=== PATIENT | male | born 1940 | race American Indian/Alaskan Native ===

== ENCOUNTER 2019-06-14 02:12 | Inpatient (IN) | payer MEDICARE ==
[2019-06-14] MEDS ORDERED: NACL 0.9% 1000 ML 1,000 ML ONE ×2 (02:42→02:44)
[2019-06-14] MEDS ORDERED: NACL 0.9% 1000 ML IV ONE (02:43)
--- NOTE | 2019-06-14 02:55 | Emergency Department Report ---
<COLEMAN PATRICK - Last Filed: 06/14/19 05:53> ED General Adult HPI - General Stated complaint: AMS/LOW BP Time Seen by Provider: 06/14/19 02:39 Source: patient, EMS, RN notes reviewed, old records reviewed Mode of arrival: Stretcher Limitations: No Limitations - History of Present Illness Initial comments: Darrion Buchanan is a 48-year-old male history of COPD anemia rheumatoid arthritis and peripheral vascular disease who presents with hypotension and confusion from [facility]. History of bilateral [id number] imitation. He currently is not confused but appears lethargic. He has generalized malaise denies any pain. Denies chest pain, abdominal pain, shortness of breath, cough. He is full code according to documentation from [facility]. Vital signs documented skilled facility prior to transportation from [facility] include temperature 100.2 Fahrenheit blood pressure 82/50 heart rate 117 bpm RR rate 20 -: Sudden, This morning Consistency: constant Improves with: none Worsens with: none Associated Symptoms: malaise - Related Data Home Medications Medication Instructions Recorded Confirmed Last Taken Amino Acids/Protein Hydrolys 30 ml PO BID 10/17/14 06/15/16 10/24/14 09:00 [Pro-Stat Max Liquid Packet] Ascorbic Acid/Ascorbate Gerardo [Fruit 500 mg PO BID 10/17/14 06/15/16 10/24/14 17:00 C-100 Tablet Chewable] Dextran 70/Hypromellose [Ra 1 drop OU PRN PRN 10/17/14 06/15/16 10/24/14 09:00 Lubricant Eye Drops] Ferrous Sulfate [Iron Supplement 325 mg PO DAILY 10/17/14 06/15/16 10/24/14 09:00 325 Mg tab] Furosemide [Lasix TAB] 40 mg PO DAILY 10/17/14 06/15/16 10/24/14 09:00 Multivitamin [Multi-Vitamin Daily] 1 tab PO DAILY 10/17/14 06/15/16 10/24/14 09:00 Ondansetron [Zofran TAB] 4 mg PO PRN PRN 10/17/14 06/15/16 Unknown Promethazine [Phenergan] 25 mg PO PRN PRN 10/17/14 06/15/16 Unknown Rivaroxaban [Xarelto] 20 mg PO QHS 10/17/14 06/15/16 10/23/14 09:00 Sennosides/Docusate Sodium [[facility] 1 tab PO BID 10/17/14 06/15/16 10/24/14 17:00 Senna Plus Tablet] Previous Rx's Medication Instructions Recorded Last Taken Type HYDROcodone/APAP 10-325 [[place] 1 tab PO QHS PRN #20 tablet 06/29/16 Unknown Rx 10-325 mg TAB] Allergies Allergy/AdvReac Type Severity Reaction Status Date / Time No Known Allergies Allergy Verified 10/17/14 10:49 ED Review of Systems Comment: All other systems reviewed and negative Constitutional: malaise Respiratory: denies: cough, shortness of breath Cardiovascular: denies: chest pain Gastrointestinal: denies: abdominal pain, nausea, vomiting, diarrhea ED Past Medical Hx - Past Medical History Previous Medical History?: Yes Hx Hypertension: Yes Hx Heart Attack/AMI: No Hx Deep Vein Thrombosis: Yes Hx GERD: Yes Hx Liver Disease: No Hx Renal Disease: No Hx Sickle Cell Disease: No Hx Arthritis: Yes Hx Seizures: No Hx Asthma: No Hx COPD: No Additional medical history: venous insufficiency, gout - Surgical History Additional Surgical History: Left above knee amputation - Social History Smoking Status: Current Every Day Smoker - Medications Home Medications: Home Medications Medication Instructions Recorded Confirmed Last Taken Type Amino Acids/Protein Hydrolys 30 ml PO BID 10/17/14 06/15/16 10/24/14 09:00 History [Pro-Stat Max Liquid Packet] Ascorbic Acid/Ascorbate Gerardo [Fruit 500 mg PO BID 10/17/14 06/15/16 10/24/14 17:00 History C-100 Tablet Chewable] Dextran 70/Hypromellose [Ra 1 drop OU PRN PRN 10/17/14 06/15/16 10/24/14 09:00 History Lubricant Eye Drops] Ferrous Sulfate [Iron Supplement 325 mg PO DAILY 10/17/14 06/15/16 10/24/14 09:00 History 325 Mg tab] Furosemide [Lasix TAB] 40 mg PO DAILY 10/17/14 06/15/16 10/24/14 09:00 History Multivitamin [Multi-Vitamin Daily] 1 tab PO DAILY 10/17/14 06/15/16 10/24/14 09:00 History Ondansetron [Zofran TAB] 4 mg PO PRN PRN 10/17/14 06/15/16 Unknown History Promethazine [Phenergan] 25 mg PO PRN PRN 10/17/14 06/15/16 Unknown History Rivaroxaban [Xarelto] 20 mg PO QHS 10/17/14 06/15/16 10/23/14 09:00 History Sennosides/Docusate Sodium [[facility] 1 tab PO BID 10/17/14 06/15/16 10/24/14 17:00 History Senna Plus Tablet] HYDROcodone/APAP 10-325 [[place] 1 tab PO QHS PRN #20 tablet 06/29/16 Unknown Rx 10-325 mg TAB] ED Physical Exam - General General appearance: lethargic, other (GCS 15 but appears drowsy) - Head Head exam: Present: atraumatic, normocephalic - Eye Eye exam: Absent: conjunctival injection - ENT ENT exam: Present: mucous membranes dry - Neck Neck exam: Present: normal inspection, full ROM. Absent: tenderness, meningismus - Respiratory Respiratory exam: Present: decreased breath sounds. Absent: respiratory distress, wheezes, rales, rhonchi, accessory muscle use - Cardiovascular Cardiovascular Exam: Present: normal rhythm, tachycardia, normal heart sounds. Absent: rubs, gallop - GI/Abdominal GI/Abdominal exam: Present: soft, normal bowel sounds. Absent: distended, tenderness, guarding, rebound - Rectal Rectal exam: Present: normal inspection, normal rectal tone, other (greenish brown stool without gross blood) - Extremities Exam Extremities exam: Present: other (bilateral [id number] amputation) - Neurological Exam Neurological exam: Present: alert, oriented X3 - Psychiatric Psychiatric exam: Present: normal mood, flat affect - Skin Skin exam: Present: warm, dry, intact, normal color. Absent: rash - Central Line Placement Right IJ Consent Obtained: emergent situation Time Out Performed: Yes Patient Placed on Monitor/Pulse Ox: Yes MD Prep: mask, gown, gloves, other (drape cap) Central Line Prep: Chlorhexidine scrub, sterile drapes applied Local Anesthesia Used: Lidocaine 1% Amount of Anesthesia Used (mls): 3 Ultrasound Used for Placement: Yes Central Line Lumen Inserted: triple Bloods Obtained for Lab: Yes Central Line Position: good blood return, all ports aspirated, flus, sutured in place with nyl Dressing Applied: Tegaderm Post Procedure X-Ray: tip of catheter in good p Patient Tolerated Procedure: well Complications: none - Intubation Time Out Performed: Yes Sedative: Etomidate Mg Given: 20 Paralytic: Rocuronium Mg Given: 70 Laryngoscope: fiberoptic video scope Size: 4 ET Tube Size: 7.5 Tube Secured Depth (cm): 22 Tube Secured Location: lips Tube Placement Confirmation: visualized tube passing t, equal breath sounds bilat, no breath sounds over epi Patient Tolerated Procedure: well Intubation Complications: none Additional Comments: anticipate difficult intubation with severe flexion of neck with hx of RA, required glidoscope, was unable to extend at neck in spite paralysis ED Medical Decision Making - Lab Data Result diagrams: 06/14/19 04:30 06/14/19 03:10 Laboratory Results - last 24 hr 06/14/19 06/14/19 06/14/19 02:49 03:10 03:10 WBC RBC Hgb Hct MCV MCH MCHC RDW Plt Count POC ABG pH POC ABG pCO2 POC ABG HCO3 POC ABG Total CO2 POC ABG O2 Sat POC ABG Base Excess FiO2 Sodium 139 Potassium 3.5 L Chloride 104.4 Carbon Dioxide 20 L Anion Gap 18 BUN 18 Creatinine 0.7 L Estimated GFR > 60 BUN/Creatinine Ratio 26 Glucose 107 H POC Glucose 117 H Lactic Acid 2.60 H* Calcium 8.4 Total Bilirubin 0.50 AST 19 ALT 11 Alkaline Phosphatase 78 Troponin T 0.979 H* Total Protein 7.2 Albumin 3.0 L Albumin/Globulin Ratio 0.7 Triglycerides 74 Cholesterol 112 LDL Cholesterol Direct 76 HDL Cholesterol 30 L Cholesterol/HDL Ratio 3.73 Urine Color Urine Turbidity Urine pH Ur Specific [place] Urine Protein Urine Glucose (UA) Urine Ketones Urine Blood Urine Nitrite Ur Reducing Substances Urine Bilirubin Urine Ictotest Urine Urobilinogen Ur Leukocyte Esterase Urine WBC (Auto) Urine RBC (Auto) U Epithel Cells (Auto) Urine Mucus 06/14/19 06/14/19 06/14/19 04:30 04:30 04:35 WBC 11.9 H RBC 3.22 L Hgb 9.5 L Hct 28.9 L MCV 90 MCH 30 MCHC 33 RDW 15.0 Plt Count 238 POC ABG pH POC ABG pCO2 POC ABG HCO3 POC ABG Total CO2 POC ABG O2 Sat POC ABG Base Excess FiO2 Sodium Potassium Chloride Carbon Dioxide Anion Gap BUN Creatinine Estimated GFR BUN/Creatinine Ratio Glucose POC Glucose Lactic Acid 1.30 Calcium Total Bilirubin AST ALT Alkaline Phosphatase Troponin T Total Protein Albumin Albumin/Globulin Ratio Triglycerides Cholesterol LDL Cholesterol Direct HDL Cholesterol Cholesterol/HDL Ratio Urine Color Gabbie Urine Turbidity Cloudy Urine pH 5.0 Ur Specific [place] 1.020 Urine Protein 100 mg/dl Urine Glucose (UA) Neg Urine Ketones Neg Urine Blood Neg Urine Nitrite Neg Ur Reducing Substances Not Reportable Urine Bilirubin Neg Urine Ictotest Not Reportable Urine Urobilinogen < 2.0 Ur Leukocyte Esterase Tr Urine WBC (Auto) 8.0 H Urine RBC (Auto) 6.0 U Epithel Cells (Auto) 1.0 Urine Mucus 2+ 06/14/19 05:02 WBC RBC Hgb Hct MCV MCH MCHC RDW Plt Count POC ABG pH 7.314 L POC ABG pCO2 37.7 POC ABG HCO3 19.2 POC ABG Total CO2 20 POC ABG O2 Sat 100 POC ABG Base Excess -7 FiO2 100 Sodium Potassium Chloride Carbon Dioxide Anion Gap BUN Creatinine Estimated GFR BUN/Creatinine Ratio Glucose POC Glucose Lactic Acid Calcium Total Bilirubin AST ALT Alkaline Phosphatase Troponin T Total Protein Albumin Albumin/Globulin Ratio Triglycerides Cholesterol LDL Cholesterol Direct HDL Cholesterol Cholesterol/HDL Ratio Urine Color Urine Turbidity Urine pH Ur Specific [place] Urine Protein Urine Glucose (UA) Urine Ketones Urine Blood Urine Nitrite Ur Reducing Substances Urine Bilirubin Urine Ictotest Urine Urobilinogen Ur Leukocyte Esterase Urine WBC (Auto) Urine RBC (Auto) U Epithel Cells (Auto) Urine Mucus - EKG Data 06/14/19 03:16 EKG obtained 0301 Sinus rhythm rate 90 bpm prolonged TX interval widened QRS right bundle-branch block repolarization abnormality ST elevation in leads V1 and V2, comparable to EKG obtained 06/15/2016 - Radiology Data Radiology results: report reviewed cxr: ETT in place no acute findings - Medical Decision Making Mr. Buchanan presents with hypotension presumed septic shock. Resuscitated with fluid and antibiotics initially. Contacted Dr. Xiong for repolarization abnormality on EKG Dr. Xiong did not see evidence of STEMI without reciprocal changes. EKG is similar in morphology to EKG obtained 06/15/2016 Mr. Buchanan continued to have severe hypotension in spite IVF 30 ml/kg NS and broad spectrum antibiotics. With worsening lethargy, RSI performed for airway protection and anticipation of progression of septic shock. CVL placement. Bran catheter inserted after intubation. Gross examination of purulent, dense urine. Levophed initiated. UA results does not correspond to gross examination of urine in bran tubing: cloudy urine with sediment obvious, strong suspect UTI Septic shock vs cardiogenic shock NSTEMI with elevated troponin, possible type II NSTEMI in setting of shock Awaiting CT angio r/o PE, ct abd/pelvis r/o source of sepsis My colleague will f/u results of imaging prior to admission to ICU in critical condition Critical Care Time: Yes Critical care time in (mins) excluding proc time.: 40 Critical care attestation.: I came to the bedside immediately upon arrival. I was concerned for septic shock with documentation of fever hypotension and tachycardia. I directed resuscitation including broad-spectrum antibiotics and IV fluid therapy. ED Disposition Clinical Impression: Septic shock, NSTEMI (non-ST elevated myocardial infarction), Acute metabolic encephalopathy, UTI (urinary tract infection) Disposition: OP ADMIT IP TO THIS HOSP Is pt being admited?: Yes Condition: Stable Referrals: JOSEPH BROWNCORPUS CHRISTI MD MIRANDA [Primary Care Provider] - 3-5 Days <REG HOWARD - Last Filed: 06/14/19 08:22> ED Review of Systems ROS: Stated complaint: AMS/LOW BP Other details as noted in HPI ED Course Vital Signs 06/14/19 06/14/19 06/14/19 02:34 02:35 02:40 Temperature Pulse Rate 111 H 106 H 105 H Respiratory 21 13 22 Rate Blood Pressure 70/48 79/25 Blood Pressure [Right] O2 Sat by Pulse 88 97 97 Oximetry 06/14/19 06/14/19 06/14/19 02:46 02:47 02:50 Temperature 98.9 F Pulse Rate 98 H 96 H Respiratory 16 12 Rate Blood Pressure 70/48 56/23 Blood Pressure [Right] O2 Sat by Pulse 95 95 Oximetry 06/14/19 06/14/19 06/14/19 02:55 03:00 03:11 Temperature 98.9 F Pulse Rate 102 H 95 H 72 Respiratory 16 14 Rate Blood Pressure 58/34 84/17 Blood Pressure 95/43 [Right] O2 Sat by Pulse 97 96 Oximetry 06/14/19 06/14/19 06/14/19 03:14 03:18 03:20 Temperature Pulse Rate 72 73 77 Respiratory Rate Blood Pressure Blood Pressure 65/38 78/11 61/37 [Right] O2 Sat by Pulse Oximetry 06/14/19 06/14/19 06/14/19 03:23 03:26 03:29 Temperature Pulse Rate 72 71 72 Respiratory Rate Blood Pressure Blood Pressure 62/39 57/42 53/35 [Right] O2 Sat by Pulse Oximetry 06/14/19 06/14/19 06/14/19 05:10 05:15 05:20 Temperature Pulse Rate 116 H 101 H 102 H Respiratory 20 22 22 Rate Blood Pressure 75/48 128/72 128/72 Blood Pressure [Right] O2 Sat by Pulse 100 Oximetry 06/14/19 06/14/19 06/14/19 05:26 05:30 05:36 Temperature Pulse Rate 103 H 104 H 102 H Respiratory 19 16 19 Rate Blood Pressure 128/72 113/79 113/79 Blood Pressure [Right] O2 Sat by Pulse Oximetry 06/14/19 06/14/19 06/14/19 05:40 05:46 05:50 Temperature Pulse Rate 102 H 98 H 102 H Respiratory 14 16 20 Rate Blood Pressure 113/79 119/68 119/68 Blood Pressure [Right] O2 Sat by Pulse Oximetry 06/14/19 06/14/19 06/14/19 06:00 06:30 07:19 Temperature Pulse Rate 100 H 102 H 75 Respiratory 16 23 Rate Blood Pressure 119/68 107/53 100/61 Blood Pressure [Right] O2 Sat by Pulse 100 Oximetry 06/14/19 07:34 Temperature Pulse Rate 82 Respiratory 20 Rate Blood Pressure Blood Pressure 116/60 [Right] O2 Sat by Pulse 100 Oximetry - Consultations Consultation #1: 06/14/19 08:05 surgery paged ED Medical Decision Making - Lab Data Result diagrams: 06/14/19 04:30 06/14/19 03:10 Critical care attestation.: If time is entered above; I have spent that time in minutes in the direct care of this critically ill patient, excluding procedure time. ED Disposition Time of Disposition: 08:21 (Hospitalist notified (Dr Santos))
[2019-06-14] MEDS ORDERED: VANCOMYCIN PHARMACY TO DOSE IV SCH (03:00)
[2019-06-14] MEDS ORDERED: VANCOMYCIN/NS 1 GM/250 ML 1 GM/250 ML BAG IV ONE (03:00)
[2019-06-14] MEDS ORDERED: NACL 0.9% 500 ML 500 ML IV ONE (03:17)
--- NOTE | 2019-06-14 03:24 | XRay Report ---
CHEST 1 VIEW 06/14/2019 2:57 AM INDICATION / CLINICAL INFORMATION: fever hypotension. COMPARISON: 06/15/16 FINDINGS: SUPPORT DEVICES: None. HEART / MEDIASTINUM: No significant abnormality. LUNGS / PLEURA: Right hemidiaphragm is slightly elevated. No acute air space disease. No pneumothorax . ADDITIONAL FINDINGS: Metallic pellet projects over the lower right hemithorax, unchanged. IMPRESSION: 1. No acute findings. No significant change. Signer Name: Ajith Pappas MD Signed: 06/14/2019 3:20 AM Workstation Name: [id number]
[2019-06-14] MEDS ORDERED: MAXIPIME/NS 2 GM/100 ML 2 GM/100 ML BAG IV ONE (03:27)
[2019-06-14] MEDS ORDERED: ZEMURON IV ONE (03:36)
[2019-06-14] MEDS ORDERED: VASELINE LIP THERAPY TP PRN (03:45)
[2019-06-14] MEDS ORDERED: ARTIFICIAL TEARS OPHTH OINT OU PRN (03:45)
[2019-06-14] MEDS ORDERED: VERSED IV PRN (03:45)
[2019-06-14] MEDS ORDERED: MIDAZOLAM 100 MG in NACL 0.9% 80 ML IV SCH (04:00)
[2019-06-14 04:01] LABS: Alanine Aminotransferase 11 units/L (7-56); BUN/Creatinine Ratio 26; Blood Urea Nitrogen 18 mg/dL (9-20); Calcium 8.4 mg/dL (8.4-10.2); Hemolysis Index 15
--- NOTE | 2019-06-14 04:22 | XRay Report ---
CHEST 1 VIEW 06/14/2019 4:03 AM INDICATION / CLINICAL INFORMATION: intubation. COMPARISON: 2:57 AM FINDINGS: SUPPORT DEVICES: Endotracheal tube has been placed with the tip 4.7 cm above the jun in expected p osition. Esophagogastric tube has been placed below the diaphragm into the stomach. HEART / MEDIASTINUM: Stable. LUNGS / PLEURA: No significant pulmonary or pleural abnormality. No pneumothorax. ADDITIONAL FINDINGS: No significant additional findings. IMPRESSION: 1. ET tube in expected position. Signer Name: Ajith Pappas MD Signed: 06/14/2019 4:18 AM Workstation Name: [id number]
[2019-06-14] MEDS: LEVOPHED DRIP 4 MG/NS 250 ML 4 MG/250 ML BAG IV SCH ×3 (04:40→23:08)
[2019-06-14] MEDS ORDERED: LEVOPHED DRIP 4 MG/NS 250 ML 4 MG/250 ML BAG IV ONE (04:43)
[2019-06-14 04:44] LABS: Chol/HDL Ratio 3.73 %; HDL Cholesterol 30 mg/dL (40-59); LDL Cholesterol,Direct 76 mg/dL (50-130)
[2019-06-14 04:47] LABS: Hematocrit 28.9 % (35.5-45.6); Hemoglobin 9.5 gm/dl (11.8-15.2); Mean Corpuscular HGB Conc 33 % (32-34); Mean Corpuscular Volume 90 fl (84-94); Platelet Count 238 K/mm3 (140-440); Red Blood Count 3.22 M/mm3 (3.65-5.03)
[2019-06-14] MEDS ORDERED: ASPIRIN PR ONE (04:49)
[2019-06-14 05:04] LABS: Mucus,Urine 2+ /HPF
[2019-06-14 05:17] LABS: Bilirubin,Urine NEG (Negative); Blood,Urine NEG (Negative); Color,Urine Amber (Yellow); Urobilinogen,Urine < 2.0 mg/dL (<2.0)
[2019-06-14 05:54] LABS: INR 1.35 (0.87-1.13)
[2019-06-14 05:55] LABS: Partial Thromboplastin Time 34.7 Sec. (24.2-36.6)
[2019-06-14] MEDS ORDERED: MAXIPIME/NS 2 GM/100 ML 2 GM/100 ML BAG IV SCH ×2 (06:00)
--- NOTE | 2019-06-14 07:30 | Cat Scan Report ---
CTA CHEST WITH CONTRAST INDICATION / CLINICAL INFORMATION: hypotension severe shock. TECHNIQUE: Axial CT images were obtained through the chest after injection of 100 MLO Omnipaque 350 IV contrast. 3 plane MIP and/or 3D reconstructions were produced. All CT scans at this location are performed usi ng CT dose reduction for ALARA by means of automated exposure control. COMPARISON: None available. FINDINGS: PULMONARY ARTERIES: No pulmonary emboli. THORACIC AORTA: No significant abnormality. HEART: Heart is of normal size and stable. No pericardial effusion. CORONARY ARTERIES: Mild coronary artery calcification. MEDIASTINUM / GITA: No significant abnormality. PLEURA: No pleural effusion. No pneumothorax. LUNGS: Mild bibasilar atelectasis. No acute airspace disease. ADDITIONAL FINDINGS: Endotracheal and esophagogastric tubes are in expected position. Small sliding-t ype hiatal hernia containing small amount of fluid. UPPER ABDOMEN: No acute findings. SKELETAL STRUCTURES: No significant osseous abnormality. IMPRESSION: 1. No CT evidence for pulmonary embolism. 2. Mild bibasilar atelectasis but no acute pulmonary or pleural abnormality. 3. Hiatal hernia containing fluid. Esophagogastric tube in place. Signer Name: Ajith Pappas MD Signed: 06/14/2019 7:26 AM Workstation Name: [id number]
--- NOTE | 2019-06-14 07:49 | Cat Scan Report ---
CT HEAD WITHOUT CONTRAST HISTORY: lethargy. Altered mental status. Intubated patient TECHNIQUE: Axial imaging performed from the skull apex through the skull base without the use of con trast. All CT scans at this location are performed using CT dose reduction for ALARA by means of aut omated exposure control. COMPARISON: None FINDINGS: Parenchyma: No acute intracranial hemorrhage or parenchymal abnormality.. Mild hypoattenuation thro ughout the white matter is noted and consistent with chronic microvascular ischemic disease. No chron ic infarct, mass or mass effect. No extra-axial fluid collection. Ventricles: There is mild diffuse brain atrophy with commensurate ventricular enlargement which is l ikely age appropriate. Soft tissues: Soft tissues including the orbits appear normal. Bones: No acute osseous abnormality. Sinuses: There is moderate mucosal thickening or fluid throughout the ethmoid and frontal sinuses. M inimal mucosal thickening in the sphenoid and maxillary sinuses. The mastoid air cells are clear. IMPRESSION: Essentially normal CT brain for age. Mild diffuse cortical volume loss and mild nonspecif ic chronic white matter changes. Sinus disease, likely chronic. Signer Name: Jay Max Jr, MD Signed: 06/14/2019 7:45 AM Workstation Name: [id number]
--- NOTE | 2019-06-14 08:18 | Cat Scan Report ---
CT ABDOMEN AND PELVIS WITH CONTRAST HISTORY: severe shock hypotension. Patient intubated. COMPARISON: 06/15/2016 TECHNIQUE: Axial CT images were obtained through the abdomen and pelvis after 100 cc of Omnipaque 300 intravenously. Sagittal and coronal reformatted images. All CT scans at this location are performed using CT dose reduction for ALARA by means of automated exposure control. FINDINGS: CT ABDOMEN: Lung Bases: Mild chronic interstitial changes at the lung bases. No infiltrate or effusion. Moderate hiatal hernia is again noted. Liver: No significant abnormality. Biliary: There is moderate diffuse gallbladder wall thickening and edema. No evidence for calcified g allstones or abnormal distention. The common bile duct and intrahepatic ducts are within normal limit s. Spleen: No significant abnormality. Unenlarged. Pancreas: No significant abnormality. Adrenals: No significant abnormality. Kidneys: There is a suspicious 1.8 cm heterogeneous masslike lesion at the inferior pole of the left kidney. In retrospect this was suggested on the previous exam and measured 1.3 cm. The etiology of th is is unclear but it does not appear to represent a simple cyst. Consider ultrasound correlation. The right kidney is unremarkable. The ureters are normal course and caliber. Lymphatics: No lymphadenopathy. Vasculature: Moderate diffuse arterial calcifications. No aneurysm. Bowel/Peritoneum: Partial small bowel obstruction pattern and left inguinal hernia have resolved sinc e the previous exam. There is no evidence for bowel obstruction on today's exam. The appendix is prom inent measuring 1.5 cm in diameter. There appears to be a 2.4 cm fluid collection associated with the distal tip of the appendix. A small periappendiceal abscess is difficult to exclude. There is no lakhwinder dence for free air. Please correlate with the patient's clinical presentation. CT PELVIS: : The bladder is partially decompressed with a Flores catheter. Mild diffuse bladder wall thickening is identified which could represent cystitis or trabeculation of the bladder wall. The prostate glan d is mildly enlarged measuring 5.5 cm in diameter. Osseous Structures: Severe osteopenia is evident. No acute fracture or suspicious bony lesion is iden tified. Additional Findings: There is small perihepatic, perisplenic and pelvic ascites. IMPRESSION: Abnormal appearance of the gallbladder and appendix as outlined above. Correlate for gallbladder symp toms and appendicitis. Cystitis could be considered. Suspicious 1.8 cm left renal lesion as described above. Further imaging is recommended. Severe osteopenia. Signer Name: Jay Max Jr, MD Signed: 06/14/2019 8:13 AM Workstation Name: [id number]
[2019-06-14 08:23] LABS: Band Neutrophils # (Manual) 2.1 K/mm3; Basophils % (Manual) 0 % (0.0-1.8); Eosinophils % (Manual) 0 % (0.0-4.3); Total Cells Counted 100
[2019-06-14 08:25] LABS: Burr Cells Rare; Ovalocytes Rare
[2019-06-14 08:26] LABS: Anisocytosis RARE; Large Platelets Rare; Platelet Estimate Consistent w Auto
--- NOTE | 2019-06-14 08:32 | History and Physical Report ---
History of Present Illness Chief complaint: Confusion and hypotension History of present illness: 78-year-old man who presents from detention. He was brought from [facility] for confusion and lethargy, he was also found to have temperature of 100.2 and blood pressure of 82/50 heart rate of 117 at the detention. There is no other history as the patient is confused and history is limited from detention reports charts and ER. Patient became progressively lethargic and could not protect airway therefore was intubated for airway protection in the ER Past History Past Medical History: severe peripheral vascular disease s/p left AKA and right BKA, hypertension, DVT on anticoagulation,hypertension, GERD, arthritis, venous insufficiency, gout Past Surgical History: Other (R bka and L aka) Social history: full code. previous smoker, no reported hx of smoking, alcohol abuse, prescription drug abuse, IV drug use Family history: hypertension Medications and Allergies Allergies Allergy/AdvReac Type Severity Reaction Status Date / Time No Known Allergies Allergy Verified 10/17/14 10:49 Home Medications Medication Instructions Recorded Confirmed Last Taken Type Amino Acids/Protein Hydrolys 30 ml PO BID 10/17/14 06/15/16 10/24/14 09:00 History [Pro-Stat Max Liquid Packet] Ascorbic Acid/Ascorbate Gerardo [Fruit 500 mg PO BID 10/17/14 06/15/16 10/24/14 17:00 History C-100 Tablet Chewable] Dextran 70/Hypromellose [Ra 1 drop OU PRN PRN 10/17/14 06/15/16 10/24/14 09:00 History Lubricant Eye Drops] Ferrous Sulfate [Iron Supplement 325 mg PO DAILY 10/17/14 06/15/16 10/24/14 09:00 History 325 Mg tab] Furosemide [Lasix TAB] 40 mg PO DAILY 10/17/14 06/15/16 10/24/14 09:00 History Multivitamin [Multi-Vitamin Daily] 1 tab PO DAILY 10/17/14 06/15/16 10/24/14 09:00 History Ondansetron [Zofran TAB] 4 mg PO PRN PRN 10/17/14 06/15/16 Unknown History Promethazine [Phenergan] 25 mg PO PRN PRN 10/17/14 06/15/16 Unknown History Rivaroxaban [Xarelto] 20 mg PO QHS 10/17/14 06/15/16 10/23/14 09:00 History Sennosides/Docusate Sodium [Cvs 1 tab PO BID 10/17/14 06/15/16 10/24/14 17:00 History Senna Plus Tablet] HYDROcodone/APAP 10-325 [[place] 1 tab PO QHS PRN #20 tablet 06/29/16 Unknown Rx 10-325 mg TAB] Active Meds: Active Medications Acetaminophen (Tylenol) 650 mg PO Q4H PRN PRN Reason: Pain MILD(1-3)/Fever >100.5/[place] Enoxaparin Sodium (Lovenox) 40 mg SUB-Q QDAY@2200 HAL Hydrophilic Ointment (Vaseline Lip Therapy) 1 applic TP Q2HR PRN PRN Reason: Dry Lips Midazolam HCl 100 mg/ Sodium (Chloride) 100 mls @ 2 mls/hr IV TITR HAL; Protocol Last Titration: 06/14/19 08:16 Dose: 3 mg/hr, 3 mls/hr Documented by: Norepinephrine (Levophed Drip 4 Mg/Ns 250 Ml) 4 mg in 250 mls @ 7.5 mls/hr IV TITR HAL; Protocol Last Titration: 06/14/19 05:54 Dose: 6 mcg/min, 22.5 mls/hr Documented by: Vancomycin HCl (Vancomycin/Ns 1 Gm/250 Ml) 1 gm in 250 mls @ 166.667 mls/hr IV Q24H HAL Cefepime HCl (Maxipime/Ns 2 Gm/100 Ml) 2 gm in 100 mls @ 200 mls/hr IV Q12HR HAL; Protocol Sodium Chloride (Nacl 0.9% 1000 Ml) 1,000 mls @ 125 mls/hr IV DIRECT HAL Potassium Chloride 40 meq/ (Sodium Chloride) 520 mls @ 125 mls/hr IV DIRECT HAL Stop: 06/14/19 12:40 Midazolam HCl (Versed) 2 mg IV Q10MIN PRN PRN Reason: Sedation Last Admin: 06/14/19 05:06 Dose: 2 mg Documented by: Multi-Ingred Cream/Lotion/Oil/Oint (Artificial Tears Ophth Oint) 1 applic OU Q4HR PRN PRN Reason: Dry Eye(s) Ondansetron HCl (Zofran) 4 mg IV Q8H PRN PRN Reason: Nausea And Vomiting Sodium Chloride (Sodium Chloride Flush Syringe 10 Ml) 10 ml IV BID HAL Sodium Chloride (Sodium Chloride Flush Syringe 10 Ml) 10 ml IV PRN PRN PRN Reason: LINE FLUSH Review of Systems ROS unobtainable: due to mental status Exam - Physical Exam Narrative exam: General.: Appears ill, obtunded, intubated HEENT: Moist mucous membranes, extraocular muscles intact, no lymphadenopathy Neck: supple Cardiac: S1-S2 heard Lungs: Ventilated breath sounds, no crackles Abdomen: soft , not distended Extremities: no edema clubbing or cyanosis Skin: no rash or lesions Neurologic: Intubated, obtunded, not on sedation Psych: Obtunded - Constitutional Vitals: Temp Pulse Resp BP Pulse Ox 98.9 F 78 18 119/76 100 06/14/19 03:11 06/14/19 08:22 06/14/19 08:22 06/14/19 08:22 06/14/19 08:22 Results - Labs CBC & Chem 7: 06/14/19 04:30 06/14/19 03:10 Labs: Laboratory Last Values WBC 11.9 K/mm3 (4.5-11.0) H 06/14/19 04:30 RBC 3.22 M/mm3 (3.65-5.03) L 06/14/19 04:30 Hgb 9.5 gm/dl (11.8-15.2) L 06/14/19 04:30 Hct 28.9 % (35.5-45.6) L 06/14/19 04:30 MCV 90 fl (84-94) 06/14/19 04:30 MCH 30 pg (28-32) 06/14/19 04:30 MCHC 33 % (32-34) 06/14/19 04:30 RDW 15.0 % (13.2-15.2) 06/14/19 04:30 Plt Count 238 K/mm3 (140-440) 06/14/19 04:30 Add Manual Diff Complete 06/14/19 04:30 Total Counted 100 06/14/19 04:30 Seg Neuts % (Manual) 70.0 % (40.0-70.0) 06/14/19 04:30 Band Neutrophils % 18.0 % 06/14/19 04:30 Lymphocytes % (Manual) 8.0 % (13.4-35.0) L 06/14/19 04:30 Reactive Lymphs % (Man) 0 % 06/14/19 04:30 Monocytes % (Manual) 4.0 % (0.0-7.3) 06/14/19 04:30 Eosinophils % (Manual) 0 % (0.0-4.3) 06/14/19 04:30 Basophils % (Manual) 0 % (0.0-1.8) 06/14/19 04:30 Metamyelocytes % 0 % 06/14/19 04:30 Myelocytes % 0 % 06/14/19 04:30 Promyelocytes % 0 % 06/14/19 04:30 Blast Cells % 0 % 06/14/19 04:30 Nucleated RBC % Not Reportable 06/14/19 04:30 Seg Neutrophils # Man 8.3 K/mm3 (1.8-7.7) H 06/14/19 04:30 Band Neutrophils # 2.1 K/mm3 06/14/19 04:30 Lymphocytes # (Manual) 1.0 K/mm3 (1.2-5.4) L 06/14/19 04:30 Abs React Lymphs (Man) 0.0 K/mm3 06/14/19 04:30 Monocytes # (Manual) 0.5 K/mm3 (0.0-0.8) 06/14/19 04:30 Eosinophils # (Manual) 0.0 K/mm3 (0.0-0.4) 06/14/19 04:30 Basophils # (Manual) 0.0 K/mm3 (0.0-0.1) 06/14/19 04:30 Metamyelocytes # 0.0 K/mm3 06/14/19 04:30 Myelocytes # 0.0 K/mm3 06/14/19 04:30 Promyelocytes # 0.0 K/mm3 06/14/19 04:30 Blast Cells # 0.0 K/mm3 06/14/19 04:30 WBC Morphology Not Reportable 06/14/19 04:30 Hypersegmented Neuts Not Reportable 06/14/19 04:30 Hyposegmented Neuts Not Reportable 06/14/19 04:30 Hypogranular Neuts Not Reportable 06/14/19 04:30 Smudge Cells Not Reportable 06/14/19 04:30 Toxic Granulation Not Reportable 06/14/19 04:30 Toxic Vacuolation Not Reportable 06/14/19 04:30 Dohle Bodies Not Reportable 06/14/19 04:30 Pelger-Huet Anomaly Not Reportable 06/14/19 04:30 Raymundo Rods Not Reportable 06/14/19 04:30 Platelet Estimate Consistent w auto 06/14/19 04:30 Clumped Platelets Not Reportable 06/14/19 04:30 Plt Clumps, EDTA Not Reportable 06/14/19 04:30 Large Platelets Rare 06/14/19 04:30 Giant Platelets Not Reportable 06/14/19 04:30 Platelet Satelliting Not Reportable 06/14/19 04:30 Plt Morphology Comment Not Reportable 06/14/19 04:30 RBC Morphology Not Reportable 06/14/19 04:30 Dimorphic RBCs Not Reportable 06/14/19 04:30 Polychromasia Not Reportable 06/14/19 04:30 Hypochromasia Not Reportable 06/14/19 04:30 Poikilocytosis Not Reportable 06/14/19 04:30 Anisocytosis Rare 06/14/19 04:30 Microcytosis Not Reportable 06/14/19 04:30 Macrocytosis Not Reportable 06/14/19 04:30 Spherocytes Not Reportable 06/14/19 04:30 Pappenheimer Bodies Not Reportable 06/14/19 04:30 Sickle Cells Not Reportable 06/14/19 04:30 Target Cells Not Reportable 06/14/19 04:30 Tear Drop Cells Not Reportable 06/14/19 04:30 Ovalocytes Rare 06/14/19 04:30 Helmet Cells Not Reportable 06/14/19 04:30 Hardy-Nocona Bodies Not Reportable 06/14/19 04:30 [place] Rings Not Reportable 06/14/19 04:30 Davina Cells Rare 06/14/19 04:30 Bite Cells Not Reportable 06/14/19 04:30 Crenated Cell Not Reportable 06/14/19 04:30 Elliptocytes Not Reportable 06/14/19 04:30 Acanthocytes (Spur) Not Reportable 06/14/19 04:30 Rouleaux Not Reportable 06/14/19 04:30 Hemoglobin C Crystals Not Reportable 06/14/19 04:30 Schistocytes Not Reportable 06/14/19 04:30 Malaria parasites Not Reportable 06/14/19 04:30 Paulie Bodies Not Reportable 06/14/19 04:30 Hem Pathologist Commnt No 06/14/19 04:30 PT 16.3 Sec. (12.2-14.9) H 06/14/19 05:28 INR 1.35 (0.87-1.13) H 06/14/19 05:28 APTT 34.7 Sec. (24.2-36.6) 06/14/19 05:28 POC ABG pH 7.314 (7.35-7.45) L 06/14/19 05:02 POC ABG pCO2 37.7 (35-45) 06/14/19 05:02 POC ABG HCO3 19.2 (22-26 mml/L) 06/14/19 05:02 POC ABG Total CO2 20 (23-27mmol/L) 06/14/19 05:02 POC ABG O2 Sat 100 06/14/19 05:02 POC ABG Base Excess -7 ((-2) - (+3)mmol/L) 06/14/19 05:02 FiO2 100 % 06/14/19 05:02 Sodium 139 mmol/L (137-145) 06/14/19 03:10 Potassium 3.5 mmol/L (3.6-5.0) L 06/14/19 03:10 Chloride 104.4 mmol/L (98-107) 06/14/19 03:10 Carbon Dioxide 20 mmol/L (22-30) L 06/14/19 03:10 Anion Gap 18 mmol/L 06/14/19 03:10 BUN 18 mg/dL (9-20) 06/14/19 03:10 Creatinine 0.7 mg/dL (0.8-1.5) L 06/14/19 03:10 Estimated GFR > 60 ml/min 06/14/19 03:10 BUN/Creatinine Ratio 26 % 06/14/19 03:10 Glucose 107 mg/dL (75-100) H 06/14/19 03:10 POC Glucose 117 (70-105) H 06/14/19 02:49 Lactic Acid 1.20 mmol/L (0.7-2.0) 06/14/19 05:28 Calcium 8.4 mg/dL (8.4-10.2) 06/14/19 03:10 Total Bilirubin 0.50 mg/dL (0.1-1.2) 06/14/19 03:10 AST 19 units/L (5-40) 06/14/19 03:10 ALT 11 units/L (7-56) 06/14/19 03:10 Alkaline Phosphatase 78 units/L (35-129) 06/14/19 03:10 Troponin T 0.979 ng/mL (0.00-0.029) H* 06/14/19 03:10 Total Protein 7.2 g/dL (6.3-8.2) 06/14/19 03:10 Albumin 3.0 g/dL (3.9-5) L 06/14/19 03:10 Albumin/Globulin Ratio 0.7 % 06/14/19 03:10 Triglycerides 74 mg/dL (2-149) 06/14/19 03:10 Cholesterol 112 mg/dL (50-199) 06/14/19 03:10 LDL Cholesterol Direct 76 mg/dL (50-130) 06/14/19 03:10 HDL Cholesterol 30 mg/dL (40-59) L 06/14/19 03:10 Cholesterol/HDL Ratio 3.73 % 06/14/19 03:10 Urine Color Gabbie (Yellow) 06/14/19 04:35 Urine Turbidity Cloudy (Clear) 06/14/19 04:35 Urine pH 5.0 (5.0-7.0) 06/14/19 04:35 Ur Specific [place] 1.020 (1.003-1.030) 06/14/19 04:35 Urine Protein 100 mg/dl mg/dL (Negative) 06/14/19 04:35 Urine Glucose (UA) Neg mg/dL (Negative) 06/14/19 04:35 Urine Ketones Neg mg/dL (Negative) 06/14/19 04:35 Urine Blood Neg (Negative) 06/14/19 04:35 Urine Nitrite Neg (Negative) 06/14/19 04:35 Ur Reducing Substances Not Reportable 06/14/19 04:35 Urine Bilirubin Neg (Negative) 06/14/19 04:35 Urine Ictotest Not Reportable 06/14/19 04:35 Urine Urobilinogen < 2.0 mg/dL (<2.0) 06/14/19 04:35 Ur Leukocyte Esterase Tr (Negative) 06/14/19 04:35 Urine WBC (Auto) 8.0 /HPF (0.0-6.0) H 06/14/19 04:35 Urine RBC (Auto) 6.0 /HPF (0.0-6.0) 06/14/19 04:35 U Epithel Cells (Auto) 1.0 /HPF (0-13.0) 06/14/19 04:35 Urine Mucus 2+ /HPF 06/14/19 04:35 Assessment and Plan Assessment and plan: 78-year-old man brought from detention for confusion, lethargy and hypotension. Who was intubated in the ER for airway protection Vitals showed hypotension and tachycardia, which improved with pressors Labs show a white count of 11.9 anemia with hemoglobin of 9.5, potassium 3.5, troponin 0 0.979, UA shows 8 leukocytes Chest x-ray; no acute findings CT abdomen and pelvis abnormal appearance of gallbladder and appendix -Moderate diffuse gallbladder wall thickening and edema Appendix is prominent measuring 1.5 cm, there is a 2.4 cm fluid collection in the distal tip of the appendix There is a suspicious 1.8 cm heterogeneous masslike lesion at the inferior pole of the left kidney, it was 1.3 cm on previous exam CT angiogram chest, no PE, bibasilar atelectasis CT head, essentially normal for age Septic shock IV antibiotics, IV pressors, IV fluids, ID consult, follow-up blood cultures Appendicitis, questionable cholecystitis Surgery consulted keep n.p.o. Acute respiratory failure on mechanical ventilator less than 96 hours, continue ventilator, pulmonary to manage Left renal mass Renal ultrasound Hypokalemia Replete IV DVT prophylaxis with Lovenox The high probability of a clinically significant, sudden or life threatening deterioration of the [pulmonary, CVS, GI, renal] system(s) required my full and direct attention, intervention and personal management. The aggregate critical care time was [55] minutes. This time is in addition to time spent performing reported procedures but includes the following: [] Data Review and interpretation [] Patient assessment and monitoring of vital signs [] Documentation [] Medication orders and management
[2019-06-14] MEDS ORDERED: KCL 40 MEQ in NACL 0.45% 500 ML IV SCH (09:30)
--- NOTE | 2019-06-14 11:22 | Consultation ---
History of Present Illness Consult date: 06/14/19 Requesting physician: HELENA TAYLOR Reason for consult: other (Septic Shock) History of present illness: PULMONARY/CCM CONSULT NOTE (full dictation # [id number]) Please see dictated notes for full details Medications and Allergies Allergies Allergy/AdvReac Type Severity Reaction Status Date / Time No Known Allergies Allergy Verified 10/17/14 10:49 Home Medications Medication Instructions Recorded Confirmed Last Taken Type Amino Acids/Protein Hydrolys 30 ml PO BID 10/17/14 06/15/16 10/24/14 09:00 Histo ry [Pro-Stat Max Liquid Packet] Ascorbic Acid/Ascorbate Gerardo [Fruit 500 mg PO BID 10/17/14 06/15/16 10/24/14 17:00 History C-100 Tablet Chewable] Dextran 70/Hypromellose [Ra 1 drop OU PRN PRN 10/17/14 06/15/16 10/24/14 09:00 History Lubricant Eye Drops] Ferrous Sulfate [Iron Supplement 325 mg PO DAILY 10/17/14 06/15/16 10/24/14 09:00 History 325 Mg tab] Furosemide [Lasix TAB] 40 mg PO DAILY 10/17/14 06/15/16 10/24/14 09:00 History Multivitamin [Multi-Vitamin Daily] 1 tab PO DAILY 10/17/14 06/15/16 10/24/14 09:00 History Ondansetron [Zofran TAB] 4 mg PO PRN PRN 10/17/14 06/15/16 Unknown History Promethazine [Phenergan] 25 mg PO PRN PRN 10/17/14 06/15/16 Unknown History Rivaroxaban [Xarelto] 20 mg PO QHS 10/17/14 06/15/16 10/23/14 09:00 History Sennosides/Docusate Sodium [[facility]vs 1 tab PO BID 10/17/14 06/15/16 10/24/14 17:00 History Senna Plus Tablet] HYDROcodone/APAP 10-325 [[place] 1 tab PO QHS PRN #20 tablet 06/29/16 Unknown Rx 10-325 mg TAB] Active Meds: Active Medications Acetaminophen (Tylenol) 650 mg PO Q4H PRN PRN Reason: Pain MILD(1-3)/Fever >100.5/[place] Enoxaparin Sodium (Lovenox) 40 mg SUB-Q QDAY@2200 HAL Hydrophilic Ointment (Vaseline Lip Therapy) 1 applic TP Q2HR PRN PRN Reason: Dry Lips Midazolam HCl 100 mg/ Sodium (Chloride) 100 mls @ 2 mls/hr IV TITR HAL; Protocol Last Titration: 06/14/19 08:16 Dose: 3 mg/hr, 3 mls/hr Documented by: Norepinephrine (Levophed Drip 4 Mg/Ns 250 Ml) 4 mg in 250 mls @ 7.5 mls/hr IV TITR HAL; Protocol Last Titration: 06/14/19 05:54 Dose: 6 mcg/min, 22.5 mls/hr Documented by: Vancomycin HCl (Vancomycin/Ns 1 Gm/250 Ml) 1 gm in 250 mls @ 166.667 mls/hr IV Q24H HAL Cefepime HCl (Maxipime/Ns 2 Gm/100 Ml) 2 gm in 100 mls @ 200 mls/hr IV Q12HR HAL; Protocol Sodium Chloride (Nacl 0.9% 1000 Ml) 1,000 mls @ 125 mls/hr IV DIRECT HAL Potassium Chloride 40 meq/ (Sodium Chloride) 520 mls @ 125 mls/hr IV DIRECT HAL Stop: 06/14/19 13:40 Midazolam HCl (Versed) 2 mg IV Q10MIN PRN PRN Reason: Sedation Last Admin: 06/14/19 05:06 Dose: 2 mg Documented by: Multi-Ingred Cream/Lotion/Oil/Oint (Artificial Tears Ophth Oint) 1 applic OU Q4HR PRN PRN Reason: Dry Eye(s) Ondansetron HCl (Zofran) 4 mg IV Q8H PRN PRN Reason: Nausea And Vomiting Sodium Chloride (Sodium Chloride Flush Syringe 10 Ml) 10 ml IV BID HAL Sodium Chloride (Sodium Chloride Flush Syringe 10 Ml) 10 ml IV PRN PRN PRN Reason: LINE FLUSH Physical Examination Vital signs: Vital Signs Pulse Resp Pulse Ox 111 H 21 88 06/14/19 02:34 06/14/19 02:34 06/14/19 02:34 Results - Laboratory Findings CBC and BMP: 06/14/19 04:30 06/14/19 03:10 ABG POC ABG pH 7.314 (7.35-7.45) L 06/14/19 05:02 POC ABG pCO2 37.7 (35-45) 06/14/19 05:02 POC ABG HCO3 19.2 (22-26 mml/L) 06/14/19 05:02 POC ABG Total CO2 20 (23-27mmol/L) 06/14/19 05:02 POC ABG O2 Sat 100 06/14/19 05:02 PT/INR, D-dimer PT 16.3 Sec. (12.2-14.9) H 06/14/19 05:28 INR 1.35 (0.87-1.13) H 06/14/19 05:28 Abnormal lab findings: Abnormal Labs 06/14/19 06/14/19 06/14/19 02:49 03:10 03:10 WBC RBC Hgb Hct Lymphocytes % (Manual) Seg Neutrophils # Man Lymphocytes # (Manual) PT INR POC ABG pH Potassium 3.5 L Carbon Dioxide 20 L Creatinine 0.7 L Glucose 107 H POC Glucose 117 H Lactic Acid 2.60 H* Troponin T 0.979 H* Albumin 3.0 L HDL Cholesterol 30 L Urine WBC (Auto) 06/14/19 06/14/19 06/14/19 04:30 04:35 05:02 WBC 11.9 H RBC 3.22 L Hgb 9.5 L Hct 28.9 L Lymphocytes % (Manual) 8.0 L Seg Neutrophils # Man 8.3 H Lymphocytes # (Manual) 1.0 L PT INR POC ABG pH 7.314 L Potassium Carbon Dioxide Creatinine Glucose POC Glucose Lactic Acid Troponin T Albumin HDL Cholesterol Urine WBC (Auto) 8.0 H 06/14/19 05:28 WBC RBC Hgb Hct Lymphocytes % (Manual) Seg Neutrophils # Man Lymphocytes # (Manual) PT 16.3 H INR 1.35 H POC ABG pH Potassium Carbon Dioxide Creatinine Glucose POC Glucose Lactic Acid Troponin T Albumin HDL Cholesterol Urine WBC (Auto)
[2019-06-14] MEDS: NACL 0.9% 1000 ML 1,000 ML IV SCH ×2 (11:59→21:46)
[2019-06-14] MEDS: SODIUM CHLORIDE FLUSH SYRINGE 10 ML IV SCH ×2 (11:59→23:42)
--- NOTE | 2019-06-14 12:08 | Consultation ---
History of Present Illness Consult date: 06/14/19 Consult reason: elevated troponin, other (Abnormal ECG) History of present illness: This is a 78-year old with multiple comorbidities including bilateral above-knee amputation who resides in a halfway. He was brought in with altered mental status, hypotension, fever, admitted with sepsis. Currently intubated on the vent and on pressors for support. Chest x-ray shows no acute findings and a chest CTA was negative for pulmonary embolus. 12 lead EKG is sinus rhythm with a right bundle branch block. Medications and Allergies Allergies Allergy/AdvReac Type Severity Reaction Status Date / Time No Known Allergies Allergy Verified 10/17/14 10:49 Home Medications Medication Instructions Recorded Confirmed Last Taken Type Amino Acids/Protein Hydrolys 30 ml PO BID 10/17/14 06/15/16 10/24/14 09:00 History [Pro-Stat Max Liquid Packet] Ascorbic Acid/Ascorbate Gerardo [Fruit 500 mg PO BID 10/17/14 06/15/16 10/24/14 17:00 History C-100 Tablet Chewable] Dextran 70/Hypromellose [Ra 1 drop OU PRN PRN 10/17/14 06/15/16 10/24/14 09:00 History Lubricant Eye Drops] Ferrous Sulfate [Iron Supplement 325 mg PO DAILY 10/17/14 06/15/16 10/24/14 09:00 History 325 Mg tab] Furosemide [Lasix TAB] 40 mg PO DAILY 10/17/14 06/15/16 10/24/14 09:00 History Multivitamin [Multi-Vitamin Daily] 1 tab PO DAILY 10/17/14 06/15/16 10/24/14 09:00 History Ondansetron [Zofran TAB] 4 mg PO PRN PRN 10/17/14 06/15/16 Unknown History Promethazine [Phenergan] 25 mg PO PRN PRN 10/17/14 06/15/16 Unknown History Rivaroxaban [Xarelto] 20 mg PO QHS 10/17/14 06/15/16 10/23/14 09:00 History Sennosides/Docusate Sodium [[facility] 1 tab PO BID 10/17/14 06/15/16 10/24/14 17:00 History Senna Plus Tablet] HYDROcodone/APAP 10-325 [[place] 1 tab PO QHS PRN #20 tablet 06/29/16 Unknown Rx 10-325 mg TAB] Active Meds: Active Medications Acetaminophen (Tylenol) 650 mg PO Q4H PRN PRN Reason: Pain MILD(1-3)/Fever >100.5/[place] Enoxaparin Sodium (Lovenox) 40 mg SUB-Q QDAY@2200 HAL Hydrophilic Ointment (Vaseline Lip Therapy) 1 applic TP Q2HR PRN PRN Reason: Dry Lips Midazolam HCl 100 mg/ Sodium (Chloride) 100 mls @ 2 mls/hr IV TITR HAL; Protocol Last Titration: 06/14/19 08:16 Dose: 3 mg/hr, 3 mls/hr Documented by: Norepinephrine (Levophed Drip 4 Mg/Ns 250 Ml) 4 mg in 250 mls @ 7.5 mls/hr IV TITR HAL; Protocol Last Titration: 06/14/19 05:54 Dose: 6 mcg/min, 22.5 mls/hr Documented by: Vancomycin HCl (Vancomycin/Ns 1 Gm/250 Ml) 1 gm in 250 mls @ 166.667 mls/hr IV Q24H HAL Cefepime HCl (Maxipime/Ns 2 Gm/100 Ml) 2 gm in 100 mls @ 200 mls/hr IV Q12HR HAL; Protocol Sodium Chloride (Nacl 0.9% 1000 Ml) 1,000 mls @ 125 mls/hr IV DIRECT HAL Last Admin: 06/14/19 11:59 Dose: 125 mls/hr Documented by: Potassium Chloride 40 meq/ (Sodium Chloride) 520 mls @ 125 mls/hr IV DIRECT HAL Stop: 06/14/19 13:40 Last Admin: 06/14/19 11:59 Dose: 125 mls/hr Documented by: Midazolam HCl (Versed) 2 mg IV Q10MIN PRN PRN Reason: Sedation Last Admin: 06/14/19 05:06 Dose: 2 mg Documented by: Multi-Ingred Cream/Lotion/Oil/Oint (Artificial Tears Ophth Oint) 1 applic OU Q4HR PRN PRN Reason: Dry Eye(s) Ondansetron HCl (Zofran) 4 mg IV Q8H PRN PRN Reason: Nausea And Vomiting Sodium Chloride (Sodium Chloride Flush Syringe 10 Ml) 10 ml IV BID HAL Last Admin: 06/14/19 11:59 Dose: 10 ml Documented by: Sodium Chloride (Sodium Chloride Flush Syringe 10 Ml) 10 ml IV PRN PRN PRN Reason: LINE FLUSH Physical Examination Vital Signs Pulse Resp Pulse Ox 111 H 21 88 06/14/19 02:34 06/14/19 02:34 06/14/19 02:34 General appearance: other (intubated on the vent) Cardiac: Positive: Reg Rate and Rhythm Results 06/14/19 04:30 06/14/19 03:10 Cardiac Enzymes 06/14/19 Range/Units 03:10 AST 19 (5-40) units/L Coagulation 06/14/19 Range/Units 05:28 PT 16.3 H (12.2-14.9) Sec. INR 1.35 H (0.87-1.13) APTT 34.7 (24.2-36.6) Sec. Lipids 06/14/19 Range/Units 03:10 Triglycerides 74 (2-149) mg/dL Cholesterol 112 (50-199) mg/dL HDL Cholesterol 30 L (40-59) mg/dL Cholesterol/HDL Ratio 3.73 % CBC 06/14/19 Range/Units 04:30 WBC 11.9 H (4.5-11.0) K/mm3 RBC 3.22 L (3.65-5.03) M/mm3 Hgb 9.5 L (11.8-15.2) gm/dl Hct 28.9 L (35.5-45.6) % Plt Count 238 (140-440) K/mm3 Comprehensive Metabolic Panel 06/14/19 Range/Units 03:10 Sodium 139 (137-145) mmol/L Potassium 3.5 L (3.6-5.0) mmol/L Chloride 104.4 (98-107) mmol/L Carbon Dioxide 20 L (22-30) mmol/L BUN 18 (9-20) mg/dL Creatinine 0.7 L (0.8-1.5) mg/dL Glucose 107 H (75-100) mg/dL Calcium 8.4 (8.4-10.2) mg/dL AST 19 (5-40) units/L ALT 11 (7-56) units/L Alkaline Phosphatase 78 (35-129) units/L Total Protein 7.2 (6.3-8.2) g/dL Albumin 3.0 L (3.9-5) g/dL
[2019-06-14] MEDS ORDERED: PROVENTIL IH PRN (12:31)
--- NOTE | 2019-06-14 13:15 | XRay Report ---
CHEST 1 VIEW INDICATION: central line placement. COMPARISON: Same day at 04:03 FINDINGS: Support devices: Endotracheal tube is in satisfactory position. A nasogastric tube tip is below the d iaphragm and not imaged. A right IJ catheter has been inserted and the tip is in the distal SVC. Heart: Within normal limits. Pulmonary vasculature: Normal. Lungs/Pleura: The lungs are normally expanded and clear except for mild right basal subsegmental atel ectasis. No pneumothorax. Additional findings: None. IMPRESSION: Satisfactory placement of the right central line. No pneumothorax. Signer Name: Gary Hancock MD Signed: 06/14/2019 1:10 PM Workstation Name: [id number]
[2019-06-14] MEDS ORDERED: SIMPLE SYRUP FEEDTUBE PRN ×2 (13:28)
[2019-06-14] MEDS ORDERED: PANCREAZE DR 10,500 UNIT FEEDTUBE PRN (13:28)
[2019-06-14] MEDS ORDERED: SODIUM BICARBONATE FEEDTUBE PRN (13:28)
--- NOTE | 2019-06-14 15:02 | Consultation ---
History of Present Illness Consult date: 06/14/19 Reason for consult: other (abnormal CT) Requesting physician: REG HOWARD Chief complaint: altered mental status - History of present illness History of present illness: Pt intubated and unable to participate in history. History obtained from chart -- 78-year-old man who presents from prison. He was brought from [facility] for confusion and lethargy, he was also found to have temperature of 100.2 and blood pressure of 82/50 heart rate of 117 at the [facility]. There is no other history as the patient is confused and history is limited from prison reports charts and ER. Patient became progressively lethargic and could not protect airway therefore was intubated for airway protection in the ER. Pt did report to ED that he does not have any pain. Denied chest pain, abdominal pain, shortness of breath, cough. Gen surg was asked to the patient for possible appendicitis and gallbladder abnormality. Past History Past Medical History: anemia, arthritis (rheumatoid), COPD, DVT, hypertension, PVD, other (venous insufficiency, gout, ) Past Surgical History: Other (left AKA) Social history: smoking Family history: no significant family history Medications and Allergies Allergies Allergy/AdvReac Type Severity Reaction Status Date / Time No Known Allergies Allergy Verified 10/17/14 10:49 Home Medications Medication Instructions Recorded Confirmed Last Taken Type Amino Acids/Protein Hydrolys 30 ml PO BID 10/17/14 06/15/16 10/24/14 09:00 History [Pro-Stat Max Liquid Packet] Ascorbic Acid/Ascorbate Gerardo [Fruit 500 mg PO BID 10/17/14 06/15/16 10/24/14 17:00 History C-100 Tablet Chewable] Dextran 70/Hypromellose [Ra 1 drop OU PRN PRN 10/17/14 06/15/16 10/24/14 09:00 History Lubricant Eye Drops] Ferrous Sulfate [Iron Supplement 325 mg PO DAILY 10/17/14 06/15/16 10/24/14 09:00 History 325 Mg tab] Furosemide [Lasix TAB] 40 mg PO DAILY 10/17/14 06/15/16 10/24/14 09:00 History Multivitamin [Multi-Vitamin Daily] 1 tab PO DAILY 10/17/14 06/15/16 10/24/14 09:00 History Ondansetron [Zofran TAB] 4 mg PO PRN PRN 10/17/14 06/15/16 Unknown History Promethazine [Phenergan] 25 mg PO PRN PRN 10/17/14 06/15/16 Unknown History Rivaroxaban [Xarelto] 20 mg PO QHS 10/17/14 06/15/16 10/23/14 09:00 History Sennosides/Docusate Sodium [Cvs 1 tab PO BID 10/17/14 06/15/16 10/24/14 17:00 History Senna Plus Tablet] HYDROcodone/APAP 10-325 [[place] 1 tab PO QHS PRN #20 tablet 06/29/16 Unknown Rx 10-325 mg TAB] Active Meds: Active Medications Acetaminophen (Tylenol) 650 mg PO Q4H PRN PRN Reason: Pain MILD(1-3)/Fever >100.5/[place] Albuterol (Proventil) 2.5 mg IH Q4HRT PRN PRN Reason: Shortness Of Breath Lipase/Protease/Amylase (Pancreaze Dr 10,500 Unit) 1 each FEEDTUBE PRN PRN PRN Reason: For Clogged Feeding Tube Hydrophilic Ointment (Vaseline Lip Therapy) 1 applic TP Q2HR PRN PRN Reason: Dry Lips Midazolam HCl 100 mg/ Sodium (Chloride) 100 mls @ 2 mls/hr IV TITR HAL; Protocol Last Titration: 06/14/19 08:16 Dose: 3 mg/hr, 3 mls/hr Documented by: Norepinephrine (Levophed Drip 4 Mg/Ns 250 Ml) 4 mg in 250 mls @ 7.5 mls/hr IV TITR HAL; Protocol Last Titration: 06/14/19 05:54 Dose: 6 mcg/min, 22.5 mls/hr Documented by: Vancomycin HCl (Vancomycin/Ns 1 Gm/250 Ml) 1 gm in 250 mls @ 166.667 mls/hr IV Q24H HAL Cefepime HCl (Maxipime/Ns 2 Gm/100 Ml) 2 gm in 100 mls @ 200 mls/hr IV Q12HR HAL; Protocol Sodium Chloride (Nacl 0.9% 1000 Ml) 1,000 mls @ 125 mls/hr IV DIRECT HAL Last Admin: 06/14/19 11:59 Dose: 125 mls/hr Documented by: Midazolam HCl (Versed) 2 mg IV Q10MIN PRN PRN Reason: Sedation Last Admin: 06/14/19 05:06 Dose: 2 mg Documented by: Multi-Ingred Cream/Lotion/Oil/Oint (Artificial Tears Ophth Oint) 1 applic OU Q4HR PRN PRN Reason: Dry Eye(s) Ondansetron HCl (Zofran) 4 mg IV Q8H PRN PRN Reason: Nausea And Vomiting Simple Syrup (Simple Syrup) 15 ml FEEDTUBE PRN PRN PRN Reason: Hypoglycemia Simple Syrup (Simple Syrup) 30 ml FEEDTUBE PRN PRN PRN Reason: Hypoglycemia Sodium Bicarbonate (Sodium Bicarbonate) 325 mg FEEDTUBE PRN PRN PRN Reason: For Clogged Feeding Tube Sodium Chloride (Sodium Chloride Flush Syringe 10 Ml) 10 ml IV BID HAL Last Admin: 06/14/19 11:59 Dose: 10 ml Documented by: Sodium Chloride (Sodium Chloride Flush Syringe 10 Ml) 10 ml IV PRN PRN PRN Reason: LINE FLUSH Review of Systems ROS unobtainable: due to endotracheal tube, due to mental status Exam Vital Signs Pulse Resp Pulse Ox 111 H 21 88 06/14/19 02:34 06/14/19 02:34 06/14/19 02:34 - General physical appearance Positive: well developed, well nourished, no distress - ENT Positive: other (ETT in place) - Neck Positive: trachea midline - Respiratory Positive: normal expansion, normal respiratory effort, clear to auscultation (bilaterally, but distant BS) - Cardiovascular Rhythm: regular - Abdomen Abdomen: Present: soft, bowel sounds hypoactive, surgical scars (possibly below the umbo). Absent: tender, distended, masses, guarding, rigid, wound Hernia: none - Integumentary no rash, no growths, no abnormal pigmentation Results - Labs 06/14/19 04:30 06/14/19 03:10 Abnormal lab results 06/14/19 06/14/19 06/14/19 Range/Units 02:49 03:10 03:10 WBC (4.5-11.0) K/mm3 RBC (3.65-5.03) M/mm3 Hgb (11.8-15.2) gm/dl Hct (35.5-45.6) % Lymphocytes % (Manual) (13.4-35.0) % Seg Neutrophils # Man (1.8-7.7) K/mm3 Lymphocytes # (Manual) (1.2-5.4) K/mm3 PT (12.2-14.9) Sec. INR (0.87-1.13) POC ABG pH (7.35-7.45) Potassium 3.5 L (3.6-5.0) mmol/L Carbon Dioxide 20 L (22-30) mmol/L Creatinine 0.7 L (0.8-1.5) mg/dL Glucose 107 H (75-100) mg/dL POC Glucose 117 H (70-105) Lactic Acid 2.60 H* (0.7-2.0) mmol/L Troponin T 0.979 H* (0.00-0.029) ng/mL Albumin 3.0 L (3.9-5) g/dL HDL Cholesterol 30 L (40-59) mg/dL Urine WBC (Auto) (0.0-6.0) /HPF 06/14/19 06/14/19 06/14/19 Range/Units 04:30 04:35 05:02 WBC 11.9 H (4.5-11.0) K/mm3 RBC 3.22 L (3.65-5.03) M/mm3 Hgb 9.5 L (11.8-15.2) gm/dl Hct 28.9 L (35.5-45.6) % Lymphocytes % (Manual) 8.0 L (13.4-35.0) % Seg Neutrophils # Man 8.3 H (1.8-7.7) K/mm3 Lymphocytes # (Manual) 1.0 L (1.2-5.4) K/mm3 PT (12.2-14.9) Sec. INR (0.87-1.13) POC ABG pH 7.314 L (7.35-7.45) Potassium (3.6-5.0) mmol/L Carbon Dioxide (22-30) mmol/L Creatinine (0.8-1.5) mg/dL Glucose (75-100) mg/dL POC Glucose (70-105) Lactic Acid (0.7-2.0) mmol/L Troponin T (0.00-0.029) ng/mL Albumin (3.9-5) g/dL HDL Cholesterol (40-59) mg/dL Urine WBC (Auto) 8.0 H (0.0-6.0) /HPF 06/14/19 Range/Units 05:28 WBC (4.5-11.0) K/mm3 RBC (3.65-5.03) M/mm3 Hgb (11.8-15.2) gm/dl Hct (35.5-45.6) % Lymphocytes % (Manual) (13.4-35.0) % Seg Neutrophils # Man (1.8-7.7) K/mm3 Lymphocytes # (Manual) (1.2-5.4) K/mm3 PT 16.3 H (12.2-14.9) Sec. INR 1.35 H (0.87-1.13) POC ABG pH (7.35-7.45) Potassium (3.6-5.0) mmol/L Carbon Dioxide (22-30) mmol/L Creatinine (0.8-1.5) mg/dL Glucose (75-100) mg/dL POC Glucose (70-105) Lactic Acid (0.7-2.0) mmol/L Troponin T (0.00-0.029) ng/mL Albumin (3.9-5) g/dL HDL Cholesterol (40-59) mg/dL Urine WBC (Auto) (0.0-6.0) /HPF Diabetes panel 06/14/19 Range/Units 03:10 Sodium 139 (137-145) mmol/L Potassium 3.5 L (3.6-5.0) mmol/L Chloride 104.4 (98-107) mmol/L Carbon Dioxide 20 L (22-30) mmol/L BUN 18 (9-20) mg/dL Creatinine 0.7 L (0.8-1.5) mg/dL Glucose 107 H (75-100) mg/dL Calcium 8.4 (8.4-10.2) mg/dL AST 19 (5-40) units/L ALT 11 (7-56) units/L Alkaline Phosphatase 78 (35-129) units/L Total Protein 7.2 (6.3-8.2) g/dL Albumin 3.0 L (3.9-5) g/dL Triglycerides 74 (2-149) mg/dL HDL Cholesterol 30 L (40-59) mg/dL Calcium panel 06/14/19 Range/Units 03:10 Calcium 8.4 (8.4-10.2) mg/dL Albumin 3.0 L (3.9-5) g/dL Pituitary panel 06/14/19 Range/Units 03:10 Sodium 139 (137-145) mmol/L Potassium 3.5 L (3.6-5.0) mmol/L Chloride 104.4 (98-107) mmol/L Carbon Dioxide 20 L (22-30) mmol/L BUN 18 (9-20) mg/dL Creatinine 0.7 L (0.8-1.5) mg/dL Glucose 107 H (75-100) mg/dL Calcium 8.4 (8.4-10.2) mg/dL Adrenal panel 06/14/19 Range/Units 03:10 Sodium 139 (137-145) mmol/L Potassium 3.5 L (3.6-5.0) mmol/L Chloride 104.4 (98-107) mmol/L Carbon Dioxide 20 L (22-30) mmol/L BUN 18 (9-20) mg/dL Creatinine 0.7 L (0.8-1.5) mg/dL Glucose 107 H (75-100) mg/dL Calcium 8.4 (8.4-10.2) mg/dL Total Bilirubin 0.50 (0.1-1.2) mg/dL AST 19 (5-40) units/L ALT 11 (7-56) units/L Alkaline Phosphatase 78 (35-129) units/L Total Protein 7.2 (6.3-8.2) g/dL Albumin 3.0 L (3.9-5) g/dL - Imaging CT scan - abdomen: report reviewed, image reviewed CT scan - pelvis: report reviewed, image reviewed Assessment and Plan - Patient Problems (1) Abnormal CT of the abdomen Current Visit: Yes Status: Acute Plan to address problem: Pt in guarded condition. Based on the limited history that is available, there was no obvious information to suggest an abdominal abnormality. I reviewed the CT scan from today and [address] Max. My impression was that there was minimal if any inflammatory change around the appendix. He confirmed my impression. The appendix and adjacent fluid collection do not appear to be impressive enough to account for his current state of illness. We also discussed that the patient had an enlarged appendix and possible fluid collection in 2016. He may have suffered a ruptured appendix at that time and we are now seeing the residual appearance. He also agreed that there appeared to be fluid near the liver and spleen. There may be ascites in the abdomen. The gallbladder, although thickened, does not have any stones or appeared distended. LFTs were completely normal. I am concerned with the significant elevation in troponin. I discussed my impressions with Dr. Bess. I recommended that we resuscitate him and treat him with IV antibiotics for now. Perhaps we could trend the troponins and see what comes of that. If there is still concern that his clinical picture is secondary to appendicitis, then I will take him for a diagnostic laparoscopy. I am not very confident that removing the appendix will help. Will follow along. Please call with questions. time=60min
--- NOTE | 2019-06-14 15:28 | Consultation ---
History of Present Illness - Reason for Consult Consult date: 06/14/19 septic shock Requesting physician: HELENA TAYLOR - History of Present Illness 78 y/o male with a history of severe peripheral artery disease status post bilateral above the knee amputations, previous MRSA in wounds, COPD, rheumatoid arthritis, admitted on 06/14/2019 due to fever at 100.2, AMS and hypotension at 82/50 noted at his [facility] home the morning of admission. He is currently intubated, sedated, on prossors. Unable to obtain details. In the ED, temp 98.9, HR 111, R 21, BP 70/48. WBC 11.9 with 18% bands. Hg 9.5. Plat 238. Creat 0.7. UA with 8 wbc trace LE. Blood culture 06/14/2019 pending. Tracheal asp cutlure 06/14/2019 pending. CXR no abnormalities. CTA chest shows No CT evidence for pulmonary embolism, no acute pulmonary or pleural abnormality. CT abd shows abnormal appearance of the gallbladder and appendix, ?cystitis. In the ED undewent intubation and started on pressors. Review of Systems: unable to obtain - sedated intubated Past History Past Medical History: anemia, arthritis (rheumatoid), COPD, DVT, hypertension, PVD, other (venous insufficiency, gout, ) Past Surgical History: Other (left AKA) Social history: smoking Family history: no significant family history Medications and Allergies Allergies Allergy/AdvReac Type Severity Reaction Status Date / Time No Known Allergies Allergy Verified 10/17/14 10:49 Home Medications Medication Instructions Recorded Confirmed Last Taken Type Amino Acids/Protein Hydrolys 30 ml PO BID 10/17/14 06/15/16 10/24/14 09:00 History [Pro-Stat Max Liquid Packet] Ascorbic Acid/Ascorbate Gerardo [Fruit 500 mg PO BID 10/17/14 06/15/16 10/24/14 17:00 History C-100 Tablet Chewable] Dextran 70/Hypromellose [Ra 1 drop OU PRN PRN 10/17/14 06/15/16 10/24/14 09:00 History Lubricant Eye Drops] Ferrous Sulfate [Iron Supplement 325 mg PO DAILY 10/17/14 06/15/16 10/24/14 09:00 History 325 Mg tab] Furosemide [Lasix TAB] 40 mg PO DAILY 10/17/14 06/15/16 10/24/14 09:00 History Multivitamin [Multi-Vitamin Daily] 1 tab PO DAILY 10/17/14 06/15/16 10/24/14 09:00 History Ondansetron [Zofran TAB] 4 mg PO PRN PRN 10/17/14 06/15/16 Unknown History Promethazine [Phenergan] 25 mg PO PRN PRN 10/17/14 06/15/16 Unknown History Rivaroxaban [Xarelto] 20 mg PO QHS 10/17/14 06/15/16 10/23/14 09:00 History Sennosides/Docusate Sodium [Cvs 1 tab PO BID 10/17/14 06/15/16 10/24/14 17:00 History Senna Plus Tablet] HYDROcodone/APAP 10-325 [[place] 1 tab PO QHS PRN #20 tablet 06/29/16 Unknown Rx 10-325 mg TAB] Active Meds: Active Medications Acetaminophen (Tylenol) 650 mg PO Q4H PRN PRN Reason: Pain MILD(1-3)/Fever >100.5/[place] Albuterol (Proventil) 2.5 mg IH Q4HRT PRN PRN Reason: Shortness Of Breath Lipase/Protease/Amylase (Pancreaze Dr 10,500 Unit) 1 each FEEDTUBE PRN PRN PRN Reason: For Clogged Feeding Tube Hydrophilic Ointment (Vaseline Lip Therapy) 1 applic TP Q2HR PRN PRN Reason: Dry Lips Midazolam HCl 100 mg/ Sodium (Chloride) 100 mls @ 2 mls/hr IV TITR HAL; Protocol Last Titration: 06/14/19 08:16 Dose: 3 mg/hr, 3 mls/hr Documented by: Norepinephrine (Levophed Drip 4 Mg/Ns 250 Ml) 4 mg in 250 mls @ 7.5 mls/hr IV TITR HAL; Protocol Last Titration: 06/14/19 05:54 Dose: 6 mcg/min, 22.5 mls/hr Documented by: Vancomycin HCl (Vancomycin/Ns 1 Gm/250 Ml) 1 gm in 250 mls @ 166.667 mls/hr IV Q24H HAL Cefepime HCl (Maxipime/Ns 2 Gm/100 Ml) 2 gm in 100 mls @ 200 mls/hr IV Q12HR HAL; Protocol Sodium Chloride (Nacl 0.9% 1000 Ml) 1,000 mls @ 125 mls/hr IV DIRECT HAL Last Admin: 06/14/19 11:59 Dose: 125 mls/hr Documented by: Midazolam HCl (Versed) 2 mg IV Q10MIN PRN PRN Reason: Sedation Last Admin: 06/14/19 05:06 Dose: 2 mg Documented by: Multi-Ingred Cream/Lotion/Oil/Oint (Artificial Tears Ophth Oint) 1 applic OU Q4HR PRN PRN Reason: Dry Eye(s) Ondansetron HCl (Zofran) 4 mg IV Q8H PRN PRN Reason: Nausea And Vomiting Simple Syrup (Simple Syrup) 15 ml FEEDTUBE PRN PRN PRN Reason: Hypoglycemia Simple Syrup (Simple Syrup) 30 ml FEEDTUBE PRN PRN PRN Reason: Hypoglycemia Sodium Bicarbonate (Sodium Bicarbonate) 325 mg FEEDTUBE PRN PRN PRN Reason: For Clogged Feeding Tube Sodium Chloride (Sodium Chloride Flush Syringe 10 Ml) 10 ml IV BID HAL Last Admin: 06/14/19 11:59 Dose: 10 ml Documented by: Sodium Chloride (Sodium Chloride Flush Syringe 10 Ml) 10 ml IV PRN PRN PRN Reason: LINE FLUSH Physical Examination - Physical Exam Narrative exam: General appearance: sedated intubated FIO2 40%, p6 Eyes: anicteric sclerae, moist conjunctivae; no lid-lag; PERRLA HENT: Atraumatic; oropharynx clear +ETT and NGT Lungs: CTA CV: RRR no murmur Abdomen: Soft, non-tender; no masses or hepatosplenomegaly Extremities: no edema, no cyanosis Skin: No rash. Psych:sedated. Neuro: sedated Right IJ TLC - Constitutional Vitals: Vital Signs Temp Pulse Resp BP Pulse Ox 98.9 F 61 18 122/68 100 06/14/19 03:11 06/14/19 12:22 06/14/19 09:10 06/14/19 12:22 06/14/19 12:22 Temperature -Last 24 Hours Temperature 98.9 F Temperature 98.9 F Results - Labs CBC & Chem 7: 06/14/19 04:30 06/14/19 03:10 Labs: Abnormal lab results 06/14/19 06/14/19 06/14/19 Range/Units 02:49 03:10 03:10 WBC (4.5-11.0) K/mm3 RBC (3.65-5.03) M/mm3 Hgb (11.8-15.2) gm/dl Hct (35.5-45.6) % Lymphocytes % (Manual) (13.4-35.0) % Seg Neutrophils # Man (1.8-7.7) K/mm3 Lymphocytes # (Manual) (1.2-5.4) K/mm3 PT (12.2-14.9) Sec. INR (0.87-1.13) POC ABG pH (7.35-7.45) Potassium 3.5 L (3.6-5.0) mmol/L Carbon Dioxide 20 L (22-30) mmol/L Creatinine 0.7 L (0.8-1.5) mg/dL Glucose 107 H (75-100) mg/dL POC Glucose 117 H (70-105) Lactic Acid 2.60 H* (0.7-2.0) mmol/L Troponin T 0.979 H* (0.00-0.029) ng/mL Albumin 3.0 L (3.9-5) g/dL HDL Cholesterol 30 L (40-59) mg/dL Urine WBC (Auto) (0.0-6.0) /HPF 06/14/19 06/14/19 06/14/19 Range/Units 04:30 04:35 05:02 WBC 11.9 H (4.5-11.0) K/mm3 RBC 3.22 L (3.65-5.03) M/mm3 Hgb 9.5 L (11.8-15.2) gm/dl Hct 28.9 L (35.5-45.6) % Lymphocytes % (Manual) 8.0 L (13.4-35.0) % Seg Neutrophils # Man 8.3 H (1.8-7.7) K/mm3 Lymphocytes # (Manual) 1.0 L (1.2-5.4) K/mm3 PT (12.2-14.9) Sec. INR (0.87-1.13) POC ABG pH 7.314 L (7.35-7.45) Potassium (3.6-5.0) mmol/L Carbon Dioxide (22-30) mmol/L Creatinine (0.8-1.5) mg/dL Glucose (75-100) mg/dL POC Glucose (70-105) Lactic Acid (0.7-2.0) mmol/L Troponin T (0.00-0.029) ng/mL Albumin (3.9-5) g/dL HDL Cholesterol (40-59) mg/dL Urine WBC (Auto) 8.0 H (0.0-6.0) /HPF 06/14/19 Range/Units 05:28 WBC (4.5-11.0) K/mm3 RBC (3.65-5.03) M/mm3 Hgb (11.8-15.2) gm/dl Hct (35.5-45.6) % Lymphocytes % (Manual) (13.4-35.0) % Seg Neutrophils # Man (1.8-7.7) K/mm3 Lymphocytes # (Manual) (1.2-5.4) K/mm3 PT 16.3 H (12.2-14.9) Sec. INR 1.35 H (0.87-1.13) POC ABG pH (7.35-7.45) Potassium (3.6-5.0) mmol/L Carbon Dioxide (22-30) mmol/L Creatinine (0.8-1.5) mg/dL Glucose (75-100) mg/dL POC Glucose (70-105) Lactic Acid (0.7-2.0) mmol/L Troponin T (0.00-0.029) ng/mL Albumin (3.9-5) g/dL HDL Cholesterol (40-59) mg/dL Urine WBC (Auto) (0.0-6.0) /HPF Assessment and Plan Cultures: Blood culture 06/14/2019 pending. Tracheal asp culture 06/14/2019 pending. Assessment: 78 y/o male with a history of severe peripheral artery disease status post bilateral above the knee amputations, previous MRSA in wounds, COPD, rheumatoid arthritis, admitted on 06/14/2019 due to fever at 100.2, AMS and hypotension at 82/50 noted at his [facility] the morning of admission: 1) Severe sepsis with septic shock: present on admission with fever at NH, tachycardia, hypotension, elevated lactate, bandemia on pressors; source unclear. Patient with acute symptoms, no clear history of events. UA no significant pyuria. CXR and CTA chest no obvious pneumonia or PE. Blood culture pending. CT abd ? GB or appendix abnormalities. Elevated troponins. Significantly elevated procalcitonin c/w bacterial sepsis. DDx. acute abdomen from appendicitis or cholecystitis v/s ACS v/s aspiration pneumonitis. 2) Acute respiratory failure: intubated 3) Acute encephalopathy: due to #1 Recommendations: follow up blood culture and respiratory cultures serial procalcitonin agree with cefepime 2 gm IV q 12 hour for now and IV vancomcyin add metronidazole and fluconazole until intra-abdominal etiology is ruled out Surgery and Cards on board check RUQ US Will follow. Carol Reynoso MD Infectious Diseases [facility], [place], [facility] ([facility]) M [phone] O [phone]
[2019-06-14] MEDS: FLAGYL 500 MG/100 ML 500 MG/100 ML BAG IV SCH ×2 (17:23→21:44)
[2019-06-14] MEDS: DIFLUCAN 200 MG/100 ML BAG IV SCH (17:23)
[2019-06-14] MEDS: PEPCID PO SCH (17:23)
[2019-06-14] MEDS: MAXIPIME/NS 2 GM/100 ML 2 GM/100 ML BAG IV SCH (21:43)
[2019-06-14] MEDS: HEPARIN SUB-Q SCH (21:55)
[2019-06-14] MEDS ORDERED: LOVENOX SUB-Q SCH (22:00)
[2019-06-14] MEDS: VANCOMYCIN/NS 1 GM/250 ML 1 GM/250 ML BAG IV SCH (22:05)
--- NOTE | 2019-06-15 03:20 | XRay Report ---
CHEST 1 VIEW 06/15/2019 2:02 AM INDICATION / CLINICAL INFORMATION: follow up respiratory failure. COMPARISON: 06/14/19 FINDINGS: SUPPORT DEVICES: Stable, satisfactory device positioning. HEART / MEDIASTINUM: Stable. LUNGS / PLEURA: Minimal right lung base atelectasis is unchanged. No pneumothorax. ADDITIONAL FINDINGS: No significant additional findings. IMPRESSION: 1. No significant change. Signer Name: Ajith Pappas MD Signed: 06/15/2019 3:16 AM Workstation Name: [id number]
--- NOTE | 2019-06-15 04:10 | Consultation ---
PULMONARY CRITICAL CARE CONSULT NOTE CONSULTING PHYSICIAN: Dr. Santos. REASON FOR CONSULTATION: Severe sepsis with septic shock as well as acute respiratory failure, on mechanical ventilatory support. CHIEF COMPLAINT AND HISTORY OF PRESENT ILLNESS: The patient is a 78-year-old -[place] male with past medical history significant amongst other things for a diagnosis of COPD as well as peripheral vascular disease. He is a long-term patient. He was brought in from [facility], lethargic with generalized malaise. Reportedly, he denied any pain and was conversive with the Emergency Room physician. He was brought in due to hypotension and confusion. They denied any generalized malaise. He denied any pain. He denied chest pain, abdominal pain, shortness of breath or cough. He was febrile at 100.2 degrees Fahrenheit in the long-term. Blood pressure was 82/50 with a pulse of 117. Reportedly, this all started suddenly. Evaluation in the Emergency Room by the emergency physician diagnosed him with a septic shock and non-ST elevation VA and acute metabolic encephalopathy and urinary tract infection. He required intubation due to continued worsening of his mental status and mostly for airway protection. Post-intubation, he was transferred to the Intensive Care Unit where I stopped by to see him. When I stopped by to see him, he was resting in bed. He was arousable, but not responsive appropriately. The patient is not a current tobacco smoker. There was no obvious evidence of ST-elevation VA at presentation. The above is as much of the history of presentation as I have. PAST MEDICAL HISTORY: As far as I can tell from the medication administration records, include the followin. History of hypertension. 2. History of DVT. 3. History of gastroesophageal reflux disease. 4. History of arthritis. 5. History of peripheral vascular disease as well as a history of COPD. PAST SURGICAL HISTORY: He has bilateral [id number] amputations. MEDICATIONS: He was on at the time I stopped by to see him, according to the medication administration record, included the following: Tylenol 650 mg p.o. q.4 hours p.r.n. mild pain or fevers. All p.o. meds via the feeding tube. Cefepime 2 g IV q.12 hours. Diflucan 200 mg IV daily, Flagyl 500 mg IV q.8 hours, Versed drip was going at 3 mg per hour, Levophed drip was going at 8 mcg per minute, Zofran 4 mg IV q.8 hours p.r.n. nausea and vomiting, vancomycin 1 g IV daily. ALLERGIES: No known drug allergies. DIET: Obese gentleman despite the amputation, acute weight loss or gain history is unknown. FAMILY AND SOCIAL HISTORY: alf resident. No current alcohol, tobacco, or illicit drug use or abuse. He is apparently described as a current every day smoker by the records. FAMILY HISTORY: Otherwise, unobtainable. REVIEW OF SYSTEMS: Unobtainable secondary to the patient's medical and mental condition. Since he has been here, no gross hematochezia or melena, no gross hematuria, no hematemesis, no bloody tracheal secretions, no witnessed seizures. Review of systems otherwise unobtainable or as in body of history above. PHYSICAL EXAMINATION: VITAL SIGNS: At presentation in the Emergency Room, he was afebrile, temperature 98.9 degrees Fahrenheit, pulse of 111, respiratory rate was 21, blood pressure was 70/48, O2 sats were 88%, inspired oxygen concentration at that time was not recorded. When I stopped by to see him, O2 sats were 99% that was on the assist control, PRVC mode of ventilation with a rate of 20, tidal volumes of 500, PEEP of 6, and I believe 40% FiO2. GENERAL: Elderly looking -[place] male. Normocephalic, atraumatic, resting in bed with mildly increased respiratory effort on the mechanical ventilator at rest. HEAD, EYES, EARS, NOSE AND THROAT: He is anicteric. No conjunctival erythema. Oropharynx is moist. ET tube is taped about 23 cm at the lips. No gross jugular venous distention, no thyromegaly. He has a right IJ central line in place. LUNGS: Auscultation of both lung leung, scant basilar inspiratory rhonchi, no wheezing. HEART: Heart sounds 1 and 2 are heard. They were regular in rate and rhythm at the time of my evaluation without overt rubs or murmurs. ABDOMEN: Soft, full, protuberant, but not distended. Bowel sounds are positive, nontender, no palpable hepatosplenomegaly. EXTREMITIES: Without overt digital clubbing or cyanosis. He has bilateral [id number] amputations. NEUROLOGIC: Pupils equal, round, about 4 mm, reactive to light. Extraocular muscle movements appeared intact. No nystagmus. He had spontaneous movement to all his extremities. SKIN: Skin was of normal turgor without overt cellulitis or rash. His affect was anxious. LABORATORY DATA: From my review are as follows: Admission white cell count 11,900, hemoglobin 9.5, hematocrit 28.9, platelet count was 238. They do have 18%banded neutrophils, but I believe 20 is the cutoff here. INR was 1.35. Arterial blood gas showed a pH of 7.31, pCO2 of 38, pO2 I believe was 140 that was on 100% FiO2 at presentation. Serum sodium 139, potassium 3.5, chloride 104, bicarbonate 20, BUN 18, creatinine 0.7, glucose was 107. Lactic acid level was 2.60, now 1.3. Troponin 0.98. Liver function tests are essentially within normal limits. Albumin was low at 3.0. LDL cholesterol 76. Urinalysis, trace leukocyte esterase, 8 white cells per high power field. Two sets of blood cultures, tracheal aspirate, no growth to date. Chest x-ray was done and shows endotracheal tube with the tip below the level of the clavicular heads. Right IJ central line with the tip in the distal SVC. The same is rotated, thereby suggesting hilar fullness, no gross cardiomegaly, no pneumothorax, faint right lower lobe platelike atelectasis. A CT scan of the abdomen and pelvis was done. It was reported as abnormal appearance of the gallbladder and appendix, correlate for symptoms, consider cystitis, suspicious 1.8 cm left renal lesion. CT angio was done of the chest. I have reviewed the film as well as the radiologist's interpretation. No gross filling defects consistent with pulmonary emboli, some paraseptal emphysema, right lower lobe areas of atelectasis. No significant consolidation and a mild hiatal hernia. No pneumothorax. ASSESSMENT: 1. Acute respiratory failure, hypoxemic, on mechanical ventilatory support. 2. Severe sepsis with shock, possibly due to urinary source. 3. Acute encephalopathy, possibly on chronic. 4. History of chronic obstructive pulmonary disease. 5. History of peripheral vascular disease. 6. History of hypertension. 7. History of deep venous thrombosis. 8. History of gastroesophageal reflux disease. 9. History of arthritis. 10. History of gout. 11. Leukocytosis. 12. Mild hypokalemia. 13. Mild metabolic acidosis. 14. Lactic acidosis. 15. Non-ST elevation myocardial infarction. PLAN: We will continue current broad-spectrum anti-infective therapy. Infectious Disease consultation will be requested. The Flores catheter will be discontinued. I will get a procalcitonin level, but also get Infectious Disease to assist with anti-infective de-escalation and adjustment. Central venous pressures will be monitored in light of the hypotension and volume resuscitation to help target volume resuscitation. Vasopressors will be weaned to keep mean arterial pressures greater than or equal to over 65 mmHg. P.r.n. albuterol treatments will be started. Tracheal aspirate will be sent. GI and DVT prophylaxis will be included. Ventilator-associated pneumonia bundle will be instituted. Bronchodilators will be p.r.n. Pulmonary hygiene will be provided by the respiratory therapies. I have discussed with the surgeon and this does not look to be an acute abdomen. We will follow him clinically, treat him with antibiotics empirically at this point. Again, as mentioned, GI and DVT prophylaxis will be instituted. Flu and pneumonia vaccination will be addressed per protocol. Thank you very much for the consult, Dr. Santos. We will follow along and make further recommendations as picture progresses/becomes clearer. He is critically ill, on life-sustaining interventions including mechanical ventilatory support at risk of decompensation including the risk of . At this time, I have spent about 40-45 minutes of critical care time without overlap and excluding any procedural time that may be necessary. JOB# [id number] [place]/MARY ADORNO
[2019-06-15] MEDS: NACL 0.9% 1000 ML 1,000 ML IV SCH (05:43)
[2019-06-15] MEDS: FLAGYL 500 MG/100 ML 500 MG/100 ML BAG IV SCH ×3 (05:44→21:57)
[2019-06-15 06:09] LABS: Basophils % (Auto) 0.2 % (0.0-1.8); Eosinophils % (Auto) 0.3 % (0.0-4.3); Hematocrit 27.1 % (35.5-45.6); Hemoglobin 8.9 gm/dl (11.8-15.2); Lymphocytes # (Auto) 0.7 K/mm3 (1.2-5.4); Lymphocytes % (Auto) 6.5 % (13.4-35.0); Mean Corpuscular HGB Conc 33 % (32-34); Mean Corpuscular Volume 90 fl (84-94); Monocytes # (Auto) 0.7 K/mm3 (0.0-0.8); Monocytes % (Auto) 6.4 % (0.0-7.3); Platelet Count 228 K/mm3 (140-440); Red Blood Count 3.02 M/mm3 (3.65-5.03); Red Cell Distribution Width 15.3 % (13.2-15.2)
[2019-06-15 06:34] LABS: Alanine Aminotransferase 14 units/L (7-56); Albumin 2.8 g/dL (3.9-5); BUN/Creatinine Ratio 28; Blood Urea Nitrogen 11 mg/dL (9-20); Calcium 7.8 mg/dL (8.4-10.2); Hemolysis Index 1
--- NOTE | 2019-06-15 08:06 | Progress Note ---
Assessment and Plan Assessment and plan: 78-year-old man brought from senior living for confusion, lethargy and hypotension. Who was intubated in the ER for airway protection Vitals showed hypotension and tachycardia, which improved with pressors Labs show a white count of 11.9 anemia with hemoglobin of 9.5, potassium 3.5, troponin 0 0.979, UA shows 8 leukocytes Chest x-ray; no acute findings CT abdomen and pelvis abnormal appearance of gallbladder and appendix -Moderate diffuse gallbladder wall thickening and edema Appendix is prominent measuring 1.5 cm, there is a 2.4 cm fluid collection in the distal tip of the appendix There is a suspicious 1.8 cm heterogeneous masslike lesion at the inferior pole of the left kidney, it was 1.3 cm on previous exam CT angiogram chest, no PE, bibasilar atelectasis CT head, essentially normal for age Septic shock IV antibiotics, IV pressors, IV fluids, ID consult, follow-up blood cultures , for repeat renal ultrasound on Tuesday, ID following patient cont pressors Appendicitis, and cholecystitis ruled out Surgery input appreciated Acute respiratory failure on mechanical ventilator less than 96 hours, continue ventilator, management per pulmonology Left renal mass? Renal ultrasound was negative, technical mgr recommends repeat ultrasound under supervision of the radiologist type 2 NE cardiology input appreciated Hypokalemia/Hypophosphatemia Repleted IV acute metabolic encephalopathy improving hx of RA DVT prophylaxis with Lovenox The high probability of a clinically significant, sudden or life threatening deterioration of the [pulmonary, CVS, GI, renal] system(s) required my full and direct attention, intervention and personal management. The aggregate critical care time was [55] minutes. This time is in addition to time spent performing reported procedures but includes the following: [] Data Review and interpretation [] Patient assessment and monitoring of vital signs [] Documentation [] Medication orders and management History Interval history: Patient remains intubated, not responsive Remains vent dependent had fever no diarrhea or vomiting Hospitalist Physical - Physical exam Narrative exam: General.: Appears ill, obtunded, intubated HEENT: Moist mucous membranes, extraocular muscles intact, no lymphadenopathy Neck: supple Cardiac: S1-S2 heard Lungs: Ventilated breath sounds, no crackles Abdomen: soft , not distended Extremities: no edema clubbing or cyanosis Skin: no rash or lesions Neurologic: Intubated, obtunded, not on sedation Psych: Obtunded - Constitutional Vitals: Temp Pulse Resp BP Pulse Ox 100.5 F H 76 21 122/63 100 06/15/19 03:00 06/15/19 07:59 06/15/19 07:59 06/15/19 07:59 06/15/19 07:59 General appearance: Present: other (intubated on the vent) Results - Labs CBC & Chem 7: 06/15/19 04:35 06/15/19 04:35 Labs: Laboratory Last Values WBC 11.2 K/mm3 (4.5-11.0) H 06/15/19 04:35 RBC 3.02 M/mm3 (3.65-5.03) L 06/15/19 04:35 Hgb 8.9 gm/dl (11.8-15.2) L 06/15/19 04:35 Hct 27.1 % (35.5-45.6) L 06/15/19 04:35 MCV 90 fl (84-94) 06/15/19 04:35 MCH 29 pg (28-32) 06/15/19 04:35 MCHC 33 % (32-34) 06/15/19 04:35 RDW 15.3 % (13.2-15.2) H 06/15/19 04:35 Plt Count 228 K/mm3 (140-440) 06/15/19 04:35 Lymph % (Auto) 6.5 % (13.4-35.0) L 06/15/19 04:35 [place] % (Auto) 6.4 % (0.0-7.3) 06/15/19 04:35 Eos % (Auto) 0.3 % (0.0-4.3) 06/15/19 04:35 Baso % (Auto) 0.2 % (0.0-1.8) 06/15/19 04:35 Lymph # 0.7 K/mm3 (1.2-5.4) L 06/15/19 04:35 [place] # 0.7 K/mm3 (0.0-0.8) 06/15/19 04:35 Eos # 0.0 K/mm3 (0.0-0.4) 06/15/19 04:35 Baso # 0.0 K/mm3 (0.0-0.1) 06/15/19 04:35 Add Manual Diff Complete 06/14/19 04:30 Total Counted 100 06/14/19 04:30 Seg Neutrophils % 86.6 % (40.0-70.0) H 06/15/19 04:35 Seg Neuts % (Manual) 70.0 % (40.0-70.0) 06/14/19 04:30 Band Neutrophils % 18.0 % 06/14/19 04:30 Lymphocytes % (Manual) 8.0 % (13.4-35.0) L 06/14/19 04:30 Reactive Lymphs % (Man) 0 % 06/14/19 04:30 Monocytes % (Manual) 4.0 % (0.0-7.3) 06/14/19 04:30 Eosinophils % (Manual) 0 % (0.0-4.3) 06/14/19 04:30 Basophils % (Manual) 0 % (0.0-1.8) 06/14/19 04:30 Metamyelocytes % 0 % 06/14/19 04:30 Myelocytes % 0 % 06/14/19 04:30 Promyelocytes % 0 % 06/14/19 04:30 Blast Cells % 0 % 06/14/19 04:30 Nucleated RBC % Not Reportable 06/14/19 04:30 Seg Neutrophils # 9.7 K/mm3 (1.8-7.7) H 06/15/19 04:35 Seg Neutrophils # Man 8.3 K/mm3 (1.8-7.7) H 06/14/19 04:30 Band Neutrophils # 2.1 K/mm3 06/14/19 04:30 Lymphocytes # (Manual) 1.0 K/mm3 (1.2-5.4) L 06/14/19 04:30 Abs React Lymphs (Man) 0.0 K/mm3 06/14/19 04:30 Monocytes # (Manual) 0.5 K/mm3 (0.0-0.8) 06/14/19 04:30 Eosinophils # (Manual) 0.0 K/mm3 (0.0-0.4) 06/14/19 04:30 Basophils # (Manual) 0.0 K/mm3 (0.0-0.1) 06/14/19 04:30 Metamyelocytes # 0.0 K/mm3 06/14/19 04:30 Myelocytes # 0.0 K/mm3 06/14/19 04:30 Promyelocytes # 0.0 K/mm3 06/14/19 04:30 Blast Cells # 0.0 K/mm3 06/14/19 04:30 WBC Morphology Not Reportable 06/14/19 04:30 Hypersegmented Neuts Not Reportable 06/14/19 04:30 Hyposegmented Neuts Not Reportable 06/14/19 04:30 Hypogranular Neuts Not Reportable 06/14/19 04:30 Smudge Cells Not Reportable 06/14/19 04:30 Toxic Granulation Not Reportable 06/14/19 04:30 Toxic Vacuolation Not Reportable 06/14/19 04:30 Dohle Bodies Not Reportable 06/14/19 04:30 Pelger-Huet Anomaly Not Reportable 06/14/19 04:30 Raymundo Rods Not Reportable 06/14/19 04:30 Platelet Estimate Consistent w auto 06/14/19 04:30 Clumped Platelets Not Reportable 06/14/19 04:30 Plt Clumps, EDTA Not Reportable 06/14/19 04:30 Large Platelets Rare 06/14/19 04:30 Giant Platelets Not Reportable 06/14/19 04:30 Platelet Satelliting Not Reportable 06/14/19 04:30 Plt Morphology Comment Not Reportable 06/14/19 04:30 RBC Morphology Not Reportable 06/14/19 04:30 Dimorphic RBCs Not Reportable 06/14/19 04:30 Polychromasia Not Reportable 06/14/19 04:30 Hypochromasia Not Reportable 06/14/19 04:30 Poikilocytosis Not Reportable 06/14/19 04:30 Anisocytosis Rare 06/14/19 04:30 Microcytosis Not Reportable 06/14/19 04:30 Macrocytosis Not Reportable 06/14/19 04:30 Spherocytes Not Reportable 06/14/19 04:30 Pappenheimer Bodies Not Reportable 06/14/19 04:30 Sickle Cells Not Reportable 06/14/19 04:30 Target Cells Not Reportable 06/14/19 04:30 Tear Drop Cells Not Reportable 06/14/19 04:30 Ovalocytes Rare 06/14/19 04:30 Helmet Cells Not Reportable 06/14/19 04:30 [place] Bodies Not Reportable 06/14/19 04:30 [place] Rings Not Reportable 06/14/19 04:30 [place] Cells Rare 06/14/19 04:30 Bite Cells Not Reportable 06/14/19 04:30 Crenated Cell Not Reportable 06/14/19 04:30 Elliptocytes Not Reportable 06/14/19 04:30 Acanthocytes (Spur) Not Reportable 06/14/19 04:30 Rouleaux Not Reportable 06/14/19 04:30 Hemoglobin C Crystals Not Reportable 06/14/19 04:30 Schistocytes Not Reportable 06/14/19 04:30 Malaria parasites Not Reportable 06/14/19 04:30 Paulie Bodies Not Reportable 06/14/19 04:30 Hem Pathologist Commnt No 06/14/19 04:30 PT 16.3 Sec. (12.2-14.9) H 06/14/19 05:28 INR 1.35 (0.87-1.13) H 06/14/19 05:28 APTT 34.7 Sec. (24.2-36.6) 06/14/19 05:28 POC ABG pH 7.336 (7.35-7.45) L 06/15/19 03:30 POC ABG pCO2 37.7 (35-45) 06/14/19 05:02 POC ABG pO2 133 (80-105) H 06/15/19 03:30 POC ABG HCO3 13.7 (22-26 mml/L) 06/15/19 03:30 POC ABG Total CO2 14 (23-27mmol/L) 06/15/19 03:30 POC ABG O2 Sat 99 06/15/19 03:30 POC ABG Base Excess -12 ((-2) - (+3)mmol/L) 06/15/19 03:30 FiO2 30 % 06/15/19 03:30 Sodium 143 mmol/L (137-145) 06/15/19 04:35 Potassium 3.3 mmol/L (3.6-5.0) L 06/15/19 04:35 Chloride 110.7 mmol/L (98-107) H 06/15/19 04:35 Carbon Dioxide 15 mmol/L (22-30) L 06/15/19 04:35 Anion Gap 21 mmol/L 06/15/19 04:35 BUN 11 mg/dL (9-20) 06/15/19 04:35 Creatinine 0.4 mg/dL (0.8-1.5) L 06/15/19 04:35 Estimated GFR > 60 ml/min 06/15/19 04:35 BUN/Creatinine Ratio 28 % 06/15/19 04:35 Glucose 104 mg/dL (75-100) H 06/15/19 04:35 POC Glucose 117 (70-105) H 06/14/19 02:49 Lactic Acid 1.20 mmol/L (0.7-2.0) 06/14/19 05:28 Calcium 7.8 mg/dL (8.4-10.2) L 06/15/19 04:35 Phosphorus 1.80 mg/dL (2.5-4.5) L 06/15/19 04:35 Magnesium 1.80 mg/dL (1.7-2.3) 06/15/19 04:35 Total Bilirubin 0.30 mg/dL (0.1-1.2) 06/15/19 04:35 AST 21 units/L (5-40) 06/15/19 04:35 ALT 14 units/L (7-56) 06/15/19 04:35 Alkaline Phosphatase 80 units/L (35-129) 06/15/19 04:35 Troponin T 0.979 ng/mL (0.00-0.029) H* 06/14/19 03:10 Total Protein 7.1 g/dL (6.3-8.2) 06/15/19 04:35 Albumin 2.8 g/dL (3.9-5) L 06/15/19 04:35 Albumin/Globulin Ratio 0.7 % 06/15/19 04:35 Triglycerides 74 mg/dL (2-149) 06/14/19 03:10 Cholesterol 112 mg/dL (50-199) 06/14/19 03:10 LDL Cholesterol Direct 76 mg/dL (50-130) 06/14/19 03:10 HDL Cholesterol 30 mg/dL (40-59) L 06/14/19 03:10 Cholesterol/HDL Ratio 3.73 % 06/14/19 03:10 Procalcitonin 45.71 ng/mL (<0.15) 06/14/19 13:26 Urine Color Gabbie (Yellow) 06/14/19 04:35 Urine Turbidity Cloudy (Clear) 06/14/19 04:35 Urine pH 5.0 (5.0-7.0) 06/14/19 04:35 Ur Specific [place] 1.020 (1.003-1.030) 06/14/19 04:35 Urine Protein 100 mg/dl mg/dL (Negative) 06/14/19 04:35 Urine Glucose (UA) Neg mg/dL (Negative) 06/14/19 04:35 Urine Ketones Neg mg/dL (Negative) 06/14/19 04:35 Urine Blood Neg (Negative) 06/14/19 04:35 Urine Nitrite Neg (Negative) 06/14/19 04:35 Ur Reducing Substances Not Reportable 06/14/19 04:35 Urine Bilirubin Neg (Negative) 06/14/19 04:35 Urine Ictotest Not Reportable 06/14/19 04:35 Urine Urobilinogen < 2.0 mg/dL (<2.0) 06/14/19 04:35 Ur Leukocyte Esterase Tr (Negative) 06/14/19 04:35 Urine WBC (Auto) 8.0 /HPF (0.0-6.0) H 06/14/19 04:35 Urine RBC (Auto) 6.0 /HPF (0.0-6.0) 06/14/19 04:35 U Epithel Cells (Auto) 1.0 /HPF (0-13.0) 06/14/19 04:35 Urine Mucus 2+ /HPF 06/14/19 04:35 Active Medications - Current Medications Current Medications: Generic Name Dose Route Start Last Admin Trade Name Freq PRN Reason Stop Dose Admin Acetaminophen 650 mg 06/14/19 09:00 Tylenol PO Q4H PRN Pain MILD(1-3)/Fever >100.5/[place] Albuterol 2.5 mg 06/14/19 12:31 Proventil IH Q4HRT PRN Shortness Of Breath Lipase/Protease/Amylase 1 each 06/14/19 13:[address] 10,500 Unit FEEDTUBE PRN PRN For Clogged Feeding Tube Famotidine 20 mg 06/14/19 18:00 06/14/19 17:23 Pepcid PO 20 mg QDAY HAL Administration Heparin Sodium (Porcine) 5,000 unit 06/14/19 22:00 06/14/19 21:55 Heparin SUB-Q 5,000 unit Q12HR HAL Administration Hydrophilic Ointment 1 applic 06/14/19 03:45 Vaseline Lip Therapy TP Q2HR PRN Dry Lips Midazolam HCl 100 mg/ Sodium 100 mls @ 2 mls/hr 06/14/19 04:00 06/15/19 06:43 Chloride IV Infused TITR HAL Titration Protocol 2 MG/HR Norepinephrine 4 mg in 250 mls @ 7.5 mls/hr 06/14/19 05:00 06/14/19 23:43 Levophed Drip 4 Mg/Ns 250 Ml IV 6 mcg/min TITR HAL 22.5 mls/hr Titration Protocol 2 MCG/MIN Vancomycin HCl 1 gm in 250 mls @ 166.667 mls/hr 06/14/19 22:00 06/14/19 22:05 Vancomycin/Ns 1 Gm/250 Ml IV 166.667 mls/hr Q24H HAL Administration Cefepime HCl 2 gm in 100 mls @ 200 mls/hr 06/14/19 22:00 06/14/19 21:43 Maxipime/Ns 2 Gm/100 Ml IV 200 mls/hr Q12HR HAL Administration Protocol Sodium Chloride 1,000 mls @ 125 mls/hr 06/14/19 09:00 06/15/19 05:43 Nacl 0.9% 1000 Ml IV 125 mls/hr DIRECT HAL Administration Fluconazole 200 mg in 100 mls @ 100 mls/hr 06/14/19 16:00 06/14/19 17:23 Diflucan IV 100 mls/hr Q24HR HAL Administration Protocol Metronidazole 500 mg in 100 mls @ 100 mls/hr 06/14/19 16:00 06/15/19 05:44 Flagyl 500 Mg/100 Ml IV 100 mls/hr Q8HR HAL Administration Protocol Midazolam HCl 2 mg 06/14/19 03:45 06/14/19 05:06 Versed IV 2 mg Q10MIN PRN Administration Sedation Multi-Ingred Cream/Lotion/Oil/Oint 1 applic 06/14/19 03:45 Artificial Tears Ophth Oint OU Q4HR PRN Dry Eye(s) Ondansetron HCl 4 mg 06/14/19 09:00 Zofran IV Q8H PRN Nausea And Vomiting Simple Syrup 15 ml 06/14/19 13:28 Simple Syrup FEEDTUBE PRN PRN Hypoglycemia Simple Syrup 30 ml 06/14/19 13:28 Simple Syrup FEEDTUBE PRN PRN Hypoglycemia Sodium Bicarbonate 325 mg 06/14/19 13:28 Sodium Bicarbonate FEEDTUBE PRN PRN For Clogged Feeding Tube Sodium Chloride 10 ml 06/14/19 10:00 06/14/19 23:42 Sodium Chloride Flush Syringe 10 Ml IV 10 ml BID HAL Administration Sodium Chloride 10 ml 06/14/19 09:00 Sodium Chloride Flush Syringe 10 Ml IV PRN PRN LINE FLUSH Nutrition/Malnutrition Assess - Dietary Evaluation Nutrition/Malnutrition Findings: Nutrition Notes Start: 06/14/19 12:44 Freq: Status: Active Protocol: Document 06/14/19 12:44 ADELINE (Rec: 06/14/19 13:27 ADELINE [email or web address]) Co-Sign 06/14/19 12:44 KH Nutrition Notes Need for Assessment generated from: MD Order Initial or Follow up Assessment Current Diagnosis Hypertension Other Pertinent Diagnosis DVT, GERD, left AKA, right BKA , sepsis Current Diet NPO Labs/Tests K 3.5 CO2 20 Cr 0.7 Pertinent Medications K Cl 125m/hr Height 4 ft 3 in Weight 70 kg [place] Body Weight (kg) 23.63 BMI 41.7 Weight Status Morbidly Obese Subjective/Other Information RD consult for TF per MD. Burn Absent Trauma Absent Minimum of two criteria No #1 Nutrition Diagnosis Inadequate oral intake Etiology On vent As Evidenced by Signs and Symptoms NPO status Is patient on ventilator? Yes Is Patient Ambulatory and/or Out of Bed No REE-([facility]-confined to bed) 1368.012 Calculation Used for Recommendations [facility] Additional Notes Protein needs: 60g/kg (2.5g/kg IBW 24kg) Fluid needs: 1ml/kcal Nutrition Intervention Nutrition Support: Osmolite 1.5 at 40ml/hr Water flush 150ml q4hr Kcal 1,440 Protein (gm) 60 Fluid (mL) 732 Fiber (gm) 0 Goal #1 TF tolerance Goal #2 Meet at least 85% of energy and protein needs Anticipated Discharge Needs: Unable to determine at this time Follow-Up By: 06/18/19 Additional Comments F/U for TF tolerance and goal rate
[2019-06-15] MEDS ORDERED: KPHOS 45 MMOL in NACL 0.9% 500 ML 500 ML IV ONE (09:00)
[2019-06-15] MEDS: DIFLUCAN 200 MG/100 ML BAG IV SCH (09:12)
[2019-06-15] MEDS: HEPARIN SUB-Q SCH ×2 (09:12→21:56)
[2019-06-15] MEDS: MAXIPIME/NS 2 GM/100 ML 2 GM/100 ML BAG IV SCH ×2 (09:12→21:58)
[2019-06-15] MEDS: PEPCID PO SCH (09:12)
[2019-06-15] MEDS: SODIUM CHLORIDE FLUSH SYRINGE 10 ML IV SCH (09:13)
--- NOTE | 2019-06-15 10:51 | Progress Note ---
Assessment and Plan Severe sepsis with septic shock; source unclear. Acute respiratory failure; intubated on CPAP this morning Acute encephalopathy Peripheral arterial disease s/p bilateral knee amputation History of MRSA wounds COPD Rheumatoid arthritis Echo showing LVEF 50-55% with RVSP 41 mm Hg Recommendations: Supportive care per ID and ICU team Subjective Date of service: 06/15/19 Principal diagnosis: Septic Shock Interval history: Patient continues to be intubated this morning Patient is also sedated with IV Versed Patient on low dose levophed Objective Vital Signs Temp Pulse Resp BP Pulse Ox 06/15/19 10:00 79 24 125/70 100 06/15/19 09:46 76 21 112/63 100 06/15/19 09:30 77 20 112/63 100 06/15/19 09:16 79 27 H 112/63 100 06/15/19 09:00 80 21 112/63 100 06/15/19 08:46 87 26 H 122/63 100 06/15/19 08:30 80 25 H 122/63 100 06/15/19 08:16 85 21 122/63 100 06/15/19 08:00 98.1 F 78 22 122/63 100 06/15/19 07:59 76 21 122/63 100 06/15/19 07:46 74 25 H 117/63 100 06/15/19 07:30 73 16 117/63 100 06/15/19 07:16 71 17 117/63 100 06/15/19 07:00 80 21 117/63 100 06/15/19 06:46 82 24 120/56 100 06/15/19 06:30 79 20 120/56 100 06/15/19 06:20 79 19 120/56 100 06/15/19 06:10 83 20 120/56 100 06/15/19 06:00 75 16 120/56 100 06/15/19 05:50 80 21 132/60 100 06/15/19 05:40 80 20 132/60 100 06/15/19 05:30 81 19 132/60 100 06/15/19 05:20 81 24 132/60 100 06/15/19 05:10 76 18 132/60 100 06/15/19 05:00 76 19 131/53 100 06/15/19 04:50 76 16 132/60 100 06/15/19 04:40 76 17 132/60 100 06/15/19 04:30 79 21 132/60 100 06/15/19 04:20 80 15 132/60 100 06/15/19 04:10 73 16 132/60 100 06/15/19 04:00 75 16 132/60 100 06/15/19 03:50 76 19 114/61 100 06/15/19 03:40 76 16 114/61 100 06/15/19 03:30 82 18 120/56 100 06/15/19 03:20 73 22 120/56 100 06/15/19 03:10 66 20 114/61 100 06/15/19 03:00 100.5 F H 73 20 114/61 100 06/15/19 02:50 78 21 110/55 100 06/15/19 02:40 77 20 110/55 100 06/15/19 02:30 67 21 110/55 100 06/15/19 02:20 72 20 110/55 100 06/15/19 02:10 73 19 110/55 100 06/15/19 02:00 78 19 120/56 100 06/15/19 01:50 75 13 110/55 100 06/15/19 01:40 69 20 110/55 100 06/15/19 01:30 70 20 110/55 100 06/15/19 01:20 75 14 110/55 100 06/15/19 01:15 80 22 100 06/14/19 23:29 81 123/56 100 06/14/19 23:17 99.9 F H 06/14/19 22:00 68 06/14/19 19:50 68 121/51 100 06/14/19 19:48 100.1 F H 06/14/19 18:08 70 135/60 100 06/14/19 16:00 99 F 06/14/19 12:22 61 122/68 100 - Physical Examination General: No Apparent Distress Neck: Positive: neck supple Cardiac: Positive: Reg Rate and Rhythm Lungs: Positive: Ventilated Respirations - Labs and Meds Cardiac Enzymes 06/15/19 Range/Units 04:35 AST 21 (5-40) units/L CBC 06/15/19 Range/Units 04:35 WBC 11.2 H (4.5-11.0) K/mm3 RBC 3.02 L (3.65-5.03) M/mm3 Hgb 8.9 L (11.8-15.2) gm/dl Hct 27.1 L (35.5-45.6) % Plt Count 228 (140-440) K/mm3 Lymph # 0.7 L (1.2-5.4) K/mm3 Adams # 0.7 (0.0-0.8) K/mm3 Eos # 0.0 (0.0-0.4) K/mm3 Baso # 0.0 (0.0-0.1) K/mm3 Comprehensive Metabolic Panel 06/15/19 Range/Units 04:35 Sodium 143 (137-145) mmol/L Potassium 3.3 L (3.6-5.0) mmol/L Chloride 110.7 H (98-107) mmol/L Carbon Dioxide 15 L (22-30) mmol/L BUN 11 (9-20) mg/dL Creatinine 0.4 L (0.8-1.5) mg/dL Glucose 104 H (75-100) mg/dL Calcium 7.8 L (8.4-10.2) mg/dL AST 21 (5-40) units/L ALT 14 (7-56) units/L Alkaline Phosphatase 80 (35-129) units/L Total Protein 7.1 (6.3-8.2) g/dL Albumin 2.8 L (3.9-5) g/dL
--- NOTE | 2019-06-15 11:19 | Progress Note ---
Assessment and Plan Cultures: Blood culture 06/14/2019 pending. Tracheal asp culture 06/14/2019 pending. Assessment: 78 y/o male with a history of severe peripheral artery disease status post bilateral above the knee amputations, previous MRSA in wounds, COPD, rheumatoid arthritis, admitted on 06/14/2019 due to fever at 100.2, AMS and hypotension at 82/[address] [facility] the morning of admission: 1) Severe sepsis with septic shock: still on levophed and low grade fever; source unclear. Patient with acute symptoms, no clear history of events. UA no significant pyuria. CXR and CTA chest no obvious pneumonia or PE. Blood culture pending. CT abd ? GB or appendix abnormalities. Elevated troponins. Significantly elevated procalcitonin c/w bacterial sepsis. DDx. acute abdomen from appendicitis or cholecystitis v/s ACS v/s aspiration pneumonitis. 2) Acute respiratory failure: intubated on CPAP today 3) Acute encephalopathy: due to #1 Recommendations: follow up blood culture and respiratory cultures serial procalcitonin continue with cefepime 2 gm IV q 12 hour for continue IV vancomcyin continue metronidazole and fluconazole until intra-abdominal etiology is ruled out Surgery and Cards on board check RUQ US - pending Will follow. Carol Reynoso MD Infectious Diseases Liaison Officer [facility] ([facility]) M [phone] O [phone] Subjective Date of service: 06/15/19 Principal diagnosis: Septic Shock Interval history: Still low grade fever, still on levophed, intubated, sedated. Objective - Exam Narrative Exam: General appearance: sedated intubated on CPAP Eyes: anicteric sclerae, moist conjunctivae; no lid-lag; PERRLA HENT: Atraumatic; oropharynx clear +ETT and NGT Lungs: CTA CV: RRR no murmur Abdomen: Soft, non-tender; no masses or hepatosplenomegaly Extremities: no edema, no cyanosis Skin: No rash. Psych:sedated. Neuro: sedated Right IJ TLC - Constitutional Vitals: Vital Signs Temp Pulse Resp BP Pulse Ox 98.1 F 79 24 125/70 100 06/15/19 08:00 06/15/19 10:00 06/15/19 10:00 06/15/19 10:00 06/15/19 10:00 Temperature -Last 24 Hours Temperature 98.1 F Temperature 100.5 F Temperature 99.9 F Temperature 100.1 F Temperature 99 F - Labs CBC & Chem 7: 06/15/19 04:35 06/15/19 04:35 Labs: Abnormal lab results 06/15/19 06/15/19 06/15/19 Range/Units 03:30 04:35 04:35 WBC 11.2 H (4.5-11.0) K/mm3 RBC 3.02 L (3.65-5.03) M/mm3 Hgb 8.9 L (11.8-15.2) gm/dl Hct 27.1 L (35.5-45.6) % RDW 15.3 H (13.2-15.2) % Lymph % (Auto) 6.5 L (13.4-35.0) % Lymph # 0.7 L (1.2-5.4) K/mm3 Seg Neutrophils % 86.6 H (40.0-70.0) % Seg Neutrophils # 9.7 H (1.8-7.7) K/mm3 POC ABG pH 7.336 L (7.35-7.45) POC ABG pO2 133 H (80-105) Potassium 3.3 L (3.6-5.0) mmol/L Chloride 110.7 H (98-107) mmol/L Carbon Dioxide 15 L (22-30) mmol/L Creatinine 0.4 L (0.8-1.5) mg/dL Glucose 104 H (75-100) mg/dL Calcium 7.8 L (8.4-10.2) mg/dL Phosphorus 1.80 L (2.5-4.5) mg/dL Albumin 2.8 L (3.9-5) g/dL
--- NOTE | 2019-06-15 11:20 | Progress Note ---
Assessment and Plan Acute respiratory failure, hypoxemic, on mechanical ventilatory support. Severe sepsis with shock, possibly due to urinary source. Acute encephalopathy, possibly on chronic. History of chronic obstructive pulmonary disease. History of peripheral vascular disease. History of hypertension. History of deep venous thrombosis. History of gastroesophageal reflux disease. History of arthritis. History of gout. Leukocytosis. Mild hypokalemia. Mild metabolic acidosis. Lactic acidosis. Non-ST elevation myocardial infarction - replacing Potassium and Phosphorus to optimize respiratory muscle function - wean supplemental oxygena for target O2 sat's > 90% acutely - Daily SAT and SBT assessment as tolerated - VAP bundle addressed - Lung protective strategies - continue bronchodilators with pulmonary hygiene per RT - continue empiric anti-infective's; de-escalate per ID recommendations and based on microbiologic and clinical data - Avoid benzodiazepine's, reduce the possibility of delirium - Continue with fentanyl, titrate for RASS of 0 to -1 - Maintenance of sleep-wake cycle, avoid delirium - begin enteral nutritional support at goal rate as tolerated - Accuchecks with glycemic control elier SSI (While critically ill target blood glucose of 140-180 mg/dL; avoid hypoglycemic) - G.I. & VTE prophylaxis - PT/OT/ROM exercises - mobility protocols for pressure ulcer prophylaxis - Monitor hemodynamics closely - continue other care per attending / other travel consultant's - discharge planning ongoing concurrently .... re-evaluate in am & prn CONDITION: CRITICAL PROGNOSIS: GUARDED CODE STATUS: FULL CODE The high probability of a clinically significant, sudden or life-threatening deterioration of the [respiratory, cardiovascular] system(s) required my full and direct attention, intervention and personal management. The aggregate critical care time was [32] minutes without overlap. Time includes spent on; [x] Data Review and interpretation [x] Patient assessment and monitoring of vital signs [x] Documentation [x] Medication orders and management Subjective Date of service: 06/15/19 Principal diagnosis: Septic Shock Interval history: Patient is seen today for: Acute hypoxemic respiratory failure; Severe sepsis with shock; UTI; Acute encephalopathy; COPD; PVD; HTN; NSTEMI; H/O DVT Seen and examined at bedside; 24hour events reviewed; nursing and respiratory care staff consulted; no adverse overnight events reported to me; resting peacef ully in bed; remains on MVS; now on SBT with P-supp of 12 cm H2O and tolerating well; no emesis or overt aspiration and afebrile Objective Vital Signs - 12hr 06/14/19 06/15/19 06/15/19 23:29 01:15 01:20 Temperature Pulse Rate 81 80 75 Respiratory 22 14 Rate Blood Pressure 123/56 110/55 O2 Sat by Pulse 100 100 100 Oximetry 06/15/19 06/15/19 06/15/19 01:30 01:40 01:50 Temperature Pulse Rate 70 69 75 Respiratory 20 20 13 Rate Blood Pressure 110/55 110/55 110/55 O2 Sat by Pulse 100 100 100 Oximetry 06/15/19 06/15/19 06/15/19 02:00 02:10 02:20 Temperature Pulse Rate 78 73 72 Respiratory 19 19 20 Rate Blood Pressure 120/56 110/55 110/55 O2 Sat by Pulse 100 100 100 Oximetry 06/15/19 06/15/19 06/15/19 02:30 02:40 02:50 Temperature Pulse Rate 67 77 78 Respiratory 21 20 21 Rate Blood Pressure 110/55 110/55 110/55 O2 Sat by Pulse 100 100 100 Oximetry 06/15/19 06/15/19 06/15/19 03:00 03:10 03:20 Temperature 100.5 F H Pulse Rate 73 66 73 Respiratory 20 20 22 Rate Blood Pressure 114/61 114/61 120/56 O2 Sat by Pulse 100 100 100 Oximetry 06/15/19 06/15/19 06/15/19 03:30 03:40 03:50 Temperature Pulse Rate 82 76 76 Respiratory 18 16 19 Rate Blood Pressure 120/56 114/61 114/61 O2 Sat by Pulse 100 100 100 Oximetry 06/15/19 06/15/19 06/15/19 04:00 04:10 04:20 Temperature Pulse Rate 75 73 80 Respiratory 16 16 15 Rate Blood Pressure 132/60 132/60 132/60 O2 Sat by Pulse 100 100 100 Oximetry 06/15/19 06/15/19 06/15/19 04:30 04:40 04:50 Temperature Pulse Rate 79 76 76 Respiratory 21 17 16 Rate Blood Pressure 132/60 132/60 132/60 O2 Sat by Pulse 100 100 100 Oximetry 06/15/19 06/15/19 06/15/19 05:00 05:10 05:20 Temperature Pulse Rate 76 76 81 Respiratory 19 18 24 Rate Blood Pressure 131/53 132/60 132/60 O2 Sat by Pulse 100 100 100 Oximetry 06/15/19 06/15/19 06/15/19 05:30 05:40 05:50 Temperature Pulse Rate 81 80 80 Respiratory 19 20 21 Rate Blood Pressure 132/60 132/60 132/60 O2 Sat by Pulse 100 100 100 Oximetry 06/15/19 06/15/19 06/15/19 06:00 06:10 06:20 Temperature Pulse Rate 75 83 79 Respiratory 16 20 19 Rate Blood Pressure 120/56 120/56 120/56 O2 Sat by Pulse 100 100 100 Oximetry 06/15/19 06/15/19 06/15/19 06:30 06:46 07:00 Temperature Pulse Rate 79 82 80 Respiratory 20 24 21 Rate Blood Pressure 120/56 120/56 117/63 O2 Sat by Pulse 100 100 100 Oximetry 06/15/19 06/15/19 06/15/19 07:16 07:30 07:46 Temperature Pulse Rate 71 73 74 Respiratory 17 16 25 H Rate Blood Pressure 117/63 117/63 117/63 O2 Sat by Pulse 100 100 100 Oximetry 06/15/19 06/15/19 06/15/19 07:59 08:00 08:16 Temperature 98.1 F Pulse Rate 76 78 85 Respiratory 21 22 21 Rate Blood Pressure 122/63 122/63 122/63 O2 Sat by Pulse 100 100 100 Oximetry 06/15/19 06/15/19 06/15/19 08:30 08:46 09:00 Temperature Pulse Rate 80 87 80 Respiratory 25 H 26 H 21 Rate Blood Pressure 122/63 122/63 112/63 O2 Sat by Pulse 100 100 100 Oximetry 06/15/19 06/15/19 06/15/19 09:16 09:30 09:46 Temperature Pulse Rate 79 77 76 Respiratory 27 H 20 21 Rate Blood Pressure 112/63 112/63 112/63 O2 Sat by Pulse 100 100 100 Oximetry 06/15/19 10:00 Temperature Pulse Rate 79 Respiratory 24 Rate Blood Pressure 125/70 O2 Sat by Pulse 100 Oximetry Constitutional: no acute distress, other (elderly looking male, normocephalic with mildly increased resp effort at rest) Eyes: non-icteric ENT: oropharynx moist, other (ETT 23 cm TANA) Neck: supple, no lymphadenopathy, no JVD Effort: mildly labored Ascultation: Bilateral: diminished breath sounds, rhonchi Percussion: Bilateral: not dull Cardiovascular: regular rate and rhythm Gastrointestinal: normoactive bowel sounds, soft, non-tender, non-distended Integumentary: normal Extremities: no cyanosis, no edema, pulses normal, no ischemia or petechiae Neurologic: pupils equal and round, CN II-XII normal, unable to assess Psychiatric: other (unable to assess re: AMS) CBC and BMP: 06/15/19 04:35 06/15/19 04:35 ABG, PT/INR, D-dimer: ABG POC ABG pH 7.336 (7.35-7.45) L 06/15/19 03:30 POC ABG pO2 133 (80-105) H 06/15/19 03:30 POC ABG HCO3 13.7 (22-26 mml/L) 06/15/19 03:30 POC ABG Total CO2 14 (23-27mmol/L) 06/15/19 03:30 POC ABG O2 Sat 99 06/15/19 03:30 PT/INR, D-dimer PT 16.3 Sec. (12.2-14.9) H 06/14/19 05:28 INR 1.35 (0.87-1.13) H 06/14/19 05:28 Abnormal lab findings: Abnormal Labs 06/14/19 06/14/19 06/14/19 02:49 03:10 03:10 WBC RBC Hgb Hct RDW Lymph % (Auto) Lymph # Seg Neutrophils % Lymphocytes % (Manual) Seg Neutrophils # Seg Neutrophils # Man Lymphocytes # (Manual) PT INR POC ABG pH POC ABG pO2 Potassium 3.5 L Chloride Carbon Dioxide 20 L Creatinine 0.7 L Glucose 107 H POC Glucose 117 H Lactic Acid 2.60 H* Calcium Phosphorus Troponin T 0.979 H* Albumin 3.0 L HDL Cholesterol 30 L Urine WBC (Auto) 06/14/19 06/14/19 06/14/19 04:30 04:35 05:02 WBC 11.9 H RBC 3.22 L Hgb 9.5 L Hct 28.9 L RDW Lymph % (Auto) Lymph # Seg Neutrophils % Lymphocytes % (Manual) 8.0 L Seg Neutrophils # Seg Neutrophils # Man 8.3 H Lymphocytes # (Manual) 1.0 L PT INR POC ABG pH 7.314 L POC ABG pO2 Potassium Chloride Carbon Dioxide Creatinine Glucose POC Glucose Lactic Acid Calcium Phosphorus Troponin T Albumin HDL Cholesterol Urine WBC (Auto) 8.0 H 06/14/19 06/15/19 06/15/19 05:28 03:30 04:35 WBC 11.2 H RBC 3.02 L Hgb 8.9 L Hct 27.1 L RDW 15.3 H Lymph % (Auto) 6.5 L Lymph # 0.7 L Seg Neutrophils % 86.6 H Lymphocytes % (Manual) Seg Neutrophils # 9.7 H Seg Neutrophils # Man Lymphocytes # (Manual) PT 16.3 H INR 1.35 H POC ABG pH 7.336 L POC ABG pO2 133 H Potassium Chloride Carbon Dioxide Creatinine Glucose POC Glucose Lactic Acid Calcium Phosphorus Troponin T Albumin HDL Cholesterol Urine WBC (Auto) 06/15/19 04:35 WBC RBC Hgb Hct RDW Lymph % (Auto) Lymph # Seg Neutrophils % Lymphocytes % (Manual) Seg Neutrophils # Seg Neutrophils # Man Lymphocytes # (Manual) PT INR POC ABG pH POC ABG pO2 Potassium 3.3 L Chloride 110.7 H Carbon Dioxide 15 L Creatinine 0.4 L Glucose 104 H POC Glucose Lactic Acid Calcium 7.8 L Phosphorus 1.80 L Troponin T Albumin 2.8 L HDL Cholesterol Urine WBC (Auto) Chest x-ray: image reviewed (no focal infiltrate; ETT in good position) Allied health notes reviewed: nursing
[2019-06-15] MEDS ORDERED: SUBLIMAZE IV PRN (14:47)
[2019-06-15] MEDS: SUBLIMAZE IV PRN ×2 (15:07→21:57)
[2019-06-15] MEDS: TYLENOL PO PRN (16:32)
--- NOTE | 2019-06-15 18:10 | Progress Note ---
Assessment and Plan - Patient Problems (1) Abnormal CT of the abdomen Current Visit: Yes Status: Acute Plan to address problem: Pt in better condition today. Pressor currently on hold and VS are normal. Reviewed the other reports. Will see what the US shows. Based on the two CTs, I imagine it will show a thickened, nondistended GB. If this is still a concern, then we should proceed to a HIDA scan. Seems unlikely to be the source as the LFTs have been completely normal on two separate occasions. As for the appendix, the appearance is unchanged from 2016 and there is currently no inflammatory changes around it. If there is still concern that his clinical picture is secondary to appendicitis, then I will take him for a diagnostic laparoscopy. I am not very confident that removing the appendix will help. Will follow along. Please call with questions. time=10min Subjective Date of service: 06/15/19 Patient Reports: Positive: other (pressors currently on hold) Objective Vital Signs - 12hr 06/15/19 06/15/19 06/15/19 06:10 06:20 06:30 Temperature Pulse Rate 83 79 79 Respiratory 20 19 20 Rate Blood Pressure 120/56 120/56 120/56 O2 Sat by Pulse 100 100 100 Oximetry 06/15/19 06/15/19 06/15/19 06:46 07:00 07:16 Temperature Pulse Rate 82 80 71 Respiratory 24 21 17 Rate Blood Pressure 120/56 117/63 117/63 O2 Sat by Pulse 100 100 100 Oximetry 06/15/19 06/15/19 06/15/19 07:30 07:46 07:59 Temperature Pulse Rate 73 74 76 Respiratory 16 25 H 21 Rate Blood Pressure 117/63 117/63 122/63 O2 Sat by Pulse 100 100 100 Oximetry 06/15/19 06/15/19 06/15/19 08:00 08:16 08:30 Temperature 98.1 F Pulse Rate 78 85 80 Respiratory 22 21 25 H Rate Blood Pressure 122/63 122/63 122/63 O2 Sat by Pulse 100 100 100 Oximetry 06/15/19 06/15/19 06/15/19 08:46 09:00 09:16 Temperature Pulse Rate 87 80 79 Respiratory 26 H 21 27 H Rate Blood Pressure 122/63 112/63 112/63 O2 Sat by Pulse 100 100 100 Oximetry 06/15/19 06/15/19 06/15/19 09:30 09:46 10:00 Temperature Pulse Rate 77 76 79 Respiratory 20 21 24 Rate Blood Pressure 112/63 112/63 125/70 O2 Sat by Pulse 100 100 100 Oximetry 06/15/19 06/15/19 06/15/19 10:16 10:30 10:46 Temperature Pulse Rate 77 86 86 Respiratory 26 H 28 H 26 H Rate Blood Pressure 125/70 125/70 125/70 O2 Sat by Pulse 100 100 100 Oximetry 06/15/19 06/15/19 06/15/19 11:00 11:16 11:30 Temperature Pulse Rate 85 92 H 93 H Respiratory 27 H 23 24 Rate Blood Pressure 123/67 123/67 123/67 O2 Sat by Pulse 100 100 99 Oximetry 06/15/19 06/15/19 06/15/19 11:46 12:00 12:04 Temperature 99.1 F Pulse Rate 89 85 79 Respiratory 27 H 25 H 25 H Rate Blood Pressure 123/67 107/61 107/61 O2 Sat by Pulse 100 100 100 Oximetry 06/15/19 06/15/19 06/15/19 12:16 12:30 12:46 Temperature Pulse Rate 86 89 89 Respiratory 28 H 29 H 30 H Rate Blood Pressure 107/61 107/61 107/61 O2 Sat by Pulse 100 100 100 Oximetry 06/15/19 06/15/19 06/15/19 13:00 13:16 13:30 Temperature Pulse Rate 85 Respiratory 32 H Rate Blood Pressure 122/65 122/65 122/65 O2 Sat by Pulse 100 100 100 Oximetry 06/15/19 06/15/19 06/15/19 13:46 14:00 14:16 Temperature Pulse Rate 94 H 96 H 100 H Respiratory 34 H 36 H 39 H Rate Blood Pressure 122/65 122/65 141/82 O2 Sat by Pulse 100 99 100 Oximetry 06/15/19 06/15/19 06/15/19 14:30 14:46 15:00 Temperature Pulse Rate 98 H 96 H 96 H Respiratory 28 H 20 31 H Rate Blood Pressure 141/82 141/82 144/82 O2 Sat by Pulse 99 100 100 Oximetry 06/15/19 06/15/19 06/15/19 15:16 15:30 15:46 Temperature Pulse Rate 97 H 96 H 97 H Respiratory 26 H 29 H 24 Rate Blood Pressure 144/82 144/82 144/82 O2 Sat by Pulse 99 100 100 Oximetry 06/15/19 06/15/19 06/15/19 16:00 16:16 16:30 Temperature 101.2 F H Pulse Rate 95 H 97 H 96 H Respiratory 26 H 30 H 27 H Rate Blood Pressure 143/71 143/71 143/71 O2 Sat by Pulse 100 100 100 Oximetry 06/15/19 06/15/19 06/15/19 16:37 16:46 17:00 Temperature Pulse Rate 95 H 95 H 95 H Respiratory 30 H 27 H 30 H Rate Blood Pressure 143/71 143/71 127/74 O2 Sat by Pulse 100 100 100 Oximetry 06/15/19 17:16 Temperature Pulse Rate 92 H Respiratory 26 H Rate Blood Pressure 127/74 O2 Sat by Pulse 100 Oximetry - General physical appearance no distress, no pain - Respiratory normal expansion, normal respiratory effort - Abdomen soft, not tender, bowel sounds hypoactive, not rebound, not guarding, not rigid - Integumentary no rash, no growths, no abnormal pigmentation - Labs 06/15/19 04:35 06/15/19 04:35 Diabetes panel 06/15/19 Range/Units 04:35 Sodium 143 (137-145) mmol/L Potassium 3.3 L (3.6-5.0) mmol/L Chloride 110.7 H (98-107) mmol/L Carbon Dioxide 15 L (22-30) mmol/L BUN 11 (9-20) mg/dL Creatinine 0.4 L (0.8-1.5) mg/dL Glucose 104 H (75-100) mg/dL Calcium 7.8 L (8.4-10.2) mg/dL AST 21 (5-40) units/L ALT 14 (7-56) units/L Alkaline Phosphatase 80 (35-129) units/L Total Protein 7.1 (6.3-8.2) g/dL Albumin 2.8 L (3.9-5) g/dL Calcium panel 06/15/19 Range/Units 04:35 Calcium 7.8 L (8.4-10.2) mg/dL Phosphorus 1.80 L (2.5-4.5) mg/dL Albumin 2.8 L (3.9-5) g/dL Pituitary panel 06/15/19 Range/Units 04:35 Sodium 143 (137-145) mmol/L Potassium 3.3 L (3.6-5.0) mmol/L Chloride 110.7 H (98-107) mmol/L Carbon Dioxide 15 L (22-30) mmol/L BUN 11 (9-20) mg/dL Creatinine 0.4 L (0.8-1.5) mg/dL Glucose 104 H (75-100) mg/dL Calcium 7.8 L (8.4-10.2) mg/dL Adrenal panel 06/15/19 Range/Units 04:35 Sodium 143 (137-145) mmol/L Potassium 3.3 L (3.6-5.0) mmol/L Chloride 110.7 H (98-107) mmol/L Carbon Dioxide 15 L (22-30) mmol/L BUN 11 (9-20) mg/dL Creatinine 0.4 L (0.8-1.5) mg/dL Glucose 104 H (75-100) mg/dL Calcium 7.8 L (8.4-10.2) mg/dL Total Bilirubin 0.30 (0.1-1.2) mg/dL AST 21 (5-40) units/L ALT 14 (7-56) units/L Alkaline Phosphatase 80 (35-129) units/L Total Protein 7.1 (6.3-8.2) g/dL Albumin 2.8 L (3.9-5) g/dL
--- NOTE | 2019-06-15 20:05 | Progress Note ---
Assessment and Plan Assessment and plan: 78-year-old man brought from long term for confusion, lethargy and hypotension. Who was intubated in the ER for airway protection Vitals showed hypotension and tachycardia, which improved with pressors Labs show a white count of 11.9 anemia with hemoglobin of 9.5, potassium 3.5, troponin 0 0.979, UA shows 8 leukocytes Chest x-ray; no acute findings CT abdomen and pelvis abnormal appearance of gallbladder and appendix -Moderate diffuse gallbladder wall thickening and edema Appendix is prominent measuring 1.5 cm, there is a 2.4 cm fluid collection in the distal tip of the appendix There is a suspicious 1.8 cm heterogeneous masslike lesion at the inferior pole of the left kidney, it was 1.3 cm on previous exam CT angiogram chest, no PE, bibasilar atelectasis CT head, essentially normal for age Septic shock IV antibiotics, IV pressors, IV fluids, ID consult, follow-up blood cultures type 2 [facility] cardiology input apprecited Appendicitis, cholecystitis ruled out Surgery consult appreciated Acute respiratory failure on mechanical ventilator less than 96 hours, continue ventilator, pulmonary to manage Left renal mass Renal ultrasound Hypokalemia Replete IV DVT prophylaxis with Lovenox The high probability of a clinically significant, sudden or life threatening deterioration of the [pulmonary, CVS, GI, renal] system(s) required my full and direct attention, intervention and personal management. The aggregate critical care time was [55] minutes. This time is in addition to time spent performing reported procedures but includes the following: [] Data Review and interpretation [] Patient assessment and monitoring of vital signs [] Documentation [] Medication orders and management History Interval history: Patient remains intubated, not responsive Remains vent dependent had fever no diarrhea or vomiting Hospitalist Physical - Physical exam Narrative exam: General.: Appears ill, obtunded, intubated HEENT: Moist mucous membranes, extraocular muscles intact, no lymphadenopathy Neck: supple Cardiac: S1-S2 heard Lungs: Ventilated breath sounds, no crackles Abdomen: soft , not distended Extremities: no edema clubbing or cyanosis Skin: no rash or lesions Neurologic: Intubated, obtunded, not on sedation Psych: Obtunded - Constitutional Vitals: Temp Pulse Resp BP Pulse Ox 99.2 F 82 22 117/68 100 06/15/19 19:44 06/15/19 18:00 06/15/19 18:00 06/15/19 18:00 06/15/19 18:00 General appearance: Present: other (intubated on the vent) Results - Labs CBC & Chem 7: 06/15/19 04:35 06/15/19 04:35 Labs: Laboratory Last Values WBC 11.2 K/mm3 (4.5-11.0) H 06/15/19 04:35 RBC 3.02 M/mm3 (3.65-5.03) L 06/15/19 04:35 Hgb 8.9 gm/dl (11.8-15.2) L 06/15/19 04:35 Hct 27.1 % (35.5-45.6) L 06/15/19 04:35 MCV 90 fl (84-94) 06/15/19 04:35 MCH 29 pg (28-32) 06/15/19 04:35 MCHC 33 % (32-34) 06/15/19 04:35 RDW 15.3 % (13.2-15.2) H 06/15/19 04:35 Plt Count 228 K/mm3 (140-440) 06/15/19 04:35 Lymph % (Auto) 6.5 % (13.4-35.0) L 06/15/19 04:35 [place] % (Auto) 6.4 % (0.0-7.3) 06/15/19 04:35 Eos % (Auto) 0.3 % (0.0-4.3) 06/15/19 04:35 Baso % (Auto) 0.2 % (0.0-1.8) 06/15/19 04:35 Lymph # 0.7 K/mm3 (1.2-5.4) L 06/15/19 04:35 Archer # 0.7 K/mm3 (0.0-0.8) 06/15/19 04:35 Eos # 0.0 K/mm3 (0.0-0.4) 06/15/19 04:35 Baso # 0.0 K/mm3 (0.0-0.1) 06/15/19 04:35 Add Manual Diff Complete 06/14/19 04:30 Total Counted 100 06/14/19 04:30 Seg Neutrophils % 86.6 % (40.0-70.0) H 06/15/19 04:35 Seg Neuts % (Manual) 70.0 % (40.0-70.0) 06/14/19 04:30 Band Neutrophils % 18.0 % 06/14/19 04:30 Lymphocytes % (Manual) 8.0 % (13.4-35.0) L 06/14/19 04:30 Reactive Lymphs % (Man) 0 % 06/14/19 04:30 Monocytes % (Manual) 4.0 % (0.0-7.3) 06/14/19 04:30 Eosinophils % (Manual) 0 % (0.0-4.3) 06/14/19 04:30 Basophils % (Manual) 0 % (0.0-1.8) 06/14/19 04:30 Metamyelocytes % 0 % 06/14/19 04:30 Myelocytes % 0 % 06/14/19 04:30 Promyelocytes % 0 % 06/14/19 04:30 Blast Cells % 0 % 06/14/19 04:30 Nucleated RBC % Not Reportable 06/14/19 04:30 Seg Neutrophils # 9.7 K/mm3 (1.8-7.7) H 06/15/19 04:35 Seg Neutrophils # Man 8.3 K/mm3 (1.8-7.7) H 06/14/19 04:30 Band Neutrophils # 2.1 K/mm3 06/14/19 04:30 Lymphocytes # (Manual) 1.0 K/mm3 (1.2-5.4) L 06/14/19 04:30 Abs React Lymphs (Man) 0.0 K/mm3 06/14/19 04:30 Monocytes # (Manual) 0.5 K/mm3 (0.0-0.8) 06/14/19 04:30 Eosinophils # (Manual) 0.0 K/mm3 (0.0-0.4) 06/14/19 04:30 Basophils # (Manual) 0.0 K/mm3 (0.0-0.1) 06/14/19 04:30 Metamyelocytes # 0.0 K/mm3 06/14/19 04:30 Myelocytes # 0.0 K/mm3 06/14/19 04:30 Promyelocytes # 0.0 K/mm3 06/14/19 04:30 Blast Cells # 0.0 K/mm3 06/14/19 04:30 WBC Morphology Not Reportable 06/14/19 04:30 Hypersegmented Neuts Not Reportable 06/14/19 04:30 Hyposegmented Neuts Not Reportable 06/14/19 04:30 Hypogranular Neuts Not Reportable 06/14/19 04:30 Smudge Cells Not Reportable 06/14/19 04:30 Toxic Granulation Not Reportable 06/14/19 04:30 Toxic Vacuolation Not Reportable 06/14/19 04:30 Dohle Bodies Not Reportable 06/14/19 04:30 Pelger-Huet Anomaly Not Reportable 06/14/19 04:30 Raymundo Rods Not Reportable 06/14/19 04:30 Platelet Estimate Consistent w auto 06/14/19 04:30 Clumped Platelets Not Reportable 06/14/19 04:30 Plt Clumps, EDTA Not Reportable 06/14/19 04:30 Large Platelets Rare 06/14/19 04:30 Giant Platelets Not Reportable 06/14/19 04:30 Platelet Satelliting Not Reportable 06/14/19 04:30 Plt Morphology Comment Not Reportable 06/14/19 04:30 RBC Morphology Not Reportable 06/14/19 04:30 Dimorphic RBCs Not Reportable 06/14/19 04:30 Polychromasia Not Reportable 06/14/19 04:30 Hypochromasia Not Reportable 06/14/19 04:30 Poikilocytosis Not Reportable 06/14/19 04:30 Anisocytosis Rare 06/14/19 04:30 Microcytosis Not Reportable 06/14/19 04:30 Macrocytosis Not Reportable 06/14/19 04:30 Spherocytes Not Reportable 06/14/19 04:30 Pappenheimer Bodies Not Reportable 06/14/19 04:30 Sickle Cells Not Reportable 06/14/19 04:30 Target Cells Not Reportable 06/14/19 04:30 Tear Drop Cells Not Reportable 06/14/19 04:30 Ovalocytes Rare 06/14/19 04:30 Helmet Cells Not Reportable 06/14/19 04:30 [place] Bodies Not Reportable 06/14/19 04:30 [place] Rings Not Reportable 06/14/19 04:30 [place] Cells Rare 06/14/19 04:30 Bite Cells Not Reportable 06/14/19 04:30 Crenated Cell Not Reportable 06/14/19 04:30 Elliptocytes Not Reportable 06/14/19 04:30 Acanthocytes (Spur) Not Reportable 06/14/19 04:30 Rouleaux Not Reportable 06/14/19 04:30 Hemoglobin C Crystals Not Reportable 06/14/19 04:30 Schistocytes Not Reportable 06/14/19 04:30 Malaria parasites Not Reportable 06/14/19 04:30 Paulie Bodies Not Reportable 06/14/19 04:30 Hem Pathologist Commnt No 06/14/19 04:30 PT 16.3 Sec. (12.2-14.9) H 06/14/19 05:28 INR 1.35 (0.87-1.13) H 06/14/19 05:28 APTT 34.7 Sec. (24.2-36.6) 06/14/19 05:28 POC ABG pH 7.391 (7.35-7.45) 06/15/19 12:25 POC ABG pCO2 < 30 (35-45) L 06/15/19 03:30 POC ABG pO2 63 (80-105) L 06/15/19 12:25 POC ABG HCO3 15.6 (22-26 mml/L) 06/15/19 12:25 POC ABG Total CO2 16 (23-27mmol/L) 06/15/19 12:25 POC ABG O2 Sat 92 06/15/19 12:25 POC ABG Base Excess -9 ((-2) - (+3)mmol/L) 06/15/19 12:25 FiO2 30 % 06/15/19 12:25 Sodium 143 mmol/L (137-145) 06/15/19 04:35 Potassium 3.3 mmol/L (3.6-5.0) L 06/15/19 04:35 Chloride 110.7 mmol/L (98-107) H 06/15/19 04:35 Carbon Dioxide 15 mmol/L (22-30) L 06/15/19 04:35 Anion Gap 21 mmol/L 06/15/19 04:35 BUN 11 mg/dL (9-20) 06/15/19 04:35 Creatinine 0.4 mg/dL (0.8-1.5) L 06/15/19 04:35 Estimated GFR > 60 ml/min 06/15/19 04:35 BUN/Creatinine Ratio 28 % 06/15/19 04:35 Glucose 104 mg/dL (75-100) H 06/15/19 04:35 POC Glucose 117 (70-105) H 06/14/19 02:49 Lactic Acid 1.20 mmol/L (0.7-2.0) 06/14/19 05:28 Calcium 7.8 mg/dL (8.4-10.2) L 06/15/19 04:35 Phosphorus 1.80 mg/dL (2.5-4.5) L 06/15/19 04:35 Magnesium 1.80 mg/dL (1.7-2.3) 06/15/19 04:35 Total Bilirubin 0.30 mg/dL (0.1-1.2) 06/15/19 04:35 AST 21 units/L (5-40) 06/15/19 04:35 ALT 14 units/L (7-56) 06/15/19 04:35 Alkaline Phosphatase 80 units/L (35-129) 06/15/19 04:35 Troponin T 0.979 ng/mL (0.00-0.029) H* 06/14/19 03:10 Total Protein 7.1 g/dL (6.3-8.2) 06/15/19 04:35 Albumin 2.8 g/dL (3.9-5) L 06/15/19 04:35 Albumin/Globulin Ratio 0.7 % 06/15/19 04:35 Triglycerides 74 mg/dL (2-149) 06/14/19 03:10 Cholesterol 112 mg/dL (50-199) 06/14/19 03:10 LDL Cholesterol Direct 76 mg/dL (50-130) 06/14/19 03:10 HDL Cholesterol 30 mg/dL (40-59) L 06/14/19 03:10 Cholesterol/HDL Ratio 3.73 % 06/14/19 03:10 Procalcitonin 45.71 ng/mL (<0.15) 06/14/19 13:26 Urine Color Gabbie (Yellow) 06/14/19 04:35 Urine Turbidity Cloudy (Clear) 06/14/19 04:35 Urine pH 5.0 (5.0-7.0) 06/14/19 04:35 Ur Specific [place] 1.020 (1.003-1.030) 06/14/19 04:35 Urine Protein 100 mg/dl mg/dL (Negative) 06/14/19 04:35 Urine Glucose (UA) Neg mg/dL (Negative) 06/14/19 04:35 Urine Ketones Neg mg/dL (Negative) 06/14/19 04:35 Urine Blood Neg (Negative) 06/14/19 04:35 Urine Nitrite Neg (Negative) 06/14/19 04:35 Ur Reducing Substances Not Reportable 06/14/19 04:35 Urine Bilirubin Neg (Negative) 06/14/19 04:35 Urine Ictotest Not Reportable 06/14/19 04:35 Urine Urobilinogen < 2.0 mg/dL (<2.0) 06/14/19 04:35 Ur Leukocyte Esterase Tr (Negative) 06/14/19 04:35 Urine WBC (Auto) 8.0 /HPF (0.0-6.0) H 06/14/19 04:35 Urine RBC (Auto) 6.0 /HPF (0.0-6.0) 06/14/19 04:35 U Epithel Cells (Auto) 1.0 /HPF (0-13.0) 06/14/19 04:35 Urine Mucus 2+ /HPF 06/14/19 04:35 Active Medications - Current Medications Current Medications: Generic Name Dose Route Start Last Admin Trade Name Freq PRN Reason Stop Dose Admin Acetaminophen 650 mg 06/14/19 09:00 06/15/19 16:32 Tylenol PO 650 mg Q4H PRN Administration Pain MILD(1-3)/Fever >100.5/[place] Albuterol 2.5 mg 06/14/19 12:31 Proventil IH Q4HRT PRN Shortness Of Breath Lipase/Protease/Amylase 1 each 06/14/19 13:[address] 10,500 Unit FEEDTUBE PRN PRN For Clogged Feeding Tube Famotidine 20 mg 06/14/19 18:00 06/15/19 09:12 Pepcid PO 20 mg QDAY HAL Administration Fentanyl 25 mcg 06/15/19 15:02 06/15/19 15:07 Sublimaze IV 25 mcg Q2H PRN Administration Pain , Severe (7-10) Heparin Sodium (Porcine) 5,000 unit 06/14/19 22:00 06/15/19 09:12 Heparin SUB-Q 5,000 unit Q12HR HAL Administration Hydrophilic Ointment 1 applic 06/14/19 03:45 Vaseline Lip Therapy TP Q2HR PRN Dry Lips Midazolam HCl 100 mg/ Sodium 100 mls @ 2 mls/hr 06/14/19 04:00 06/15/19 06:43 Chloride IV Infused TITR HAL Titration Protocol 2 MG/HR Norepinephrine 4 mg in 250 mls @ 7.5 mls/hr 06/14/19 05:00 06/15/19 11:15 Levophed Drip 4 Mg/Ns 250 Ml IV Infused TITR HAL Titration Protocol 2 MCG/MIN Vancomycin HCl 1 gm in 250 mls @ 166.667 mls/hr 06/14/19 22:00 06/14/19 22:05 Vancomycin/Ns 1 Gm/250 Ml IV 166.667 mls/hr Q24H HAL Administration Cefepime HCl 2 gm in 100 mls @ 200 mls/hr 06/14/19 22:00 06/15/19 09:12 Maxipime/Ns 2 Gm/100 Ml IV 200 mls/hr Q12HR HAL Administration Protocol Sodium Chloride 1,000 mls @ 125 mls/hr 06/14/19 09:00 06/15/19 05:43 Nacl 0.9% 1000 Ml IV 125 mls/hr DIRECT HAL Administration Fluconazole 200 mg in 100 mls @ 100 mls/hr 06/14/19 16:00 06/15/19 09:12 Diflucan IV 100 mls/hr Q24HR HAL Administration Protocol Metronidazole 500 mg in 100 mls @ 100 mls/hr 06/14/19 16:00 06/15/19 14:58 Flagyl 500 Mg/100 Ml IV 100 mls/hr Q8HR HAL Administration Protocol Midazolam HCl 2 mg 06/14/19 03:45 06/14/19 05:06 Versed IV 2 mg Q10MIN PRN Administration Sedation Multi-Ingred Cream/Lotion/Oil/Oint 1 applic 06/14/19 03:45 Artificial Tears Ophth Oint OU Q4HR PRN Dry Eye(s) Ondansetron HCl 4 mg 10/03/19 09:00 Zofran IV Q8H PRN Nausea And Vomiting Simple Syrup 15 ml 06/14/19 13:28 Simple Syrup FEEDTUBE PRN PRN Hypoglycemia Simple Syrup 30 ml 06/14/19 13:28 Simple Syrup FEEDTUBE PRN PRN Hypoglycemia Sodium Bicarbonate 325 mg 06/14/19 13:28 Sodium Bicarbonate FEEDTUBE PRN PRN For Clogged Feeding Tube Sodium Chloride 10 ml 06/14/19 10:00 06/15/19 09:13 Sodium Chloride Flush Syringe 10 Ml IV 10 ml BID HAL Administration Sodium Chloride 10 ml 06/14/19 09:00 Sodium Chloride Flush Syringe 10 Ml IV PRN PRN LINE FLUSH Nutrition/Malnutrition Assess - Dietary Evaluation Nutrition/Malnutrition Findings: Nutrition Notes Start: 06/14/19 12 :44 Freq: Status: Active Protocol: Document 06/15/19 13:01 ADELINE (Rec: 06/15/19 13:43 ADELINE [email or web address]) Co-Sign 06/15/19 13:01 LP Nutrition Notes Initial or Follow up Reassessment Current Diagnosis Hypertension Other Pertinent Diagnosis DVT, GERD, left AKA, right BKA , sepsis Current Diet NPO Labs/Tests K 3.3 Cl 110.7 CO2 15 Cr 0.4 Ca 7.8 Phos 1.8 Pertinent Medications K phos 85ml/hr Height 4 ft 3 in Weight 70 kg [place] Body Weight (kg) 23.63 BMI 41.7 Weight Status Morbidly Obese Subjective/Other Information RD consult for nutritional intake. Pt TF turned off due to abdominal ultrasound Burn Absent Trauma Absent Minimum of two criteria No #1 Nutrition Diagnosis Inadequate oral intake Diagnosis Progress(for reassessment Continues documentation) Is patient on ventilator? Yes Is Patient Ambulatory and/or Out of Bed No [facility] 1368.012 Calculation Used for Recommendations [facility] Additional Notes Protein needs: 60g/kg (2.5g/kg IBW 24kg) Fluid needs: 1ml/kcal Nutrition Intervention Change Diet Order: Advance diet when medically feasible Nutrition Support: Osmolite 1.5 at 40ml/hr Water flush 150ml q4hr Kcal 1,440 Protein (gm) 60 Fluid (mL) 732 Fiber (gm) 0 Goal #1 Meet at least 85% of energy and protein needs Anticipated Discharge Needs: Unable to determine at this time Follow-Up By: 06/18/19 Additional Comments F/U for diet advancement
[2019-06-15] MEDS: VANCOMYCIN/NS 1 GM/250 ML 1 GM/250 ML BAG IV SCH (21:58)
--- NOTE | 2019-06-15 22:52 | Ultrasound Report ---
Retroperitoneal Ultrasound History: left renal mass , . Comparison: CT abdomen/pelvis, 06/14/2019 Procedure: Real time ultrasound was utilized to evaluate. Findings: The right kidney measures 10.7 cm and the left kidney measures 10.6cm. No hydronephrosis o r nephrolithiasis is seen. No renal masses are seen. No perinephric fluid collections are identified . No ureteral calculi are noted. The urinary bladder is unremarkable. Review of CT scan shows a 1.8 cm mass arising from the lower pole of the left kidney. This was not ap preciated on this ultrasound but may be better evaluated under the direct supervision of radiologists . If possible, please repeat renal ultrasound on the next available weekday. Impression: Normal ultrasound of both kidneys. Small mass seen on recent CT scan of the abdomen coul d not be identified radiographically. It may be beneficial to have the patient return on Tuesday, with repeat ultrasound performed under the direct supervision of the radiologist. Signer Name: Amisha Lane MD Signed: 06/15/2019 10:48 PM Workstation Name: [id number]
--- NOTE | 2019-06-15 22:55 | Ultrasound Report ---
LIMITED RUQ ABDOMINAL ULTRASOUND INDICATION / CLINICAL INFORMATION: eval for cholecystitis. COMPARISON: CT abdomen pelvis 06/14/2019 FINDINGS: PANCREAS: The majority is obscured by bowel gas. ABDOMINAL AORTA: No significant abnormality. The proximal portion measures up to 1.7 cm, the midporti on up to 1.7 cm, and the distal up to 1.4 cm. IVC: No significant abnormality.. LIVER: The liver measures 13.5 cm in length. No significant abnormality. Normal hepatopedal blood fl ow in the main portal vein. GALLBLADDER: Cholelithiasis. No significant gallbladder wall thickening is noted on this examination. BILE DUCTS: No significant abnormality. Common bile duct measures 3 mm. RIGHT KIDNEY: No significant abnormality visualized. Normal in size, measuring up to 10.4 cm in lengt h. FREE FLUID: None. ADDITIONAL FINDINGS: None. IMPRESSION: 1. Cholelithiasis without sonographic evidence of acute cholecystitis. Signer Name: Lissa Azevedo MD Signed: 06/15/2019 10:51 PM Workstation Name: [id number]
[2019-06-16] MEDS: SODIUM CHLORIDE FLUSH SYRINGE 10 ML IV SCH ×3 (01:38→22:38)
--- NOTE | 2019-06-16 06:56 | XRay Report ---
CHEST 1 VIEW INDICATION / CLINICAL INFORMATION: follow up respiratory failure. COMPARISON: 06/15/2019 FINDINGS: SUPPORT DEVICES: The chin obscures the endotracheal tube. NG tube and central venous line appear to b e in stable position. . HEART / MEDIASTINUM: No significant abnormality. LUNGS / PLEURA: Mild bibasilar atelectasis persists. The lungs appear slightly better aerated. No oth er significant interval change. No pneumothorax. ADDITIONAL FINDINGS: No significant additional findings. IMPRESSION: 1. Slightly improved aeration. Persistent mild bibasilar atelectasis. Signer Name: Amisha Lane MD Signed: 06/16/2019 6:52 AM Workstation Name: [id number]
[2019-06-16] MEDS: NACL 0.9% 1000 ML 1,000 ML IV SCH (07:45)
[2019-06-16] MEDS: DIFLUCAN 200 MG/100 ML BAG IV SCH (09:32)
[2019-06-16] MEDS: MAXIPIME/NS 2 GM/100 ML 2 GM/100 ML BAG IV SCH ×2 (09:32→22:35)
[2019-06-16] MEDS: PEPCID PO SCH (09:33)
[2019-06-16] MEDS: HEPARIN SUB-Q SCH ×2 (09:33→22:33)
--- NOTE | 2019-06-16 11:00 | Progress Note ---
Assessment and Plan Assessment and plan: 78-year-old man brought from detention for confusion, lethargy and hypotension. Who was intubated in the ER for airway protection Vitals showed hypotension and tachycardia, which improved with pressors Labs show a white count of 11.9 anemia with hemoglobin of 9.5, potassium 3.5, troponin 0 0.979, UA shows 8 leukocytes Chest x-ray; no acute findings CT abdomen and pelvis abnormal appearance of gallbladder and appendix -Moderate diffuse gallbladder wall thickening and edema Appendix is prominent measuring 1.5 cm, there is a 2.4 cm fluid collection in the distal tip of the appendix There is a suspicious 1.8 cm heterogeneous masslike lesion at the inferior pole of the left kidney, it was 1.3 cm on previous exam CT angiogram chest, no PE, bibasilar atelectasis CT head, essentially normal for age Septic shock/gram-negative bacteremia IV antibiotics, IV pressors, IV fluids, ID consult, follow-up blood cultures -Source of bacteremia still unclear, for repeat renal ultrasound on Tuesday, ID following patient Appendicitis, and cholecystitis ruled out Surgery input appreciated Acute respiratory failure on mechanical ventilator less than 96 hours, continue ventilator, management per pulmonology Left renal mass? Renal ultrasound was negative, brewery technician recommends repeat ultrasound under supervision of the radiologist Hypokalemia/hypophosphatemia Repleted IV TYpe 2MI, PAF mgt per cardiology, improving acute metabolic encephalopathy improving DVT prophylaxis with Lovenox The high probability of a clinically significant, sudden or life threatening deterioration of the [pulmonary, CVS, GI, renal] system(s) required my full and direct attention, intervention and personal management. The aggregate critical care time was [55] minutes. This time is in addition to time spent performing reported procedures but includes the following: [] Data Review and interpretation [] Patient assessment and monitoring of vital signs [] Documentation [] Medication orders and management History Interval history: Patient remains intubated, opens eyes, turns to voice Remains vent dependent had fever no diarrhea or vomiting Hospitalist Physical - Physical exam Narrative exam: General.: Appears ill, intubated HEENT: Moist mucous membranes, extraocular muscles intact, no lymphadenopathy Neck: supple Cardiac: S1-S2 heard Lungs: Ventilated breath sounds, no crackles Abdomen: soft , not distended Extremities: no edema clubbing or cyanosis Skin: no rash or lesions Neurologic: Intubated, responsive to voice Psych: Obtunded - Constitutional Vitals: Temp Pulse Resp BP Pulse Ox 100 F H 109 H 20 167/98 100 06/16/19 07:49 06/16/19 10:01 06/16/19 10:01 06/16/19 10:01 06/16/19 10:01 General appearance: Present: other (intubated on the vent) Results - Labs CBC & Chem 7: 06/15/19 04:35 06/15/19 04:35 Labs: Laboratory Last Values WBC 11.2 K/mm3 (4.5-11.0) H 06/15/19 04:35 RBC 3.02 M/mm3 (3.65-5.03) L 06/15/19 04:35 Hgb 8.9 gm/dl (11.8-15.2) L 06/15/19 04:35 Hct 27.1 % (35.5-45.6) L 06/15/19 04:35 MCV 90 fl (84-94) 06/15/19 04:35 MCH 29 pg (28-32) 06/15/19 04:35 MCHC 33 % (32-34) 06/15/19 04:35 RDW 15.3 % (13.2-15.2) H 06/15/19 04:35 Plt Count 228 K/mm3 (140-440) 06/15/19 04:35 Lymph % (Auto) 6.5 % (13.4-35.0) L 06/15/19 04:35 [place] % (Auto) 6.4 % (0.0-7.3) 06/15/19 04:35 Eos % (Auto) 0.3 % (0.0-4.3) 06/15/19 04:35 Baso % (Auto) 0.2 % (0.0-1.8) 06/15/19 04:35 Lymph # 0.7 K/mm3 (1.2-5.4) L 06/15/19 04:35 [place] # 0.7 K/mm3 (0.0-0.8) 06/15/19 04:35 Eos # 0.0 K/mm3 (0.0-0.4) 06/15/19 04:35 Baso # 0.0 K/mm3 (0.0-0.1) 06/15/19 04:35 Add Manual Diff Complete 06/14/19 04:30 Total Counted 100 06/14/19 04:30 Seg Neutrophils % 86.6 % (40.0-70.0) H 06/15/19 04:35 Seg Neuts % (Manual) 70.0 % (40.0-70.0) 06/14/19 04:30 Band Neutrophils % 18.0 % 06/14/19 04:30 Lymphocytes % (Manual) 8.0 % (13.4-35.0) L 06/14/19 04:30 Reactive Lymphs % (Man) 0 % 06/14/19 04:30 Monocytes % (Manual) 4.0 % (0.0-7.3) 06/14/19 04:30 Eosinophils % (Manual) 0 % (0.0-4.3) 06/14/19 04:30 Basophils % (Manual) 0 % (0.0-1.8) 06/14/19 04:30 Metamyelocytes % 0 % 06/14/19 04:30 Myelocytes % 0 % 06/14/19 04:30 Promyelocytes % 0 % 06/14/19 04:30 Blast Cells % 0 % 06/14/19 04:30 Nucleated RBC % Not Reportable 06/14/19 04:30 Seg Neutrophils # 9.7 K/mm3 (1.8-7.7) H 06/15/19 04:35 Seg Neutrophils # Man 8.3 K/mm3 (1.8-7.7) H 06/14/19 04:30 Band Neutrophils # 2.1 K/mm3 06/14/19 04:30 Lymphocytes # (Manual) 1.0 K/mm3 (1.2-5.4) L 06/14/19 04:30 Abs React Lymphs (Man) 0.0 K/mm3 06/14/19 04:30 Monocytes # (Manual) 0.5 K/mm3 (0.0-0.8) 06/14/19 04:30 Eosinophils # (Manual) 0.0 K/mm3 (0.0-0.4) 06/14/19 04:30 Basophils # (Manual) 0.0 K/mm3 (0.0-0.1) 06/14/19 04:30 Metamyelocytes # 0.0 K/mm3 06/14/19 04:30 Myelocytes # 0.0 K/mm3 06/14/19 04:30 Promyelocytes # 0.0 K/mm3 06/14/19 04:30 Blast Cells # 0.0 K/mm3 06/14/19 04:30 WBC Morphology Not Reportable 06/14/19 04:30 Hypersegmented Neuts Not Reportable 06/14/19 04:30 Hyposegmented Neuts Not Reportable 06/14/19 04:30 Hypogranular Neuts Not Reportable 06/14/19 04:30 Smudge Cells Not Reportable 06/14/19 04:30 Toxic Granulation Not Reportable 06/14/19 04:30 Toxic Vacuolation Not Reportable 06/14/19 04:30 Dohle Bodies Not Reportable 06/14/19 04:30 Pelger-Huet Anomaly Not Reportable 06/14/19 04:30 Raymundo Rods Not Reportable 06/14/19 04:30 Platelet Estimate Consistent w auto 06/14/19 04:30 Clumped Platelets Not Reportable 06/14/19 04:30 Plt Clumps, EDTA Not Reportable 06/14/19 04:30 Large Platelets Rare 06/14/19 04:30 Giant Platelets Not Reportable 06/14/19 04:30 Platelet Satelliting Not Reportable 06/14/19 04:30 Plt Morphology Comment Not Reportable 06/14/19 04:30 RBC Morphology Not Reportable 06/14/19 04:30 Dimorphic RBCs Not Reportable 06/14/19 04:30 Polychromasia Not Reportable 06/14/19 04:30 Hypochromasia Not Reportable 06/14/19 04:30 Poikilocytosis Not Reportable 06/14/19 04:30 Anisocytosis Rare 06/14/19 04:30 Microcytosis Not Reportable 06/14/19 04:30 Macrocytosis Not Reportable 06/14/19 04:30 Spherocytes Not Reportable 06/14/19 04:30 Pappenheimer Bodies Not Reportable 06/14/19 04:30 Sickle Cells Not Reportable 06/14/19 04:30 Target Cells Not Reportable 06/14/19 04:30 Tear Drop Cells Not Reportable 06/14/19 04:30 Ovalocytes Rare 06/14/19 04:30 Helmet Cells Not Reportable 06/14/19 04:30 [place] Bodies Not Reportable 06/14/19 04:30 [place] Rings Not Reportable 06/14/19 04:30 [place] Cells Rare 06/14/19 04:30 Bite Cells Not Reportable 06/14/19 04:30 Crenated Cell Not Reportable 06/14/19 04:30 Elliptocytes Not Reportable 06/14/19 04:30 Acanthocytes (Spur) Not Reportable 06/14/19 04:30 Rouleaux Not Reportable 06/14/19 04:30 Hemoglobin C Crystals Not Reportable 06/14/19 04:30 Schistocytes Not Reportable 06/14/19 04:30 Malaria parasites Not Reportable 06/14/19 04:30 Paulie Bodies Not Reportable 06/14/19 04:30 Hem Pathologist Commnt No 06/14/19 04:30 PT 16.3 Sec. (12.2-14.9) H 06/14/19 05:28 INR 1.35 (0.87-1.13) H 06/14/19 05:28 APTT 34.7 Sec. (24.2-36.6) 06/14/19 05:28 POC ABG pH 7.315 (7.35-7.45) L 06/16/19 04:29 POC ABG pCO2 < 30 (35-45) L 06/15/19 03:30 POC ABG pO2 135 (80-105) H 06/16/19 04:29 POC ABG HCO3 13.3 (22-26 mml/L) 06/16/19 04:29 POC ABG Total CO2 14 (23-27mmol/L) 06/16/19 04:29 POC ABG O2 Sat 99 06/16/19 04:29 POC ABG Base Excess -13 ((-2) - (+3)mmol/L) 06/16/19 04:29 FiO2 30 % 06/16/19 04:29 Sodium 143 mmol/L (137-145) 06/15/19 04:35 Potassium 3.3 mmol/L (3.6-5.0) L 06/15/19 04:35 Chloride 110.7 mmol/L (98-107) H 06/15/19 04:35 Carbon Dioxide 15 mmol/L (22-30) L 06/15/19 04:35 Anion Gap 21 mmol/L 06/15/19 04:35 BUN 11 mg/dL (9-20) 06/15/19 04:35 Creatinine 0.4 mg/dL (0.8-1.5) L 06/15/19 04:35 Estimated GFR > 60 ml/min 06/15/19 04:35 BUN/Creatinine Ratio 28 % 06/15/19 04:35 Glucose 104 mg/dL (75-100) H 06/15/19 04:35 POC Glucose 117 (70-105) H 06/14/19 02:49 Lactic Acid 1.20 mmol/L (0.7-2.0) 06/14/19 05:28 Calcium 7.8 mg/dL (8.4-10.2) L 06/15/19 04:35 Phosphorus 1.80 mg/dL (2.5-4.5) L 06/15/19 04:35 Magnesium 1.80 mg/dL (1.7-2.3) 06/15/19 04:35 Total Bilirubin 0.30 mg/dL (0.1-1.2) 06/15/19 04:35 AST 21 units/L (5-40) 06/15/19 04:35 ALT 14 units/L (7-56) 06/15/19 04:35 Alkaline Phosphatase 80 units/L (35-129) 06/15/19 04:35 Troponin T 0.979 ng/mL (0.00-0.029) H* 06/14/19 03:10 Total Protein 7.1 g/dL (6.3-8.2) 06/15/19 04:35 Albumin 2.8 g/dL (3.9-5) L 06/15/19 04:35 Albumin/Globulin Ratio 0.7 % 06/15/19 04:35 Triglycerides 74 mg/dL (2-149) 06/14/19 03:10 Cholesterol 112 mg/dL (50-199) 06/14/19 03:10 LDL Cholesterol Direct 76 mg/dL (50-130) 06/14/19 03:10 HDL Cholesterol 30 mg/dL (40-59) L 06/14/19 03:10 Cholesterol/HDL Ratio 3.73 % 06/14/19 03:10 Procalcitonin 45.71 ng/mL (<0.15) 06/14/19 13:26 Urine Color Gabbie (Yellow) 06/14/19 04:35 Urine Turbidity Cloudy (Clear) 06/14/19 04:35 Urine pH 5.0 (5.0-7.0) 06/14/19 04:35 Ur Specific [place] 1.020 (1.003-1.030) 06/14/19 04:35 Urine Protein 100 mg/dl mg/dL (Negative) 06/14/19 04:35 Urine Glucose (UA) Neg mg/dL (Negative) 06/14/19 04:35 Urine Ketones Neg mg/dL (Negative) 06/14/19 04:35 Urine Blood Neg (Negative) 06/14/19 04:35 Urine Nitrite Neg (Negative) 06/14/19 04:35 Ur Reducing Substances Not Reportable 06/14/19 04:35 Urine Bilirubin Neg (Negative) 06/14/19 04:35 Urine Ictotest Not Reportable 06/14/19 04:35 Urine Urobilinogen < 2.0 mg/dL (<2.0) 06/14/19 04:35 Ur Leukocyte Esterase Tr (Negative) 06/14/19 04:35 Urine WBC (Auto) 8.0 /HPF (0.0-6.0) H 06/14/19 04:35 Urine RBC (Auto) 6.0 /HPF (0.0-6.0) 06/14/19 04:35 U Epithel Cells (Auto) 1.0 /HPF (0-13.0) 06/14/19 04:35 Urine Mucus 2+ /HPF 06/14/19 04:35 Active Medications - Current Medications Current Medications: Generic Name Dose Route Start Last Admin Trade Name Freq PRN Reason Stop Dose Admin Acetaminophen 650 mg 06/14/19 09:00 06/15/19 16:32 Tylenol PO 650 mg Q4H PRN Administration Pain MILD(1-3)/Fever >100.5/[place] Albuterol 2.5 mg 06/14/19 12:31 Proventil IH Q4HRT PRN Shortness Of Breath Lipase/Protease/Amylase 1 each 06/14/19 13:[address] 10,500 Unit FEEDTUBE PRN PRN For Clogged Feeding Tube Famotidine 20 mg 06/14/19 18:00 06/16/19 09:33 Pepcid PO 20 mg QDAY HAL Administration Fentanyl 25 mcg 06/15/19 15:02 06/15/19 21:57 Sublimaze IV 25 mcg Q2H PRN Administration Pain , Severe (7-10) Heparin Sodium (Porcine) 5,000 unit 06/14/19 22:00 06/16/19 09:33 Heparin SUB-Q 5,000 unit Q12HR HAL Administration Hydrophilic Ointment 1 applic 06/14/19 03:45 Vaseline Lip Therapy TP Q2HR PRN Dry Lips Midazolam HCl 100 mg/ Sodium 100 mls @ 2 mls/hr 06/14/19 04:00 06/15/19 06:43 Chloride IV Infused TITR HAL Titration Protocol 2 MG/HR Norepinephrine 4 mg in 250 mls @ 7.5 mls/hr 06/14/19 05:00 06/15/19 11:15 Levophed Drip 4 Mg/Ns 250 Ml IV Infused TITR HAL Titration Protocol 2 MCG/MIN Vancomycin HCl 1 gm in 250 mls @ 166.667 mls/hr 06/14/19 22:00 06/15/19 21:58 Vancomycin/Ns 1 Gm/250 Ml IV 166.667 mls/hr Q24H HAL Administration Cefepime HCl 2 gm in 100 mls @ 200 mls/hr 06/14/19 22:00 06/16/19 09:32 Maxipime/Ns 2 Gm/100 Ml IV 200 mls/hr Q12HR HAL Administration Protocol Sodium Chloride 1,000 mls @ 125 mls/hr 06/14/19 09:00 06/16/19 07:45 Nacl 0.9% 1000 Ml IV 125 mls/hr DIRECT HAL Administration Fluconazole 200 mg in 100 mls @ 100 mls/hr 06/14/19 16:00 06/16/19 09:32 Diflucan IV 100 mls/hr Q24HR HAL Administration Protocol Metronidazole 500 mg in 100 mls @ 100 mls/hr 06/14/19 16:00 06/15/19 21:57 Flagyl 500 Mg/100 Ml IV 100 mls/hr Q8HR HAL Administration Protocol Midazolam HCl 2 mg 06/14/19 03:45 06/14/19 05:06 Versed IV 2 mg Q10MIN PRN Administration Sedation Multi-Ingred Cream/Lotion/Oil/Oint 1 applic 06/14/19 03:45 Artificial Tears Ophth Oint OU Q4HR PRN Dry Eye(s) Ondansetron HCl 4 mg 06/14/19 09:00 Zofran IV Q8H PRN Nausea And Vomiting Simple Syrup 15 ml 06/14/19 13:28 Simple Syrup FEEDTUBE PRN PRN Hypoglycemia Simple Syrup 30 ml 06/14/19 13:28 Simple Syrup FEEDTUBE PRN PRN Hypoglycemia Sodium Bicarbonate 325 mg 06/14/19 13:28 Sodium Bicarbonate FEEDTUBE PRN PRN For Clogged Feeding Tube Sodium Chloride 10 ml 06/14/19 10:00 06/16/19 09:34 Sodium Chloride Flush Syringe 10 Ml IV 10 ml BID HAL Administration Sodium Chloride 10 ml 06/14/19 09:00 Sodium Chloride Flush Syringe 10 Ml IV PRN PRN LINE FLUSH Nutrition/Malnutrition Assess - Dietary Evaluation Nutrition/Malnutrition Findings: Nutrition Notes Start: 06/14/19 12:44 Freq: Status: Active Protocol: Document 06/15/19 13:01 ADELINE (Rec: 06/15/19 13:43 ADELINE [email or web address]) Co-Sign 06/15/19 13:01 LP Nutrition Notes Initial or Follow up Reassessment Current Diagnosis Hypertension Other Pertinent Diagnosis DVT, GERD, left AKA, right BKA , sepsis Current Diet NPO Labs/Tests K 3.3 Cl 110.7 CO2 15 Cr 0.4 Ca 7.8 Phos 1.8 Pertinent Medications K phos 85ml/hr Height 4 ft 3 in Weight 70 kg [place] Body Weight (kg) 23.63 BMI 41.7 Weight Status Morbidly Obese Subjective/Other Information RD consult for nutritional intake. Pt TF turned off due to abdominal ultrasound Burn Absent Trauma Absent Minimum of two criteria No #1 Nutrition Diagnosis Inadequate oral intake Diagnosis Progress(for reassessment Continues documentation) Is patient on ventilator? Yes Is Patient Ambulatory and/or Out of Bed No REE-([facility]-confined to bed) [phone] Calculation Used for Recommendations [facility] Additional Notes Protein needs: 60g/kg (2.5g/kg IBW 24kg) Fluid needs: 1ml/kcal Nutrition Intervention Change Diet Order: Advance diet when medically feasible Nutrition Support: Osmolite 1.5 at 40ml/hr Water flush 150ml q4hr Kcal 1,440 Protein (gm) 60 Fluid (mL) 732 Fiber (gm) 0 Goal #1 Meet at least 85% of energy and protein needs Anticipated Discharge Needs: Unable to determine at this time Follow-Up By: 06/18/19 Additional Comments F/U for diet advancement
--- NOTE | 2019-06-16 11:48 | Progress Note ---
Subjective Date of service: 06/16/19 Principal diagnosis: Septic Shock Interval history: Severe sepsis with septic shock, on pressor Acute respiratory failure; intubated on CPAP this morning Acute encephalopathy Peripheral arterial disease s/p bilateral knee amputation History of MRSA wounds COPD Rheumatoid arthritis Paroxysmal Afib Echo showing LVEF 50-55% with RVSP 41 mm Hg Recommendations: Not candidate for anticoagulation at this time, HR controlled. Supportive care per ID and ICU team Objective Vital Signs Temp Pulse Pulse Pulse Resp BP Pulse Ox 06/16/19 10:01 109 H 20 167/98 100 06/16/19 09:45 106 H 25 H 131/62 100 06/16/19 09:31 113 H 23 131/62 100 06/16/19 09:15 93 H 22 131/62 100 06/16/19 09:00 84 26 H 131/62 100 06/16/19 08:45 79 23 117/54 100 06/16/19 08:31 107 H 20 117/54 100 06/16/19 08:15 91 H 26 H 117/54 100 06/16/19 08:04 85 25 H 117/54 100 06/16/19 08:00 102 H 24 117/54 100 06/16/19 07:49 100 F H 93 H 93 H 25 H 100 06/16/19 07:45 102 H 27 H 149/78 100 06/16/19 07:31 95 H 26 H 149/78 100 06/16/19 07:15 113 H 29 H 149/78 100 06/16/19 07:01 118 H 30 H 149/78 100 06/16/19 06:45 103 H 25 H 113/71 100 06/16/19 06:31 99 H 22 113/71 100 06/16/19 06:15 105 H 26 H 113/71 100 06/16/19 06:00 79 22 113/71 100 06/16/19 05:45 94 H 26 H 158/80 100 06/16/19 05:31 114 H 21 158/80 99 06/16/19 05:15 73 21 158/80 100 06/16/19 05:00 86 24 158/80 100 06/16/19 04:45 78 20 158/88 100 06/16/19 04:32 86 158/88 100 06/16/19 04:31 109 H 21 158/88 100 06/16/19 04:15 84 26 H 158/88 100 06/16/19 04:01 86 25 H 158/88 100 06/16/19 04:00 92 H 06/16/19 03:45 106 H 21 122/73 100 06/16/19 03:34 98.2 F 06/16/19 03:31 97 H 20 122/73 100 06/16/19 03:15 106 H 25 H 122/73 100 06/16/19 03:00 71 24 122/73 100 06/16/19 02:45 81 22 118/68 100 06/16/19 02:31 94 H 21 118/68 100 06/16/19 02:15 95 H 24 118/68 100 06/16/19 02:00 75 21 118/68 100 06/16/19 01:45 83 23 123/76 100 06/16/19 01:31 89 27 H 123/76 100 06/16/19 01:15 70 22 123/76 100 06/16/19 01:00 95 H 25 H 123/76 100 06/16/19 00:45 101 H 23 128/83 100 06/16/19 00:31 103 H 28 H 128/83 100 06/16/19 00:15 103 H 17 128/83 100 06/16/19 00:00 92 H 94 H 20 128/83 100 06/15/19 23:45 87 21 137/80 100 06/15/19 23:42 87 137/80 100 06/15/19 23:31 92 H 21 137/80 100 06/15/19 23:15 86 21 100 06/15/19 23:12 98.7 F 06/15/19 23:00 83 20 118/84 100 06/15/19 22:46 98 H 23 118/84 100 06/15/19 22:30 90 22 118/84 100 06/15/19 22:16 101 H 23 118/84 100 06/15/19 22:00 107 H 22 104/67 100 06/15/19 21:46 73 20 104/67 100 06/15/19 21:30 93 H 26 H 104/67 100 06/15/19 21:16 89 24 104/67 100 06/15/19 21:00 80 20 104/67 100 06/15/19 20:46 86 20 141/71 99 06/15/19 20:30 85 24 141/71 100 06/15/19 20:23 87 28 H 141/71 100 06/15/19 20:16 86 28 H 141/71 100 06/15/19 20:00 89 26 H 141/71 100 06/15/19 19:46 84 21 136/76 100 06/15/19 19:44 99.2 F 06/15/19 19:30 22 136/76 100 06/15/19 19:16 94 H 29 H 136/76 100 06/15/19 19:00 88 28 H 136/76 100 06/15/19 18:46 94 H 27 H 117/68 100 06/15/19 18:30 95 H 19 117/68 100 06/15/19 18:16 93 H 27 H 117/68 100 06/15/19 18:10 94 H 20 117/68 100 06/15/19 18:00 82 22 117/68 100 06/15/19 17:46 94 H 25 H 127/74 100 06/15/19 17:30 92 H 25 H 127/74 100 06/15/19 17:16 92 H 26 H 127/74 100 06/15/19 17:00 95 H 30 H 127/74 100 06/15/19 16:46 95 H 27 H 143/71 100 06/15/19 16:37 95 H 30 H 143/71 100 06/15/19 16:30 96 H 27 H 143/71 100 06/15/19 16:16 97 H 30 H 143/71 100 06/15/19 16:00 101.2 F H 95 H 26 H 143/71 100 06/15/19 15:46 97 H 24 144/82 100 06/15/19 15:30 96 H 29 H 144/82 100 06/15/19 15:16 97 H 26 H 144/82 99 06/15/19 15:00 96 H 31 H 144/82 100 06/15/19 14:46 96 H 20 141/82 100 06/15/19 14:30 98 H 28 H 141/82 99 06/15/19 14:16 100 H 39 H 141/82 100 06/15/19 14:00 96 H 36 H 122/65 99 06/15/19 13:46 94 H 34 H 122/65 100 06/15/19 13:30 122/65 100 10/04/19 13:16 122/65 100 06/15/19 13:00 85 32 H 122/65 100 06/15/19 12:46 89 30 H 107/61 100 06/15/19 12:30 89 29 H 107/61 100 06/15/19 12:16 86 28 H 107/61 100 06/15/19 12:04 79 25 H 107/61 100 06/15/19 12:00 99.1 F 85 25 H 107/61 100 - Physical Examination General: Other (intubated, open eyes to verbal commands) Neck: Positive: neck supple Cardiac: Positive: irregularly irregular, S1/S2 Lungs: Positive: clear to auscultation - Allied health notes Allied health notes reviewed: nursing
--- NOTE | 2019-06-16 13:06 | Progress Note ---
Assessment and Plan - Patient Problems (1) Abnormal CT of the abdomen Current Visit: Yes Status: Acute Plan to address problem: Pt in better condition today. Pressor still on hold and VS are normal. Possible extubation today Abd ultrasound was significant only for gallstones. There is no evidence of obstruction or cholecystitis. Along with the normal LFTs, would not recommend any further workup or intervention for the gallbladder. As for the appendix, it was difficult to tell, but he may have had more discomfort in the right lower quadrant. If he is to be extubated today, it would be best to reexamine him when hopefully he can more appropriately respond to questions and help us determine if he is having discomfort in the area of the appendix. As he is clinically getting better, there does not appear to be an urgency for surgical intervention. If the team feels differently, I asked that they please call and we can discuss this. Will follow along. Please call with questions. time=10min Subjective Date of service: 06/16/19 Patient Reports: Positive: other (Pt on CPAP trial. Hoping to extubate today) Objective Vital Signs - 12hr 06/16/19 06/16/19 06/16/19 01:15 01:31 01:45 Temperature Pulse Rate 70 89 83 Pulse Rate [ From Monitor] Pulse Rate [ Right Apical] Respiratory 22 27 H 23 Rate Blood Pressure 123/76 123/76 123/76 O2 Sat by Pulse 100 100 100 Oximetry 06/16/19 06/16/19 06/16/19 02:00 02:15 02:31 Temperature Pulse Rate 75 95 H 94 H Pulse Rate [ From Monitor] Pulse Rate [ Right Apical] Respiratory 21 24 21 Rate Blood Pressure 118/68 118/68 118/68 O2 Sat by Pulse 100 100 100 Oximetry 06/16/19 06/16/19 06/16/19 02:45 03:00 03:15 Temperature Pulse Rate 81 71 106 H Pulse Rate [ From Monitor] Pulse Rate [ Right Apical] Respiratory 22 24 25 H Rate Blood Pressure 118/68 122/73 122/73 O2 Sat by Pulse 100 100 100 Oximetry 06/16/19 06/16/19 06/16/19 03:31 03:34 03:45 Temperature 98.2 F Pulse Rate 97 H 106 H Pulse Rate [ From Monitor] Pulse Rate [ Right Apical] Respiratory 20 21 Rate Blood Pressure 122/73 122/73 O2 Sat by Pulse 100 100 Oximetry 06/16/19 06/16/19 06/16/19 04:00 04:01 04:15 Temperature Pulse Rate 86 84 Pulse Rate [ 92 H From Monitor] Pulse Rate [ Right Apical] Respiratory 25 H 26 H Rate Blood Pressure 158/88 158/88 O2 Sat by Pulse 100 100 Oximetry 06/16/19 06/16/19 06/16/19 04:31 04:32 04:45 Temperature Pulse Rate 109 H 86 78 Pulse Rate [ From Monitor] Pulse Rate [ Right Apical] Respiratory 21 20 Rate Blood Pressure 158/88 158/88 158/88 O2 Sat by Pulse 100 100 100 Oximetry 06/16/19 06/16/19 06/16/19 05:00 05:15 05:31 Temperature Pulse Rate 86 73 114 H Pulse Rate [ From Monitor] Pulse Rate [ Right Apical] Respiratory 24 21 21 Rate Blood Pressure 158/80 158/80 158/80 O2 Sat by Pulse 100 100 99 Oximetry 06/16/19 06/16/19 06/16/19 05:45 06:00 06:15 Temperature Pulse Rate 94 H 79 105 H Pulse Rate [ From Monitor] Pulse Rate [ Right Apical] Respiratory 26 H 22 26 H Rate Blood Pressure 158/80 113/71 113/71 O2 Sat by Pulse 100 100 100 Oximetry 06/16/19 06/16/19 06/16/19 06:31 06:45 07:01 Temperature Pulse Rate 99 H 103 H 118 H Pulse Rate [ From Monitor] Pulse Rate [ Right Apical] Respiratory 22 25 H 30 H Rate Blood Pressure 113/71 113/71 149/78 O2 Sat by Pulse 100 100 100 Oximetry 06/16/19 06/16/19 06/16/19 07:15 07:31 07:45 Temperature Pulse Rate 113 H 95 H 102 H Pulse Rate [ From Monitor] Pulse Rate [ Right Apical] Respiratory 29 H 26 H 27 H Rate Blood Pressure 149/78 149/78 149/78 O2 Sat by Pulse 100 100 100 Oximetry 06/16/19 06/16/19 06/16/19 07:49 08:00 08:04 Temperature 100 F H Pulse Rate 102 H 85 Pulse Rate [ 93 H From Monitor] Pulse Rate [ 93 H Right Apical] Respiratory 25 H 24 Rate Blood Pressure 117/54 117/54 O2 Sat by Pulse 100 100 100 Oximetry 10/01/2806/16/19 06/16/19 08:15 08:31 08:45 Temperature Pulse Rate 91 H 107 H 79 Pulse Rate [ From Monitor] Pulse Rate [ Right Apical] Respiratory 26 H 20 23 Rate Blood Pressure 117/54 117/54 117/54 O2 Sat by Pulse 100 100 100 Oximetry 06/16/19 06/16/19 06/16/19 09:00 09:15 09:31 Temperature Pulse Rate 84 93 H 113 H Pulse Rate [ From Monitor] Pulse Rate [ Right Apical] Respiratory 26 H 22 23 Rate Blood Pressure 131/62 131/62 131/62 O2 Sat by Pulse 100 100 100 Oximetry 06/16/19 06/16/19 06/16/19 09:45 10:01 11:58 Temperature Pulse Rate 106 H 109 H 80 Pulse Rate [ From Monitor] Pulse Rate [ Right Apical] Respiratory 25 H 20 26 H Rate Blood Pressure 131/62 167/98 113/63 O2 Sat by Pulse 100 100 100 Oximetry 06/16/19 12:00 Temperature 100.1 F H Pulse Rate Pulse Rate [ From Monitor] Pulse Rate [ Right Apical] Respiratory Rate Blood Pressure O2 Sat by Pulse Oximetry - General physical appearance no distress, no pain, other (no clear interactions or responses to questions. ) - ENT other (ETT and DHT in place) - Respiratory normal expansion, normal respiratory effort - Abdomen soft, bowel sounds hypoactive, not masses, not guarding, not rigid, other (difficult to know for sure if he is having abdominal pain. He does not clearly not or shake his head to indicate yes or no for pain. It did appear he had a stronger response when pressure was applied to the right lower quadrant.) Hernia: none - Integumentary no rash, no growths, no abnormal pigmentation - Labs 06/15/19 04:35 06/15/19 04:35
--- NOTE | 2019-06-16 14:07 | Progress Note ---
Assessment and Plan Acute respiratory failure, hypoxemic, on mechanical ventilatory support. Severe sepsis with shock, possibly due to urinary source. Acute encephalopathy, possibly on chronic. History of chronic obstructive pulmonary disease. History of peripheral vascular disease. History of hypertension. History of deep venous thrombosis. History of gastroesophageal reflux disease. History of arthritis. History of gout. Leukocytosis. Mild hypokalemia. Mild metabolic acidosis. Lactic acidosis. Non-ST elevation myocardial infarction - place scopolamine patch for secretion control - begin bicarbonate drip (D5W with 3 amps NaHCO3/liter @ 75 cc/hr X 2 liters) - replaced Potassium and Phosphorus yesterday to optimize respiratory muscle function - continue to wean supplemental oxygen for target O2 sat's > 90% acutely - Daily SAT and SBT assessment as tolerated - VAP bundle addressed - Lung protective strategies - continue bronchodilators with pulmonary hygiene per RT - continue empiric anti-infective's; de-escalate per ID recommendations and based on microbiologic and clinical data - Avoid benzodiazepine's, reduce the possibility of delirium - Continue with fentanyl, titrate for RASS of 0 to -1 - Maintenance of sleep-wake cycle, avoid delirium - begin enteral nutritional support at goal rate as tolerated - Accuchecks with glycemic control elier SSI (While critically ill target blood glucose of 140-180 mg/dL; avoid hypoglycemic) - G.I. & VTE prophylaxis - PT/OT/ROM exercises - mobility protocols for pressure ulcer prophylaxis - Monitor hemodynamics closely - continue other care per attending / other insurance consultant's - discharge planning ongoing concurrently .... re-evaluate in am & prn CONDITION: CRITICAL PROGNOSIS: GUARDED CODE STATUS: FULL CODE The high probability of a clinically significant, sudden or life-threatening deterioration of the [respiratory, cardiovascular] system(s) required my full and direct attention, intervention and personal management. The aggregate critical care time was [35] minutes without overlap. Time includes spent on; [x] Data Review and interpretation [x] Patient assessment and monitoring of vital signs [x] Documentation [x] Medication orders and management Subjective Date of service: 06/16/19 Principal diagnosis: Ac. hypoxemic resp failure; Severe Shock; UTI; COPD; PVD; HTN; NSTEMI; DVT Interval history: Patient is seen today for: Acute hypoxemic respiratory failure; Severe sepsis with shock; UTI; Acute encephalopathy; COPD; PVD; HTN; NSTEMI; H/O DVT Seen and examined at bedside; 24hour events reviewed; nursing and respiratory care staff consulted; no adverse overnight events reported to me; resting peacefully in bed; denies acute chest pain; oropharyngeal secretions copious; No N/V/F/C; metabolic acidosis worsening Objective Vital Signs - 12hr 06/16/19 06/16/19 06/16/19 02:15 02:31 02:45 Temperature Pulse Rate 95 H 94 H 81 Pulse Rate [ From Monitor] Pulse Rate [ Right Apical] Respiratory 24 21 22 Rate Blood Pressure 118/68 118/68 118/68 O2 Sat by Pulse 100 100 100 Oximetry 06/16/19 06/16/19 06/16/19 03:00 03:15 03:31 Temperature Pulse Rate 71 106 H 97 H Pulse Rate [ From Monitor] Pulse Rate [ Right Apical] Respiratory 24 25 H 20 Rate Blood Pressure 122/73 122/73 122/73 O2 Sat by Pulse 100 100 100 Oximetry 06/16/19 06/16/19 06/16/19 03:34 03:45 04:00 Temperature 98.2 F Pulse Rate 106 H Pulse Rate [ 92 H From Monitor] Pulse Rate [ Right Apical] Respiratory 21 Rate Blood Pressure 122/73 O2 Sat by Pulse 100 Oximetry 06/16/19 06/16/19 06/16/19 04:01 04:15 04:31 Temperature Pulse Rate 86 84 109 H Pulse Rate [ From Monitor] Pulse Rate [ Right Apical] Respiratory 25 H 26 H 21 Rate Blood Pressure 158/88 158/88 158/88 O2 Sat by Pulse 100 100 100 Oximetry 06/16/19 06/16/19 06/16/19 04:32 04:45 05:00 Temperature Pulse Rate 86 78 86 Pulse Rate [ From Monitor] Pulse Rate [ Right Apical] Respiratory 20 24 Rate Blood Pressure 158/88 158/88 158/80 O2 Sat by Pulse 100 100 100 Oximetry 06/16/19 06/16/19 06/16/19 05:15 05:31 05:45 Temperature Pulse Rate 73 114 H 94 H Pulse Rate [ From Monitor] Pulse Rate [ Right Apical] Respiratory 21 21 26 H Rate Blood Pressure 158/80 158/80 158/80 O2 Sat by Pulse 100 99 100 Oximetry 06/16/19 06/16/19 06/16/19 06:00 06:15 06:31 Temperature Pulse Rate 79 105 H 99 H Pulse Rate [ From Monitor] Pulse Rate [ Right Apical] Respiratory 22 26 H 22 Rate Blood Pressure 113/71 113/71 113/71 O2 Sat by Pulse 100 100 100 Oximetry 06/16/19 06/16/19 06/16/19 06:45 07:01 07:15 Temperature Pulse Rate 103 H 118 H 113 H Pulse Rate [ From Monitor] Pulse Rate [ Right Apical] Respiratory 25 H 30 H 29 H Rate Blood Pressure 113/71 149/78 149/78 O2 Sat by Pulse 100 100 100 Oximetry 06/16/19 06/16/19 06/16/19 07:31 07:45 07:49 Temperature 100 F H Pulse Rate 95 H 102 H Pulse Rate [ 93 H From Monitor] Pulse Rate [ 93 H Right Apical] Respiratory 26 H 27 H 25 H Rate Blood Pressure 149/78 149/78 O2 Sat by Pulse 100 100 100 Oximetry 06/16/19 06/16/19 06/16/19 08:00 08:04 08:15 Temperature Pulse Rate 102 H 85 91 H Pulse Rate [ From Monitor] Pulse Rate [ Right Apical] Respiratory 24 26 H Rate Blood Pressure 117/54 117/54 117/54 O2 Sat by Pulse 100 100 100 Oximetry 06/16/19 06/16/19 06/16/19 08:31 08:45 09:00 Temperature Pulse Rate 107 H 79 84 Pulse Rate [ From Monitor] Pulse Rate [ Right Apical] Respiratory 20 23 26 H Rate Blood Pressure 117/54 117/54 131/62 O2 Sat by Pulse 100 100 100 Oximetry 06/16/19 06/16/19 06/16/19 09:15 09:31 09:45 Temperature Pulse Rate 93 H 113 H 106 H Pulse Rate [ From Monitor] Pulse Rate [ Right Apical] Respiratory 22 23 25 H Rate Blood Pressure 131/62 131/62 131/62 O2 Sat by Pulse 100 100 100 Oximetry 06/16/19 06/16/19 06/16/19 10:00 10:01 10:15 Temperature Pulse Rate 91 H 109 H 93 H Pulse Rate [ From Monitor] Pulse Rate [ Right Apical] Respiratory 20 27 H Rate Blood Pressure 167/98 140/75 O2 Sat by Pulse 100 100 Oximetry 06/16/19 06/16/19 06/16/19 10:31 10:45 11:00 Temperature Pulse Rate 93 H 85 72 Pulse Rate [ From Monitor] Pulse Rate [ Right Apical] Respiratory 24 19 28 H Rate Blood Pressure 140/75 140/75 117/62 O2 Sat by Pulse 100 100 100 Oximetry 06/16/19 06/16/19 06/16/19 11:15 11:31 11:45 Temperature Pulse Rate 86 82 90 Pulse Rate [ From Monitor] Pulse Rate [ Right Apical] Respiratory 22 23 18 Rate Blood Pressure 117/62 117/62 117/62 O2 Sat by Pulse 100 100 100 Oximetry 06/16/19 06/16/19 06/16/19 11:58 12:00 12:15 Temperature 100.1 F H Pulse Rate 80 88 88 Pulse Rate [ From Monitor] Pulse Rate [ 88 Right Apical] Respiratory 26 H 28 H 28 H Rate Blood Pressure 113/63 113/63 113/63 O2 Sat by Pulse 100 100 100 Oximetry 06/16/19 06/16/19 06/16/19 12:31 12:45 13:00 Temperature Pulse Rate 86 94 H 80 Pulse Rate [ From Monitor] Pulse Rate [ Right Apical] Respiratory 27 H 29 H 26 H Rate Blood Pressure 113/63 113/63 134/71 O2 Sat by Pulse 100 100 100 Oximetry Constitutional: no acute distress, other (elderly looking male, normocephalic with mildly increased resp effort at rest) Eyes: non-icteric ENT: oropharynx moist, other (ETT 23 cm TANA) Neck: supple, no lymphadenopathy, no JVD Effort: mildly labored Ascultation: Bilateral: diminished breath sounds, rhonchi Percussion: Bilateral: not dull Cardiovascular: regular rate and rhythm Gastrointestinal: normoactive bowel sounds, soft, non-tender, non-distended Integumentary: normal Extremities: no cyanosis, no edema, pulses normal, no ischemia or petechiae Neurologic: pupils equal and round, CN II-XII normal, unable to assess Psychiatric: other (unable to assess re: AMS) CBC and BMP: 06/17/19 Unknown 06/17/19 Unknown ABG, PT/INR, D-dimer: ABG POC ABG pH 7.315 (7.35-7.45) L 06/16/19 04:29 POC ABG pO2 135 (80-105) H 06/16/19 04:29 POC ABG HCO3 13.3 (22-26 mml/L) 06/16/19 04:29 POC ABG Total CO2 14 (23-27mmol/L) 06/16/19 04:29 POC ABG O2 Sat 99 06/16/19 04:29 PT/INR, D-dimer PT 16.3 Sec. (12.2-14.9) H 06/14/19 05:28 INR 1.35 (0.87-1.13) H 06/14/19 05:28 Abnormal lab findings: Abnormal Labs 06/14/19 06/14/19 06/14/19 02:49 03:10 03:10 WBC RBC Hgb Hct RDW Lymph % (Auto) Lymph # Seg Neutrophils % Lymphocytes % (Manual) Seg Neutrophils # Seg Neutrophils # Man Lymphocytes # (Manual) PT INR POC ABG pH POC ABG pCO2 POC ABG pO2 Potassium 3.5 L Chloride Carbon Dioxide 20 L Creatinine 0.7 L Glucose 107 H POC Glucose 117 H Lactic Acid 2.60 H* Calcium Phosphorus Troponin T 0.979 H* Albumin 3.0 L HDL Cholesterol 30 L Urine WBC (Auto) 06/14/19 06/14/19 06/14/19 04:30 04:35 05:02 WBC 11.9 H RBC 3.22 L Hgb 9.5 L Hct 28.9 L RDW Lymph % (Auto) Lymph # Seg Neutrophils % Lymphocytes % (Manual) 8.0 L Seg Neutrophils # Seg Neutrophils # Man 8.3 H Lymphocytes # (Manual) 1.0 L PT INR POC ABG pH 7.314 L POC ABG pCO2 POC ABG pO2 > 400 H Potassium Chloride Carbon Dioxide Creatinine Glucose POC Glucose Lactic Acid Calcium Phosphorus Troponin T Albumin HDL Cholesterol Urine WBC (Auto) 8.0 H 06/14/19 06/15/19 06/15/19 05:28 03:30 04:35 WBC 11.2 H RBC 3.02 L Hgb 8.9 L Hct 27.1 L RDW 15.3 H Lymph % (Auto) 6.5 L Lymph # 0.7 L Seg Neutrophils % 86.6 H Lymphocytes % (Manual) Seg Neutrophils # 9.7 H Seg Neutrophils # Man Lymphocytes # (Manual) PT 16.3 H INR 1.35 H POC ABG pH 7.336 L POC ABG pCO2 < 30 L POC ABG pO2 133 H Potassium Chloride Carbon Dioxide Creatinine Glucose POC Glucose Lactic Acid Calcium Phosphorus Troponin T Albumin HDL Cholesterol Urine WBC (Auto) 06/15/19 06/15/19 06/16/19 04:35 12:25 04:29 WBC RBC Hgb Hct RDW Lymph % (Auto) Lymph # Seg Neutrophils % Lymphocytes % (Manual) Seg Neutrophils # Seg Neutrophils # Man Lymphocytes # (Manual) PT INR POC ABG pH 7.315 L POC ABG pCO2 POC ABG pO2 63 L 135 H Potassium 3.3 L Chloride 110.7 H Carbon Dioxide 15 L Creatinine 0.4 L Glucose 104 H POC Glucose Lactic Acid Calcium 7.8 L Phosphorus 1.80 L Troponin T Albumin 2.8 L HDL Cholesterol Urine WBC (Auto) Chest x-ray: image reviewed Allied health notes reviewed: nursing
[2019-06-16] MEDS: FLAGYL 500 MG/100 ML 500 MG/100 ML BAG IV SCH ×2 (14:20→22:35)
[2019-06-16] MEDS ORDERED: TRANSDERM-SCOP TD SCH (16:00)
[2019-06-16] MEDS ORDERED: KPHOS 40 MMOL in NACL 0.9% 500 ML 500 ML IV ONE (17:40)
[2019-06-16] MEDS: SODIUM BICARBONATE 150 MEQ in D5W 1,000 ML IV SCH (18:34)
--- NOTE | 2019-06-17 04:57 | XRay Report ---
CHEST 1 VIEW INDICATION / CLINICAL INFORMATION: follow up respiratory failure. COMPARISON: Chest radiograph one day prior FINDINGS: SUPPORT DEVICES: Stable position of endotracheal tube, enteric tube, and right IJ central venous cath eter. HEART / MEDIASTINUM: Stable. LUNGS / PLEURA: Minimal bibasilar subsegmental atelectasis. No focal pulmonary consolidation. No pleu ral effusion. No pneumothorax. ADDITIONAL FINDINGS: No significant additional findings. IMPRESSION: 1. No significant change from the prior examination. Signer Name: Lissa Azevedo MD Signed: 06/17/2019 4:53 AM Workstation Name: [id number]
[2019-06-17] MEDS: VANCOMYCIN/NS 1 GM/250 ML 1 GM/250 ML BAG IV SCH (07:47)
[2019-06-17] MEDS: FLAGYL 500 MG/100 ML 500 MG/100 ML BAG IV SCH ×2 (07:48→14:59)
[2019-06-17] MEDS: PEPCID PO SCH (09:56)
[2019-06-17] MEDS: MAXIPIME/NS 2 GM/100 ML 2 GM/100 ML BAG IV SCH (09:56)
[2019-06-17] MEDS: HEPARIN SUB-Q SCH ×2 (09:58→21:45)
[2019-06-17] MEDS: DIFLUCAN 200 MG/100 ML BAG IV SCH (09:58)
[2019-06-17] MEDS: SODIUM BICARBONATE 150 MEQ in D5W 1,000 ML IV SCH (10:36)
--- NOTE | 2019-06-17 11:35 | Progress Note ---
Assessment and Plan - Patient Problems (1) Abnormal CT of the abdomen Current Visit: Yes Status: Acute Plan to address problem: Pt stable. Pressor still on hold and VS are normal. Continuing to work on extubation. Appendix - Today, even with deep palpation, he showed no signs of irritation. Of note, he was less interactive than what he was yesterday. I was only able to get him to follow very basic commands but required multiple requests. When he is extubated, it would be best to reexamine him. Hopefully he can more appropriately respond to questions and help us determine if he is having discomfort in the area of the appendix. As he is clinically getting better, there does not appear to be an urgency for surgical intervention. If the team feels differently, I asked that they please call and we can discuss this. Will follow along. Please call with questions. time=10min Subjective Date of service: 06/17/19 Patient Reports: Positive: bowel movement, other (no other events) Objective Vital Signs - 12hr 06/16/19 06/17/19 06/17/19 23:45 00:00 00:15 Temperature 100.3 F H Pulse Rate 86 82 83 Pulse Rate [ 99 H Right Apical] Respiratory 24 27 H 22 Rate Blood Pressure 136/77 123/67 O2 Sat by Pulse 100 100 100 Oximetry 06/17/19 06/17/19 06/17/19 00:31 00:45 00:49 Temperature Pulse Rate 86 79 Pulse Rate [ Right Apical] Respiratory 16 Rate Blood Pressure 123/67 123/67 138/72 O2 Sat by Pulse 100 100 100 Oximetry 06/17/19 06/17/19 06/17/19 01:01 01:15 01:31 Temperature Pulse Rate 84 77 53 L Pulse Rate [ Right Apical] Respiratory 17 18 8 L Rate Blood Pressure 102/48 102/48 102/48 O2 Sat by Pulse 100 100 100 Oximetry 06/17/19 06/17/19 06/17/19 01:45 02:00 02:15 Temperature Pulse Rate 85 84 71 Pulse Rate [ Right Apical] Respiratory 19 21 16 Rate Blood Pressure 102/48 92/56 92/56 O2 Sat by Pulse 100 100 100 Oximetry 06/17/19 06/17/19 06/17/19 02:31 02:45 03:00 Temperature Pulse Rate 73 74 67 Pulse Rate [ Right Apical] Respiratory 17 22 24 Rate Blood Pressure 102/48 102/48 109/58 O2 Sat by Pulse 100 100 100 Oximetry 06/17/19 06/17/19 06/17/19 03:15 03:31 03:45 Temperature Pulse Rate 83 63 78 Pulse Rate [ Right Apical] Respiratory 22 14 19 Rate Blood Pressure 109/58 109/58 109/58 O2 Sat by Pulse 100 100 100 Oximetry 06/17/19 06/17/19 06/17/19 04:00 04:15 04:29 Temperature 99.7 F H Pulse Rate 76 83 72 Pulse Rate [ 99 H Right Apical] Respiratory 19 24 Rate Blood Pressure 86/57 86/57 86/57 O2 Sat by Pulse 100 100 100 Oximetry 06/17/19 06/17/19 06/17/19 04:31 04:45 05:00 Temperature Pulse Rate 76 79 68 Pulse Rate [ Right Apical] Respiratory 17 20 21 Rate Blood Pressure 86/57 86/57 92/59 O2 Sat by Pulse 100 100 100 Oximetry 06/17/19 06/17/19 06/17/19 05:15 05:31 05:45 Temperature Pulse Rate 82 73 81 Pulse Rate [ Right Apical] Respiratory 21 23 17 Rate Blood Pressure 92/59 92/59 92/59 O2 Sat by Pulse 100 100 100 Oximetry 06/17/19 06/17/19 06/17/19 06:00 06:15 06:31 Temperature Pulse Rate 69 67 64 Pulse Rate [ Right Apical] Respiratory 21 15 12 Rate Blood Pressure 97/53 97/53 97/53 O2 Sat by Pulse 100 100 100 Oximetry 06/17/19 06/17/19 06/17/19 06:45 07:00 07:15 Temperature Pulse Rate 70 65 78 Pulse Rate [ Right Apical] Respiratory 17 20 19 Rate Blood Pressure 97/53 81/51 88/46 O2 Sat by Pulse 100 100 100 Oximetry 06/17/19 06/17/19 06/17/19 07:31 07:39 07:45 Temperature Pulse Rate 65 73 Pulse Rate [ 78 Right Apical] Respiratory 17 17 16 Rate Blood Pressure 88/46 88/46 O2 Sat by Pulse 100 100 100 Oximetry 06/17/19 06/17/19 06/17/19 08:00 08:15 08:31 Temperature 99.3 F Pulse Rate 63 69 75 Pulse Rate [ Right Apical] Respiratory 18 16 12 Rate Blood Pressure 81/49 81/49 100/56 O2 Sat by Pulse 100 100 100 Oximetry 06/17/19 06/17/19 06/17/19 08:35 08:45 09:00 Temperature Pulse Rate 72 76 78 Pulse Rate [ Right Apical] Respiratory 20 15 Rate Blood Pressure 100/56 100/56 98/49 O2 Sat by Pulse 100 100 100 Oximetry 06/17/19 06/17/19 06/17/19 09:15 09:31 09:45 Temperature Pulse Rate 79 71 80 Pulse Rate [ Right Apical] Respiratory 23 12 19 Rate Blood Pressure 98/49 98/49 98/49 O2 Sat by Pulse 100 99 100 Oximetry 06/17/19 06/17/19 06/17/19 10:00 10:15 10:31 Temperature Pulse Rate 89 76 72 Pulse Rate [ Right Apical] Respiratory 16 26 H 24 Rate Blood Pressure 100/56 100/56 100/56 O2 Sat by Pulse 100 100 100 Oximetry 06/17/19 06/17/19 06/17/19 10:45 11:00 11:15 Temperature Pulse Rate 79 68 78 Pulse Rate [ Right Apical] Respiratory 27 H 24 15 Rate Blood Pressure 100/56 89/53 89/53 O2 Sat by Pulse 100 100 99 Oximetry - General physical appearance no distress, no pain, other (less interactive today) - Respiratory normal expansion, normal respiratory effort - Abdomen soft, not tender (even with deep palpation), not distended, not rebound, not guarding, not rigid - Integumentary no rash, no growths, no abnormal pigmentation - Labs 06/15/19 04:35 06/15/19 04:35 Calcium panel 06/16/19 Range/Units 16:31 Phosphorus 1.30 L D (2.5-4.5) mg/dL
[2019-06-17 13:24] LABS: BUN/Creatinine Ratio 27; Blood Urea Nitrogen 8 mg/dL (9-20); Calcium 7.3 mg/dL (8.4-10.2); Hemolysis Index 0
[2019-06-17 14:09] LABS: Basophils % (Auto) 0.4 % (0.0-1.8); Eosinophils # (Auto) 0.1 K/mm3 (0.0-0.4); Eosinophils % (Auto) 2.1 % (0.0-4.3); Hematocrit 25.4 % (35.5-45.6); Hemoglobin 8.4 gm/dl (11.8-15.2); Lymphocytes # (Auto) 0.9 K/mm3 (1.2-5.4); Lymphocytes % (Auto) 13.7 % (13.4-35.0); Mean Corpuscular HGB Conc 33 % (32-34); Mean Corpuscular Volume 88 fl (84-94); Monocytes # (Auto) 0.6 K/mm3 (0.0-0.8); Monocytes % (Auto) 8.9 % (0.0-7.3); Platelet Count 211 K/mm3 (140-440); Red Blood Count 2.89 M/mm3 (3.65-5.03); Red Cell Distribution Width 14.9 % (13.2-15.2)
[2019-06-17] MEDS ORDERED: MAGNESIUM SULFATE 1 GM in WATER FOR INJ (PF) 23 ML IV ONE (14:14)
[2019-06-17] MEDS ORDERED: KPHOS 45 MMOL in NACL 0.9% 500 ML 500 ML IV ONE (14:14)
--- NOTE | 2019-06-17 14:31 | Progress Note ---
Assessment and Plan Assessment and plan: 78-year-old man brought from residential for confusion, lethargy and hypotension. Who was intubated in the ER for airway protection Vitals showed hypotension and tachycardia, which improved with pressors Labs show a white count of 11.9 anemia with hemoglobin of 9.5, potassium 3.5, troponin 0 0.979, UA shows 8 leukocytes Chest x-ray; no acute findings CT abdomen and pelvis abnormal appearance of gallbladder and appendix -Moderate diffuse gallbladder wall thickening and edema Appendix is prominent measuring 1.5 cm, there is a 2.4 cm fluid collection in the distal tip of the appendix There is a suspicious 1.8 cm heterogeneous masslike lesion at the inferior pole of the left kidney, it was 1.3 cm on previous exam CT angiogram chest, no PE, bibasilar atelectasis CT head, essentially normal for age Septic shock/gram-negative bacteremia IV antibiotics, IV pressors, IV fluids, ID consult, follow-up blood cultures -Source of bacteremia still unclear, for repeat renal ultrasound on Tuesday, ID following patient Appendicitis, and cholecystitis ruled out Surgery input appreciated Acute respiratory failure on mechanical ventilator less than 96 hours, continue ventilator, management per pulmonology Left renal mass? Renal ultrasound was negative, medication reconciliation technician recommends repeat ultrasound on Tuesday under supervision of the radiologist Hypokalemia/hypophosphatemia Repleted IV TYpe 2MI, PAF mgt per cardiology, improving acute metabolic encephalopathy improving DVT prophylaxis with Lovenox The high probability of a clinically significant, sudden or life threatening deterioration of the [pulmonary, CVS, GI, renal] system(s) required my full and direct attention, intervention and personal management. The aggregate critical care time was [55] minutes. This time is in addition to time spent performing reported procedures but includes the following: [] Data Review and interpretation [] Patient assessment and monitoring of vital signs [] Documentation [] Medication orders and management History Interval history: Patient remains intubated, opens eyes, turns to voice, obeys commands, closes eyes on command Remains vent dependent had fever no diarrhea or vomiting Hospitalist Physical - Physical exam Narrative exam: General.: Appears ill, intubated HEENT: Moist mucous membranes, extraocular muscles intact, no lymphadenopathy Neck: supple Cardiac: S1-S2 heard Lungs: Ventilated breath sounds, no crackles Abdomen: soft , not distended Extremities: no edema clubbing or cyanosis Skin: no rash or lesions Neurologic: Intubated, responsive to voice opens eyes, turns to voice, obeys commands, closes eyes on command Psych: Obtunded - Constitutional Vitals: Temp Pulse Resp BP Pulse Ox 99.3 F 78 27 H 118/60 100 06/17/19 08:00 06/17/19 12:01 06/17/19 12:01 06/17/19 12:01 06/17/19 12:01 General appearance: Present: other (intubated on the vent) Results - Labs CBC & Chem 7: 06/18/19 04:30 06/18/19 04:30 Labs: Laboratory Last Values WBC 6.4 K/mm3 (4.5-11.0) 06/17/19 Unknown RBC 2.89 M/mm3 (3.65-5.03) L 06/17/19 Unknown Hgb 8.4 gm/dl (11.8-15.2) L 06/17/19 Unknown Hct 25.4 % (35.5-45.6) L 06/17/19 Unknown MCV 88 fl (84-94) 06/17/19 Unknown MCH 29 pg (28-32) 06/17/19 Unknown MCHC 33 % (32-34) 06/17/19 Unknown RDW 14.9 % (13.2-15.2) 06/17/19 Unknown Plt Count 211 K/mm3 (140-440) 06/17/19 Unknown Lymph % (Auto) 13.7 % (13.4-35.0) 06/17/19 Unknown [place] % (Auto) 8.9 % (0.0-7.3) H 06/17/19 Unknown Eos % (Auto) 2.1 % (0.0-4.3) 06/17/19 Unknown Baso % (Auto) 0.4 % (0.0-1.8) 06/17/19 Unknown Lymph # 0.9 K/mm3 (1.2-5.4) L 06/17/19 Unknown [place] # 0.6 K/mm3 (0.0-0.8) 06/17/19 Unknown Eos # 0.1 K/mm3 (0.0-0.4) 06/17/19 Unknown Baso # 0.0 K/mm3 (0.0-0.1) 06/17/19 Unknown Add Manual Diff Complete 06/14/19 04:30 Total Counted 100 06/14/19 04:30 Seg Neutrophils % 74.9 % (40.0-70.0) H 06/17/19 Unknown Seg Neuts % (Manual) 70.0 % (40.0-70.0) 06/14/19 04:30 Band Neutrophils % 18.0 % 06/14/19 04:30 Lymphocytes % (Manual) 8.0 % (13.4-35.0) L 06/14/19 04:30 Reactive Lymphs % (Man) 0 % 06/14/19 04:30 Monocytes % (Manual) 4.0 % (0.0-7.3) 06/14/19 04:30 Eosinophils % (Manual) 0 % (0.0-4.3) 06/14/19 04:30 Basophils % (Manual) 0 % (0.0-1.8) 06/14/19 04:30 Metamyelocytes % 0 % 06/14/19 04:30 Myelocytes % 0 % 06/14/19 04:30 Promyelocytes % 0 % 06/14/19 04:30 Blast Cells % 0 % 06/14/19 04:30 Nucleated RBC % Not Reportable 06/14/19 04:30 Seg Neutrophils # 4.8 K/mm3 (1.8-7.7) 06/17/19 Unknown Seg Neutrophils # Man 8.3 K/mm3 (1.8-7.7) H 06/14/19 04:30 Band Neutrophils # 2.1 K/mm3 06/14/19 04:30 Lymphocytes # (Manual) 1.0 K/mm3 (1.2-5.4) L 06/14/19 04:30 Abs React Lymphs (Man) 0.0 K/mm3 06/14/19 04:30 Monocytes # (Manual) 0.5 K/mm3 (0.0-0.8) 06/14/19 04:30 Eosinophils # (Manual) 0.0 K/mm3 (0.0-0.4) 06/14/19 04:30 Basophils # (Manual) 0.0 K/mm3 (0.0-0.1) 06/14/19 04:30 Metamyelocytes # 0.0 K/mm3 06/14/19 04:30 Myelocytes # 0.0 K/mm3 06/14/19 04:30 Promyelocytes # 0.0 K/mm3 06/14/19 04:30 Blast Cells # 0.0 K/mm3 06/14/19 04:30 WBC Morphology Not Reportable 06/14/19 04:30 Hypersegmented Neuts Not Reportable 06/14/19 04:30 Hyposegmented Neuts Not Reportable 06/14/19 04:30 Hypogranular Neuts Not Reportable 06/14/19 04:30 Smudge Cells Not Reportable 06/14/19 04:30 Toxic Granulation Not Reportable 06/14/19 04:30 Toxic Vacuolation Not Reportable 06/14/19 04:30 Dohle Bodies Not Reportable 06/14/19 04:30 Pelger-Huet Anomaly Not Reportable 06/14/19 04:30 Raymundo Rods Not Reportable 06/14/19 04:30 Platelet Estimate Consistent w auto 06/14/19 04:30 Clumped Platelets Not Reportable 06/14/19 04:30 Plt Clumps, EDTA Not Reportable 06/14/19 04:30 Large Platelets Rare 06/14/19 04:30 Giant Platelets Not Reportable 06/14/19 04:30 Platelet Satelliting Not Reportable 06/14/19 04:30 Plt Morphology Comment Not Reportable 06/14/19 04:30 RBC Morphology Not Reportable 06/14/19 04:30 Dimorphic RBCs Not Reportable 06/14/19 04:30 Polychromasia Not Reportable 06/14/19 04:30 Hypochromasia Not Reportable 06/14/19 04:30 Poikilocytosis Not Reportable 06/14/19 04:30 Anisocytosis Rare 06/14/19 04:30 Microcytosis Not Reportable 06/14/19 04:30 Macrocytosis Not Reportable 06/14/19 04:30 Spherocytes Not Reportable 06/14/19 04:30 Pappenheimer Bodies Not Reportable 06/14/19 04:30 Sickle Cells Not Reportable 06/14/19 04:30 Target Cells Not Reportable 06/14/19 04:30 Tear Drop Cells Not Reportable 06/14/19 04:30 Ovalocytes Rare 06/14/19 04:30 Helmet Cells Not Reportable 06/14/19 04:30 [place] Bodies Not Reportable 06/14/19 04:30 [place] Rings Not Reportable 06/14/19 04:30 Irons Cells Rare 06/14/19 04:30 Bite Cells Not Reportable 06/14/19 04:30 Crenated Cell Not Reportable 06/14/19 04:30 Elliptocytes Not Reportable 06/14/19 04:30 Acanthocytes (Spur) Not Reportable 06/14/19 04:30 Rouleaux Not Reportable 06/14/19 04:30 Hemoglobin C Crystals Not Reportable 06/14/19 04:30 Schistocytes Not Reportable 06/14/19 04:30 Malaria parasites Not Reportable 06/14/19 04:30 [place] Bodies Not Reportable 06/14/19 04:30 Hem Pathologist Commnt No 06/14/19 04:30 PT 16.3 Sec. (12.2-14.9) H 06/14/19 05:28 INR 1.35 (0.87-1.13) H 06/14/19 05:28 APTT 34.7 Sec. (24.2-36.6) 06/14/19 05:28 POC ABG pH 7.432 (7.35-7.45) 06/17/19 04:50 POC ABG pCO2 31.5 (35-45) L 06/17/19 04:50 POC ABG pO2 135 (80-105) H 06/17/19 04:50 POC ABG HCO3 21.0 (22-26 mml/L) 06/17/19 04:50 POC ABG Total CO2 22 (23-27mmol/L) 06/17/19 04:50 POC ABG O2 Sat 99 06/17/19 04:50 POC ABG Base Excess -3 ((-2) - (+3)mmol/L) 06/17/19 04:50 FiO2 30 % 06/17/19 04:50 Sodium 142 mmol/L (137-145) 06/17/19 Unknown Potassium 3.0 mmol/L (3.6-5.0) L 06/17/19 Unknown Chloride 107.3 mmol/L (98-107) H 06/17/19 Unknown Carbon Dioxide 23 mmol/L (22-30) D 06/17/19 Unknown Anion Gap 15 mmol/L 06/17/19 Unknown BUN 8 mg/dL (9-20) L 06/17/19 Unknown Creatinine 0.3 mg/dL (0.8-1.5) L 06/17/19 Unknown Estimated GFR > 60 ml/min 06/17/19 Unknown BUN/Creatinine Ratio 27 % 06/17/19 Unknown Glucose 171 mg/dL (75-100) H 06/17/19 Unknown POC Glucose 117 (70-105) H 06/14/19 02:49 Lactic Acid 1.20 mmol/L (0.7-2.0) 06/14/19 05:28 Calcium 7.3 mg/dL (8.4-10.2) L 06/17/19 Unknown Phosphorus 1.30 mg/dL (2.5-4.5) L 06/17/19 Unknown Magnesium 1.70 mg/dL (1.7-2.3) 06/17/19 Unknown Total Bilirubin 0.30 mg/dL (0.1-1.2) 06/15/19 04:35 AST 21 units/L (5-40) 06/15/19 04:35 ALT 14 units/L (7-56) 06/15/19 04:35 Alkaline Phosphatase 80 units/L (35-129) 06/15/19 04:35 Troponin T 0.979 ng/mL (0.00-0.029) H* 06/14/19 03:10 Total Protein 7.1 g/dL (6.3-8.2) 06/15/19 04:35 Albumin 2.8 g/dL (3.9-5) L 06/15/19 04:35 Albumin/Globulin Ratio 0.7 % 06/15/19 04:35 Triglycerides 74 mg/dL (2-149) 06/14/19 03:10 Cholesterol 112 mg/dL (50-199) 06/14/19 03:10 LDL Cholesterol Direct 76 mg/dL (50-130) 06/14/19 03:10 HDL Cholesterol 30 mg/dL (40-59) L 06/14/19 03:10 Cholesterol/HDL Ratio 3.73 % 06/14/19 03:10 Procalcitonin 45.71 ng/mL (<0.15) 06/14/19 13:26 Urine Color [place]abb[place] (Yellow) 06/14/19 04:35 Urine Turbidity Cloudy (Clear) 06/14/19 04:35 Urine pH 5.0 (5.0-7.0) 06/14/19 04:35 Ur Specific [place] 1.020 (1.003-1.030) 06/14/19 04:35 Urine Protein 100 mg/dl mg/dL (Negative) 06/14/19 04:35 Urine Glucose (UA) Neg mg/dL (Negative) 06/14/19 04:35 Urine Ketones Neg mg/dL (Negative) 06/14/19 04:35 Urine Blood Neg (Negative) 06/14/19 04:35 Urine Nitrite Neg (Negative) 06/14/19 04:35 Ur Reducing Substances Not Reportable 06/14/19 04:35 Urine Bilirubin Neg (Negative) 06/14/19 04:35 Urine Ictotest Not Reportable 06/14/19 04:35 Urine Urobilinogen < 2.0 mg/dL (<2.0) 06/14/19 04:35 Ur Leukocyte Esterase Tr (Negative) 06/14/19 04:35 Urine WBC (Auto) 8.0 /HPF (0.0-6.0) H 06/14/19 04:35 Urine RBC (Auto) 6.0 /HPF (0.0-6.0) 06/14/19 04:35 U Epithel Cells (Auto) 1.0 /HPF (0-13.0) 06/14/19 04:35 Urine Mucus 2+ /HPF 06/14/19 04:35 Active Medications - Current Medications Current Medications: Generic Name Dose Route Start Last Admin Trade Name Freq PRN Reason Stop Dose Admin Acetaminophen 650 mg 06/14/19 09:00 06/15/19 16:32 Tylenol PO 650 mg Q4H PRN Administration Pain MILD(1-3)/Fever >100.5/[place] Albuterol 2.5 mg 06/14/19 12:31 Proventil IH Q4HRT PRN Shortness Of Breath Lipase/Protease/Amylase 1 each 06/14/19 13:[address] 10,500 Unit FEEDTUBE PRN PRN For Clogged Feeding Tube Famotidine 20 mg 06/14/19 18:00 06/17/19 09:56 Pepcid PO 20 mg QDAY HAL Administration Fentanyl 25 mcg 06/15/19 15:02 06/15/19 21:57 Sublimaze IV 25 mcg Q2H PRN Administration Pain , Severe (7-10) Heparin Sodium (Porcine) 5,000 unit 06/14/19 22:00 06/17/19 09:58 Heparin SUB-Q 5,000 unit Q12HR HAL Administration Hydrophilic Ointment 1 applic 06/14/19 03:45 Vaseline Lip Therapy TP Q2HR PRN Dry Lips Midazolam HCl 100 mg/ Sodium 100 mls @ 2 mls/hr 06/14/19 04:00 06/15/19 06:43 Chloride IV Infused TITR HAL Titration Protocol 2 MG/HR Norepinephrine 4 mg in 250 mls @ 7.5 mls/hr 06/14/19 05:00 06/15/19 11:15 Levophed Drip 4 Mg/Ns 250 Ml IV Infused TITR HAL Titration Protocol 2 MCG/MIN Cefepime HCl 2 gm in 100 mls @ 200 mls/hr 06/14/19 22:00 06/17/19 09:56 Maxipime/Ns 2 Gm/100 Ml IV 200 mls/hr Q12HR HAL Administration Protocol Fluconazole 200 mg in 100 mls @ 100 mls/hr 06/14/19 16:00 06/17/19 09:58 Diflucan IV 100 mls/hr Q24HR [facility] Administration Protocol Metronidazole 500 mg in 100 mls @ 100 mls/hr 06/14/19 16:00 06/17/19 07:48 Flagyl 500 Mg/100 Ml IV 100 mls/hr Q8HR [facility] Administration Protocol Vancomycin HCl 1 gm in 250 mls @ 166.667 mls/hr 06/18/19 08:00 Vancomycin/Ns 1 Gm/250 Ml IV Q24H [facility] Potassium Phosphate 45 mmol/ 515 mls @ 85 mls/hr 06/17/19 14:14 Sodium Chloride IV 06/17/19 20:17 ONCE ONE Magnesium Sulfate 2 gm in 50 mls @ 25 mls/hr 06/17/19 15:00 Magnesium Sulfate 2gm/50ml IV 06/17/19 16:59 ONCE ONE Midazolam HCl 2 mg 06/14/19 03:45 06/14/19 05:06 Versed IV 2 mg Q10MIN PRN Administration Sedation Multi-Ingred Cream/Lotion/Oil/Oint 1 applic 06/14/19 03:45 Artificial Tears Ophth Oint OU Q4HR PRN Dry Eye(s) Ondansetron HCl 4 mg 06/14/19 09:00 Zofran IV Q8H PRN Nausea And Vomiting Scopolamine 1 each 06/16/19 16:00 06/16/19 17:51 Transderm-Scop TD 1 each Q3D HAL Administration Simple Syrup 15 ml 06/14/19 13:28 Simple Syrup FEEDTUBE PRN PRN Hypoglycemia Simple Syrup 30 ml 06/14/19 13:28 Simple Syrup FEEDTUBE PRN PRN Hypoglycemia Sodium Bicarbonate 325 mg 06/14/19 13:28 Sodium Bicarbonate FEEDTUBE PRN PRN For Clogged Feeding Tube Sodium Chloride 10 ml 06/14/19 10:00 06/16/19 22:38 Sodium Chloride Flush Syringe 10 Ml IV 10 ml BID HAL Administration Sodium Chloride 10 ml 06/14/19 09:00 Sodium Chloride Flush Syringe 10 Ml IV PRN PRN LINE FLUSH Nutrition/Malnutrition Assess - Dietary Evaluation Nutrition/Malnutrition Findings: Nutrition Notes Start: 06/14/19 12:44 Freq: Status: Active Protocol: Document 06/15/19 13:01 ADELINE (Rec: 06/15/19 13:43 ADELINE [email or web address]) Co-Sign 06/15/19 13:01 LP Nutrition Notes Initial or Follow up Reassessment Current Diagnosis Hypertension Other Pertinent Diagnosis DVT, GERD, left AKA, right BKA , sepsis Current Diet NPO Labs/Tests K 3.3 Cl 110.7 CO2 15 Cr 0.4 Ca 7.8 Phos 1.8 Pertinent Medications K phos 85ml/hr Height 4 ft 3 in Weight 70 kg [place] Body Weight (kg) 23.63 BMI 41.7 Weight Status Morbidly Obese Subjective/Other Information RD consult for nutritional intake. Pt TF turned off due to abdominal ultrasound Burn Absent Trauma Absent Minimum of two criteria No #1 Nutrition Diagnosis Inadequate oral intake Diagnosis Progress(for reassessment Continues documentation) Is patient on ventilator? Yes Is Patient Ambulatory and/or Out of Bed No REE-([facility]-confined to bed) 1368.012 Calculation Used for Recommendations [facility] Additional Notes Protein needs: 60g/kg (2.5g/kg IBW 24kg) Fluid needs: 1ml/kcal Nutrition Intervention Change Diet Order: Advance diet when medically feasible Nutrition Support: Osmolite 1.5 at 40ml/hr Water flush 150ml q4hr Kcal 1,440 Protein (gm) 60 Fluid (mL) 732 Fiber (gm) 0 Goal #1 Meet at least 85% of energy and protein needs Anticipated Discharge Needs: Unable to determine at this time Follow-Up By: 06/18/19 Additional Comments F/U for diet advancement
[2019-06-17] MEDS ORDERED: MAGNESIUM SULFATE 2GM/50ML 2 GM/50 ML BAG IV ONE (15:00)
[2019-06-17] MEDS: SODIUM CHLORIDE FLUSH SYRINGE 10 ML IV SCH ×2 (15:01→21:45)
--- NOTE | 2019-06-17 15:41 | Progress Note ---
Subjective Date of service: 06/17/19 Principal diagnosis: Ac. hypoxemic resp failure; Severe Shock; UTI; COPD; PVD; HTN; NSTEMI; DVT Interval history: Severe sepsis with septic shock Acute respiratory failure; intubated on CPAP this morning Acute encephalopathy Peripheral arterial disease s/p bilateral knee amputation History of MRSA wounds COPD Rheumatoid arthritis Paroxysmal Afib Echo showing LVEF 50-55% with RVSP 41 mm Hg Recommendations: Not candidate for anticoagulation at this time, HR controlled. Supportive care per ID and ICU team Objective Vital Signs Temp Pulse Pulse Resp BP Pulse Ox 06/17/19 14:31 69 27 H 127/66 100 06/17/19 14:15 71 25 H 127/66 100 06/17/19 14:00 72 21 127/66 100 06/17/19 13:45 59 L 20 115/68 100 06/17/19 13:31 73 20 115/68 100 06/17/19 13:15 72 24 115/68 100 06/17/19 13:00 88 20 115/68 100 06/17/19 12:45 59 L 25 H 118/60 99 06/17/19 12:31 84 25 H 118/60 100 06/17/19 12:15 73 26 H 118/60 100 06/17/19 12:01 78 27 H 118/60 100 06/17/19 12:00 68 68 27 H 118/60 100 06/17/19 11:45 75 24 89/53 100 06/17/19 11:31 60 22 89/53 100 06/17/19 11:15 78 15 89/53 99 06/17/19 11:00 68 24 89/53 100 06/17/19 10:45 79 27 H 100/56 100 06/17/19 10:31 72 24 100/56 100 06/17/19 10:15 76 26 H 100/56 100 06/17/19 10:00 89 16 100/56 100 06/17/19 09:45 80 19 98/49 100 06/17/19 09:31 71 12 98/49 99 06/17/19 09:15 79 23 98/49 100 06/17/19 09:00 78 15 98/49 100 06/17/19 08:45 76 20 100/56 100 06/17/19 08:35 72 100/56 100 06/17/19 08:31 75 12 100/56 100 06/17/19 08:15 69 16 81/49 100 06/17/19 08:00 99.3 F 63 18 81/49 100 06/17/19 07:45 73 16 88/46 100 06/17/19 07:39 78 17 100 06/17/19 07:31 65 17 88/46 100 06/17/19 07:15 78 19 88/46 100 06/17/19 07:00 65 20 81/51 100 06/17/19 06:45 70 17 97/53 100 06/17/19 06:31 64 12 97/53 100 06/17/19 06:15 67 15 97/53 100 06/17/19 06:00 69 21 97/53 100 06/17/19 05:45 81 17 92/59 100 06/17/19 05:31 73 23 92/59 100 06/17/19 05:15 82 21 92/59 100 06/17/19 05:00 68 21 92/59 100 06/17/19 04:45 79 20 86/57 100 06/17/19 04:31 76 17 86/57 100 06/17/19 04:29 72 86/57 100 06/17/19 04:15 83 24 86/57 100 06/17/19 04:00 99.7 F H 76 99 H 19 86/57 100 06/17/19 03:45 78 19 109/58 100 06/17/19 03:31 63 14 109/58 100 06/17/19 03:15 83 22 109/58 100 06/17/19 03:00 67 24 109/58 100 06/17/19 02:45 74 22 102/48 100 06/17/19 02:31 73 17 102/48 100 06/17/19 02:15 71 16 92/56 100 06/17/19 02:00 84 21 92/56 100 06/17/19 01:45 85 19 102/48 100 06/17/19 01:31 53 L 8 L 102/48 100 06/17/19 01:15 77 18 102/48 100 06/17/19 01:01 84 17 102/48 100 06/17/19 00:49 79 138/72 100 06/17/19 00:45 123/67 100 06/17/19 00:31 86 16 123/67 100 06/17/19 00:15 83 22 123/67 100 06/17/19 00:00 100.3 F H 82 99 H 27 H 100 06/16/19 23:45 86 24 136/77 100 06/16/19 23:31 82 22 136/77 100 06/16/19 23:23 86 20 136/77 100 06/16/19 23:15 85 15 136/77 100 06/16/19 23:00 84 20 123/67 100 06/16/19 22:45 89 15 136/77 100 06/16/19 22:31 83 21 136/77 100 06/16/19 22:15 83 21 136/77 100 06/16/19 22:00 89 21 136/77 100 06/16/19 21:45 84 21 130/70 100 06/16/19 21:31 85 16 130/70 100 06/16/19 21:15 81 15 130/70 100 06/16/19 21:01 89 21 130/70 100 06/16/19 20:45 88 18 149/71 100 06/16/19 20:31 91 H 15 149/71 100 06/16/19 20:15 91 H 18 149/71 100 06/16/19 20:00 99.8 F H 89 101 H 18 149/71 100 06/16/19 19:53 83 160/87 100 06/16/19 19:45 86 22 160/87 100 06/16/19 19:31 84 16 160/87 100 06/16/19 19:15 80 23 160/87 100 06/16/19 19:00 119 H 28 H 160/87 100 06/16/19 18:45 115 H 17 151/88 100 06/16/19 18:31 113 H 21 151/88 100 06/16/19 18:15 91 H 18 151/88 100 06/16/19 18:01 108 H 33 H 151/88 100 06/16/19 17:45 116 H 19 141/68 100 06/16/19 17:31 123 H 23 141/68 100 06/16/19 17:15 79 28 H 141/68 100 06/16/19 17:00 78 27 H 141/68 100 06/16/19 16:45 79 20 140/70 100 06/16/19 16:31 91 H 25 H 140/70 100 06/16/19 16:15 88 27 H 140/70 100 06/16/19 16:10 89 28 H 140/70 100 06/16/19 16:00 85 15 140/70 100 06/16/19 15:57 99.2 F 06/16/19 15:45 82 22 131/73 100 - Physical Examination General: Other (intubated, open eyes to verbal commands) Neck: Positive: neck supple Cardiac: Positive: Reg Rate and Rhythm, S1/S2 (intubated) Lungs: Positive: clear to auscultation - Labs and Meds CBC 06/17/19 Range/Units Unknown WBC 6.4 (4.5-11.0) K/mm3 RBC 2.89 L (3.65-5.03) M/mm3 Hgb 8.4 L (11.8-15.2) gm/dl Hct 25.4 L (35.5-45.6) % Plt Count 211 (140-440) K/mm3 Lymph # 0.9 L (1.2-5.4) K/mm3 [place] # 0.6 (0.0-0.8) K/mm3 Eos # 0.1 (0.0-0.4) K/mm3 Baso # 0.0 (0.0-0.1) K/mm3 Comprehensive Metabolic Panel 06/17/19 Range/Units Unknown Sodium 142 (137-145) mmol/L Potassium 3.0 L (3.6-5.0) mmol/L Chloride 107.3 H (98-107) mmol/L Carbon Dioxide 23 D (22-30) mmol/L BUN 8 L (9-20) mg/dL Creatinine 0.3 L (0.8-1.5) mg/dL Glucose 171 H (75-100) mg/dL Calcium 7.3 L (8.4-10.2) mg/dL - Allied health notes Allied health notes reviewed: nursing
--- NOTE | 2019-06-17 15:50 | Progress Note ---
Assessment and Plan Cultures: Blood culture 06/14/2019 ESBL E coli 1 of 4 bottles Tracheal asp culture 06/14/2019 no growth today Assessment: 78 y/o male with a history of severe peripheral artery disease status post bilateral above the knee amputations, previous MRSA in wounds, COPD, rheumatoid arthritis, admitted on 06/14/2019 due to fever at 100.2, AMS and hypotension at 82/50 noted at his [facility] the morning of admission: 1) Severe sepsis with septic shock: off levophed, still low grade fever; due to ESBL E coli septicemia of unclear source ?GI. Patient with acute symptoms of fever, hypotension, no clear history of events. UA no significant pyuria. CXR and CTA chest no obvious pneumonia or PE. Blood culture pending. CT abd ? GB or appendix abnormalities. Elevated troponins. Significantly elevated procalcitonin c/w bacterial sepsis. DDx. acute abdomen from appendicitis or cholecystitis v/s ACS v/s aspiration pneumonitis. 2) Acute respiratory failure: intubated on CPAP today 3) Acute encephalopathy: due to #1 Recommendations: stop cefepime, vancomycin and flagyl start meropenem IV continue fluconazole - will stop soon contact isolation due to ESBL serial procalcitonin Surgery and Cards on board Consider repeat abd CT Will follow. Carol Reynoso MD Infectious Diseases Criminal Attorney [facility] ([facility]) M [phone] O [phone] Subjective Date of service: 06/17/19 Principal diagnosis: Ac. hypoxemic resp failure; Severe Shock; UTI; COPD; PVD; HTN; NSTEMI; DVT Interval history: Still low grade fever, off levophed, intubated, sedated. Objective - Exam Narrative Exam: General appearance: sedated but opening eyes intubated on CPAP Eyes: anicteric sclerae, moist conjunctivae; no lid-lag; PERRLA HENT: Atraumatic; oropharynx clear +ETT and NGT Lungs: CTA CV: RRR no murmur Abdomen: Soft, non-tender; no masses or hepatosplenomegaly Extremities: no edema, no cyanosis Skin: No rash. Psych:sedated. Neuro: sedated Right IJ TLC - Constitutional Vitals: Vital Signs Temp Pulse Resp BP Pulse Ox 99.3 F 69 27 H 127/66 100 06/17/19 08:00 10/06/19 14:31 06/17/19 14:31 06/17/19 14:31 06/17/19 14:31 Temperature -Last 24 Hours Temperature 99.3 F Temperature 99.7 F Temperature 100.3 F Temperature 100.3 F Temperature 99.8 F Temperature 99.2 F - Labs CBC & Chem 7: 06/17/19 Unknown 06/17/19 Unknown Labs: Abnormal lab results 06/16/19 06/17/19 06/17/19 Range/Units 16:31 04:50 Unknown RBC 2.89 L (3.65-5.03) M/mm3 Hgb 8.4 L (11.8-15.2) gm/dl Hct 25.4 L (35.5-45.6) % [place] % (Auto) 8.9 H (0.0-7.3) % Lymph # 0.9 L (1.2-5.4) K/mm3 Seg Neutrophils % 74.9 H (40.0-70.0) % POC ABG pCO2 31.5 L (35-45) POC ABG pO2 135 H (80-105) Potassium (3.6-5.0) mmol/L Chloride (98-107) mmol/L BUN (9-20) mg/dL Creatinine (0.8-1.5) mg/dL Glucose (75-100) mg/dL Calcium (8.4-10.2) mg/dL Phosphorus 1.30 L D (2.5-4.5) mg/dL 06/17/19 Range/Units Unknown RBC (3.65-5.03) M/mm3 Hgb (11.8-15.2) gm/dl Hct (35.5-45.6) % [place] % (Auto) (0.0-7.3) % Lymph # (1.2-5.4) K/mm3 Seg Neutrophils % (40.0-70.0) % POC ABG pCO2 (35-45) POC ABG pO2 (80-105) Potassium 3.0 L (3.6-5.0) mmol/L Chloride 107.3 H (98-107) mmol/L BUN 8 L (9-20) mg/dL Creatinine 0.3 L (0.8-1.5) mg/dL Glucose 171 H (75-100) mg/dL Calcium 7.3 L (8.4-10.2) mg/dL Phosphorus 1.30 L (2.5-4.5) mg/dL
--- NOTE | 2019-06-17 15:56 | Progress Note ---
Assessment and Plan Acute respiratory failure, hypoxemic, on mechanical ventilatory support. Severe sepsis with shock, possibly due to urinary source. Acute encephalopathy, possibly on chronic. History of chronic obstructive pulmonary disease. History of peripheral vascular disease. History of hypertension. History of deep venous thrombosis. History of gastroesophageal reflux disease. History of arthritis. History of gout. Leukocytosis. Mild hypokalemia. Mild metabolic acidosis. Lactic acidosis. Non-ST elevation myocardial infarction - 2 gms Mag sulfate IV X 1 - KPhos 45 mmols IV X 1 given - continue scopolamine patch for secretion control - complete bicarbonate drip (D5W with 3 amps NaHCO3/liter @ 75 cc/hr X 2 liters) - continue to wean supplemental oxygen for target O2 sat's > 90% acutely - continue Daily SAT and SBT assessment as tolerated - VAP bundle addressed - Lung protective strategies - continue bronchodilators with pulmonary hygiene per RT - continue empiric anti-infective's; de-escalate per ID recommendations and based on microbiologic and clinical data - Avoid benzodiazepine's, reduce the possibility of delirium - Continue with fentanyl, titrate for RASS of 0 to -1 - Maintenance of sleep-wake cycle, avoid delirium - begin enteral nutritional support at goal rate as tolerated - Accuchecks with glycemic control elier SSI (While critically ill target blood glucose of 140-180 mg/dL; avoid hypoglycemic) - G.I. & VTE prophylaxis - PT/OT/ROM exercises - mobility protocols for pressure ulcer prophylaxis - Monitor hemodynamics closely - continue other care per attending / other advertising sales consultant's - discharge planning ongoing concurrently ... tentative extubation in am .... re-evaluate in am & prn CONDITION: CRITICAL PROGNOSIS: GUARDED CODE STATUS: FULL CODE The high probability of a clinically significant, sudden or life-threatening deterioration of the [respiratory, cardiovascular] system(s) required my full and direct attention, intervention and personal management. The aggregate critical care time was [32] minutes without overlap. Time includes spent on; [x] Data Review and interpretation [x] Patient assessment and monitoring of vital signs [x] Documentation [x] Medication orders and management Subjective Date of service: 06/17/19 Principal diagnosis: Ac. hypoxemic resp failure; Severe Shock; UTI; COPD; PVD; HTN; NSTEMI; DVT Interval history: Patient is seen today for: Acute hypoxemic respiratory failure; Severe sepsis with shock; UTI; Acute encephalopathy; COPD; PVD; HTN; NSTEMI; H/O DVT Seen and examined at bedside; 24hour events reviewed; nursing and respiratory care staff consulted; no adverse overnight events reported to me; resting peacefully in bed; tolerating PSV trials well today but AMS is worse; no emesis or overt aspiration; repeat phosphorus level remains sub-optimally low Objective Vital Signs - 12hr 06/17/19 06/17/19 06/17/19 04:00 04:15 04:29 Temperature 99.7 F H Pulse Rate 76 83 72 Pulse Rate [ 99 H Right Apical] Respiratory 19 24 Rate Blood Pressure 86/57 86/57 86/57 O2 Sat by Pulse 100 100 100 Oximetry 06/17/19 06/17/19 06/17/19 04:31 04:45 05:00 Temperature Pulse Rate 76 79 68 Pulse Rate [ Right Apical] Respiratory 17 20 21 Rate Blood Pressure 86/57 86/57 92/59 O2 Sat by Pulse 100 100 100 Oximetry 06/17/19 06/17/19 06/17/19 05:15 05:31 05:45 Temperature Pulse Rate 82 73 81 Pulse Rate [ Right Apical] Respiratory 21 23 17 Rate Blood Pressure 92/59 92/59 92/59 O2 Sat by Pulse 100 100 100 Oximetry 06/17/19 06/17/19 06/17/19 06:00 06:15 06:31 Temperature Pulse Rate 69 67 64 Pulse Rate [ Right Apical] Respiratory 21 15 12 Rate Blood Pressure 97/53 97/53 97/53 O2 Sat by Pulse 100 100 100 Oximetry 06/17/19 06/17/19 06/17/19 06:45 07:00 07:15 Temperature Pulse Rate 70 65 78 Pulse Rate [ Right Apical] Respiratory 17 20 19 Rate Blood Pressure 97/53 81/51 88/46 O2 Sat by Pulse 100 100 100 Oximetry 06/17/19 06/17/19 06/17/19 07:31 07:39 07:45 Temperature Pulse Rate 65 73 Pulse Rate [ 78 Right Apical] Respiratory 17 17 16 Rate Blood Pressure 88/46 88/46 O2 Sat by Pulse 100 100 100 Oximetry 06/17/19 06/17/19 06/17/19 08:00 08:15 08:31 Temperature 99.3 F Pulse Rate 63 69 75 Pulse Rate [ Right Apical] Respiratory 18 16 12 Rate Blood Pressure 81/49 81/49 100/56 O2 Sat by Pulse 100 100 100 Oximetry 06/17/19 06/17/19 06/17/19 08:35 08:45 09:00 Temperature Pulse Rate 72 76 78 Pulse Rate [ Right Apical] Respiratory 20 15 Rate Blood Pressure 100/56 100/56 98/49 O2 Sat by Pulse 100 100 100 Oximetry 06/17/19 06/17/19 06/17/19 09:15 09:31 09:45 Temperature Pulse Rate 79 71 80 Pulse Rate [ Right Apical] Respiratory 23 12 19 Rate Blood Pressure 98/49 98/49 98/49 O2 Sat by Pulse 100 99 100 Oximetry 06/17/19 06/17/19 06/17/19 10:00 10:15 10:31 Temperature Pulse Rate 89 76 72 Pulse Rate [ Right Apical] Respiratory 16 26 H 24 Rate Blood Pressure 100/56 100/56 100/56 O2 Sat by Pulse 100 100 100 Oximetry 06/17/19 06/17/19 06/17/19 10:45 11:00 11:15 Temperature Pulse Rate 79 68 78 Pulse Rate [ Right Apical] Respiratory 27 H 24 15 Rate Blood Pressure 100/56 89/53 89/53 O2 Sat by Pulse 100 100 99 Oximetry 06/17/19 06/17/19 06/17/19 11:31 11:45 12:00 Temperature Pulse Rate 60 75 68 Pulse Rate [ 68 Right Apical] Respiratory 22 24 27 H Rate Blood Pressure 89/53 89/53 118/60 O2 Sat by Pulse 100 100 100 Oximetry 06/17/19 06/17/19 06/17/19 12:01 12:15 12:31 Temperature Pulse Rate 78 73 84 Pulse Rate [ Right Apical] Respiratory 27 H 26 H 25 H Rate Blood Pressure 118/60 118/60 118/60 O2 Sat by Pulse 100 100 100 Oximetry 06/17/19 06/17/19 06/17/19 12:45 13:00 13:15 Temperature Pulse Rate 59 L 88 72 Pulse Rate [ Right Apical] Respiratory 25 H 20 24 Rate Blood Pressure 118/60 115/68 115/68 O2 Sat by Pulse 99 100 100 Oximetry 06/17/19 06/17/19 06/17/19 13:31 13:45 14:00 Temperature Pulse Rate 73 59 L 72 Pulse Rate [ Right Apical] Respiratory 20 20 21 Rate Blood Pressure 115/68 115/68 127/66 O2 Sat by Pulse 100 100 100 Oximetry 06/17/19 06/17/19 14:15 14:31 Temperature Pulse Rate 71 69 Pulse Rate [ Right Apical] Respiratory 25 H 27 H Rate Blood Pressure 127/66 127/66 O2 Sat by Pulse 100 100 Oximetry Constitutional: no acute distress, other (elderly looking male, normocephalic with mildly increased resp effort at rest) Eyes: non-icteric ENT: oropharynx moist, other (ETT 23 cm TANA) Neck: supple, no lymphadenopathy, no JVD Effort: mildly labored Ascultation: Bilateral: diminished breath sounds, rhonchi Percussion: Bilateral: not dull Cardiovascular: regular rate and rhythm Gastrointestinal: normoactive bowel sounds, soft, non-tender, non-distended Integumentary: normal Extremities: no cyanosis, no edema, pulses normal, no ischemia or petechiae Neurologic: pupils equal and round, CN II-XII normal, unable to assess Psychiatric: other (unable to assess re: AMS) CBC and BMP: 06/17/19 Unknown 06/17/19 Unknown ABG, PT/INR, D-dimer: ABG POC ABG pH 7.432 (7.35-7.45) 06/17/19 04:50 POC ABG pCO2 31.5 (35-45) L 06/17/19 04:50 POC ABG pO2 135 (80-105) H 06/17/19 04:50 POC ABG HCO3 21.0 (22-26 mml/L) 06/17/19 04:50 POC ABG Total CO2 22 (23-27mmol/L) 06/17/19 04:50 POC ABG O2 Sat 99 06/17/19 04:50 PT/INR, D-dimer PT 16.3 Sec. (12.2-14.9) H 06/14/19 05:28 INR 1.35 (0.87-1.13) H 06/14/19 05:28 Abnormal lab findings: Abnormal Labs 06/14/19 06/14/19 06/14/19 02:49 03:10 03:10 WBC RBC Hgb Hct RDW Lymph % (Auto) [place] % (Auto) Lymph # Seg Neutrophils % Lymphocytes % (Manual) Seg Neutrophils # Seg Neutrophils # Man Lymphocytes # (Manual) PT INR POC ABG pH POC ABG pCO2 POC ABG pO2 Potassium 3.5 L Chloride Carbon Dioxide 20 L BUN Creatinine 0.7 L Glucose 107 H POC Glucose 117 H Lactic Acid 2.60 H* Calcium Phosphorus Troponin T 0.979 H* Albumin 3.0 L HDL Cholesterol 30 L Urine WBC (Auto) 06/14/19 06/14/19 06/14/19 04:30 04:35 05:02 WBC 11.9 H RBC 3.22 L Hgb 9.5 L Hct 28.9 L RDW Lymph % (Auto) [place] % (Auto) Lymph # Seg Neutrophils % Lymphocytes % (Manual) 8.0 L Seg Neutrophils # Seg Neutrophils # Man 8.3 H Lymphocytes # (Manual) 1.0 L PT INR POC ABG pH 7.314 L POC ABG pCO2 POC ABG pO2 > 400 H Potassium Chloride Carbon Dioxide BUN Creatinine Glucose POC Glucose Lactic Acid Calcium Phosphorus Troponin T Albumin HDL Cholesterol Urine WBC (Auto) 8.0 H 06/14/19 06/15/19 06/15/19 05:28 03:30 04:35 WBC 11.2 H RBC 3.02 L Hgb 8.9 L Hct 27.1 L RDW 15.3 H Lymph % (Auto) 6.5 L [place] % (Auto) Lymph # 0.7 L Seg Neutrophils % 86.6 H Lymphocytes % (Manual) Seg Neutrophils # 9.7 H Seg Neutrophils # Man Lymphocytes # (Manual) PT 16.3 H INR 1.35 H POC ABG pH 7.336 L POC ABG pCO2 < 30 L POC ABG pO2 133 H Potassium Chloride Carbon Dioxide BUN Creatinine Glucose POC Glucose Lactic Acid Calcium Phosphorus Troponin T Albumin HDL Cholesterol Urine WBC (Auto) 06/15/19 06/15/19 06/16/19 04:35 12:25 04:29 WBC RBC Hgb Hct RDW Lymph % (Auto) [place] % (Auto) Lymph # Seg Neutrophils % Lymphocytes % (Manual) Seg Neutrophils # Seg Neutrophils # Man Lymphocytes # (Manual) PT INR POC ABG pH 7.315 L POC ABG pCO2 POC ABG pO2 63 L 135 H Potassium 3.3 L Chloride 110.7 H Carbon Dioxide 15 L BUN Creatinine 0.4 L Glucose 104 H POC Glucose Lactic Acid Calcium 7.8 L Phosphorus 1.80 L Troponin T Albumin 2.8 L HDL Cholesterol Urine WBC (Auto) 10/01/2806/17/19 06/17/19 16:31 04:50 Unknown WBC RBC 2.89 L Hgb 8.4 L Hct 25.4 L RDW Lymph % (Auto) [place] % (Auto) 8.9 H Lymph # 0.9 L Seg Neutrophils % 74.9 H Lymphocytes % (Manual) Seg Neutrophils # Seg Neutrophils # Man Lymphocytes # (Manual) PT INR POC ABG pH POC ABG pCO2 31.5 L POC ABG pO2 135 H Potassium Chloride Carbon Dioxide BUN Creatinine Glucose POC Glucose Lactic Acid Calcium Phosphorus 1.30 L D Troponin T Albumin HDL Cholesterol Urine WBC (Auto) 06/17/19 Unknown WBC RBC Hgb Hct RDW Lymph % (Auto) [place] % (Auto) Lymph # Seg Neutrophils % Lymphocytes % (Manual) Seg Neutrophils # Seg Neutrophils # Man Lymphocytes # (Manual) PT INR POC ABG pH POC ABG pCO2 POC ABG pO2 Potassium 3.0 L Chloride 107.3 H Carbon Dioxide BUN 8 L Creatinine 0.3 L Glucose 171 H POC Glucose Lactic Acid Calcium 7.3 L Phosphorus 1.30 L Troponin T Albumin HDL Cholesterol Urine WBC (Auto) Allied health notes reviewed: nursing
[2019-06-17] MEDS: MERREM/NS 500 MG/50 ML 500 MG/50 ML BAG IV SCH ×2 (19:12→20:41)
[2019-06-18] MEDS: MERREM/NS 500 MG/50 ML 500 MG/50 ML BAG IV SCH ×2 (04:22→09:30)
--- NOTE | 2019-06-18 05:01 | XRay Report ---
CHEST 1 VIEW INDICATION / CLINICAL INFORMATION: follow up respiratory failure. COMPARISON: Chest radiograph one day prior FINDINGS: SUPPORT DEVICES: Stable position of endotracheal tube, enteric tube, and right IJ central venous cath eter. HEART / MEDIASTINUM: No significant abnormality. LUNGS / PLEURA: Slight increase of right basilar subsegmental atelectasis. No pleural effusion. No pn eumothorax. ADDITIONAL FINDINGS: No significant additional findings. IMPRESSION: 1. Slight increase of right basilar subsegmental atelectasis. Signer Name: Lissa Azevedo MD Signed: 06/18/2019 4:57 AM Workstation Name: [id number]
[2019-06-18 05:27] LABS: Basophils % (Auto) 0.4 % (0.0-1.8); Eosinophils # (Auto) 0.3 K/mm3 (0.0-0.4); Eosinophils % (Auto) 4.6 % (0.0-4.3); Hematocrit 24.8 % (35.5-45.6); Hemoglobin 8.6 gm/dl (11.8-15.2); Lymphocytes # (Auto) 0.7 K/mm3 (1.2-5.4); Lymphocytes % (Auto) 11.2 % (13.4-35.0); Mean Corpuscular HGB Conc 35 % (32-34); Mean Corpuscular Volume 87 fl (84-94); Monocytes # (Auto) 0.6 K/mm3 (0.0-0.8); Monocytes % (Auto) 9.7 % (0.0-7.3); Platelet Count 218 K/mm3 (140-440); Red Blood Count 2.84 M/mm3 (3.65-5.03)
[2019-06-18 05:56] LABS: BUN/Creatinine Ratio 23; Blood Urea Nitrogen 7 mg/dL (9-20); Calcium 6.9 mg/dL (8.4-10.2); Hemolysis Index 0
[2019-06-18] MEDS ORDERED: VANCOMYCIN/NS 1 GM/250 ML 1 GM/250 ML BAG IV SCH (08:00)
--- NOTE | 2019-06-18 08:19 | Progress Note ---
Assessment and Plan Assessment and plan: 78-year-old man brought from correction for confusion, lethargy and hypotension. Who was intubated in the ER for airway protection Vitals showed hypotension and tachycardia, which improved with pressors Labs show a white count of 11.9 anemia with hemoglobin of 9.5, potassium 3.5, troponin 0 0.979, UA shows 8 leukocytes Chest x-ray; no acute findings CT abdomen and pelvis abnormal appearance of gallbladder and appendix -Moderate diffuse gallbladder wall thickening and edema Appendix is prominent measuring 1.5 cm, there is a 2.4 cm fluid collection in the distal tip of the appendix There is a suspicious 1.8 cm heterogeneous masslike lesion at the inferior pole of the left kidney, it was 1.3 cm on previous exam CT angiogram chest, no PE, bibasilar atelectasis CT head, essentially normal for age Septic shock/ESBL E. coli bacteremia IV antibiotics, IV pressors, IV fluids, ID consult, continue antibiotics -Source of bacteremia still unclear, for repeat renal ultrasound on Tuesday, ID following patient Appendicitis, and cholecystitis ruled out Surgery input appreciated Acute respiratory failure on mechanical ventilator less than 96 hours, continue ventilator, management per pulmonology Left renal mass? 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 The aggregate critical care time was [55] minutes. This time is in addition to time spent performing reported procedures but includes the following: [] Data Review and interpretation [] Patient assessment and monitoring of vital signs [] Documentation [] Medication orders and management History Interval history: Patient remains intubated, opens eyes, turns to voice, obeys commands, closes eyes on command Remains vent dependent had fever no diarrhea or vomiting Hospitalist Physical - Physical exam Narrative exam: General.: Appears ill, intubated HEENT: Moist mucous membranes, extraocular muscles intact, no lymphadenopathy Neck: supple Cardiac: S1-S2 heard Lungs: Ventilated breath sounds, no crackles Abdomen: soft , not distended Extremities: no edema clubbing or cyanosis Skin: no rash or lesions Neurologic: Intubated, responsive to voice opens eyes, turns to voice, obeys commands, closes eyes on command Psych: Obtunded - Constitutional Vitals: Temp Pulse Resp BP Pulse Ox 99.1 F 72 25 H 109/61 100 06/18/19 04:00 06/18/19 06:15 06/18/19 04:00 06/18/19 06:15 06/18/19 06:15 General appearance: Present: other (intubated on the vent) Results - Labs CBC & Chem 7: 06/18/19 04:30 06/18/19 04:30 Labs: Laboratory Last Values WBC 6.7 K/mm3 (4.5-11.0) 06/18/19 04:30 RBC 2.84 M/mm3 (3.65-5.03) L 06/18/19 04:30 Hgb 8.6 gm/dl (11.8-15.2) L 06/18/19 04:30 Hct 24.8 % (35.5-45.6) L 06/18/19 04:30 MCV 87 fl (84-94) 06/18/19 04:30 MCH 30 pg (28-32) 06/18/19 04:30 MCHC 35 % (32-34) H 06/18/19 04:30 RDW 15.0 % (13.2-15.2) 06/18/19 04:30 Plt Count 218 K/mm3 (140-440) 06/18/19 04:30 Lymph % (Auto) 11.2 % (13.4-35.0) L 06/18/19 04:30 [place] % (Auto) 9.7 % (0.0-7.3) H 06/18/19 04:30 Eos % (Auto) 4.6 % (0.0-4.3) H 06/18/19 04:30 Baso % (Auto) 0.4 % (0.0-1.8) 06/18/19 04:30 Lymph # 0.7 K/mm3 (1.2-5.4) L 06/18/19 04:30 [place] # 0.6 K/mm3 (0.0-0.8) 06/18/19 04:30 Eos # 0.3 K/mm3 (0.0-0.4) 06/18/19 04:30 Baso # 0.0 K/mm3 (0.0-0.1) 06/18/19 04:30 Add Manual Diff Complete 06/14/19 04:30 Total Counted 100 06/14/19 04:30 Seg Neutrophils % 74.1 % (40.0-70.0) H 06/18/19 04:30 Seg Neuts % (Manual) 70.0 % (40.0-70.0) 06/14/19 04:30 Band Neutrophils % 18.0 % 06/14/19 04:30 Lymphocytes % (Manual) 8.0 % (13.4-35.0) L 06/14/19 04:30 Reactive Lymphs % (Man) 0 % 06/14/19 04:30 Monocytes % (Manual) 4.0 % (0.0-7.3) 06/14/19 04:30 Eosinophils % (Manual) 0 % (0.0-4.3) 06/14/19 04:30 Basophils % (Manual) 0 % (0.0-1.8) 06/14/19 04:30 Metamyelocytes % 0 % 06/14/19 04:30 Myelocytes % 0 % 06/14/19 04:30 Promyelocytes % 0 % 06/14/19 04:30 Blast Cells % 0 % 06/14/19 04:30 Nucleated RBC % Not Reportable 06/14/19 04:30 Seg Neutrophils # 5.0 K/mm3 (1.8-7.7) 06/18/19 04:30 Seg Neutrophils # Man 8.3 K/mm3 (1.8-7.7) H 06/14/19 04:30 Band Neutrophils # 2.1 K/mm3 06/14/19 04:30 Lymphocytes # (Manual) 1.0 K/mm3 (1.2-5.4) L 06/14/19 04:30 Abs React Lymphs (Man) 0.0 K/mm3 06/14/19 04:30 Monocytes # (Manual) 0.5 K/mm3 (0.0-0.8) 06/14/19 04:30 Eosinophils # (Manual) 0.0 K/mm3 (0.0-0.4) 06/14/19 04:30 Basophils # (Manual) 0.0 K/mm3 (0.0-0.1) 06/14/19 04:30 Metamyelocytes # 0.0 K/mm3 06/14/19 04:30 Myelocytes # 0.0 K/mm3 06/14/19 04:30 Promyelocytes # 0.0 K/mm3 06/14/19 04:30 Blast Cells # 0.0 K/mm3 06/14/19 04:30 WBC Morphology Not Reportable 06/14/19 04:30 Hypersegmented Neuts Not Reportable 06/14/19 04:30 Hyposegmented Neuts Not Reportable 06/14/19 04:30 Hypogranular Neuts Not Reportable 06/14/19 04:30 Smudge Cells Not Reportable 06/14/19 04:30 Toxic Granulation Not Reportable 06/14/19 04:30 Toxic Vacuolation Not Reportable 06/14/19 04:30 Dohle Bodies Not Reportable 06/14/19 04:30 Pelger-Huet Anomaly Not Reportable 06/14/19 04:30 Raymundo Rods Not Reportable 06/14/19 04:30 Platelet Estimate Consistent w auto 06/14/19 04:30 Clumped Platelets Not Reportable 06/14/19 04:30 Plt Clumps, EDTA Not Reportable 06/14/19 04:30 Large Platelets Rare 06/14/19 04:30 Giant Platelets Not Reportable 06/14/19 04:30 Platelet Satelliting Not Reportable 06/14/19 04:30 Plt Morphology Comment Not Reportable 06/14/19 04:30 RBC Morphology Not Reportable 06/14/19 04:30 Dimorphic RBCs Not Reportable 06/14/19 04:30 Polychromasia Not Reportable 06/14/19 04:30 Hypochromasia Not Reportable 06/14/19 04:30 Poikilocytosis Not Reportable 06/14/19 04:30 Anisocytosis Rare 06/14/19 04:30 Microcytosis Not Reportable 06/14/19 04:30 Macrocytosis Not Reportable 06/14/19 04:30 Spherocytes Not Reportable 06/14/19 04:30 Pappenheimer Bodies Not Reportable 06/14/19 04:30 Sickle Cells Not Reportable 06/14/19 04:30 Target Cells Not Reportable 06/14/19 04:30 Tear Drop Cells Not Reportable 06/14/19 04:30 Ovalocytes Rare 06/14/19 04:30 Helmet Cells Not Reportable 06/14/19 04:30 Hardy-Fords Bodies Not Reportable 06/14/19 04:30 Dorena Rings Not Reportable 06/14/19 04:30 [place] Cells Rare 06/14/19 04:30 Bite Cells Not Reportable 06/14/19 04:30 Crenated Cell Not Reportable 06/14/19 04:30 Elliptocytes Not Reportable 06/14/19 04:30 Acanthocytes (Spur) Not Reportable 06/14/19 04:30 Rouleaux Not Reportable 06/14/19 04:30 Hemoglobin C Crystals Not Reportable 06/14/19 04:30 Schistocytes Not Reportable 06/14/19 04:30 Malaria parasites Not Reportable 06/14/19 04:30 Paulie Bodies Not Reportable 06/14/19 04:30 Hem Pathologist Commnt No 06/14/19 04:30 PT 16.3 Sec. (12.2-14.9) H 06/14/19 05:28 INR 1.35 (0.87-1.13) H 06/14/19 05:28 APTT 34.7 Sec. (24.2-36.6) 06/14/19 05:28 POC ABG pH 7.432 (7.35-7.45) 06/17/19 04:50 POC ABG pCO2 31.5 (35-45) L 06/17/19 04:50 POC ABG pO2 135 (80-105) H 06/17/19 04:50 POC ABG HCO3 21.0 (22-26 mml/L) 06/17/19 04:50 POC ABG Total CO2 22 (23-27mmol/L) 06/17/19 04:50 POC ABG O2 Sat 99 06/17/19 04:50 POC ABG Base Excess -3 ((-2) - (+3)mmol/L) 06/17/19 04:50 FiO2 30 % 06/17/19 04:50 Sodium 144 mmol/L (137-145) 06/18/19 04:30 Potassium 3.4 mmol/L (3.6-5.0) L 06/18/19 04:30 Chloride 108.0 mmol/L (98-107) H 06/18/19 04:30 Carbon Dioxide 28 mmol/L (22-30) 06/18/19 04:30 Anion Gap 11 mmol/L 06/18/19 04:30 BUN 7 mg/dL (9-20) L 06/18/19 04:30 Creatinine 0.3 mg/dL (0.8-1.5) L 06/18/19 04:30 Estimated GFR > 60 ml/min 06/18/19 04:30 BUN/Creatinine Ratio 23 % 06/18/19 04:30 Glucose 155 mg/dL (75-100) H 06/18/19 04:30 POC Glucose 117 (70-105) H 06/14/19 02:49 Lactic Acid 1.20 mmol/L (0.7-2.0) 06/14/19 05:28 Calcium 6.9 mg/dL (8.4-10.2) L 06/18/19 04:30 Phosphorus 1.30 mg/dL (2.5-4.5) L 06/17/19 Unknown Magnesium 1.70 mg/dL (1.7-2.3) 06/17/19 Unknown Total Bilirubin 0.30 mg/dL (0.1-1.2) 06/15/19 04:35 AST 21 units/L (5-40) 06/15/19 04:35 ALT 14 units/L (7-56) 06/15/19 04:35 Alkaline Phosphatase 80 units/L (35-129) 06/15/19 04:35 Troponin T 0.979 ng/mL (0.00-0.029) H* 06/14/19 03:10 Total Protein 7.1 g/dL (6.3-8.2) 06/15/19 04:35 Albumin 2.8 g/dL (3.9-5) L 06/15/19 04:35 Albumin/Globulin Ratio 0.7 % 06/15/19 04:35 Triglycerides 74 mg/dL (2-149) 06/14/19 03:10 Cholesterol 112 mg/dL (50-199) 06/14/19 03:10 LDL Cholesterol Direct 76 mg/dL (50-130) 06/14/19 03:10 HDL Cholesterol 30 mg/dL (40-59) L 06/14/19 03:10 Cholesterol/HDL Ratio 3.73 % 06/14/19 03:10 Procalcitonin 45.71 ng/mL (<0.15) 06/14/19 13:26 Urine Color Gabbie (Yellow) 06/14/19 04:35 Urine Turbidity Cloudy (Clear) 06/14/19 04:35 Urine pH 5.0 (5.0-7.0) 06/14/19 04:35 Ur Specific [place] 1.020 (1.003-1.030) 06/14/19 04:35 Urine Protein 100 mg/dl mg/dL (Negative) 06/14/19 04:35 Urine Glucose (UA) Neg mg/dL (Negative) 06/14/19 04:35 Urine Ketones Neg mg/dL (Negative) 06/14/19 04:35 Urine Blood Neg (Negative) 06/14/19 04:35 Urine Nitrite Neg (Negative) 06/14/19 04:35 Ur Reducing Substances Not Reportable 06/14/19 04:35 Urine Bilirubin Neg (Negative) 06/14/19 04:35 Urine Ictotest Not Reportable 06/14/19 04:35 Urine Urobilinogen < 2.0 mg/dL (<2.0) 06/14/19 04:35 Ur Leukocyte Esterase Tr (Negative) 06/14/19 04:35 Urine WBC (Auto) 8.0 /HPF (0.0-6.0) H 06/14/19 04:35 Urine RBC (Auto) 6.0 /HPF (0.0-6.0) 06/14/19 04:35 U Epithel Cells (Auto) 1.0 /HPF (0-13.0) 06/14/19 04:35 Urine Mucus 2+ /HPF 06/14/19 04:35 Active Medications - Current Medications Current Medications: Generic Name Dose Route Start Last Admin Trade Name Freq PRN Reason Stop Dose Admin Acetaminophen 650 mg 06/14/19 09:00 06/15/19 16:32 Tylenol PO 650 mg Q4H PRN Administration Pain MILD(1-3)/Fever >100.5/[place] Albuterol 2.5 mg 06/14/19 12:31 Proventil IH Q4HRT PRN Shortness Of Breath Lipase/Protease/Amylase 1 each 06/14/19 13:[address] 10,500 Unit FEEDTUBE PRN PRN For Clogged Feeding Tube Famotidine 20 mg 06/14/19 18:00 06/17/19 09:56 Pepcid PO 20 mg QDAY HAL Administration Fentanyl 25 mcg 06/15/19 15:02 06/15/19 21:57 Sublimaze IV 25 mcg Q2H PRN Administration Pain , Severe (7-10) Heparin Sodium (Porcine) 5,000 unit 06/14/19 22:00 06/17/19 21:45 Heparin SUB-Q 5,000 unit Q12HR HAL Administration Hydrophilic Ointment 1 applic 06/14/19 03:45 Vaseline Lip Therapy TP Q2HR PRN Dry Lips Midazolam HCl 100 mg/ Sodium 100 mls @ 2 mls/hr 06/14/19 04:00 06/15/19 06:43 Chloride IV Infused TITR HAL Titration Protocol 2 MG/HR Norepinephrine 4 mg in 250 mls @ 7.5 mls/hr 06/14/19 05:00 06/15/19 11:15 Levophed Drip 4 Mg/Ns 250 Ml IV Infused TITR HAL Titration Protocol 2 MCG/MIN Fluconazole 200 mg in 100 mls @ 100 mls/hr 06/14/19 16:00 06/17/19 09:58 Diflucan IV 100 mls/hr Q24HR HAL Administration Protocol Meropenem 500 mg in 50 mls @ 50 mls/hr 06/17/19 15:00 06/18/19 04:22 Merrem/Ns 500 Mg/50 Ml IV 50 mls/hr Q6H HAL Administration Midazolam HCl 2 mg 06/14/19 03:45 06/14/19 05:06 Versed IV 2 mg Q10MIN PRN Administration Sedation Multi-Ingred Cream/Lotion/Oil/Oint 1 applic 06/14/19 03:45 Artificial Tears Ophth Oint OU Q4HR PRN Dry Eye(s) Ondansetron HCl 4 mg 06/14/19 09:00 Zofran IV Q8H PRN Nausea And Vomiting Scopolamine 1 each 06/16/19 16:00 06/16/19 17:51 Transderm-Scop TD 1 each Q3D HAL Administration Simple Syrup 15 ml 06/14/19 13:28 Simple Syrup FEEDTUBE PRN PRN Hypoglycemia Simple Syrup 30 ml 06/14/19 13:28 Simple Syrup FEEDTUBE PRN PRN Hypoglycemia Sodium Bicarbonate 325 mg 06/14/19 13:28 Sodium Bicarbonate FEEDTUBE PRN PRN For Clogged Feeding Tube Sodium Chloride 10 ml 06/14/19 10:00 06/17/19 21:45 Sodium Chloride Flush Syringe 10 Ml IV 10 ml BID HAL Administration Sodium Chloride 10 ml 06/14/19 09:00 Sodium Chloride Flush Syringe 10 Ml IV PRN PRN LINE FLUSH Sodium Phosphate 250 mg 06/18/19 10:00 K-Phos Neutral PO QID HAL Nutrition/Malnutrition Assess - Dietary Evaluation Nutrition/Malnutrition Findings: Nutrition Notes Start: 06/14/19 12:44 Freq: Status: Active Protocol: Document 06/15/19 13:01 ADELINE (Rec: 06/15/19 13:43 ADELINE [email or web address]) Co-Sign 06/15/19 13:01 LP Nutrition Notes Initial or Follow up Reassessment Current Diagnosis Hypertension Other Pertinent Diagnosis DVT, GERD, left AKA, right BKA , sepsis Current Diet NPO Labs/Tests K 3.3 Cl 110.7 CO2 15 Cr 0.4 Ca 7.8 Phos 1.8 Pertinent Medications K phos 85ml/hr Height 4 ft 3 in Weight 70 kg [place] Body Weight (kg) 23.63 BMI 41.7 Weight Status Morbidly Obese Subjective/Other Information RD consult for nutritional intake. Pt TF turned off due to abdominal ultrasound Burn Absent Trauma Absent Minimum of two criteria No #1 Nutrition Diagnosis Inadequate oral intake Diagnosis Progress(for reassessment Continues documentation) Is patient on ventilator? Yes Is Patient Ambulatory and/or Out of Bed No REE-([facility]-confined to bed) 1368.012 Calculation Used for Recommendations [facility] Additional Notes Protein needs: 60g/kg (2.5g/kg IBW 24kg) Fluid needs: 1ml/kcal Nutrition Intervention Change Diet Order: Advance diet when medically feasible Nutrition Support: Osmolite 1.5 at 40ml/hr Water flush 150ml q4hr Kcal 1,440 Protein (gm) 60 Fluid (mL) 732 Fiber (gm) 0 Goal #1 Meet at least 85% of energy and protein needs Anticipated Discharge Needs: Unable to determine at this time Follow-Up By: 06/18/19 Additional Comments F/U for diet advancement
[2019-06-18] MEDS: HEPARIN SUB-Q SCH ×2 (09:29→21:36)
[2019-06-18] MEDS: DIFLUCAN 200 MG/100 ML BAG IV SCH (09:30)
[2019-06-18] MEDS: PEPCID PO SCH ×2 (09:31→21:33)
[2019-06-18] MEDS: K-PHOS NEUTRAL PO SCH ×4 (09:31→21:35)
[2019-06-18] MEDS: SODIUM CHLORIDE FLUSH SYRINGE 10 ML IV SCH ×2 (09:34→21:39)
--- NOTE | 2019-06-18 10:45 | Progress Note ---
Assessment and Plan Cultures: Blood culture 06/14/2019 ESBL E coli 1 of 4 bottles Tracheal asp culture 06/14/2019 no growth today Assessment: 78 y/o male with a history of severe peripheral artery disease status post bilateral above the knee amputations, previous MRSA in wounds, COPD, rheumatoid arthritis, admitted on 06/14/2019 due to fever at 100.2, AMS and hypotension at 82/50 noted at his [facility] the morning of admission: 1) Severe sepsis with septic shock: off levophed, still low grade fever; due to ESBL E coli septicemia of unclear source ?GI. Patient with acute symptoms of fever, hypotension, no clear history of events. UA no significant pyuria. CXR and CTA chest no obvious pneumonia or PE. Blood culture pending. CT abd ? GB or appendix abnormalities. Elevated troponins. DDx. acute abdomen from appendicitis or cholecystitis v/s ACS v/s aspiration pneumonitis. Noted surgery's recommendation re: chronically thickened appendix 2) Acute respiratory failure: intubated on CPAP today 3) Acute encephalopathy: due to #1 Recommendations: - can stop meropenem to spare Pseudomonas coverage - start ertapenem 1g q24h as E coli is sensitive. - defer to surgery re: appendix Will follow. Saida Aaron MD [facility] ([facility] M: [phone] O: [phone] F: [phone] Subjective Date of service: 06/18/19 Principal diagnosis: Ac. hypoxemic resp failure; Severe Shock; UTI; COPD; PVD; HTN; NSTEMI; DVT Interval history: Afebrile with normal white count. No new issues. Objective - Exam Narrative Exam: General appearance: sedated but opening eyes intubated on CPAP Eyes: anicteric sclerae, moist conjunctivae; no lid-lag; PERRLA HENT: Atraumatic; oropharynx clear +ETT and NGT Lungs: CTA CV: RRR no murmur Abdomen: Soft, non-tender; no masses or hepatosplenomegaly Extremities: no edema, no cyanosis Skin: No rash. Psych:sedated. Neuro: sedated Right IJ TLC - Constitutional Vitals: Vital Signs Temp Pulse Resp BP Pulse Ox 99.1 F 93 H 22 98/60 99 06/18/19 04:00 06/18/19 09:00 06/18/19 09:00 06/18/19 09:00 06/18/19 09:00 Temperature -Last 24 Hours Temperature 99.1 F Temperature 99.1 F Temperature 99.7 F Temperature 98.8 F - Labs CBC & Chem 7: 06/18/19 04:30 06/18/19 04:30 Labs: Abnormal lab results 06/17/19 06/17/19 06/18/19 Range/Units Unknown Unknown 04:30 RBC 2.89 L 2.84 L (3.65-5.03) M/mm3 Hgb 8.4 L 8.6 L (11.8-15.2) gm/dl Hct 25.4 L 24.8 L (35.5-45.6) % MCHC 35 H (32-34) % Lymph % (Auto) 11.2 L (13.4-35.0) % [place] % (Auto) 8.9 H 9.7 H (0.0-7.3) % Eos % (Auto) 4.6 H (0.0-4.3) % Lymph # 0.9 L 0.7 L (1.2-5.4) K/mm3 Seg Neutrophils % 74.9 H 74.1 H (40.0-70.0) % Potassium 3.0 L (3.6-5.0) mmol/L Chloride 107.3 H (98-107) mmol/L BUN 8 L (9-20) mg/dL Creatinine 0.3 L (0.8-1.5) mg/dL Glucose 171 H (75-100) mg/dL Calcium 7.3 L (8.4-10.2) mg/dL Phosphorus 1.30 L (2.5-4.5) mg/dL 06/18/19 Range/Units 04:30 RBC (3.65-5.03) M/mm3 Hgb (11.8-15.2) gm/dl Hct (35.5-45.6) % MCHC (32-34) % Lymph % (Auto) (13.4-35.0) % [place] % (Auto) (0.0-7.3) % Eos % (Auto) (0.0-4.3) % Lymph # (1.2-5.4) K/mm3 Seg Neutrophils % (40.0-70.0) % Potassium 3.4 L (3.6-5.0) mmol/L Chloride 108.0 H (98-107) mmol/L BUN 7 L (9-20) mg/dL Creatinine 0.3 L (0.8-1.5) mg/dL Glucose 155 H (75-100) mg/dL Calcium 6.9 L (8.4-10.2) mg/dL Phosphorus (2.5-4.5) mg/dL
--- NOTE | 2019-06-18 11:46 | Progress Note ---
Assessment and Plan - Patient Problems (1) Abnormal CT of the abdomen Current Visit: Yes Status: Acute Plan to address problem: Pt stable. Pressor still on hold and VS are normal. Continuing to work on extubation. Appendix - Today, even with deep palpation, he showed no signs of irritation. As he was more awake today, he was able to very clearly indicate that he had no pain when asked and no pain when abdomen was palpated. Even with deep palpation in the right lower quadrant, he indicated that he had no pain. If the team wishes to pursue further imaging for the appendix, I would recommend a CT with IV and PO contrast. Having said that, the appendix will most likely remain unchanged as it was thickened back in 2016. If there are no other sources for infection, I would recommend treating this with IV antibiotics as we would for any obvious complicated appendicitis. An interval appendectomy could be considered in the future once he fully recovers. As he is clinically getting better, there does not appear to be an urgency for surgical intervention. If the team feels differently, I ask that they please call and we can discuss this. Will follow along. Please call with questions. time=10min Subjective Date of service: 06/18/19 Patient Reports: Positive: no new complaints, bowel movement, other (able to indicate that he is not in pain) Objective Vital Signs - 12hr 06/17/19 06/18/19 06/18/19 23:45 00:00 00:01 Temperature 99.7 F H Pulse Rate 79 79 Pulse Rate [ 85 Right Apical] Respiratory 22 25 H 20 Rate Blood Pressure 95/59 74/55 O2 Sat by Pulse 100 100 100 Oximetry 06/18/19 06/18/19 06/18/19 00:16 00:20 00:31 Temperature Pulse Rate 88 76 84 Pulse Rate [ Right Apical] Respiratory 24 18 Rate Blood Pressure 148/80 148/80 O2 Sat by Pulse 99 100 99 Oximetry 06/18/19 06/18/19 06/18/19 00:45 01:00 01:15 Temperature Pulse Rate 73 75 82 Pulse Rate [ Right Apical] Respiratory 18 12 22 Rate Blood Pressure 148/80 105/60 148/80 O2 Sat by Pulse 100 99 99 Oximetry 06/18/19 06/18/19 06/18/19 01:31 01:45 02:00 Temperature Pulse Rate 88 65 72 Pulse Rate [ Right Apical] Respiratory 23 10 L 20 Rate Blood Pressure 148/80 148/80 98/68 O2 Sat by Pulse 100 100 100 Oximetry 06/18/19 06/18/19 06/18/19 02:15 02:31 02:45 Temperature Pulse Rate 82 70 72 Pulse Rate [ Right Apical] Respiratory 22 18 20 Rate Blood Pressure 98/68 98/68 98/68 O2 Sat by Pulse 99 99 99 Oximetry 06/18/19 06/18/19 06/18/19 03:00 03:15 03:31 Temperature Pulse Rate 74 64 73 Pulse Rate [ Right Apical] Respiratory Rate Blood Pressure 109/67 109/67 109/67 O2 Sat by Pulse 99 98 100 Oximetry 06/18/19 06/18/19 06/18/19 03:45 04:00 04:15 Temperature 99.1 F Pulse Rate 64 72 73 Pulse Rate [ 78 Right Apical] Respiratory 25 H Rate Blood Pressure 109/67 104/60 104/60 O2 Sat by Pulse 99 99 100 Oximetry 06/18/19 06/18/19 06/18/19 04:31 04:43 04:45 Temperature Pulse Rate 73 84 75 Pulse Rate [ Right Apical] Respiratory Rate Blood Pressure 109/67 109/67 O2 Sat by Pulse 99 99 100 Oximetry 06/18/19 06/18/19 06/18/19 05:00 05:15 05:31 Temperature Pulse Rate 69 58 L 64 Pulse Rate [ Right Apical] Respiratory Rate Blood Pressure 104/62 104/62 104/62 O2 Sat by Pulse 99 99 99 Oximetry 06/18/19 06/18/19 06/18/19 05:45 06:00 06:15 Temperature Pulse Rate 79 76 72 Pulse Rate [ Right Apical] Respiratory Rate Blood Pressure 104/62 109/61 109/61 O2 Sat by Pulse 99 99 100 Oximetry 06/18/19 06/18/19 06/18/19 06:31 06:45 07:01 Temperature Pulse Rate 75 74 83 Pulse Rate [ Right Apical] Respiratory Rate Blood Pressure 109/61 109/61 109/61 O2 Sat by Pulse 99 100 100 Oximetry 06/18/19 06/18/19 06/18/19 07:15 07:31 07:45 Temperature Pulse Rate 82 64 67 Pulse Rate [ Right Apical] Respiratory Rate Blood Pressure 109/61 109/61 109/61 O2 Sat by Pulse 99 99 99 Oximetry 06/18/19 06/18/19 06/18/19 08:01 08:15 08:31 Temperature Pulse Rate 65 63 78 Pulse Rate [ Right Apical] Respiratory Rate Blood Pressure 109/61 109/61 109/61 O2 Sat by Pulse 99 99 99 Oximetry 06/18/19 06/18/19 06/18/19 08:45 08:51 09:00 Temperature Pulse Rate 73 76 74 Pulse Rate [ Right Apical] Respiratory 22 Rate Blood Pressure 109/61 95/61 98/60 O2 Sat by Pulse 99 99 100 Oximetry 06/18/19 06/18/19 06/18/19 09:15 09:31 09:45 Temperature Pulse Rate 82 81 73 Pulse Rate [ Right Apical] Respiratory Rate Blood Pressure 98/60 98/60 98/60 O2 Sat by Pulse 99 98 99 Oximetry 06/18/19 06/18/19 06/18/19 10:00 10:15 10:31 Temperature Pulse Rate 69 80 73 Pulse Rate [ Right Apical] Respiratory Rate Blood Pressure 104/56 104/56 104/56 O2 Sat by Pulse 99 99 99 Oximetry 06/18/19 06/18/19 06/18/19 10:45 11:00 11:15 Temperature Pulse Rate 83 80 90 Pulse Rate [ Right Apical] Respiratory Rate Blood Pressure 104/56 103/62 103/62 O2 Sat by Pulse 99 99 99 Oximetry - General physical appearance no distress, no pain, other (more awake today. Able to consistently nod his head to questions. ) - Respiratory normal expansion, normal respiratory effort - Abdomen soft, not tender, not distended, not rebound, not guarding, not rigid - Integumentary no rash, no growths, no abnormal pigmentation - Labs 06/18/19 04:30 06/18/19 04:30 Diabetes panel 06/17/19 06/18/19 Range/Units Unknown 04:30 Sodium 142 144 (137-145) mmol/L Potassium 3.0 L 3.4 L (3.6-5.0) mmol/L Chloride 107.3 H 108.0 H (98-107) mmol/L Carbon Dioxide 23 D 28 (22-30) mmol/L BUN 8 L 7 L (9-20) mg/dL Creatinine 0.3 L 0.3 L (0.8-1.5) mg/dL Glucose 171 H 155 H (75-100) mg/dL Calcium 7.3 L 6.9 L (8.4-10.2) mg/dL Calcium panel 06/17/19 06/18/19 06/18/19 Range/Units Unknown 04:30 04:30 Calcium 7.3 L 6.9 L (8.4-10.2) mg/dL Phosphorus 1.30 L 2.70 D (2.5-4.5) mg/dL Pituitary panel 06/17/19 06/18/19 Range/Units Unknown 04:30 Sodium 142 144 (137-145) mmol/L Potassium 3.0 L 3.4 L (3.6-5.0) mmol/L Chloride 107.3 H 108.0 H (98-107) mmol/L Carbon Dioxide 23 D 28 (22-30) mmol/L BUN 8 L 7 L (9-20) mg/dL Creatinine 0.3 L 0.3 L (0.8-1.5) mg/dL Glucose 171 H 155 H (75-100) mg/dL Calcium 7.3 L 6.9 L (8.4-10.2) mg/dL Adrenal panel 06/17/19 06/18/19 Range/Units Unknown 04:30 Sodium 142 144 (137-145) mmol/L Potassium 3.0 L 3.4 L (3.6-5.0) mmol/L Chloride 107.3 H 108.0 H (98-107) mmol/L Carbon Dioxide 23 D 28 (22-30) mmol/L BUN 8 L 7 L (9-20) mg/dL Creatinine 0.3 L 0.3 L (0.8-1.5) mg/dL Glucose 171 H 155 H (75-100) mg/dL Calcium 7.3 L 6.9 L (8.4-10.2) mg/dL
[2019-06-18 12:07] LABS: ABG Base Excess 1.6 mmol/L (-2.0-3.0); ABG HCO3 24.8 mmol/L (20.0-26.0); ABG Methemoglobin 0.4 % (0.0-1.5); ABG PCO2 33.1 mm Hg; ABG PH 7.492 pH Units (7.350-7.450); ABG PO2 102.2 mm Hg (80.0-90.0)
[2019-06-18] MEDS: TYLENOL PO PRN (12:28)
--- NOTE | 2019-06-18 13:19 | Progress Note ---
Assessment and Plan Acute respiratory failure, hypoxemic, on mechanical ventilatory support. Severe sepsis with shock, possibly due to urinary source. Acute encephalopathy, possibly on chronic. History of chronic obstructive pulmonary disease. History of peripheral vascular disease. History of hypertension. History of deep venous thrombosis. History of gastroesophageal reflux disease. History of arthritis. History of gout. Leukocytosis. Mild hypokalemia. Mild metabolic acidosis. Lactic acidosis. Non-ST elevation myocardial infarction - get ABG ob SBT - extubate if meets criteria - BIPAP prn post extubation - pull femoral CVL - continue scopolamine patch for secretion control - continue to wean supplemental oxygen for target O2 sat's > 90% acutely - continue Daily SAT and SBT assessment as tolerated - VAP bundle addressed - Lung protective strategies - continue bronchodilators with pulmonary hygiene per RT - continue empiric anti-infective's; de-escalate per ID recommendations and based on microbiologic and clinical data - Avoid benzodiazepine's, reduce the possibility of delirium - Continue with fentanyl, titrate for RASS of 0 to -1 - Maintenance of sleep-wake cycle, avoid delirium - begin enteral nutritional support at goal rate as tolerated - Accuchecks with glycemic control elier SSI (While critically ill target blood glucose of 140-180 mg/dL; avoid hypoglycemic) - G.I. & VTE prophylaxis - PT/OT/ROM exercises - mobility protocols for pressure ulcer prophylaxis - Monitor hemodynamics closely - continue other care per attending / other is consultant's - discharge planning ongoing concurrently ... tentative extubation in am .... re-evaluate in am & prn CONDITION: CRITICAL PROGNOSIS: GUARDED CODE STATUS: FULL CODE The high probability of a clinically significant, sudden or life-threatening deterioration of the [respiratory, cardiovascular] system(s) required my full and direct attention, intervention and personal management. The aggregate critical care time was [35] minutes without overlap. Time includes spent on; [x] Data Review and interpretation [x] Patient assessment and monitoring of vital signs [x] Documentation [x] Medication orders and management Subjective Date of service: 06/18/19 Principal diagnosis: Ac. hypoxemic resp failure; Severe Shock; UTI; COPD; PVD; H TN; NSTEMI; DVT Interval history: Patient is seen today for: Acute hypoxemic respiratory failure; Severe sepsis with shock; UTI; Acute encephalopathy; COPD; PVD; HTN; NSTEMI; H/O DVT Seen and examined at bedside; 24hour events reviewed; nursing and respiratory care staff consulted; no adverse overnight events reported to me; resting peacefully in bed; on PSV trial and tolerating well; more alert; denies acute chest pains or palpitations; off levophed; no new issues otherwise Objective Vital Signs - 12hr 06/18/19 06/18/19 06/18/19 01:31 01:45 02:00 Temperature Pulse Rate 88 65 72 Pulse Rate [ Right Apical] Respiratory 23 10 L 20 Rate Blood Pressure 148/80 148/80 98/68 O2 Sat by Pulse 100 100 100 Oximetry 06/18/19 06/18/19 06/18/19 02:15 02:31 02:45 Temperature Pulse Rate 82 70 72 Pulse Rate [ Right Apical] Respiratory 22 18 20 Rate Blood Pressure 98/68 98/68 98/68 O2 Sat by Pulse 99 99 99 Oximetry 06/18/19 06/18/19 06/18/19 03:00 03:15 03:31 Temperature Pulse Rate 74 64 73 Pulse Rate [ Right Apical] Respiratory Rate Blood Pressure 109/67 109/67 109/67 O2 Sat by Pulse 99 98 100 Oximetry 06/18/19 06/18/19 06/18/19 03:45 04:00 04:15 Temperature 99.1 F Pulse Rate 64 72 73 Pulse Rate [ 78 Right Apical] Respiratory 25 H Rate Blood Pressure 109/67 104/60 104/60 O2 Sat by Pulse 99 99 100 Oximetry 06/18/19 06/18/19 06/18/19 04:31 04:43 04:45 Temperature Pulse Rate 73 84 75 Pulse Rate [ Right Apical] Respiratory Rate Blood Pressure 109/67 109/67 O2 Sat by Pulse 99 99 100 Oximetry 06/18/19 06/18/19 06/18/19 05:00 05:15 05:31 Temperature Pulse Rate 69 58 L 64 Pulse Rate [ Right Apical] Respiratory Rate Blood Pressure 104/62 104/62 104/62 O2 Sat by Pulse 99 99 99 Oximetry 06/18/19 06/18/19 06/18/19 05:45 06:00 06:15 Temperature Pulse Rate 79 76 72 Pulse Rate [ Right Apical] Respiratory Rate Blood Pressure 104/62 109/61 109/61 O2 Sat by Pulse 99 99 100 Oximetry 06/18/19 06/18/19 06/18/19 06:31 06:45 07:01 Temperature Pulse Rate 75 74 83 Pulse Rate [ Right Apical] Respiratory Rate Blood Pressure 109/61 109/61 109/61 O2 Sat by Pulse 99 100 100 Oximetry 06/18/19 06/18/19 06/18/19 07:15 07:31 07:45 Temperature Pulse Rate 82 64 67 Pulse Rate [ Right Apical] Respiratory Rate Blood Pressure 109/61 109/61 109/61 O2 Sat by Pulse 99 99 99 Oximetry 06/18/19 06/18/19 06/18/19 08:01 08:15 08:31 Temperature Pulse Rate 65 63 78 Pulse Rate [ Right Apical] Respiratory Rate Blood Pressure 109/61 109/61 109/61 O2 Sat by Pulse 99 99 99 Oximetry 06/18/19 06/18/19 06/18/19 08:45 08:51 09:00 Temperature Pulse Rate 73 76 74 Pulse Rate [ Right Apical] Respiratory 22 Rate Blood Pressure 109/61 95/61 98/60 O2 Sat by Pulse 99 99 100 Oximetry 06/18/19 06/18/19 06/18/19 09:15 09:31 09:45 Temperature Pulse Rate 82 81 73 Pulse Rate [ Right Apical] Respiratory Rate Blood Pressure 98/60 98/60 98/60 O2 Sat by Pulse 99 98 99 Oximetry 06/18/19 06/18/19 06/18/19 10:00 10:15 10:31 Temperature Pulse Rate 69 80 73 Pulse Rate [ Right Apical] Respiratory Rate Blood Pressure 104/56 104/56 104/56 O2 Sat by Pulse 99 99 99 Oximetry 06/18/19 06/18/19 06/18/19 10:45 11:00 11:15 Temperature Pulse Rate 83 80 90 Pulse Rate [ Right Apical] Respiratory Rate Blood Pressure 104/56 103/62 103/62 O2 Sat by Pulse 99 99 99 Oximetry Constitutional: no acute distress, other (elderly looking male, normocephalic with mildly increased resp effort at rest) Eyes: non-icteric ENT: oropharynx moist, other (ETT 23 cm TANA) Neck: supple, no lymphadenopathy, no JVD Effort: mildly labored Ascultation: Bilateral: diminished breath sounds, rhonchi Percussion: Bilateral: not dull Cardiovascular: regular rate and rhythm Gastrointestinal: normoactive bowel sounds, soft, non-tender, non-distended Integumentary: normal Extremities: no cyanosis, no edema, pulses normal, no ischemia or petechiae Neurologic: pupils equal and round, CN II-XII normal, unable to assess Psychiatric: other (unable to assess re: AMS) CBC and BMP: 06/19/19 05:01 06/19/19 05:01 ABG, PT/INR, D-dimer: ABG POC ABG pH 7.432 (7.35-7.45) 06/17/19 04:50 ABG pH 7.492 pH Units (7.350-7.450) H 06/18/19 11:45 POC ABG pCO2 31.5 (35-45) L 06/17/19 04:50 ABG pCO2 33.1 mm Hg 06/18/19 11:45 POC ABG pO2 135 (80-105) H 06/17/19 04:50 ABG pO2 102.2 mm Hg (80.0-90.0) H 06/18/19 11:45 POC ABG HCO3 21.0 (22-26 mml/L) 06/17/19 04:50 POC ABG Total CO2 22 (23-27mmol/L) 06/17/19 04:50 POC ABG O2 Sat 99 06/17/19 04:50 ABG O2 Saturation 98.0 % (95.0-99.0) 06/18/19 11:45 PT/INR, D-dimer PT 16.3 Sec. (12.2-14.9) H 06/14/19 05:28 INR 1.35 (0.87-1.13) H 06/14/19 05:28 Abnormal lab findings: Abnormal Labs 06/14/19 06/14/19 06/14/19 02:49 03:10 03:10 WBC RBC Hgb Hct MCHC RDW Lymph % (Auto) Frontier % (Auto) Eos % (Auto) Lymph # Seg Neutrophils % Lymphocytes % (Manual) Seg Neutrophils # Seg Neutrophils # Man Lymphocytes # (Manual) PT INR POC ABG pH ABG pH POC ABG pCO2 POC ABG pO2 ABG pO2 ABG Hemoglobin Potassium 3.5 L Chloride Carbon Dioxide 20 L BUN Creatinine 0.7 L Glucose 107 H POC Glucose 117 H Lactic Acid 2.60 H* Calcium Phosphorus Troponin T 0.979 H* Albumin 3.0 L HDL Cholesterol 30 L Urine WBC (Auto) 06/14/19 06/14/19 06/14/19 04:30 04:35 05:02 WBC 11.9 H RBC 3.22 L Hgb 9.5 L Hct 28.9 L MCHC RDW Lymph % (Auto) Frontier % (Auto) Eos % (Auto) Lymph # Seg Neutrophils % Lymphocytes % (Manual) 8.0 L Seg Neutrophils # Seg Neutrophils # Man 8.3 H Lymphocytes # (Manual) 1.0 L PT INR POC ABG pH 7.314 L ABG pH POC ABG pCO2 POC ABG pO2 > 400 H ABG pO2 ABG Hemoglobin Potassium Chloride Carbon Dioxide BUN Creatinine Glucose POC Glucose Lactic Acid Calcium Phosphorus Troponin T Albumin HDL Cholesterol Urine WBC (Auto) 8.0 H 06/14/19 06/15/19 06/15/19 05:28 03:30 04:35 WBC 11.2 H RBC 3.02 L Hgb 8.9 L Hct 27.1 L MCHC RDW 15.3 H Lymph % (Auto) 6.5 L Frontier % (Auto) Eos % (Auto) Lymph # 0.7 L Seg Neutrophils % 86.6 H Lymphocytes % (Manual) Seg Neutrophils # 9.7 H Seg Neutrophils # Man Lymphocytes # (Manual) PT 16.3 H INR 1.35 H POC ABG pH 7.336 L ABG pH POC ABG pCO2 < 30 L POC ABG pO2 133 H ABG pO2 ABG Hemoglobin Potassium Chloride Carbon Dioxide BUN Creatinine Glucose POC Glucose Lactic Acid Calcium Phosphorus Troponin T Albumin HDL Cholesterol Urine WBC (Auto) 06/15/19 06/15/19 06/16/19 04:35 12:25 04:29 WBC RBC Hgb Hct MCHC RDW Lymph % (Auto) Frontier % (Auto) Eos % (Auto) Lymph # Seg Neutrophils % Lymphocytes % (Manual) Seg Neutrophils # Seg Neutrophils # Man Lymphocytes # (Manual) PT INR POC ABG pH 7.315 L ABG pH POC ABG pCO2 POC ABG pO2 63 L 135 H ABG pO2 ABG Hemoglobin Potassium 3.3 L Chloride 110.7 H Carbon Dioxide 15 L BUN Creatinine 0.4 L Glucose 104 H POC Glucose Lactic Acid Calcium 7.8 L Phosphorus 1.80 L Troponin T Albumin 2.8 L HDL Cholesterol Urine WBC (Auto) 06/16/19 06/17/19 06/17/19 16:31 04:50 Unknown WBC RBC 2.89 L Hgb 8.4 L Hct 25.4 L MCHC RDW Lymph % (Auto) Frontier % (Auto) 8.9 H Eos % (Auto) Lymph # 0.9 L Seg Neutrophils % 74.9 H Lymphocytes % (Manual) Seg Neutrophils # Seg Neutrophils # Man Lymphocytes # (Manual) PT INR POC ABG pH ABG pH POC ABG pCO2 31.5 L POC ABG pO2 135 H ABG pO2 ABG Hemoglobin Potassium Chloride Carbon Dioxide BUN Creatinine Glucose POC Glucose Lactic Acid Calcium Phosphorus 1.30 L D Troponin T Albumin HDL Cholesterol Urine WBC (Auto) 06/17/19 06/18/19 06/18/19 Unknown 04:30 04:30 WBC RBC 2.84 L Hgb 8.6 L Hct 24.8 L MCHC 35 H RDW Lymph % (Auto) 11.2 L Frontier % (Auto) 9.7 H Eos % (Auto) 4.6 H Lymph # 0.7 L Seg Neutrophils % 74.1 H Lymphocytes % (Manual) Seg Neutrophils # Seg Neutrophils # Man Lymphocytes # (Manual) PT INR POC ABG pH ABG pH POC ABG pCO2 POC ABG pO2 ABG pO2 ABG Hemoglobin Potassium 3.0 L 3.4 L Chloride 107.3 H 108.0 H Carbon Dioxide BUN 8 L 7 L Creatinine 0.3 L 0.3 L Glucose 171 H 155 H POC Glucose Lactic Acid Calcium 7.3 L 6.9 L Phosphorus 1.30 L Troponin T Albumin HDL Cholesterol Urine WBC (Auto) 06/18/19 11:45 WBC RBC Hgb Hct MCHC RDW Lymph % (Auto) Frontier % (Auto) Eos % (Auto) Lymph # Seg Neutrophils % Lymphocytes % (Manual) Seg Neutrophils # Seg Neutrophils # Man Lymphocytes # (Manual) PT INR POC ABG pH ABG pH 7.492 H POC ABG pCO2 POC ABG pO2 ABG pO2 102.2 H ABG Hemoglobin 9.0 L Potassium Chloride Carbon Dioxide BUN Creatinine Glucose POC Glucose Lactic Acid Calcium Phosphorus Troponin T Albumin HDL Cholesterol Urine WBC (Auto) Chest x-ray: image reviewed Allied health notes reviewed: nursing
[2019-06-18] MEDS: ROBINUL PO SCH ×2 (15:24→21:34)
[2019-06-18] MEDS: INVanz 1 GM in NACL 0.9% 50 ML IV SCH (16:36)
--- NOTE | 2019-06-18 17:17 | Progress Note ---
Assessment and Plan - Patient Problems (1) Respiratory failure Current Visit: Yes Status: Acute Plan to address problem: Continue supportive measures, we know vent as tolerated. (2) Atrial fibrillation Current Visit: Yes Status: Acute Plan to address problem: Rate control of atrial fibrillation with medical therapy as outlined. Subjective Date of service: 06/18/19 Principal diagnosis: Ac. hypoxemic resp failure; Severe Shock; UTI; COPD; PVD; HTN; NSTEMI; DVT Interval history: Patient is under event, but weaning is in progress. On the qa architect, atrial fibrillation with a well-controlled ventricular response. Blood pressure 115 systolic. Objective Vital Signs Temp Pulse Pulse Resp BP Pulse Ox 06/18/19 12:00 101.2 F H 82 21 114/59 99 06/18/19 11:15 90 103/62 99 06/18/19 11:00 80 103/62 99 06/18/19 10:45 83 104/56 99 06/18/19 10:31 73 104/56 99 06/18/19 10:15 80 104/56 99 06/18/19 10:00 69 104/56 99 06/18/19 09:45 73 98/60 99 06/18/19 09:31 81 98/60 98 06/18/19 09:15 82 98/60 99 06/18/19 09:00 74 22 98/60 100 06/18/19 08:51 76 95/61 99 06/18/19 08:45 73 109/61 99 06/18/19 08:31 78 109/61 99 06/18/19 08:15 63 109/61 99 06/18/19 08:01 65 109/61 99 06/18/19 08:00 99.5 F 06/18/19 07:45 67 109/61 99 06/18/19 07:31 64 109/61 99 06/18/19 07:15 82 109/61 99 06/18/19 07:01 83 109/61 100 06/18/19 06:45 74 109/61 100 06/18/19 06:31 75 109/61 99 06/18/19 06:15 72 109/61 100 06/18/19 06:00 76 109/61 99 06/18/19 05:45 79 104/62 99 06/18/19 05:31 64 104/62 99 06/18/19 05:15 58 L 104/62 99 06/18/19 05:00 69 104/62 99 06/18/19 04:45 75 109/67 100 06/18/19 04:43 84 99 06/18/19 04:31 73 109/67 99 06/18/19 04:15 73 104/60 100 06/18/19 04:00 99.1 F 72 78 25 H 104/60 99 06/18/19 03:45 64 109/67 99 06/18/19 03:31 73 109/67 100 06/18/19 03:15 64 109/67 98 06/18/19 03:00 74 109/67 99 06/18/19 02:45 72 20 98/68 99 06/18/19 02:31 70 18 98/68 99 06/18/19 02:15 82 22 98/68 99 06/18/19 02:00 72 20 98/68 100 06/18/19 01:45 65 10 L 148/80 100 06/18/19 01:31 88 23 148/80 100 06/18/19 01:15 82 22 148/80 99 06/18/19 01:00 75 12 105/60 99 06/18/19 00:45 73 18 148/80 100 06/18/19 00:31 84 18 99 06/18/19 00:20 76 148/80 100 06/18/19 00:16 88 24 148/80 99 06/18/19 00:01 79 20 74/55 100 06/18/19 00:00 99.7 F H 85 25 H 100 06/17/19 23:45 79 22 95/59 100 06/17/19 23:31 72 20 95/59 99 06/17/19 23:15 73 25 H 88/64 100 06/17/19 23:00 87 23 88/64 99 06/17/19 22:55 81 26 H 95/59 100 06/17/19 22:45 90 20 95/59 99 06/17/19 22:43 81 22 95/59 100 06/17/19 22:31 82 25 H 95/59 100 06/17/19 22:15 91 H 18 95/59 100 06/17/19 22:00 89 22 95/59 99 06/17/19 21:45 88 24 106/61 99 06/17/19 21:31 85 26 H 106/61 99 06/17/19 21:15 85 28 H 106/61 99 06/17/19 21:00 80 27 H 114/63 99 06/17/19 20:45 88 20 106/61 100 06/17/19 20:31 88 28 H 106/61 100 06/17/19 20:15 84 27 H 106/61 100 06/17/19 20:00 98.8 F 90 78 27 H 106/61 99 06/17/19 19:45 73 24 108/67 100 06/17/19 19:31 88 26 H 108/67 100 06/17/19 19:15 89 19 108/67 100 06/17/19 19:00 88 27 H 108/67 99 06/17/19 18:45 73 21 105/63 99 06/17/19 18:31 86 28 H 105/63 100 06/17/19 18:15 89 26 H 105/63 99 06/17/19 18:00 82 27 H 105/63 99 06/17/19 17:45 83 31 H 115/77 99 06/17/19 17:31 81 22 112/75 100 06/17/19 17:17 79 26 H 115/77 99 - Physical Examination General: Other (intubated, open eyes to verbal commands) Neck: Positive: neck supple Cardiac: Positive: irregularly irregular Neuro: Positive: Weakness, Other (bilateral LE amputation) Abdomen: Positive: Soft Skin: Positive: Clear Extremities: Absent: edema - Labs and Meds CBC 06/18/19 Range/Units 04:30 WBC 6.7 (4.5-11.0) K/mm3 RBC 2.84 L (3.65-5.03) M/mm3 Hgb 8.6 L (11.8-15.2) gm/dl Hct 24.8 L (35.5-45.6) % Plt Count 218 (140-440) K/mm3 Lymph # 0.7 L (1.2-5.4) K/mm3 Daniels # 0.6 (0.0-0.8) K/mm3 Eos # 0.3 (0.0-0.4) K/mm3 Baso # 0.0 (0.0-0.1) K/mm3 Comprehensive Metabolic Panel 10/07/19 Range/Units 04:30 Sodium 144 (137-145) mmol/L Potassium 3.4 L (3.6-5.0) mmol/L Chloride 108.0 H (98-107) mmol/L Carbon Dioxide 28 (22-30) mmol/L BUN 7 L (9-20) mg/dL Creatinine 0.3 L (0.8-1.5) mg/dL Glucose 155 H (75-100) mg/dL Calcium 6.9 L (8.4-10.2) mg/dL - Allied health notes Allied health notes reviewed: nursing
--- NOTE | 2019-06-19 03:50 | XRay Report ---
CHEST 1 VIEW INDICATION / CLINICAL INFORMATION: follow up respiratory failure. COMPARISON: Chest radiograph one day prior FINDINGS: SUPPORT DEVICES: Interval removal of endotracheal tube. Stable position of right IJ central venous ca theter and enteric tubes. HEART / MEDIASTINUM: Stable. LUNGS / PLEURA: Low lung volumes. No focal pulmonary consolidation. No large pleural effusion. No pne umothorax. ADDITIONAL FINDINGS: No significant additional findings. IMPRESSION: 1. Interval removal of endotracheal tube. Low lung volumes with no acute cardiopulmonary abnormality identified. Signer Name: Lissa Azevedo MD Signed: 06/19/2019 3:46 AM Workstation Name: [id number]
[2019-06-19 05:43] LABS: Hematocrit 28.1 % (35.5-45.6); Hemoglobin 9.5 gm/dl (11.8-15.2); Mean Corpuscular HGB Conc 34 % (32-34); Mean Corpuscular Volume 89 fl (84-94); Platelet Count 236 K/mm3 (140-440); Red Blood Count 3.18 M/mm3 (3.65-5.03); Red Cell Distribution Width 15.3 % (13.2-15.2)
[2019-06-19 05:50] LABS: Basophils % (Auto) 0.5 % (0.0-1.8); Eosinophils # (Auto) 0.4 K/mm3 (0.0-0.4); Eosinophils % (Auto) 4.9 % (0.0-4.3); Lymphocytes # (Auto) 0.8 K/mm3 (1.2-5.4); Lymphocytes % (Auto) 10.5 % (13.4-35.0); Monocytes % (Auto) 11.9 % (0.0-7.3)
[2019-06-19 06:05] LABS: BUN/Creatinine Ratio 23; Blood Urea Nitrogen 7 mg/dL (9-20); Calcium 7.3 mg/dL (8.4-10.2); Hemolysis Index 4
--- NOTE | 2019-06-19 09:31 | Ultrasound Report ---
ULTRASOUND RENAL INDICATION / CLINICAL INFORMATION: Left renal mass. COMPARISON: CT abdomen pelvis with contrast dated 06/14/2019. FINDINGS: RIGHT KIDNEY: Length = 10.5 cm. [normal > 9 cm] - Parenchymal Thickness = 1.6 cm. [normal > 1.5 cm] - Echogenicity: Normal. - Hydronephrosis: None. - Cyst or mass: No significant abnormality. - Stones: None seen. LEFT KIDNEY: Length = 9.9 cm. [normal > 9 cm] - Parenchymal Thickness = 1.4 cm. [normal > 1.5 cm] - Echogenicity: Normal. - Hydronephrosis: None. - Cyst or mass: The previously described masslike lesion near the inferior pole of the left kidney is also identified on ultrasound measuring 2.5 x 1.8 cm. This does not appear to represent a simple cy st. This masslike lesion has not hyper vascular on color Doppler interrogation. It is unclear if this represents a complex cyst with debris or renal mass. - Stones: None seen. URINARY BLADDER: No significant abnormality. FREE FLUID: None. ADDITIONAL FINDINGS: IMPRESSION: 2.5 x 1.8 cm masslike lesion at the inferior pole of the left kidney is also identified on ultrasound . Its overall characteristics are indeterminant on ultrasound. This does not have the appearance of a simple cyst. Close interval follow-up recommended. Signer Name: Jay Max Jr, MD Signed: 06/19/2019 9:27 AM Workstation Name: [id number]
[2019-06-19] MEDS: ROBINUL PO SCH ×3 (09:52→19:32)
[2019-06-19] MEDS: DIFLUCAN 200 MG/100 ML BAG IV SCH (09:53)
[2019-06-19] MEDS: K-PHOS NEUTRAL PO SCH ×4 (09:56→22:53)
[2019-06-19] MEDS: SODIUM CHLORIDE FLUSH SYRINGE 10 ML IV SCH ×2 (09:59→22:54)
[2019-06-19] MEDS: HEPARIN SUB-Q SCH ×2 (10:00→22:54)
[2019-06-19] MEDS: PEPCID PO SCH ×2 (10:01→22:54)
[2019-06-19] MEDS: INVanz 1 GM in NACL 0.9% 50 ML IV SCH (10:02)
--- NOTE | 2019-06-19 10:02 | Progress Note ---
Assessment and Plan - Patient Problems (1) Abnormal CT of the abdomen Current Visit: Yes Status: Acute Plan to address problem: Patient is stable. Now that he is extubated, we are able to get a much better exam. He clearly states that he has no abdominal pain. He has no nausea or vomiting. He would like to eat. When deep palpation is done in the right lower quadrant, he indicates that it does not hurt him. He has no pain in the rest of the abdomen. There is no indication at this time for surgical intervention. Even though I am not convinced that the appendix was the cause of his hospitalization, we would be happy to see him in the office for follow-up and discussion about interval appendectomy. Please call if there are any questions. We will sign off. Time=10min Subjective Date of service: 06/19/19 Patient Reports: Positive: no new complaints, feels better, bowel movement, other (denies any abomdinal pain). Negative: nausea, vomiting Objective Vital Signs - 12hr 06/18/19 06/18/19 06/18/19 22:00 22:15 22:31 Temperature Pulse Rate 77 76 82 Pulse Rate [ From Monitor] Pulse Rate [ Right Apical] Respiratory 25 H 20 20 Rate Respiratory Rate [Left Leg] Blood Pressure 153/90 153/90 153/90 O2 Sat by Pulse 100 100 100 Oximetry 06/18/19 06/18/19 06/18/19 22:45 23:00 23:15 Temperature Pulse Rate 82 78 76 Pulse Rate [ From Monitor] Pulse Rate [ Right Apical] Respiratory 17 17 17 Rate Respiratory Rate [Left Leg] Blood Pressure 153/90 122/75 122/75 O2 Sat by Pulse 100 100 100 Oximetry 06/18/19 06/18/19 06/18/19 23:30 23:31 23:38 Temperature 99.4 F Pulse Rate 82 85 Pulse Rate [ From Monitor] Pulse Rate [ Right Apical] Respiratory 21 21 Rate Respiratory Rate [Left Leg] Blood Pressure 122/75 122/75 O2 Sat by Pulse 100 100 Oximetry 06/18/19 06/18/19 06/19/19 23:45 23:47 00:00 Temperature Pulse Rate 74 66 Pulse Rate [ From Monitor] Pulse Rate [ Right Apical] Respiratory 21 20 Rate Respiratory Rate [Left Leg] Blood Pressure 122/75 122/75 116/69 O2 Sat by Pulse 100 100 97 Oximetry 06/19/19 06/19/19 06/19/19 00:05 00:15 00:31 Temperature Pulse Rate 66 72 74 Pulse Rate [ From Monitor] Pulse Rate [ Right Apical] Respiratory 21 21 20 Rate Respiratory Rate [Left Leg] Blood Pressure 116/69 116/69 O2 Sat by Pulse 100 100 100 Oximetry 06/19/19 06/19/19 06/19/19 00:45 01:00 01:15 Temperature Pulse Rate 77 75 84 Pulse Rate [ From Monitor] Pulse Rate [ Right Apical] Respiratory 19 20 18 Rate Respiratory Rate [Left Leg] Blood Pressure 116/69 139/82 139/82 O2 Sat by Pulse 100 100 100 Oximetry 06/19/19 06/19/19 06/19/19 01:31 01:45 02:00 Temperature Pulse Rate 80 88 88 Pulse Rate [ From Monitor] Pulse Rate [ Right Apical] Respiratory 19 21 19 Rate Respiratory Rate [Left Leg] Blood Pressure 139/82 139/82 127/77 O2 Sat by Pulse 100 100 100 Oximetry 06/19/19 06/19/19 06/19/19 02:15 02:31 02:45 Temperature Pulse Rate 77 89 86 Pulse Rate [ From Monitor] Pulse Rate [ Right Apical] Respiratory 19 17 19 Rate Respiratory Rate [Left Leg] Blood Pressure 127/77 127/77 127/77 O2 Sat by Pulse 100 100 100 Oximetry 06/19/19 06/19/19 06/19/19 03:00 03:15 03:29 Temperature 100.2 F H Pulse Rate 70 77 Pulse Rate [ From Monitor] Pulse Rate [ Right Apical] Respiratory 16 18 Rate Respiratory Rate [Left Leg] Blood Pressure 120/72 120/72 O2 Sat by Pulse 100 100 Oximetry 06/19/19 06/19/19 06/19/19 03:31 03:45 04:00 Temperature Pulse Rate 82 80 84 Pulse Rate [ From Monitor] Pulse Rate [ Right Apical] Respiratory 21 19 15 Rate Respiratory Rate [Left Leg] Blood Pressure 120/72 120/72 109/74 O2 Sat by Pulse 100 100 100 Oximetry 06/19/19 06/19/19 06/19/19 04:15 04:24 04:30 Temperature Pulse Rate 82 83 82 Pulse Rate [ From Monitor] Pulse Rate [ Right Apical] Respiratory 21 20 19 Rate Respiratory Rate [Left Leg] Blood Pressure O2 Sat by Pulse 100 100 100 Oximetry 06/19/19 06/19/19 06/19/19 04:46 05:00 05:16 Temperature Pulse Rate 73 73 83 Pulse Rate [ From Monitor] Pulse Rate [ Right Apical] Respiratory 20 21 20 Rate Respiratory Rate [Left Leg] Blood Pressure 109/74 124/64 124/64 O2 Sat by Pulse 100 100 100 Oximetry 06/19/19 06/19/19 06/19/19 05:30 05:46 05:52 Temperature Pulse Rate 77 83 83 Pulse Rate [ From Monitor] Pulse Rate [ Right Apical] Respiratory 21 20 21 Rate Respiratory 25 H Rate [Left Leg] Blood Pressure 124/64 124/64 O2 Sat by Pulse 100 100 100 Oximetry 06/19/19 06/19/19 06/19/19 06:00 06:16 06:30 Temperature Pulse Rate 82 Pulse Rate [ From Monitor] Pulse Rate [ Right Apical] Respiratory 20 Rate Respiratory Rate [Left Leg] Blood Pressure 120/76 120/76 120/76 O2 Sat by Pulse 100 100 100 Oximetry 06/19/19 06/19/19 06/19/19 06:46 07:00 07:16 Temperature Pulse Rate 86 81 87 Pulse Rate [ From Monitor] Pulse Rate [ Right Apical] Respiratory 21 20 20 Rate Respiratory Rate [Left Leg] Blood Pressure 120/76 130/71 130/71 O2 Sat by Pulse 100 99 100 Oximetry 06/19/19 06/19/19 06/19/19 07:30 07:46 08:00 Temperature 98.4 F Pulse Rate 79 81 77 Pulse Rate [ 88 From Monitor] Pulse Rate [ 88 Right Apical] Respiratory 21 21 16 Rate Respiratory Rate [Left Leg] Blood Pressure 130/71 130/71 133/68 O2 Sat by Pulse 100 100 100 Oximetry 06/19/19 06/19/19 06/19/19 08:16 08:30 08:46 Temperature Pulse Rate 84 81 85 Pulse Rate [ From Monitor] Pulse Rate [ Right Apical] Respiratory 20 21 18 Rate Respiratory Rate [Left Leg] Blood Pressure 133/68 133/68 133/68 O2 Sat by Pulse 100 100 100 Oximetry 06/19/19 06/19/19 06/19/19 09:00 09:16 09:30 Temperature Pulse Rate 90 77 Pulse Rate [ From Monitor] Pulse Rate [ Right Apical] Respiratory 18 20 Rate Respiratory Rate [Left Leg] Blood Pressure 136/88 136/88 136/88 O2 Sat by Pulse 97 100 100 Oximetry - General physical appearance no distress, no pain, other (able to communicate appropriately now that he is extubated) - Respiratory normal expansion, normal respiratory effort - Abdomen soft, not tender, not distended, not rebound, not guarding, not rigid - Integumentary no rash, no growths, no abnormal pigmentation - Psychiatric oriented to person, speech is normal - Labs 06/19/19 05:01 06/19/19 05:01 Diabetes panel 06/19/19 Range/Units 05:01 Sodium 143 (137-145) mmol/L Potassium 3.7 (3.6-5.0) mmol/L Chloride 107.4 H (98-107) mmol/L Carbon Dioxide 29 (22-30) mmol/L BUN 7 L (9-20) mg/dL Creatinine 0.3 L (0.8-1.5) mg/dL Glucose 97 (75-100) mg/dL Calcium 7.3 L (8.4-10.2) mg/dL Calcium panel 06/18/19 06/19/19 Range/Units 04:30 05:01 Calcium 7.3 L (8.4-10.2) mg/dL Phosphorus 2.70 D (2.5-4.5) mg/dL Pituitary panel 06/19/19 Range/Units 05:01 Sodium 143 (137-145) mmol/L Potassium 3.7 (3.6-5.0) mmol/L Chloride 107.4 H (98-107) mmol/L Carbon Dioxide 29 (22-30) mmol/L BUN 7 L (9-20) mg/dL Creatinine 0.3 L (0.8-1.5) mg/dL Glucose 97 (75-100) mg/dL Calcium 7.3 L (8.4-10.2) mg/dL Adrenal panel 06/19/19 Range/Units 05:01 Sodium 143 (137-145) mmol/L Potassium 3.7 (3.6-5.0) mmol/L Chloride 107.4 H (98-107) mmol/L Carbon Dioxide 29 (22-30) mmol/L BUN 7 L (9-20) mg/dL Creatinine 0.3 L (0.8-1.5) mg/dL Glucose 97 (75-100) mg/dL Calcium 7.3 L (8.4-10.2) mg/dL
--- NOTE | 2019-06-19 11:41 | Progress Note ---
Assessment and Plan Acute respiratory failure, hypoxemic, on mechanical ventilatory support. Severe sepsis with shock, possibly due to urinary source. Acute encephalopathy, possibly on chronic. History of chronic obstructive pulmonary disease. History of peripheral vascular disease. History of hypertension. History of deep venous thrombosis. History of gastroesophageal reflux disease. History of arthritis. History of gout. Leukocytosis. Mild hypokalemia. Mild metabolic acidosis. Lactic acidosis. Non-ST elevation myocardial infarction - get ABG ob SBT - extubate if meets criteria - BIPAP prn post extubation - pull femoral CVL - continue scopolamine patch for secretion control - continue to wean supplemental oxygen for target O2 sat's > 90% acutely - continue Daily SAT and SBT assessment as tolerated - VAP bundle addressed - Lung protective strategies - continue bronchodilators with pulmonary hygiene per RT - continue empiric anti-infective's; de-escalate per ID recommendations and based on microbiologic and clinical data - Avoid benzodiazepine's, reduce the possibility of delirium - Continue with fentanyl, titrate for RASS of 0 to -1 - Maintenance of sleep-wake cycle, avoid delirium - begin enteral nutritional support at goal rate as tolerated - Accuchecks with glycemic control elier SSI (While critically ill target blood glucose of 140-180 mg/dL; avoid hypoglycemic) - G.I. & VTE prophylaxis - PT/OT/ROM exercises - mobility protocols for pressure ulcer prophylaxis - Monitor hemodynamics closely - continue other care per attending / other work and family life consultant's - discharge planning ongoing concurrently ... tentative extubation in am .... re-evaluate in am & prn CONDITION: CRITICAL PROGNOSIS: GUARDED CODE STATUS: FULL CODE The high probability of a clinically significant, sudden or life-threatening deterioration of the [respiratory, cardiovascular] system(s) required my full and direct attention, intervention and personal management. The aggregate critical care time was [35] minutes without overlap. Time includes spent on; [x] Data Review and interpretation [x] Patient assessment and monitoring of vital signs [x] Documentation [x] Medication orders and management Subjective Date of service: 06/19/19 Principal diagnosis: Ac. hypoxemic resp failure; Severe Shock; UTI; COPD; PVD; HTN; NSTEMI; DVT Interval history: Patient is seen today for: Acute hypoxemic respiratory failure; Severe sepsis with shock; UTI; Acute encephalopathy; COPD; PVD; HTN; NSTEMI; H/O DVT Seen and examined at bedside; 24hour events reviewed; nursing and respiratory care staff consulted; no adverse overnight events reported to me; resting peacefully in bed; Objective Vital Signs - 12hr 06/18/19 06/18/19 06/19/19 23:45 23:47 00:00 Temperature Pulse Rate 74 66 Pulse Rate [ From Monitor] Pulse Rate [ Right Apical] Respiratory 21 20 Rate Respiratory Rate [Left Leg] Blood Pressure 122/75 122/75 116/69 O2 Sat by Pulse 100 100 97 Oximetry 06/19/19 06/19/19 06/19/19 00:05 00:15 00:31 Temperature Pulse Rate 66 72 74 Pulse Rate [ From Monitor] Pulse Rate [ Right Apical] Respiratory 21 21 20 Rate Respiratory Rate [Left Leg] Blood Pressure 116/69 116/69 O2 Sat by Pulse 100 100 100 Oximetry 06/19/19 06/19/19 06/19/19 00:45 01:00 01:15 Temperature Pulse Rate 77 75 84 Pulse Rate [ From Monitor] Pulse Rate [ Right Apical] Respiratory 19 20 18 Rate Respiratory Rate [Left Leg] Blood Pressure 116/69 139/82 139/82 O2 Sat by Pulse 100 100 100 Oximetry 06/19/19 06/19/19 06/19/19 01:31 01:45 02:00 Temperature Pulse Rate 80 88 88 Pulse Rate [ From Monitor] Pulse Rate [ Right Apical] Respiratory 19 21 19 Rate Respiratory Rate [Left Leg] Blood Pressure 139/82 139/82 127/77 O2 Sat by Pulse 100 100 100 Oximetry 06/19/19 06/19/19 06/19/19 02:15 02:31 02:45 Temperature Pulse Rate 77 89 86 Pulse Rate [ From Monitor] Pulse Rate [ Right Apical] Respiratory 19 17 19 Rate Respiratory Rate [Left Leg] Blood Pressure 127/77 127/77 127/77 O2 Sat by Pulse 100 100 100 Oximetry 06/19/19 06/19/19 06/19/19 03:00 03:15 03:29 Temperature 100.2 F H Pulse Rate 70 77 Pulse Rate [ From Monitor] Pulse Rate [ Right Apical] Respiratory 16 18 Rate Respiratory Rate [Left Leg] Blood Pressure 120/72 120/72 O2 Sat by Pulse 100 100 Oximetry 06/19/19 06/19/19 06/19/19 03:31 03:45 04:00 Temperature Pulse Rate 82 80 84 Pulse Rate [ From Monitor] Pulse Rate [ Right Apical] Respiratory 21 19 15 Rate Respiratory Rate [Left Leg] Blood Pressure 120/72 120/72 109/74 O2 Sat by Pulse 100 100 100 Oximetry 06/19/19 06/19/19 06/19/19 04:15 04:24 04:30 Temperature Pulse Rate 82 83 82 Pulse Rate [ From Monitor] Pulse Rate [ Right Apical] Respiratory 21 20 19 Rate Respiratory Rate [Left Leg] Blood Pressure O2 Sat by Pulse 100 100 100 Oximetry 06/19/19 06/19/19 06/19/19 04:46 05:00 05:16 Temperature Pulse Rate 73 73 83 Pulse Rate [ From Monitor] Pulse Rate [ Right Apical] Respiratory 20 21 20 Rate Respiratory Rate [Left Leg] Blood Pressure 109/74 124/64 124/64 O2 Sat by Pulse 100 100 100 Oximetry 06/19/19 06/19/19 06/19/19 05:30 05:46 05:52 Temperature Pulse Rate 77 83 83 Pulse Rate [ From Monitor] Pulse Rate [ Right Apical] Respiratory 21 20 21 Rate Respiratory 25 H Rate [Left Leg] Blood Pressure 124/64 124/64 O2 Sat by Pulse 100 100 100 Oximetry 06/19/19 06/19/19 06/19/19 06:00 06:16 06:30 Temperature Pulse Rate 82 Pulse Rate [ From Monitor] Pulse Rate [ Right Apical] Respiratory 20 Rate Respiratory Rate [Left Leg] Blood Pressure 120/76 120/76 120/76 O2 Sat by Pulse 100 100 100 Oximetry 06/19/19 06/19/19 06/19/19 06:46 07:00 07:16 Temperature Pulse Rate 86 81 87 Pulse Rate [ From Monitor] Pulse Rate [ Right Apical] Respiratory 21 20 20 Rate Respiratory Rate [Left Leg] Blood Pressure 120/76 130/71 130/71 O2 Sat by Pulse 100 99 100 Oximetry 06/19/19 06/19/19 06/19/19 07:30 07:46 08:00 Temperature 98.4 F Pulse Rate 79 81 77 Pulse Rate [ 88 From Monitor] Pulse Rate [ 88 Right Apical] Respiratory 21 21 16 Rate Respiratory Rate [Left Leg] Blood Pressure 130/71 130/71 133/68 O2 Sat by Pulse 100 100 100 Oximetry 06/19/19 06/19/19 06/19/19 08:16 08:30 08:46 Temperature Pulse Rate 84 81 85 Pulse Rate [ From Monitor] Pulse Rate [ Right Apical] Respiratory 20 21 18 Rate Respiratory Rate [Left Leg] Blood Pressure 133/68 133/68 133/68 O2 Sat by Pulse 100 100 100 Oximetry 06/19/19 06/19/19 06/19/19 09:00 09:16 09:30 Temperature Pulse Rate 90 77 Pulse Rate [ From Monitor] Pulse Rate [ Right Apical] Respiratory 18 20 Rate Respiratory Rate [Left Leg] Blood Pressure 136/88 136/88 136/88 O2 Sat by Pulse 97 100 100 Oximetry 06/19/19 06/19/19 06/19/19 09:46 10:00 10:16 Temperature Pulse Rate 87 81 81 Pulse Rate [ From Monitor] Pulse Rate [ Right Apical] Respiratory 19 19 12 Rate Respiratory Rate [Left Leg] Blood Pressure 136/88 136/83 136/83 O2 Sat by Pulse 100 100 100 Oximetry 06/19/19 06/19/19 06/19/19 10:30 10:46 11:00 Temperature Pulse Rate 77 79 83 Pulse Rate [ From Monitor] Pulse Rate [ Right Apical] Respiratory 20 21 21 Rate Respiratory Rate [Left Leg] Blood Pressure 136/83 136/83 144/90 O2 Sat by Pulse 100 100 100 Oximetry Constitutional: no acute distress, other (elderly looking male, normocephalic with mildly increased resp effort at rest) Eyes: non-icteric ENT: oropharynx moist, other (ETT 23 cm TANA) Neck: supple, no lymphadenopathy, no JVD Effort: mildly labored Ascultation: Bilateral: diminished breath sounds, rhonchi Percussion: Bilateral: not dull Cardiovascular: regular rate and rhythm Gastrointestinal: normoactive bowel sounds, soft, non-tender, non-distended Integumentary: normal Extremities: no cyanosis, no edema, pulses normal, no ischemia or petechiae Neurologic: pupils equal and round, CN II-XII normal, unable to assess Psychiatric: other (unable to assess re: AMS) CBC and BMP: 06/19/19 05:01 06/19/19 05:01 ABG, PT/INR, D-dimer: ABG POC ABG pH 7.432 (7.35-7.45) 06/17/19 04:50 ABG pH 7.492 pH Units (7.350-7.450) H 06/18/19 11:45 POC ABG pCO2 31.5 (35-45) L 06/17/19 04:50 ABG pCO2 33.1 mm Hg 06/18/19 11:45 POC ABG pO2 135 (80-105) H 06/17/19 04:50 ABG pO2 102.2 mm Hg (80.0-90.0) H 06/18/19 11:45 POC ABG HCO3 21.0 (22-26 mml/L) 06/17/19 04:50 POC ABG Total CO2 22 (23-27mmol/L) 06/17/19 04:50 POC ABG O2 Sat 99 06/17/19 04:50 ABG O2 Saturation 98.0 % (95.0-99.0) 06/18/19 11:45 PT/INR, D-dimer PT 16.3 Sec. (12.2-14.9) H 06/14/19 05:28 INR 1.35 (0.87-1.13) H 06/14/19 05:28 Abnormal lab findings: Abnormal Labs 06/14/19 06/14/19 06/14/19 02:49 03:10 03:10 WBC RBC Hgb Hct MCHC RDW Lymph % (Auto) [place] % (Auto) Eos % (Auto) Lymph # [place] # Seg Neutrophils % Lymphocytes % (Manual) Seg Neutrophils # Seg Neutrophils # Man Lymphocytes # (Manual) PT INR POC ABG pH ABG pH POC ABG pCO2 POC ABG pO2 ABG pO2 ABG Hemoglobin Potassium 3.5 L Chloride Carbon Dioxide 20 L BUN Creatinine 0.7 L Glucose 107 H POC Glucose 117 H Lactic Acid 2.60 H* Calcium Phosphorus Troponin T 0.979 H* Albumin 3.0 L HDL Cholesterol 30 L Urine WBC (Auto) 06/14/19 06/14/19 06/14/19 04:30 04:35 05:02 WBC 11.9 H RBC 3.22 L Hgb 9.5 L Hct 28.9 L MCHC RDW Lymph % (Auto) [place] % (Auto) Eos % (Auto) Lymph # [place] # Seg Neutrophils % Lymphocytes % (Manual) 8.0 L Seg Neutrophils # Seg Neutrophils # Man 8.3 H Lymphocytes # (Manual) 1.0 L PT INR POC ABG pH 7.314 L ABG pH POC ABG pCO2 POC ABG pO2 > 400 H ABG pO2 ABG Hemoglobin Potassium Chloride Carbon Dioxide BUN Creatinine Glucose POC Glucose Lactic Acid Calcium Phosphorus Troponin T Albumin HDL Cholesterol Urine WBC (Auto) 8.0 H 06/14/19 06/15/19 06/15/19 05:28 03:30 04:35 WBC 11.2 H RBC 3.02 L Hgb 8.9 L Hct 27.1 L MCHC RDW 15.3 H Lymph % (Auto) 6.5 L [place] % (Auto) Eos % (Auto) Lymph # 0.7 L [place] # Seg Neutrophils % 86.6 H Lymphocytes % (Manual) Seg Neutrophils # 9.7 H Seg Neutrophils # Man Lymphocytes # (Manual) PT 16.3 H INR 1.35 H POC ABG pH 7.336 L ABG pH POC ABG pCO2 < 30 L POC ABG pO2 133 H ABG pO2 ABG Hemoglobin Potassium Chloride Carbon Dioxide BUN Creatinine Glucose POC Glucose Lactic Acid Calcium Phosphorus Troponin T Albumin HDL Cholesterol Urine WBC (Auto) 06/15/19 06/15/19 06/16/19 04:35 12:25 04:29 WBC RBC Hgb Hct MCHC RDW Lymph % (Auto) [place] % (Auto) Eos % (Auto) Lymph # [place] # Seg Neutrophils % Lymphocytes % (Manual) Seg Neutrophils # Seg Neutrophils # Man Lymphocytes # (Manual) PT INR POC ABG pH 7.315 L ABG pH POC ABG pCO2 POC ABG pO2 63 L 135 H ABG pO2 ABG Hemoglobin Potassium 3.3 L Chloride 110.7 H Carbon Dioxide 15 L BUN Creatinine 0.4 L Glucose 104 H POC Glucose Lactic Acid Calcium 7.8 L Phosphorus 1.80 L Troponin T Albumin 2.8 L HDL Cholesterol Urine WBC (Auto) 06/16/19 06/17/19 06/17/19 16:31 04:50 Unknown WBC RBC 2.89 L Hgb 8.4 L Hct 25.4 L MCHC RDW Lymph % (Auto) [place] % (Auto) 8.9 H Eos % (Auto) Lymph # 0.9 L [place] # Seg Neutrophils % 74.9 H Lymphocytes % (Manual) Seg Neutrophils # Seg Neutrophils # Man Lymphocytes # (Manual) PT INR POC ABG pH ABG pH POC ABG pCO2 31.5 L POC ABG pO2 135 H ABG pO2 ABG Hemoglobin Potassium Chloride Carbon Dioxide BUN Creatinine Glucose POC Glucose Lactic Acid Calcium Phosphorus 1.30 L D Troponin T Albumin HDL Cholesterol Urine WBC (Auto) 06/17/19 06/18/19 06/18/19 Unknown 04:30 04:30 WBC RBC 2.84 L Hgb 8.6 L Hct 24.8 L MCHC 35 H RDW Lymph % (Auto) 11.2 L [place] % (Auto) 9.7 H Eos % (Auto) 4.6 H Lymph # 0.7 L [place] # Seg Neutrophils % 74.1 H Lymphocytes % (Manual) Seg Neutrophils # Seg Neutrophils # Man Lymphocytes # (Manual) PT INR POC ABG pH ABG pH POC ABG pCO2 POC ABG pO2 ABG pO2 ABG Hemoglobin Potassium 3.0 L 3.4 L Chloride 107.3 H 108.0 H Carbon Dioxide BUN 8 L 7 L Creatinine 0.3 L 0.3 L Glucose 171 H 155 H POC Glucose Lactic Acid Calcium 7.3 L 6.9 L Phosphorus 1.30 L Troponin T Albumin HDL Cholesterol Urine WBC (Auto) 06/18/19 06/18/19 06/19/19 11:45 11:46 00:29 WBC RBC Hgb Hct MCHC RDW Lymph % (Auto) [place] % (Auto) Eos % (Auto) Lymph # [place] # Seg Neutrophils % Lymphocytes % (Manual) Seg Neutrophils # Seg Neutrophils # Man Lymphocytes # (Manual) PT INR POC ABG pH ABG pH 7.492 H POC ABG pCO2 POC ABG pO2 ABG pO2 102.2 H ABG Hemoglobin 9.0 L Potassium Chloride Carbon Dioxide BUN Creatinine Glucose POC Glucose 115 H 134 H Lactic Acid Calcium Phosphorus Troponin T Albumin HDL Cholesterol Urine WBC (Auto) 06/19/19 06/19/19 05:01 05:01 WBC RBC 3.18 L Hgb 9.5 L Hct 28.1 L MCHC RDW 15.3 H Lymph % (Auto) 10.5 L [place] % (Auto) 11.9 H Eos % (Auto) 4.9 H Lymph # 0.8 L [place] # 1.0 H Seg Neutrophils % 72.2 H Lymphocytes % (Manual) Seg Neutrophils # Seg Neutrophils # Man Lymphocytes # (Manual) PT INR POC ABG pH ABG pH POC ABG pCO2 POC ABG pO2 ABG pO2 ABG Hemoglobin Potassium Chloride 107.4 H Carbon Dioxide BUN 7 L Creatinine 0.3 L Glucose POC Glucose Lactic Acid Calcium 7.3 L Phosphorus Troponin T Albumin HDL Cholesterol Urine WBC (Auto) Allied health notes reviewed: nursing
--- NOTE | 2019-06-19 12:18 | Progress Note ---
Assessment and Plan Severe sepsis Acute respiratory failure Acute encephalopathy Peripheral arterial disease s/p bilateral knee amputation COPD Paroxysmal Atrial fibrillation Echo showing LVEF 50-55% Subjective Date of service: 06/19/19 Principal diagnosis: Ac. hypoxemic resp failure; Severe Shock; UTI; COPD; PVD; HTN; NSTEMI; DVT Interval history: Patient now extubated. Afib with a well controlled ventricular rate on telemetry. Objective Vital Signs Temp Pulse Pulse Pulse Resp Resp BP 06/19/19 12:00 98.5 F 06/19/19 11:00 83 21 144/90 06/19/19 10:46 79 21 136/83 06/19/19 10:30 77 20 136/83 06/19/19 10:16 81 12 136/83 06/19/19 10:00 81 19 136/83 06/19/19 09:46 87 19 136/88 06/19/19 09:30 77 20 136/88 06/19/19 09:16 90 18 136/88 06/19/19 09:00 136/88 06/19/19 08:46 85 18 133/68 06/19/19 08:30 81 21 133/68 06/19/19 08:16 84 20 133/68 06/19/19 08:00 98.4 F 77 88 88 16 133/68 06/19/19 07:46 81 21 130/71 06/19/19 07:30 79 21 130/71 06/19/19 07:16 87 20 130/71 06/19/19 07:00 81 20 130/71 06/19/19 06:46 86 21 120/76 06/19/19 06:30 120/76 06/19/19 06:16 120/76 06/19/19 06:00 82 20 120/76 06/19/19 05:52 83 21 25 H 06/19/19 05:46 83 20 124/64 06/19/19 05:30 77 21 124/64 06/19/19 05:16 83 20 124/64 06/19/19 05:00 73 21 124/64 06/19/19 04:46 73 20 109/74 06/19/19 04:30 82 19 06/19/19 04:24 83 20 06/19/19 04:15 82 21 06/19/19 04:00 84 15 109/74 06/19/19 03:45 80 19 120/72 06/19/19 03:31 82 21 120/72 06/19/19 03:29 100.2 F H 06/19/19 03:15 77 18 120/72 06/19/19 03:00 70 16 120/72 06/19/19 02:45 86 19 127/77 06/19/19 02:31 89 17 127/77 06/19/19 02:15 77 19 127/77 06/19/19 02:00 88 19 127/77 06/19/19 01:45 88 21 139/82 06/19/19 01:31 80 19 139/82 06/19/19 01:15 84 18 139/82 06/19/19 01:00 75 20 139/82 06/19/19 00:45 77 19 116/69 06/19/19 00:31 74 20 116/69 06/19/19 00:15 72 21 116/69 06/19/19 00:05 66 21 06/19/19 00:00 116/69 06/18/19 23:47 66 20 122/75 06/18/19 23:45 74 21 122/75 06/18/19 23:38 85 21 122/75 06/18/19 23:31 82 21 122/75 06/18/19 23:30 99.4 F 06/18/19 23:15 76 17 122/75 06/18/19 23:00 78 17 122/75 06/18/19 22:45 82 17 153/90 06/18/19 22:31 82 20 153/90 06/18/19 22:15 76 20 153/90 06/18/19 22:00 77 25 H 153/90 06/18/19 21:45 73 23 130/70 06/18/19 21:40 77 25 H 25 H 06/18/19 21:31 77 22 130/70 06/18/19 21:15 82 20 130/70 06/18/19 21:00 80 22 130/70 06/18/19 20:45 83 19 143/77 06/18/19 20:31 74 143/77 06/18/19 20:15 85 143/77 06/18/19 20:11 06/18/19 20:01 84 143/77 06/18/19 20:00 100 F H 25 H 06/18/19 19:45 78 132/76 06/18/19 19:35 73 29 H 29 H 06/18/19 19:31 73 132/76 06/18/19 19:15 74 132/76 06/18/19 19:00 84 132/76 06/18/19 18:45 81 123/69 06/18/19 18:31 83 123/69 06/18/19 18:15 85 123/69 06/18/19 18:00 82 123/69 06/18/19 17:45 74 110/67 06/18/19 17:31 90 110/67 06/18/19 17:15 78 110/67 06/18/19 17:00 83 110/67 06/18/19 16:45 92 H 114/59 06/18/19 16:31 75 114/59 06/18/19 16:15 80 114/59 06/18/19 16:00 98.9 F 78 114/59 06/18/19 15:45 81 109/62 06/18/19 15:31 86 109/62 06/18/19 15:15 78 109/62 06/18/19 15:00 69 109/62 06/18/19 14:45 80 120/59 06/18/19 14:31 77 120/59 06/18/19 14:15 94 H 120/59 06/18/19 14:00 85 120/59 06/18/19 13:45 87 115/70 06/18/19 13:31 89 115/70 06/18/19 13:15 86 115/70 06/18/19 13:00 87 115/70 06/18/19 12:45 82 112/66 06/18/19 12:31 86 112/66 Pulse Ox 06/19/19 12:00 06/19/19 11:00 100 06/19/19 10:46 100 06/19/19 10:30 100 06/19/19 10:16 100 06/19/19 10:00 100 06/19/19 09:46 100 06/19/19 09:30 100 06/19/19 09:16 100 06/19/19 09:00 97 06/19/19 08:46 100 06/19/19 08:30 100 06/19/19 08:16 100 06/19/19 08:00 100 06/19/19 07:46 100 06/19/19 07:30 100 06/19/19 07:16 100 06/19/19 07:00 99 06/19/19 06:46 100 06/19/19 06:30 100 06/19/19 06:16 100 06/19/19 06:00 100 06/19/19 05:52 100 06/19/19 05:46 100 06/19/19 05:30 100 06/19/19 05:16 100 06/19/19 05:00 100 06/19/19 04:46 100 06/19/19 04:30 100 06/19/19 04:24 100 06/19/19 04:15 100 06/19/19 04:00 100 06/19/19 03:45 100 06/19/19 03:31 100 06/19/19 03:29 06/19/19 03:15 100 06/19/19 03:00 100 06/19/19 02:45 100 06/19/19 02:31 100 06/19/19 02:15 100 06/19/19 02:00 100 06/19/19 01:45 100 06/19/19 01:31 100 06/19/19 01:15 100 06/19/19 01:00 100 06/19/19 00:45 100 06/19/19 00:31 100 06/19/19 00:15 100 06/19/19 00:05 100 06/19/19 00:00 97 06/18/19 23:47 100 06/18/19 23:45 100 06/18/19 23:38 100 06/18/19 23:31 100 06/18/19 23:30 06/18/19 23:15 100 06/18/19 23:00 100 06/18/19 22:45 100 06/18/19 22:31 100 06/18/19 22:15 100 06/18/19 22:00 100 06/18/19 21:45 100 06/18/19 21:40 100 06/18/19 21:31 100 06/18/19 21:15 100 06/18/19 21:00 100 06/18/19 20:45 89 06/18/19 20:31 100 06/18/19 20:15 100 06/18/19 20:11 100 06/18/19 20:01 100 06/18/19 20:00 100 06/18/19 19:45 100 06/18/19 19:35 100 06/18/19 19:31 100 06/18/19 19:15 100 06/18/19 19:00 100 06/18/19 18:45 100 06/18/19 18:31 97 06/18/19 18:15 06/18/19 18:00 99 06/18/19 17:45 99 06/18/19 17:31 100 06/18/19 17:15 99 06/18/19 17:00 99 06/18/19 16:45 99 06/18/19 16:31 100 06/18/19 16:15 99 06/18/19 16:00 99 06/18/19 15:45 100 06/18/19 15:31 100 06/18/19 15:15 99 06/18/19 15:00 99 06/18/19 14:45 100 06/18/19 14:31 100 06/18/19 14:15 100 06/18/19 14:00 100 06/18/19 13:45 100 06/18/19 13:31 100 06/18/19 13:15 100 06/18/19 13:00 100 06/18/19 12:45 99 06/18/19 12:31 99 - Physical Examination General: No Apparent Distress HEENT: Positive: PERRL Neck: Positive: neck supple Cardiac: Positive: irregularly irregular Neuro: Positive: Other (bilateral LE amputation) Extremities: Absent: edema - Labs and Meds CBC 06/19/19 Range/Units 05:01 WBC 8.4 (4.5-11.0) K/mm3 RBC 3.18 L (3.65-5.03) M/mm3 Hgb 9.5 L (11.8-15.2) gm/dl Hct 28.1 L (35.5-45.6) % Plt Count 236 (140-440) K/mm3 Lymph # 0.8 L (1.2-5.4) K/mm3 [place] # 1.0 H (0.0-0.8) K/mm3 Eos # 0.4 (0.0-0.4) K/mm3 Baso # 0.0 (0.0-0.1) K/mm3 Comprehensive Metabolic Panel 06/19/19 Range/Units 05:01 Sodium 143 (137-145) mmol/L Potassium 3.7 (3.6-5.0) mmol/L Chloride 107.4 H (98-107) mmol/L Carbon Dioxide 29 (22-30) mmol/L BUN 7 L (9-20) mg/dL Creatinine 0.3 L (0.8-1.5) mg/dL Glucose 97 (75-100) mg/dL Calcium 7.3 L (8.4-10.2) mg/dL - Allied health notes Allied health notes reviewed: nursing
[2019-06-19] MEDS ORDERED: PERCOCET 5/325 PO PRN (12:24)
--- NOTE | 2019-06-19 12:36 | Progress Note ---
Assessment and Plan Assessment and plan: Patient is a 78-year-old man from [facility] with a history of PAD s/p BKA, hypertension, DVT on A/C, hypertension, GERD, OA and Gout who presented to [facility] ED with confusion, lethargy, low grade fever, tachycardia and hypotension. He was intubated in the ER for airway protection on 06/14/19 and extubated on 06/18/19. * Chest x-ray; no acute findings * CT abd/pelvis with contrast IMPRESSION: Abnormal appearance of the gallbladder and appendix as outlined above. Correlate for gallbladder symptoms and a ppendicitis. Cystitis could be considered. Suspicious 1.8 cm left renal lesion as described above. Further imaging is recommended. Severe osteopenia. * CT angiogram chest, no PE, bibasilar atelectasis * CT head, essentially normal for age Septic shock/ESBL E. coli bacteremia IV antibiotics, IV pressors, IV fluids, ID consult, continue antibiotics -Source of bacteremia still unclear, for repeat renal ultrasound on Tuesday, ID following patient Appendicitis ruled out Surgery input appreciated Cholelithiasis GS evaluated Acute respiratory failure on mechanical ventilator < 96 hours, now extubated. continue ventilator, management per pulmonology Left renal mass? not a simple cyst per Abdominal U/S Hypokalemia/hypophosphatemia Repleted IV TYpe 2 NSTEMI, PAF mgt per cardiology, improving Acute metabolic encephalopathy improving DVT prophylaxis reviewed transfer to [facility] History Interval history: Patient was seen and examined. Follow-up on current diagnosis of Respiratory failure, extubated on VM. No overnight events reported to me. Patient denies any chest pain, shortness breath, nausea/vomiting or severe headaches. Imaging, nursing note, chart, labs and old chart reviewed. Discussed with patient. Hospitalist Physical - Physical exam Narrative exam: Gen: ill appearing, nad, alert awake oriented to self and talking HEENT: NCAT, EOMI, PERRL, OP Clear Neck: supple, no adenopathy, no thyromegaly, no JVD CVS/Heart: RRR, normal S1S2, pulses present bilaterally Chest/Lungs: CTA B, Symmetrical chest expansion, good air entry bilaterally GI/Abdomen: soft, NTND, good bowel sounds, no guarding or rebound /Bladder: no suprapubic tenderness, no CVA or paraspinal tenderness Extermity/Skin: no c/c/e, no obvious rash MSK: FROM x 4 Neuro: CN 2-12 grossly intact, no new focal deficits Psych: calm - Constitutional Vitals: Temp Pulse Resp BP Pulse Ox 98.5 F 85 20 136/85 100 06/19/19 12:00 06/19/19 12:16 06/19/19 12:16 06/19/19 12:16 06/19/19 12:16 General appearance: Present: other (intubated on the vent) Results - Labs CBC & Chem 7: 06/19/19 05:01 06/19/19 05:01 Labs: Laboratory Last Values WBC 8.4 K/mm3 (4.5-11.0) 06/19/19 05:01 RBC 3.18 M/mm3 (3.65-5.03) L 06/19/19 05:01 Hgb 9.5 gm/dl (11.8-15.2) L 06/19/19 05:01 Hct 28.1 % (35.5-45.6) L 06/19/19 05:01 MCV 89 fl (84-94) 06/19/19 05:01 MCH 30 pg (28-32) 06/19/19 05:01 MCHC 34 % (32-34) 06/19/19 05:01 RDW 15.3 % (13.2-15.2) H 06/19/19 05:01 Plt Count 236 K/mm3 (140-440) 06/19/19 05:01 Lymph % (Auto) 10.5 % (13.4-35.0) L 06/19/19 05:01 [place] % (Auto) 11.9 % (0.0-7.3) H 06/19/19 05:01 Eos % (Auto) 4.9 % (0.0-4.3) H 06/19/19 05:01 Baso % (Auto) 0.5 % (0.0-1.8) 06/19/19 05:01 Lymph # 0.8 K/mm3 (1.2-5.4) L 06/19/19 05:01 [place] # 1.0 K/mm3 (0.0-0.8) H 06/19/19 05:01 Eos # 0.4 K/mm3 (0.0-0.4) 06/19/19 05:01 Baso # 0.0 K/mm3 (0.0-0.1) 06/19/19 05:01 Add Manual Diff Complete 06/14/19 04:30 Total Counted 100 06/14/19 04:30 Seg Neutrophils % 72.2 % (40.0-70.0) H 06/19/19 05:01 Seg Neuts % (Manual) 70.0 % (40.0-70.0) 06/14/19 04:30 Band Neutrophils % 18.0 % 06/14/19 04:30 Lymphocytes % (Manual) 8.0 % (13.4-35.0) L 06/14/19 04:30 Reactive Lymphs % (Man) 0 % 06/14/19 04:30 Monocytes % (Manual) 4.0 % (0.0-7.3) 06/14/19 04:30 Eosinophils % (Manual) 0 % (0.0-4.3) 06/14/19 04:30 Basophils % (Manual) 0 % (0.0-1.8) 06/14/19 04:30 Metamyelocytes % 0 % 06/14/19 04:30 Myelocytes % 0 % 06/14/19 04:30 Promyelocytes % 0 % 06/14/19 04:30 Blast Cells % 0 % 06/14/19 04:30 Nucleated RBC % Not Reportable 06/14/19 04:30 Seg Neutrophils # 5.8 K/mm3 (1.8-7.7) 06/19/19 05:01 Seg Neutrophils # Man 8.3 K/mm3 (1.8-7.7) H 06/14/19 04:30 Band Neutrophils # 2.1 K/mm3 06/14/19 04:30 Lymphocytes # (Manual) 1.0 K/mm3 (1.2-5.4) L 06/14/19 04:30 Abs React Lymphs (Man) 0.0 K/mm3 06/14/19 04:30 Monocytes # (Manual) 0.5 K/mm3 (0.0-0.8) 06/14/19 04:30 Eosinophils # (Manual) 0.0 K/mm3 (0.0-0.4) 06/14/19 04:30 Basophils # (Manual) 0.0 K/mm3 (0.0-0.1) 06/14/19 04:30 Metamyelocytes # 0.0 K/mm3 06/14/19 04:30 Myelocytes # 0.0 K/mm3 06/14/19 04:30 Promyelocytes # 0.0 K/mm3 06/14/19 04:30 Blast Cells # 0.0 K/mm3 06/14/19 04:30 WBC Morphology Not Reportable 06/14/19 04:30 Hypersegmented Neuts Not Reportable 06/14/19 04:30 Hyposegmented Neuts Not Reportable 06/14/19 04:30 Hypogranular Neuts Not Reportable 06/14/19 04:30 Smudge Cells Not Reportable 06/14/19 04:30 Toxic Granulation Not Reportable 06/14/19 04:30 Toxic Vacuolation Not Reportable 06/14/19 04:30 Dohle Bodies Not Reportable 06/14/19 04:30 Pelger-Huet Anomaly Not Reportable 06/14/19 04:30 Raymundo Rods Not Reportable 06/14/19 04:30 Platelet Estimate Consistent w auto 06/14/19 04:30 Clumped Platelets Not Reportable 06/14/19 04:30 Plt Clumps, EDTA Not Reportable 06/14/19 04:30 Large Platelets Rare 06/14/19 04:30 Giant Platelets Not Reportable 06/14/19 04:30 Platelet Satelliting Not Reportable 06/14/19 04:30 Plt Morphology Comment Not Reportable 06/14/19 04:30 RBC Morphology Not Reportable 06/14/19 04:30 Dimorphic RBCs Not Reportable 06/14/19 04:30 Polychromasia Not Reportable 06/14/19 04:30 Hypochromasia Not Reportable 06/14/19 04:30 Poikilocytosis Not Reportable 06/14/19 04:30 Anisocytosis Rare 06/14/19 04:30 Microcytosis Not Reportable 06/14/19 04:30 Macrocytosis Not Reportable 06/14/19 04:30 Spherocytes Not Reportable 06/14/19 04:30 Pappenheimer Bodies Not Reportable 06/14/19 04:30 Sickle Cells Not Reportable 06/14/19 04:30 Target Cells Not Reportable 06/14/19 04:30 Tear Drop Cells Not Reportable 06/14/19 04:30 Ovalocytes Rare 06/14/19 04:30 Helmet Cells Not Reportable 06/14/19 04:30 [place] Bodies Not Reportable 06/14/19 04:30 Gamaliel Rings Not Reportable 06/14/19 04:30 Davina Cells Rare 06/14/19 04:30 Bite Cells Not Reportable 06/14/19 04:30 Crenated Cell Not Reportable 06/14/19 04:30 Elliptocytes Not Reportable 06/14/19 04:30 Acanthocytes (Spur) Not Reportable 06/14/19 04:30 Rouleaux Not Reportable 06/14/19 04:30 Hemoglobin C Crystals Not Reportable 06/14/19 04:30 Schistocytes Not Reportable 06/14/19 04:30 Malaria parasites Not Reportable 06/14/19 04:30 Paulie Bodies Not Reportable 06/14/19 04:30 Hem Pathologist Commnt No 06/14/19 04:30 PT 16.3 Sec. (12.2-14.9) H 06/14/19 05:28 INR 1.35 (0.87-1.13) H 06/14/19 05:28 APTT 34.7 Sec. (24.2-36.6) 06/14/19 05:28 POC ABG pH 7.432 (7.35-7.45) 06/17/19 04:50 ABG pH 7.492 pH Units (7.350-7.450) H 06/18/19 11:45 POC ABG pCO2 31.5 (35-45) L 06/17/19 04:50 ABG pCO2 33.1 mm Hg 06/18/19 11:45 POC ABG pO2 135 (80-105) H 06/17/19 04:50 ABG pO2 102.2 mm Hg (80.0-90.0) H 06/18/19 11:45 POC ABG HCO3 21.0 (22-26 mml/L) 06/17/19 04:50 ABG HCO3 24.8 mmol/L (20.0-26.0) 06/18/19 11:45 POC ABG Total CO2 22 (23-27mmol/L) 06/17/19 04:50 POC ABG O2 Sat 99 06/17/19 04:50 ABG O2 Saturation 98.0 % (95.0-99.0) 06/18/19 11:45 ABG O2 Content 12.4 (0.0-44) 06/18/19 11:45 POC ABG Base Excess -3 ((-2) - (+3)mmol/L) 06/17/19 04:50 ABG Base Excess 1.6 mmol/L (-2.0-3.0) 06/18/19 11:45 ABG Hemoglobin 9.0 gm/dl (14.0-18.0) L 06/18/19 11:45 ABG Carboxyhemoglobin 1.4 % (0.0-5.0) 06/18/19 11:45 ABG Methemoglobin 0.4 % (0.0-1.5) 06/18/19 11:45 Oxyhemoglobin 96.2 % (95.0-99.0) 06/18/19 11:45 FiO2 25 % 06/18/19 11:45 Sodium 143 mmol/L (137-145) 06/19/19 05:01 Potassium 3.7 mmol/L (3.6-5.0) 06/19/19 05:01 Chloride 107.4 mmol/L (98-107) H 06/19/19 05:01 Carbon Dioxide 29 mmol/L (22-30) 06/19/19 05:01 Anion Gap 10 mmol/L 06/19/19 05:01 BUN 7 mg/dL (9-20) L 06/19/19 05:01 Creatinine 0.3 mg/dL (0.8-1.5) L 06/19/19 05:01 Estimated GFR > 60 ml/min 06/19/19 05:01 BUN/Creatinine Ratio 23 % 06/19/19 05:01 Glucose 97 mg/dL (75-100) 06/19/19 05:01 POC Glucose 99 (70-105) 06/19/19 11:44 Lactic Acid 1.20 mmol/L (0.7-2.0) 06/14/19 05:28 Calcium 7.3 mg/dL (8.4-10.2) L 06/19/19 05:01 Phosphorus 2.70 mg/dL (2.5-4.5) D 06/18/19 04:30 Magnesium 1.70 mg/dL (1.7-2.3) 06/17/19 Unknown Total Bilirubin 0.30 mg/dL (0.1-1.2) 06/15/19 04:35 AST 21 units/L (5-40) 06/15/19 04:35 ALT 14 units/L (7-56) 06/15/19 04:35 Alkaline Phosphatase 80 units/L (35-129) 06/15/19 04:35 Troponin T 0.979 ng/mL (0.00-0.029) H* 06/14/19 03:10 Total Protein 7.1 g/dL (6.3-8.2) 06/15/19 04:35 Albumin 2.8 g/dL (3.9-5) L 06/15/19 04:35 Albumin/Globulin Ratio 0.7 % 06/15/19 04:35 Triglycerides 74 mg/dL (2-149) 06/14/19 03:10 Cholesterol 112 mg/dL (50-199) 06/14/19 03:10 LDL Cholesterol Direct 76 mg/dL (50-130) 06/14/19 03:10 HDL Cholesterol 30 mg/dL (40-59) L 06/14/19 03:10 Cholesterol/HDL Ratio 3.73 % 06/14/19 03:10 Procalcitonin 45.71 ng/mL (<0.15) 06/14/19 13:26 Urine Color Gabbie (Yellow) 06/14/19 04:35 Urine Turbidity Cloudy (Clear) 06/14/19 04:35 Urine pH 5.0 (5.0-7.0) 06/14/19 04:35 Ur Specific [place] 1.020 (1.003-1.030) 06/14/19 04:35 Urine Protein 100 mg/dl mg/dL (Negative) 06/14/19 04:35 Urine Glucose (UA) Neg mg/dL (Negative) 06/14/19 04:35 Urine Ketones Neg mg/dL (Negative) 06/14/19 04:35 Urine Blood Neg (Negative) 06/14/19 04:35 Urine Nitrite Neg (Negative) 06/14/19 04:35 Ur Reducing Substances Not Reportable 06/14/19 04:35 Urine Bilirubin Neg (Negative) 06/14/19 04:35 Urine Ictotest Not Reportable 06/14/19 04:35 Urine Urobilinogen < 2.0 mg/dL (<2.0) 06/14/19 04:35 Ur Leukocyte Esterase Tr (Negative) 06/14/19 04:35 Urine WBC (Auto) 8.0 /HPF (0.0-6.0) H 06/14/19 04:35 Urine RBC (Auto) 6.0 /HPF (0.0-6.0) 06/14/19 04:35 U Epithel Cells (Auto) 1.0 /HPF (0-13.0) 06/14/19 04:35 Urine Mucus 2+ /HPF 06/14/19 04:35 Active Medications - Current Medications Current Medications: Generic Name Dose Route Start Last Admin Trade Name Freq PRN Reason Stop Dose Admin Acetaminophen 650 mg 06/14/19 09:00 06/18/19 12:28 Tylenol PO 650 mg Q4H PRN Administration Pain MILD(1-3)/Fever >100.5/[place] Albuterol 2.5 mg 06/14/19 12:31 Proventil IH Q4HRT PRN Shortness Of Breath Famotidine 20 mg 06/18/19 10:00 06/19/19 10:01 Pepcid PO 20 mg BID HAL Administration Glycopyrrolate 2 mg 06/18/19 15:00 06/19/19 09:52 Robinul PO 06/20/19 08:01 2 mg TID HAL Administration Heparin Sodium (Porcine) 5,000 unit 06/14/19 22:00 06/19/19 10:00 Heparin SUB-Q 5,000 unit Q12HR HAL Administration Hydrophilic Ointment 1 applic 06/14/19 03:45 Vaseline Lip Therapy TP Q2HR PRN Dry Lips Fluconazole 200 mg in 100 mls @ 100 mls/hr 06/14/19 16:00 06/19/19 09:53 Diflucan IV 100 mls/hr Q24HR HAL Administration Protocol Ertapenem 1 gm/ Sodium 50 mls @ 100 mls/hr 06/18/19 16:00 06/19/19 10:02 Chloride IV 100 mls/hr QDAY HAL Administration Multi-Ingred Cream/Lotion/Oil/Oint 1 applic 06/14/19 03:45 Artificial Tears Ophth Oint OU Q4HR PRN Dry Eye(s) Ondansetron HCl 4 mg 06/14/19 09:00 Zofran IV Q8H PRN Nausea And Vomiting Oxycodone/Acetaminophen 1 tab 06/19/19 12:24 Percocet 5/325 PO Q6H PRN Pain, Moderate (4-6) Sodium Chloride 10 ml 06/14/19 10:00 06/19/19 09:59 Sodium Chloride Flush Syringe 10 Ml IV 10 ml BID HAL Administration Sodium Chloride 10 ml 06/14/19 09:00 Sodium Chloride Flush Syringe 10 Ml IV PRN PRN LINE FLUSH Sodium Phosphate 250 mg 06/18/19 10:00 06/19/19 09:56 K-Phos Neutral PO 250 mg QID HAL Administration Nutrition/Malnutrition Assess - Dietary Evaluation Nutrition/Malnutrition Findings: Nutrition Notes Start: 06/14/19 12:44 Freq: Status: Active Protocol: Document 06/18/19 11:10 LM (Rec: 06/18/19 11:35 LM [id number]) Nutrition Notes Initial or Follow up Reassessment Current Diagnosis Hypertension Other Pertinent Diagnosis DVT, GERD, left AKA, right BKA , sepsis Current Diet Osmolite 1.5 at 40 ml/hr Labs/Tests K 3.4 BUN 7 Cr 0.3 BG 155 Pertinent Medications Reviewed Height 4 ft 3 in Weight 80.6 kg [place] Body Weight (kg) 23.63 BMI 48.0 Weight change and time frame Wt change noted. Wt obtained from [facility] today. Weight Status Morbidly Obese Subjective/Other Information Osmolite running at 40 ml/hr at time of visit. Pt is tolerating TF. Percent of energy/protein needs met: 96%/100% Burn Absent Trauma Absent Minimum of two criteria No #1 Nutrition Diagnosis Inadequate oral intake Diagnosis Progress(for reassessment Continues documentation) Is patient on ventilator? Yes Is Patient Ambulatory and/or Out of Bed No REE-([facility]-confined to bed) 0011.080 Calculation Used for Recommendations [facility] Additional Notes Protein needs: 60g/kg (2.5g/kg IBW 24kg) Fluid needs: 1ml/kcal Nutrition Intervention Change Diet Order: Continue TF Nutrition Support: Osmolite 1.5 at 40ml/hr Water flush 150ml q4hr Kcal 1,440 Protein (gm) 60 Fluid (mL) 732 Goal #1 Meet at least 85% of energy and protein needs Goal #2 TF tolerance Anticipated Discharge Needs: Unable to determine at this time Follow-Up By: 06/25/19 Additional Comments F/U for TF tolerance and wt
--- NOTE | 2019-06-19 15:56 | Progress Note ---
Assessment and Plan Cultures: Blood culture 06/14/2019 ESBL E coli 1 of 4 bottles Tracheal asp culture 06/14/2019 no growth today Assessment: 78 y/o male with a history of severe peripheral artery disease status post bilateral above the knee amputations, previous MRSA in wounds, COPD, rheumatoid arthritis, admitted on 06/14/2019 due to fever at 100.2, AMS and hypotension at 82/50 noted at his [facility] the morning of admission: 1) Severe sepsis with septic shock: off levophed, still low grade fever; due to ESBL E coli septicemia of unclear source ?GI. Patient with acute symptoms of fever, hypotension, no clear history of events. UA no significant pyuria. CXR and CTA chest no obvious pneumonia or PE. Blood culture pending. CT abd ? GB or appendix abnormalities. Elevated troponins. DDx. acute abdomen from appendicitis or cholecystitis v/s ACS v/s aspiration pneumonitis. Noted surgery's recommendation re: chronically thickened appendix 2) Acute respiratory failure: intubated on CPAP today 3) Acute encephalopathy: due to #1 Recommendations: - continue ertapenem 1g q24h as E coli is sensitive. - defer to surgery re: appendix - continue fluconazole for now. Consider stopping in the next couple of days. Will follow. Saida Aaron MD [facility] M: [phone] O: [phone] F: [phone] Subjective Date of service: 06/19/19 Principal diagnosis: Ac. hypoxemic resp failure; Severe Shock; UTI; COPD; PVD; HTN; NSTEMI; DVT Interval history: Afebrile with normal white count. No new issues. Objective - Exam Narrative Exam: General appearance: sedated but opening eyes intubated on CPAP Eyes: anicteric sclerae, moist conjunctivae; no lid-lag; PERRLA HENT: Atraumatic; oropharynx clear +ETT and NGT Lungs: CTA CV: RRR no murmur Abdomen: Soft, non-tender; no masses or hepatosplenomegaly Extremities: no edema, no cyanosis Skin: No rash. Psych:sedated. Neuro: sedated Right IJ TLC - Constitutional Vitals: Vital Signs Temp Pulse Resp BP Pulse Ox 98.5 F 75 17 130/73 100 06/19/19 12:00 06/19/19 14:00 06/19/19 14:00 06/19/19 14:00 06/19/19 14:00 Temperature -Last 24 Hours Temperature 98.5 F Temperature 98.4 F Temperature 100.2 F Temperature 99.4 F Temperature 100 F Temperature 98.9 F - Labs CBC & Chem 7: 06/19/19 05:01 06/19/19 05:01 Labs: Abnormal lab results 06/18/19 06/19/19 06/19/19 Range/Units 11:46 00:29 05:01 RBC 3.18 L (3.65-5.03) M/mm3 Hgb 9.5 L (11.8-15.2) gm/dl Hct 28.1 L (35.5-45.6) % RDW 15.3 H (13.2-15.2) % Lymph % (Auto) 10.5 L (13.4-35.0) % [place] % (Auto) 11.9 H (0.0-7.3) % Eos % (Auto) 4.9 H (0.0-4.3) % Lymph # 0.8 L (1.2-5.4) K/mm3 [place] # 1.0 H (0.0-0.8) K/mm3 Seg Neutrophils % 72.2 H (40.0-70.0) % Chloride (98-107) mmol/L BUN (9-20) mg/dL Creatinine (0.8-1.5) mg/dL POC Glucose 115 H 134 H (70-105) Calcium (8.4-10.2) mg/dL 06/19/19 Range/Units 05:01 RBC (3.65-5.03) M/mm3 Hgb (11.8-15.2) gm/dl Hct (35.5-45.6) % RDW (13.2-15.2) % Lymph % (Auto) (13.4-35.0) % [place] % (Auto) (0.0-7.3) % Eos % (Auto) (0.0-4.3) % Lymph # (1.2-5.4) K/mm3 [place] # (0.0-0.8) K/mm3 Seg Neutrophils % (40.0-70.0) % Chloride 107.4 H (98-107) mmol/L BUN 7 L (9-20) mg/dL Creatinine 0.3 L (0.8-1.5) mg/dL POC Glucose (70-105) Calcium 7.3 L (8.4-10.2) mg/dL
[2019-06-20 04:41] LABS: Basophils % (Auto) 0.4 % (0.0-1.8); Eosinophils # (Auto) 0.6 K/mm3 (0.0-0.4); Hematocrit 31.5 % (35.5-45.6); Hemoglobin 10.4 gm/dl (11.8-15.2); Lymphocytes # (Auto) 0.9 K/mm3 (1.2-5.4); Mean Corpuscular HGB Conc 33 % (32-34); Mean Corpuscular Volume 89 fl (84-94); Monocytes # (Auto) 0.9 K/mm3 (0.0-0.8); Monocytes % (Auto) 12.8 % (0.0-7.3); Platelet Count 296 K/mm3 (140-440); Red Blood Count 3.53 M/mm3 (3.65-5.03); Red Cell Distribution Width 14.9 % (13.2-15.2)
[2019-06-20 04:52] LABS: BUN/Creatinine Ratio 20; Blood Urea Nitrogen 8 mg/dL (9-20); Calcium 7.6 mg/dL (8.4-10.2); Hemolysis Index 0
[2019-06-20] MEDS: DIFLUCAN 200 MG/100 ML BAG IV SCH (09:39)
[2019-06-20] MEDS: INVanz 1 GM in NACL 0.9% 50 ML IV SCH (09:39)
[2019-06-20] MEDS: HEPARIN SUB-Q SCH ×2 (09:40→22:32)
[2019-06-20] MEDS: K-PHOS NEUTRAL PO SCH ×2 (09:40→16:34)
[2019-06-20] MEDS: PEPCID PO SCH (09:41)
[2019-06-20] MEDS: ROBINUL PO SCH (09:41)
[2019-06-20] MEDS: SODIUM CHLORIDE FLUSH SYRINGE 10 ML IV SCH ×2 (09:42→22:30)
--- NOTE | 2019-06-20 11:08 | Progress Note ---
<LORETTA QUEZADA - Last Filed: 06/21/19 08:27> Assessment and Plan Severe sepsis Acute respiratory failure now extubated Acute encephalopathy -improved Peripheral arterial disease s/p bilateral knee amputation COPD Paroxysmal Atrial fibrillation Echo showing LVEF 50-55% Subjective Date of service: 06/20/19 Principal diagnosis: Ac. hypoxemic resp failure; Severe Shock; UTI; COPD; PVD; HTN; NSTEMI; DVT Interval history: Patient has no cardiac complaints. Objective Vital Signs Temp Pulse Pulse Pulse Resp BP Pulse Ox 06/20/19 08:33 98 H 06/20/19 08:00 98.0 F 98 H 17 123/75 100 06/20/19 07:00 98 H 22 115/80 99 06/20/19 06:00 97 H 20 120/80 06/20/19 05:00 97 H 97 H 17 115/80 100 06/20/19 04:00 98.1 F 97 H 20 105/76 06/20/19 03:00 96 H 18 110/70 06/20/19 02:00 95 H 18 107/65 98 06/20/19 01:00 95 H 15 105/61 99 06/20/19 00:00 98.3 F 94 H 94 H 22 101/67 100 06/19/19 23:00 94 H 19 102/66 06/19/19 22:00 94 H 16 100/64 99 06/19/19 21:00 93 H 18 114/62 99 06/19/19 20:57 90 21 100 06/19/19 20:56 94 H 21 115/69 100 06/19/19 20:00 98.6 F 92 H 16 115/69 99 06/19/19 19:00 96 H 22 123/69 99 06/19/19 17:00 87 22 122/78 99 06/19/19 16:55 86 20 127/81 100 06/19/19 16:00 98.8 F 85 85 16 99 06/19/19 15:46 70 19 127/81 100 06/19/19 15:30 69 18 127/81 100 06/19/19 15:16 77 19 127/81 100 06/19/19 15:10 79 17 06/19/19 14:46 82 15 130/73 100 06/19/19 14:30 82 18 130/73 100 06/19/19 14:16 86 18 130/73 100 06/19/19 14:00 75 17 130/73 100 06/19/19 13:46 79 20 137/76 100 06/19/19 13:30 81 17 137/76 100 06/19/19 13:16 95 H 20 137/76 100 06/19/19 13:00 84 19 137/76 100 06/19/19 12:46 85 18 136/85 100 06/19/19 12:30 82 16 136/85 100 06/19/19 12:16 85 20 136/85 100 06/19/19 12:00 98.5 F 77 81 81 17 136/85 100 06/19/19 11:46 78 22 144/90 100 06/19/19 11:30 144/90 100 06/19/19 11:16 74 19 144/90 100 - Physical Examination General: No Apparent Distress HEENT: Positive: PERRL Neck: Positive: trachea midline Cardiac: Positive: irregularly irregular Lungs: Positive: Decreased Breath Sounds Neuro: Positive: Other (bilateral LE amputation) - Labs and Meds CBC 06/20/19 Range/Units 04:17 WBC 6.9 (4.5-11.0) K/mm3 RBC 3.53 L (3.65-5.03) M/mm3 Hgb 10.4 L (11.8-15.2) gm/dl Hct 31.5 L (35.5-45.6) % Plt Count 296 (140-440) K/mm3 Lymph # 0.9 L (1.2-5.4) K/mm3 [place] # 0.9 H (0.0-0.8) K/mm3 Eos # 0.6 H (0.0-0.4) K/mm3 Baso # 0.0 (0.0-0.1) K/mm3 Comprehensive Metabolic Panel 06/20/19 Range/Units 04:17 Sodium 142 (137-145) mmol/L Potassium 3.8 (3.6-5.0) mmol/L Chloride 105.6 (98-107) mmol/L Carbon Dioxide 27 (22-30) mmol/L BUN 8 L (9-20) mg/dL Creatinine 0.4 L (0.8-1.5) mg/dL Glucose 92 (75-100) mg/dL Calcium 7.6 L (8.4-10.2) mg/dL - Allied health notes Allied health notes reviewed: nursing <RODDY ARCHULETA - Last Filed: 06/27/19 08:59> Assessment and Plan I have seen and evalauted the patient and agree with the assessment and plan. Continue rate control strategy for treatment of atrial fibrillation. Sepsis management per primary. Objective Vital Signs Temp Pulse Pulse Resp BP Pulse Ox 06/27/19 08:10 100 06/27/19 07:11 98.0 F 92 H 20 164/90 99 06/27/19 05:16 74 154/83 06/27/19 02:32 98.3 F 74 20 154/83 100 06/26/19 20:03 100 H 18 96 06/26/19 19:45 98.7 F 70 22 137/72 99 06/26/19 19:21 86 06/26/19 17:52 80 141/82 98 06/26/19 15:00 80 06/26/19 14:05 98.9 F 85 20 126/65 93 06/26/19 12:28 103 H 129/60 97 06/26/19 12:25 84 129/60 06/26/19 10:39 99 06/26/19 10:00 101 H 20 96 - Labs and Meds CBC 06/27/19 Range/Units 06:07 WBC 4.8 (4.5-11.0) K/mm3 RBC 3.51 L (3.65-5.03) M/mm3 Hgb 10.2 L (11.8-15.2) gm/dl Hct 31.4 L (35.5-45.6) % Plt Count 448 H (140-440) K/mm3 Comprehensive Metabolic Panel 06/27/19 Range/Units 06:07 Sodium 147 H (137-145) mmol/L Potassium 3.3 L (3.6-5.0) mmol/L Chloride 108.3 H (98-107) mmol/L Carbon Dioxide 22 (22-30) mmol/L BUN 2 L (9-20) mg/dL Creatinine 0.4 L (0.8-1.5) mg/dL Glucose 98 (75-100) mg/dL Calcium 7.7 L (8.4-10.2) mg/dL
[2019-06-20] MEDS: ZOFRAN IV PRN (12:13)
--- NOTE | 2019-06-20 13:01 | Progress Note ---
Assessment and Plan Patient resting on 2L O2. Patient weak, no acute respiratory distress. O2 sat 100% on 2L. Patient afebrile, no leukocytosis. - Patient Problems (1) Respiratory failure Current Visit: Yes Status: Acute Plan to address problem: O2 2L via nasal cannula. Albuterol/Atrovent aerosol treatment Q6h Continue subQ heparin Continue Fometadine (2) Septic shock Current Visit: Yes Status: Acute Plan to address problem: Patient is on ertapenem and flucanozole. (3) UTI (urinary tract infection) Current Visit: Yes Status: Acute Plan to address problem: Patient is on ertapenem and flucanazole. (4) Atrial fibrillation Current Visit: Yes Status: Acute Plan to address problem: Management as per primary care and cardiology. (5) NSTEMI (non-ST elevated myocardial infarction) Current Visit: Yes Status: Acute Plan to address problem: Management as per cardiology. (6) Acute metabolic encephalopathy Current Visit: Yes Status: Acute Plan to address problem: Management as per primary. (7) Anemia Current Visit: No Status: Acute Plan to address problem: Management as per primary care. (8) HTN (hypertension) Current Visit: No Status: Acute Plan to address problem: Management as per primary care. Subjective Date of service: 06/20/19 Principal diagnosis: Ac. hypoxemic resp failure; Severe Shock; UTI; COPD; PVD; HTN; NSTEMI; DVT Interval history: Patient resting on 2L O2. Patient weak, no acute respiratory distress. O2 sat 100% on 2L. Patient afebrile, no leukocytosis. Objective Vital Signs - 12hr 06/20/19 06/20/19 06/20/19 01:00 02:00 03:00 Temperature Pulse Rate 95 H 95 H 96 H Pulse Rate [ From Monitor] Respiratory 15 18 18 Rate Blood Pressure 105/61 107/65 110/70 O2 Sat by Pulse 99 98 Oximetry 06/20/19 06/20/19 06/20/19 04:00 05:00 06:00 Temperature 98.1 F Pulse Rate 97 H 97 H 97 H Pulse Rate [ 97 H From Monitor] Respiratory 20 17 20 Rate Blood Pressure 105/76 115/80 120/80 O2 Sat by Pulse 100 Oximetry 06/20/19 06/20/19 06/20/19 07:00 08:00 08:33 Temperature 98.0 F Pulse Rate 98 H 98 H 98 H Pulse Rate [ From Monitor] Respiratory 22 17 Rate Blood Pressure 115/80 123/75 O2 Sat by Pulse 99 100 Oximetry Constitutional: no acute distress, alert, other (elderly looking male, normocephalic with mildly increased resp effort at rest) Eyes: non-icteric ENT: oropharynx moist, other (ETT 23 cm TANA) Neck: supple, no lymphadenopathy, no JVD Effort: mildly labored Ascultation: Bilateral: diminished breath sounds, rhonchi Percussion: Bilateral: not dull Cardiovascular: regular rate and rhythm Gastrointestinal: normoactive bowel sounds, soft, non-tender, non-distended Integumentary: normal Extremities: no cyanosis, no edema, pulses normal, no ischemia or petechiae Neurologic: pupils equal and round, CN II-XII normal, unable to assess Psychiatric: other (unable to assess re: AMS) CBC and BMP: 06/20/19 04:17 06/20/19 04:17 ABG, PT/INR, D-dimer: ABG POC ABG pH 7.432 (7.35-7.45) 06/17/19 04:50 ABG pH 7.492 pH Units (7.350-7.450) H 06/18/19 11:45 POC ABG pCO2 31.5 (35-45) L 06/17/19 04:50 ABG pCO2 33.1 mm Hg 06/18/19 11:45 POC ABG pO2 135 (80-105) H 06/17/19 04:50 ABG pO2 102.2 mm Hg (80.0-90.0) H 06/18/19 11:45 POC ABG HCO3 21.0 (22-26 mml/L) 06/17/19 04:50 POC ABG Total CO2 22 (23-27mmol/L) 06/17/19 04:50 POC ABG O2 Sat 99 06/17/19 04:50 ABG O2 Saturation 98.0 % (95.0-99.0) 06/18/19 11:45 PT/INR, D-dimer PT 16.3 Sec. (12.2-14.9) H 06/14/19 05:28 INR 1.35 (0.87-1.13) H 10/03/19 05:28 Abnormal lab findings: Abnormal Labs 06/14/19 06/14/19 06/14/19 02:49 03:10 03:10 WBC RBC Hgb Hct MCHC RDW Lymph % (Auto) [place] % (Auto) Eos % (Auto) Lymph # [place] # Eos # Seg Neutrophils % Lymphocytes % (Manual) Seg Neutrophils # Seg Neutrophils # Man Lymphocytes # (Manual) PT INR POC ABG pH ABG pH POC ABG pCO2 POC ABG pO2 ABG pO2 ABG Hemoglobin Potassium 3.5 L Chloride Carbon Dioxide 20 L BUN Creatinine 0.7 L Glucose 107 H POC Glucose 117 H Lactic Acid 2.60 H* Calcium Phosphorus Troponin T 0.979 H* Albumin 3.0 L HDL Cholesterol 30 L Urine WBC (Auto) 06/14/19 06/14/19 06/14/19 04:30 04:35 05:02 WBC 11.9 H RBC 3.22 L Hgb 9.5 L Hct 28.9 L MCHC RDW Lymph % (Auto) [place] % (Auto) Eos % (Auto) Lymph # [place] # Eos # Seg Neutrophils % Lymphocytes % (Manual) 8.0 L Seg Neutrophils # Seg Neutrophils # Man 8.3 H Lymphocytes # (Manual) 1.0 L PT INR POC ABG pH 7.314 L ABG pH POC ABG pCO2 POC ABG pO2 > 400 H ABG pO2 ABG Hemoglobin Potassium Chloride Carbon Dioxide BUN Creatinine Glucose POC Glucose Lactic Acid Calcium Phosphorus Troponin T Albumin HDL Cholesterol Urine WBC (Auto) 8.0 H 06/14/19 06/15/19 06/15/19 05:28 03:30 04:35 WBC 11.2 H RBC 3.02 L Hgb 8.9 L Hct 27.1 L MCHC RDW 15.3 H Lymph % (Auto) 6.5 L [place] % (Auto) Eos % (Auto) Lymph # 0.7 L [place] # Eos # Seg Neutrophils % 86.6 H Lymphocytes % (Manual) Seg Neutrophils # 9.7 H Seg Neutrophils # Man Lymphocytes # (Manual) PT 16.3 H INR 1.35 H POC ABG pH 7.336 L ABG pH POC ABG pCO2 < 30 L POC ABG pO2 133 H ABG pO2 ABG Hemoglobin Potassium Chloride Carbon Dioxide BUN Creatinine Glucose POC Glucose Lactic Acid Calcium Phosphorus Troponin T Albumin HDL Cholesterol Urine WBC (Auto) 06/15/19 06/15/19 06/16/19 04:35 12:25 04:29 WBC RBC Hgb Hct MCHC RDW Lymph % (Auto) [place] % (Auto) Eos % (Auto) Lymph # [place] # Eos # Seg Neutrophils % Lymphocytes % (Manual) Seg Neutrophils # Seg Neutrophils # Man Lymphocytes # (Manual) PT INR POC ABG pH 7.315 L ABG pH POC ABG pCO2 POC ABG pO2 63 L 135 H ABG pO2 ABG Hemoglobin Potassium 3.3 L Chloride 110.7 H Carbon Dioxide 15 L BUN Creatinine 0.4 L Glucose 104 H POC Glucose Lactic Acid Calcium 7.8 L Phosphorus 1.80 L Troponin T Albumin 2.8 L HDL Cholesterol Urine WBC (Auto) 06/16/19 06/17/19 06/17/19 16:31 04:50 Unknown WBC RBC 2.89 L Hgb 8.4 L Hct 25.4 L MCHC RDW Lymph % (Auto) [place] % (Auto) 8.9 H Eos % (Auto) Lymph # 0.9 L [place] # Eos # Seg Neutrophils % 74.9 H Lymphocytes % (Manual) Seg Neutrophils # Seg Neutrophils # Man Lymphocytes # (Manual) PT INR POC ABG pH ABG pH POC ABG pCO2 31.5 L POC ABG pO2 135 H ABG pO2 ABG Hemoglobin Potassium Chloride Carbon Dioxide BUN Creatinine Glucose POC Glucose Lactic Acid Calcium Phosphorus 1.30 L D Troponin T Albumin HDL Cholesterol Urine WBC (Auto) 06/17/19 06/18/19 06/18/19 Unknown 04:30 04:30 WBC RBC 2.84 L Hgb 8.6 L Hct 24.8 L MCHC 35 H RDW Lymph % (Auto) 11.2 L [place] % (Auto) 9.7 H Eos % (Auto) 4.6 H Lymph # 0.7 L [place] # Eos # Seg Neutrophils % 74.1 H Lymphocytes % (Manual) Seg Neutrophils # Seg Neutrophils # Man Lymphocytes # (Manual) PT INR POC ABG pH ABG pH POC ABG pCO2 POC ABG pO2 ABG pO2 ABG Hemoglobin Potassium 3.0 L 3.4 L Chloride 107.3 H 108.0 H Carbon Dioxide BUN 8 L 7 L Creatinine 0.3 L 0.3 L Glucose 171 H 155 H POC Glucose Lactic Acid Calcium 7.3 L 6.9 L Phosphorus 1.30 L Troponin T Albumin HDL Cholesterol Urine WBC (Auto) 10/03/3006/18/19 06/19/19 11:45 11:46 00:29 WBC RBC Hgb Hct MCHC RDW Lymph % (Auto) [place] % (Auto) Eos % (Auto) Lymph # [place] # Eos # Seg Neutrophils % Lymphocytes % (Manual) Seg Neutrophils # Seg Neutrophils # Man Lymphocytes # (Manual) PT INR POC ABG pH ABG pH 7.492 H POC ABG pCO2 POC ABG pO2 ABG pO2 102.2 H ABG Hemoglobin 9.0 L Potassium Chloride Carbon Dioxide BUN Creatinine Glucose POC Glucose 115 H 134 H Lactic Acid Calcium Phosphorus Troponin T Albumin HDL Cholesterol Urine WBC (Auto) 06/19/19 06/19/19 06/20/19 05:01 05:01 04:17 WBC RBC 3.18 L 3.53 L Hgb 9.5 L 10.4 L Hct 28.1 L 31.5 L MCHC RDW 15.3 H Lymph % (Auto) 10.5 L 13.0 L [place] % (Auto) 11.9 H 12.8 H Eos % (Auto) 4.9 H 9.0 H Lymph # 0.8 L 0.9 L [place] # 1.0 H 0.9 H Eos # 0.6 H Seg Neutrophils % 72.2 H Lymphocytes % (Manual) Seg Neutrophils # Seg Neutrophils # Man Lymphocytes # (Manual) PT INR POC ABG pH ABG pH POC ABG pCO2 POC ABG pO2 ABG pO2 ABG Hemoglobin Potassium Chloride 107.4 H Carbon Dioxide BUN 7 L Creatinine 0.3 L Glucose POC Glucose Lactic Acid Calcium 7.3 L Phosphorus Troponin T Albumin HDL Cholesterol Urine WBC (Auto) 06/20/19 04:17 WBC RBC Hgb Hct MCHC RDW Lymph % (Auto) [place] % (Auto) Eos % (Auto) Lymph # [place] # Eos # Seg Neutrophils % Lymphocytes % (Manual) Seg Neutrophils # Seg Neutrophils # Man Lymphocytes # (Manual) PT INR POC ABG pH ABG pH POC ABG pCO2 POC ABG pO2 ABG pO2 ABG Hemoglobin Potassium Chloride Carbon Dioxide BUN 8 L Creatinine 0.4 L Glucose POC Glucose Lactic Acid Calcium 7.6 L Phosphorus Troponin T Albumin HDL Cholesterol Urine WBC (Auto) Chest x-ray: report reviewed (Reported low lung volumes. No acute cardiopulmonary process.), image reviewed Allied health notes reviewed: nursing
--- NOTE | 2019-06-20 16:08 | Progress Note ---
Assessment and Plan Assessment and plan: Patient is a 78-year-old man from [facility] with a history of PAD s/p BKA, hypertension, DVT on A/C, hypertension, GERD, OA and Gout who presented to [facility] ED with confusion, lethargy, low grade fever, tachycardia and hypotension. He was intubated in the ER for airway protection on 06/14/19 and extubated on 06/18/19. * Chest x-ray; no acute findings * CT abd/pelvis with contrast IMPRESSION: Abnormal appearance of the gallbladder and appendix as outlined above. Correlate for gallbladder symptoms and a ppendicitis. Cystitis could be considered. Suspicious 1.8 cm left renal lesion as described above. Further imaging is recommended. Severe osteopenia. * CT angiogram chest, no PE, bibasilar atelectasis * CT head, essentially normal for age Septic shock/ESBL E. coli bacteremia IV antibiotics, IV pressors, IV fluids, ID consult, continue antibiotics -Source of bacteremia still unclear, for repeat renal ultrasound on Tuesday, ID following patient Appendicitis ruled out Surgery input appreciated Cholelithiasis GS evaluated Acute respiratory failure on mechanical ventilator < 96 hours, now extubated. continue ventilator, management per pulmonology Left renal mass? not a simple cyst per Abdominal U/S Hypokalemia/hypophosphatemia Repleted IV TYpe 2 NSTEMI, PAF mgt per cardiology, improving Acute metabolic encephalopathy improving DVT prophylaxis reviewed transfer to medical floor, anticipated discharge tomorrow back to [place] History Interval history: Patient was seen and examined. Follow-up on current diagnosis of Respiratory failure, extubated on . No overnight events reported to me. Patient denies any chest pain, shortness breath, nausea/vomiting or severe headaches. Imaging, nursing note, chart, labs and old chart reviewed. Discussed with patient. Hospitalist Physical - Physical exam Narrative exam: Gen: ill appearing, nad, alert awake oriented x 3 HEENT: NCAT, EOMI, PERRL, OP Clear Neck: supple, no adenopathy, no thyromegaly, no JVD CVS/Heart: RRR, normal S1S2, pulses present bilaterally Chest/Lungs: CTA B, Symmetrical chest expansion, good air entry bilaterally GI/Abdomen: soft, NTND, good bowel sounds, no guarding or rebound /Bladder: no suprapubic tenderness, no CVA or paraspinal tenderness Extermity/Skin: no c/c/e, no obvious rash MSK: FROM x 4, bilateral AKA Neuro: CN 2-12 grossly intact, no new focal deficits Psych: calm - Constitutional Vitals: Temp Pulse Resp BP Pulse Ox 98.4 F 95 H 21 122/77 100 06/20/19 12:00 06/20/19 15:00 06/20/19 15:00 06/20/19 15:00 06/20/19 15:00 General appearance: Present: other (intubated on the vent) Results - Labs CBC & Chem 7: 06/20/19 04:17 06/20/19 04:17 Labs: Laboratory Last Values WBC 6.9 K/mm3 (4.5-11.0) 06/20/19 04:17 RBC 3.53 M/mm3 (3.65-5.03) L 06/20/19 04:17 Hgb 10.4 gm/dl (11.8-15.2) L 06/20/19 04:17 Hct 31.5 % (35.5-45.6) L 06/20/19 04:17 MCV 89 fl (84-94) 06/20/19 04:17 MCH 30 pg (28-32) 06/20/19 04:17 MCHC 33 % (32-34) 06/20/19 04:17 RDW 14.9 % (13.2-15.2) 06/20/19 04:17 Plt Count 296 K/mm3 (140-440) 06/20/19 04:17 Lymph % (Auto) 13.0 % (13.4-35.0) L 06/20/19 04:17 [place] % (Auto) 12.8 % (0.0-7.3) H 06/20/19 04:17 Eos % (Auto) 9.0 % (0.0-4.3) H 06/20/19 04:17 Baso % (Auto) 0.4 % (0.0-1.8) 06/20/19 04:17 Lymph # 0.9 K/mm3 (1.2-5.4) L 06/20/19 04:17 [place] # 0.9 K/mm3 (0.0-0.8) H 06/20/19 04:17 Eos # 0.6 K/mm3 (0.0-0.4) H 06/20/19 04:17 Baso # 0.0 K/mm3 (0.0-0.1) 06/20/19 04:17 Add Manual Diff Complete 06/14/19 04:30 Total Counted 100 06/14/19 04:30 Seg Neutrophils % 64.8 % (40.0-70.0) 06/20/19 04:17 Seg Neuts % (Manual) 70.0 % (40.0-70.0) 06/14/19 04:30 Band Neutrophils % 18.0 % 06/14/19 04:30 Lymphocytes % (Manual) 8.0 % (13.4-35.0) L 06/14/19 04:30 Reactive Lymphs % (Man) 0 % 06/14/19 04:30 Monocytes % (Manual) 4.0 % (0.0-7.3) 06/14/19 04:30 Eosinophils % (Manual) 0 % (0.0-4.3) 06/14/19 04:30 Basophils % (Manual) 0 % (0.0-1.8) 06/14/19 04:30 Metamyelocytes % 0 % 06/14/19 04:30 Myelocytes % 0 % 06/14/19 04:30 Promyelocytes % 0 % 06/14/19 04:30 Blast Cells % 0 % 06/14/19 04:30 Nucleated RBC % Not Reportable 06/14/19 04:30 Seg Neutrophils # 4.4 K/mm3 (1.8-7.7) 06/20/19 04:17 Seg Neutrophils # Man 8.3 K/mm3 (1.8-7.7) H 06/14/19 04:30 Band Neutrophils # 2.1 K/mm3 06/14/19 04:30 Lymphocytes # (Manual) 1.0 K/mm3 (1.2-5.4) L 06/14/19 04:30 Abs React Lymphs (Man) 0.0 K/mm3 06/14/19 04:30 Monocytes # (Manual) 0.5 K/mm3 (0.0-0.8) 06/14/19 04:30 Eosinophils # (Manual) 0.0 K/mm3 (0.0-0.4) 06/14/19 04:30 Basophils # (Manual) 0.0 K/mm3 (0.0-0.1) 06/14/19 04:30 Metamyelocytes # 0.0 K/mm3 06/14/19 04:30 Myelocytes # 0.0 K/mm3 06/14/19 04:30 Promyelocytes # 0.0 K/mm3 06/14/19 04:30 Blast Cells # 0.0 K/mm3 06/14/19 04:30 WBC Morphology Not Reportable 06/14/19 04:30 Hypersegmented Neuts Not Reportable 06/14/19 04:30 Hyposegmented Neuts Not Reportable 06/14/19 04:30 Hypogranular Neuts Not Reportable 06/14/19 04:30 Smudge Cells Not Reportable 06/14/19 04:30 Toxic Granulation Not Reportable 06/14/19 04:30 Toxic Vacuolation Not Reportable 06/14/19 04:30 Dohle Bodies Not Reportable 06/14/19 04:30 Pelger-Huet Anomaly Not Reportable 06/14/19 04:30 Raymundo Rods Not Reportable 06/14/19 04:30 Platelet Estimate Consistent w auto 06/14/19 04:30 Clumped Platelets Not Reportable 06/14/19 04:30 Plt Clumps, EDTA Not Reportable 06/14/19 04:30 Large Platelets Rare 06/14/19 04:30 Giant Platelets Not Reportable 06/14/19 04:30 Platelet Satelliting Not Reportable 06/14/19 04:30 Plt Morphology Comment Not Reportable 06/14/19 04:30 RBC Morphology Not Reportable 06/14/19 04:30 Dimorphic RBCs Not Reportable 06/14/19 04:30 Polychromasia Not Reportable 06/14/19 04:30 Hypochromasia Not Reportable 06/14/19 04:30 Poikilocytosis Not Reportable 06/14/19 04:30 Anisocytosis Rare 06/14/19 04:30 Microcytosis Not Reportable 06/14/19 04:30 Macrocytosis Not Reportable 06/14/19 04:30 Spherocytes Not Reportable 06/14/19 04:30 Pappenheimer Bodies Not Reportable 06/14/19 04:30 Sickle Cells Not Reportable 06/14/19 04:30 Target Cells Not Reportable 06/14/19 04:30 Tear Drop Cells Not Reportable 06/14/19 04:30 Ovalocytes Rare 06/14/19 04:30 Helmet Cells Not Reportable 06/14/19 04:30 [place] Bodies Not Reportable 06/14/19 04:30 [place] Rings Not Reportable 06/14/19 04:30 Cantil Cells Rare 06/14/19 04:30 Bite Cells Not Reportable 06/14/19 04:30 Crenated Cell Not Reportable 06/14/19 04:30 Elliptocytes Not Reportable 06/14/19 04:30 Acanthocytes (Spur) Not Reportable 06/14/19 04:30 Rouleaux Not Reportable 06/14/19 04:30 Hemoglobin C Crystals Not Reportable 06/14/19 04:30 Schistocytes Not Reportable 06/14/19 04:30 Malaria parasites Not Reportable 06/14/19 04:30 Paulie Bodies Not Reportable 06/14/19 04:30 Hem Pathologist Commnt No 06/14/19 04:30 PT 16.3 Sec. (12.2-14.9) H 06/14/19 05:28 INR 1.35 (0.87-1.13) H 06/14/19 05:28 APTT 34.7 Sec. (24.2-36.6) 06/14/19 05:28 POC ABG pH 7.432 (7.35-7.45) 06/17/19 04:50 ABG pH 7.492 pH Units (7.350-7.450) H 06/18/19 11:45 POC ABG pCO2 31.5 (35-45) L 06/17/19 04:50 ABG pCO2 33.1 mm Hg 06/18/19 11:45 POC ABG pO2 135 (80-105) H 06/17/19 04:50 ABG pO2 102.2 mm Hg (80.0-90.0) H 06/18/19 11:45 POC ABG HCO3 21.0 (22-26 mml/L) 06/17/19 04:50 ABG HCO3 24.8 mmol/L (20.0-26.0) 06/18/19 11:45 POC ABG Total CO2 22 (23-27mmol/L) 06/17/19 04:50 POC ABG O2 Sat 99 06/17/19 04:50 ABG O2 Saturation 98.0 % (95.0-99.0) 06/18/19 11:45 ABG O2 Content 12.4 (0.0-44) 06/18/19 11:45 POC ABG Base Excess -3 ((-2) - (+3)mmol/L) 06/17/19 04:50 ABG Base Excess 1.6 mmol/L (-2.0-3.0) 06/18/19 11:45 ABG Hemoglobin 9.0 gm/dl (14.0-18.0) L 06/18/19 11:45 ABG Carboxyhemoglobin 1.4 % (0.0-5.0) 06/18/19 11:45 ABG Methemoglobin 0.4 % (0.0-1.5) 06/18/19 11:45 Oxyhemoglobin 96.2 % (95.0-99.0) 06/18/19 11:45 FiO2 25 % 06/18/19 11:45 Sodium 142 mmol/L (137-145) 06/20/19 04:17 Potassium 3.8 mmol/L (3.6-5.0) 06/20/19 04:17 Chloride 105.6 mmol/L (98-107) 06/20/19 04:17 Carbon Dioxide 27 mmol/L (22-30) 06/20/19 04:17 Anion Gap 13 mmol/L 06/20/19 04:17 BUN 8 mg/dL (9-20) L 06/20/19 04:17 Creatinine 0.4 mg/dL (0.8-1.5) L 06/20/19 04:17 Estimated GFR > 60 ml/min 06/20/19 04:17 BUN/Creatinine Ratio 20 % 06/20/19 04:17 Glucose 92 mg/dL (75-100) 06/20/19 04:17 POC Glucose 99 (70-105) 06/19/19 11:44 Lactic Acid 1.20 mmol/L (0.7-2.0) 06/14/19 05:28 Calcium 7.6 mg/dL (8.4-10.2) L 06/20/19 04:17 Phosphorus 2.70 mg/dL (2.5-4.5) D 06/18/19 04:30 Magnesium 1.70 mg/dL (1.7-2.3) 06/17/19 Unknown Total Bilirubin 0.30 mg/dL (0.1-1.2) 06/15/19 04:35 AST 21 units/L (5-40) 06/15/19 04:35 ALT 14 units/L (7-56) 06/15/19 04:35 Alkaline Phosphatase 80 units/L (35-129) 06/15/19 04:35 Troponin T 0.979 ng/mL (0.00-0.029) H* 06/14/19 03:10 Total Protein 7.1 g/dL (6.3-8.2) 06/15/19 04:35 Albumin 2.8 g/dL (3.9-5) L 06/15/19 04:35 Albumin/Globulin Ratio 0.7 % 06/15/19 04:35 Triglycerides 74 mg/dL (2-149) 06/14/19 03:10 Cholesterol 112 mg/dL (50-199) 06/14/19 03:10 LDL Cholesterol Direct 76 mg/dL (50-130) 06/14/19 03:10 HDL Cholesterol 30 mg/dL (40-59) L 06/14/19 03:10 Cholesterol/HDL Ratio 3.73 % 06/14/19 03:10 Procalcitonin 45.71 ng/mL (<0.15) 06/14/19 13:26 Urine Color Gabbie (Yellow) 06/14/19 04:35 Urine Turbidity Cloudy (Clear) 06/14/19 04:35 Urine pH 5.0 (5.0-7.0) 06/14/19 04:35 Ur Specific [place] 1.020 (1.003-1.030) 06/14/19 04:35 Urine Protein 100 mg/dl mg/dL (Negative) 06/14/19 04:35 Urine Glucose (UA) Neg mg/dL (Negative) 06/14/19 04:35 Urine Ketones Neg mg/dL (Negative) 06/14/19 04:35 Urine Blood Neg (Negative) 06/14/19 04:35 Urine Nitrite Neg (Negative) 06/14/19 04:35 Ur Reducing Substances Not Reportable 06/14/19 04:35 Urine Bilirubin Neg (Negative) 06/14/19 04:35 Urine Ictotest Not Reportable 06/14/19 04:35 Urine Urobilinogen < 2.0 mg/dL (<2.0) 06/14/19 04:35 Ur Leukocyte Esterase Tr (Negative) 06/14/19 04:35 Urine WBC (Auto) 8.0 /HPF (0.0-6.0) H 06/14/19 04:35 Urine RBC (Auto) 6.0 /HPF (0.0-6.0) 06/14/19 04:35 U Epithel Cells (Auto) 1.0 /HPF (0-13.0) 06/14/19 04:35 Urine Mucus 2+ /HPF 06/14/19 04:35 Active Medications - Current Medications Current Medications: Generic Name Dose Route Start Last Admin Trade Name Freq PRN Reason Stop Dose Admin Acetaminophen 650 mg 06/14/19 09:00 06/18/19 12:28 Tylenol PO 650 mg Q4H PRN Administration Pain MILD(1-3)/Fever >100.5/[place] Albuterol 2.5 mg 06/14/19 12:31 Proventil IH Q4HRT PRN Shortness Of Breath Famotidine 20 mg 06/18/19 10:00 06/20/19 09:41 Pepcid PO 20 mg BID HAL Administration Heparin Sodium (Porcine) 5,000 unit 06/14/19 22:00 06/20/19 09:40 Heparin SUB-Q 5,000 unit Q12HR HAL Administration Hydrophilic Ointment 1 applic 06/14/19 03:45 Vaseline Lip Therapy TP Q2HR PRN Dry Lips Fluconazole 200 mg in 100 mls @ 100 mls/hr 06/14/19 16:00 06/20/19 09:39 Diflucan IV 100 mls/hr Q24HR HAL Administration Protocol Ertapenem 1 gm/ Sodium 50 mls @ 100 mls/hr 06/18/19 16:00 06/20/19 09:39 Chloride IV 100 mls/hr QDAY HAL Administration Multi-Ingred Cream/Lotion/Oil/Oint 1 applic 06/14/19 03:45 Artificial Tears Ophth Oint OU Q4HR PRN Dry Eye(s) Ondansetron HCl 4 mg 06/14/19 09:00 06/20/19 12:13 Zofran IV 4 mg Q8H PRN Administration Nausea And Vomiting Oxycodone/Acetaminophen 1 tab 06/19/19 12:24 Percocet 5/325 PO Q6H PRN Pain, Moderate (4-6) Sodium Chloride 10 ml 06/14/19 10:00 06/20/19 09:42 Sodium Chloride Flush Syringe 10 Ml IV 10 ml BID HAL Administration Sodium Chloride 10 ml 06/14/19 09:00 Sodium Chloride Flush Syringe 10 Ml IV PRN PRN LINE FLUSH Sodium Phosphate 250 mg 06/18/19 10:00 06/20/19 09:40 K-Phos Neutral PO 250 mg QID HAL Administration Nutrition/Malnutrition Assess - Dietary Evaluation Nutrition/Malnutrition Findings: Nutrition Notes Start: 06/14/19 12:44 Freq: Status: Active Protocol: Document 06/19/19 13:59 ADELINE (Rec: 06/19/19 14:01 ADELINE [email or web address]) Co-Sign 06/19/19 13:59 LP Nutrition Notes Initial or Follow up Brief Note Subjective/Other Information Pt waiting for TELEPHONE EXCHANGE OPERATOR Nutrition Intervention Follow-Up By: 06/21/19 Additional Comments F/U for diet advancement
--- NOTE | 2019-06-20 16:24 | Progress Note ---
Assessment and Plan Cultures: Blood culture 06/14/2019 ESBL E coli 1 of 4 bottles Tracheal asp culture 06/14/2019 no growth today Assessment: 78 y/o male with a history of severe peripheral artery disease status post bilateral above the knee amputations, previous MRSA in wounds, COPD, rheumatoid arthritis, admitted on 06/14/2019 due to fever at 100.2, AMS and hypotension at 82/50 noted at his [facility] the morning of admission: 1) Severe sepsis with initial septic shock: off levophed, feer resolved; due to ESBL E coli septicemia of unclear source ?GI. UA no significant pyuria. CXR and CTA chest no obvious pneumonia or PE. Blood culture pending. CT abd ? GB or appendix abnormalities. Elevated troponins. Significantly elevated procalcitonin c/w bacterial sepsis. DDx. acute abdomen from appendicitis or cholecystitis v/s ACS v/s aspiration pneumonitis. 2) Acute respiratory failure: intubated on CPAP today 3) Acute encephalopathy: due to #1 Recommendations: continue m ertapenem IV stop fluconazole contact isolation due to ESBL Will follow. Carol Reynoso MD Infectious Diseases Field Contact Technician [facility] ([facility]) M [phone] O [phone] Subjective Date of service: 06/20/19 Principal diagnosis: Ac. hypoxemic resp failure; Severe Shock; UTI; COPD; PVD; HTN; NSTEMI; DVT Interval history: Feels better, extubated, talking no fever Objective - Exam Narrative Exam: General appearance: alert in NAD on NC O2 Eyes: anicteric sclerae, moist conjunctivae; no lid-lag; PERRLA HENT: Atraumatic; oropharynx clear Lungs: CTA CV: RRR no murmur Abdomen: Soft, non-tender; no masses or hepatosplenomegaly Extremities: no edema, no cyanosis Skin: No rash. Psych no agitated Neuro: alert follows commands Right IJ TLC - Constitutional Vitals: Vital Signs Temp Pulse Resp BP Pulse Ox 98.4 F 95 H 21 122/77 100 06/20/19 16:00 06/20/19 15:00 06/20/19 15:00 06/20/19 15:00 06/20/19 15:00 Temperature -Last 24 Hours Temperature 98.4 F Temperature 98.4 F Temperature 98.0 F Temperature 98.1 F Temperature 98.3 F Temperature 98.6 F - Labs CBC & Chem 7: 06/20/19 04:17 06/20/19 04:17 Labs: Abnormal lab results 06/20/19 06/20/19 Range/Units 04:17 04:17 RBC 3.53 L (3.65-5.03) M/mm3 Hgb 10.4 L (11.8-15.2) gm/dl Hct 31.5 L (35.5-45.6) % Lymph % (Auto) 13.0 L (13.4-35.0) % Burt % (Auto) 12.8 H (0.0-7.3) % Eos % (Auto) 9.0 H (0.0-4.3) % Lymph # 0.9 L (1.2-5.4) K/mm3 Burt # 0.9 H (0.0-0.8) K/mm3 Eos # 0.6 H (0.0-0.4) K/mm3 BUN 8 L (9-20) mg/dL Creatinine 0.4 L (0.8-1.5) mg/dL Calcium 7.6 L (8.4-10.2) mg/dL
[2019-06-20] MEDS ORDERED: REGLAN IV PRN (16:37)
[2019-06-20] MEDS: PROTONIX IV SCH (17:01)
--- NOTE | 2019-06-20 17:30 | XRay Report ---
ABDOMEN 1 VIEW(S) INDICATION / CLINICAL INFORMATION: n/v. COMPARISON: None available. FINDINGS: TUBES / LINES: None. BOWEL GAS PATTERN: There is moderate distention of the stomach as well as the proximal small bowel. T here is little if any colonic air seen. FREE AIR / EXTRALUMINAL GAS: None seen. 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 IMPRESSION: 1. The findings suggest recurring bowel obstruction. Follow-up films may be of benefit. Signer Name: Mehdi Suresh MD Signed: 06/20/2019 5:26 PM Workstation Name: [id number]
[2019-06-20] MEDS ORDERED: MORPHINE IV PRN (17:37)
[2019-06-21 05:27] LABS: Basophils % (Auto) 0.5 % (0.0-1.8); Eosinophils # (Auto) 0.1 K/mm3 (0.0-0.4); Eosinophils % (Auto) 1.9 % (0.0-4.3); Hematocrit 31.6 % (35.5-45.6); Hemoglobin 10.4 gm/dl (11.8-15.2); Lymphocytes # (Auto) 1.1 K/mm3 (1.2-5.4); Lymphocytes % (Auto) 16.6 % (13.4-35.0); Mean Corpuscular HGB Conc 33 % (32-34); Mean Corpuscular Volume 90 fl (84-94); Monocytes # (Auto) 0.9 K/mm3 (0.0-0.8); Platelet Count 351 K/mm3 (140-440); Red Cell Distribution Width 14.9 % (13.2-15.2)
[2019-06-21 05:50] LABS: BUN/Creatinine Ratio 20; Blood Urea Nitrogen 8 mg/dL (9-20); Calcium 7.6 mg/dL (8.4-10.2); Hemolysis Index 0
--- NOTE | 2019-06-21 06:38 | Progress Note ---
Assessment and Plan Acute respiratory failure, hypoxemic, s/p mechanical ventilatory support. Severe sepsis with shock, ESBL Acute encephalopathy, possibly on chronic. History of chronic obstructive pulmonary disease. History of peripheral vascular disease. History of hypertension. History of deep venous thrombosis. History of gastroesophageal reflux disease. History of arthritis. History of gout. Leukocytosis. Mild hypokalemia. Mild metabolic acidosis. Lactic acidosis. Non-ST elevation myocardial infarction -Continue with supplemental oxygen to keep O2 sat>90% -Bronchodilators per protocol -IVF while NPO -Closely monitor respiratory status- at risk of alveolar/pulmonary edema -Incentive spirometry -BIPAP qhs and prn -ABG and CXR prn -Accuchecks with glycemic control elier SSI (Target blood glucose of 140-180 mg/dL; avoid hypoglycemic) - G.I. & VTE prophylaxis - PT/OT/ROM exercises - mobility protocols for pressure ulcer prophylaxis - Monitor hemodynamics closely -continue ertapenem IV per ID -VTE and stress ulcer prophylaxis Subjective Date of service: 06/21/19 Principal diagnosis: Ac. hypoxemic resp failure; Severe Shock; UTI; COPD; PVD; HTN; NSTEMI; DVT Interval history: Patient is seen today for: Acute hypoxemic respiratory failure; Severe sepsis with shock; UTI; Acute encephalopathy; COPD; PVD; HTN; NSTEMI; H/O DVT Seen and examined at bedside; 24hour events reviewed; nursing and respiratory care staff consulted; no adverse overnight events reported to me; resting peacefully in bed; wants to drink water; otherwise feels better. Denies any chest pain, no shortness of breath, no fevers or chills. RN reports a decrease in urine output. Vitals, labs, medications, chart reviewed. Objective Vital Signs - 12hr 06/20/19 06/20/19 06/20/19 18:40 20:00 20:27 Temperature 98.5 F 98.5 F Pulse Rate 98 H 99 H 99 H Pulse Rate [ 98 H From Monitor] Respiratory 26 H 20 20 Rate Blood Pressure 123/81 123/74 O2 Sat by Pulse 100 99 99 Oximetry 06/20/19 06/21/19 06/21/19 21:30 02:42 04:00 Temperature 98.8 F 98.8 F Pulse Rate 95 H 113 H Pulse Rate [ From Monitor] Respiratory 20 Rate Blood Pressure 123/78 O2 Sat by Pulse 100 94 Oximetry Constitutional: no acute distress, alert, other (obese, awake and alert) Eyes: non-icteric, other (NGT in place) ENT: oropharynx moist Neck: supple, no lymphadenopathy, no JVD Effort: normal Ascultation: Bilateral: diminished breath sounds, rhonchi Percussion: Bilateral: not dull Cardiovascular: regular rate and rhythm, other (S1,S2) Gastrointestinal: hypoactive bowel sounds, soft, non-tender, other (distended) Integumentary: normal Extremities: no cyanosis, no edema, no ischemia or petechiae, other (s/p Bilateral AKA) Neurologic: normal mental status, non-focal exam, pupils equal and round, CN II- XII normal Psychiatric: mood appropriate, affect normal CBC and BMP: 06/24/19 04:46 06/24/19 04:46 ABG, PT/INR, D-dimer: ABG POC ABG pH 7.432 (7.35-7.45) 06/17/19 04:50 ABG pH 7.492 pH Units (7.350-7.450) H 06/18/19 11:45 POC ABG pCO2 31.5 (35-45) L 06/17/19 04:50 ABG pCO2 33.1 mm Hg 06/18/19 11:45 POC ABG pO2 135 (80-105) H 06/17/19 04:50 ABG pO2 102.2 mm Hg (80.0-90.0) H 06/18/19 11:45 POC ABG HCO3 21.0 (22-26 mml/L) 06/17/19 04:50 POC ABG Total CO2 22 (23-27mmol/L) 06/17/19 04:50 POC ABG O2 Sat 99 06/17/19 04:50 ABG O2 Saturation 98.0 % (95.0-99.0) 06/18/19 11:45 PT/INR, D-dimer PT 16.3 Sec. (12.2-14.9) H 06/14/19 05:28 INR 1.35 (0.87-1.13) H 06/14/19 05:28 Abnormal lab findings: Abnormal Labs 06/14/19 06/14/19 06/14/19 02:49 03:10 03:10 WBC RBC Hgb Hct MCHC RDW Lymph % (Auto) [place] % (Auto) Eos % (Auto) Lymph # [place] # Eos # Seg Neutrophils % Lymphocytes % (Manual) Seg Neutrophils # Seg Neutrophils # Man Lymphocytes # (Manual) PT INR POC ABG pH ABG pH POC ABG pCO2 POC ABG pO2 ABG pO2 ABG Hemoglobin Potassium 3.5 L Chloride Carbon Dioxide 20 L BUN Creatinine 0.7 L Glucose 107 H POC Glucose 117 H Lactic Acid 2.60 H* Calcium Phosphorus Troponin T 0.979 H* Albumin 3.0 L HDL Cholesterol 30 L Urine WBC (Auto) 06/14/19 06/14/19 06/14/19 04:30 04:35 05:02 WBC 11.9 H RBC 3.22 L Hgb 9.5 L Hct 28.9 L MCHC RDW Lymph % (Auto) [place] % (Auto) Eos % (Auto) Lymph # [place] # Eos # Seg Neutrophils % Lymphocytes % (Manual) 8.0 L Seg Neutrophils # Seg Neutrophils # Man 8.3 H Lymphocytes # (Manual) 1.0 L PT INR POC ABG pH 7.314 L ABG pH POC ABG pCO2 POC ABG pO2 > 400 H ABG pO2 ABG Hemoglobin Potassium Chloride Carbon Dioxide BUN Creatinine Glucose POC Glucose Lactic Acid Calcium Phosphorus Troponin T Albumin HDL Cholesterol Urine WBC (Auto) 8.0 H 06/14/19 06/15/19 06/15/19 05:28 03:30 04:35 WBC 11.2 H RBC 3.02 L Hgb 8.9 L Hct 27.1 L MCHC RDW 15.3 H Lymph % (Auto) 6.5 L [place] % (Auto) Eos % (Auto) Lymph # 0.7 L [place] # Eos # Seg Neutrophils % 86.6 H Lymphocytes % (Manual) Seg Neutrophils # 9.7 H Seg Neutrophils # Man Lymphocytes # (Manual) PT 16.3 H INR 1.35 H POC ABG pH 7.336 L ABG pH POC ABG pCO2 < 30 L POC ABG pO2 133 H ABG pO2 ABG Hemoglobin Potassium Chloride Carbon Dioxide BUN Creatinine Glucose POC Glucose Lactic Acid Calcium Phosphorus Troponin T Albumin HDL Cholesterol Urine WBC (Auto) 06/15/19 06/15/19 06/16/19 04:35 12:25 04:29 WBC RBC Hgb Hct MCHC RDW Lymph % (Auto) [place] % (Auto) Eos % (Auto) Lymph # [place] # Eos # Seg Neutrophils % Lymphocytes % (Manual) Seg Neutrophils # Seg Neutrophils # Man Lymphocytes # (Manual) PT INR POC ABG pH 7.315 L ABG pH POC ABG pCO2 POC ABG pO2 63 L 135 H ABG pO2 ABG Hemoglobin Potassium 3.3 L Chloride 110.7 H Carbon Dioxide 15 L BUN Creatinine 0.4 L Glucose 104 H POC Glucose Lactic Acid Calcium 7.8 L Phosphorus 1.80 L Troponin T Albumin 2.8 L HDL Cholesterol Urine WBC (Auto) 06/16/19 06/17/19 06/17/19 16:31 04:50 Unknown WBC RBC 2.89 L Hgb 8.4 L Hct 25.4 L MCHC RDW Lymph % (Auto) [place] % (Auto) 8.9 H Eos % (Auto) Lymph # 0.9 L [place] # Eos # Seg Neutrophils % 74.9 H Lymphocytes % (Manual) Seg Neutrophils # Seg Neutrophils # Man Lymphocytes # (Manual) PT INR POC ABG pH ABG pH POC ABG pCO2 31.5 L POC ABG pO2 135 H ABG pO2 ABG Hemoglobin Potassium Chloride Carbon Dioxide BUN Creatinine Glucose POC Glucose Lactic Acid Calcium Phosphorus 1.30 L D Troponin T Albumin HDL Cholesterol Urine WBC (Auto) 06/17/19 06/18/19 06/18/19 Unknown 04:30 04:30 WBC RBC 2.84 L Hgb 8.6 L Hct 24.8 L MCHC 35 H RDW Lymph % (Auto) 11.2 L [place] % (Auto) 9.7 H Eos % (Auto) 4.6 H Lymph # 0.7 L [place] # Eos # Seg Neutrophils % 74.1 H Lymphocytes % (Manual) Seg Neutrophils # Seg Neutrophils # Man Lymphocytes # (Manual) PT INR POC ABG pH ABG pH POC ABG pCO2 POC ABG pO2 ABG pO2 ABG Hemoglobin Potassium 3.0 L 3.4 L Chloride 107.3 H 108.0 H Carbon Dioxide BUN 8 L 7 L Creatinine 0.3 L 0.3 L Glucose 171 H 155 H POC Glucose Lactic Acid Calcium 7.3 L 6.9 L Phosphorus 1.30 L Troponin T Albumin HDL Cholesterol Urine WBC (Auto) 06/18/19 06/18/19 06/19/19 11:45 11:46 00:29 WBC RBC Hgb Hct MCHC RDW Lymph % (Auto) [place] % (Auto) Eos % (Auto) Lymph # [place] # Eos # Seg Neutrophils % Lymphocytes % (Manual) Seg Neutrophils # Seg Neutrophils # Man Lymphocytes # (Manual) PT INR POC ABG pH ABG pH 7.492 H POC ABG pCO2 POC ABG pO2 ABG pO2 102.2 H ABG Hemoglobin 9.0 L Potassium Chloride Carbon Dioxide BUN Creatinine Glucose POC Glucose 115 H 134 H Lactic Acid Calcium Phosphorus Troponin T Albumin HDL Cholesterol Urine WBC (Auto) 06/19/19 06/19/19 06/20/19 05:01 05:01 04:17 WBC RBC 3.18 L 3.53 L Hgb 9.5 L 10.4 L Hct 28.1 L 31.5 L MCHC RDW 15.3 H Lymph % (Auto) 10.5 L 13.0 L [place] % (Auto) 11.9 H 12.8 H Eos % (Auto) 4.9 H 9.0 H Lymph # 0.8 L 0.9 L [place] # 1.0 H 0.9 H Eos # 0.6 H Seg Neutrophils % 72.2 H Lymphocytes % (Manual) Seg Neutrophils # Seg Neutrophils # Man Lymphocytes # (Manual) PT INR POC ABG pH ABG pH POC ABG pCO2 POC ABG pO2 ABG pO2 ABG Hemoglobin Potassium Chloride 107.4 H Carbon Dioxide BUN 7 L Creatinine 0.3 L Glucose POC Glucose Lactic Acid Calcium 7.3 L Phosphorus Troponin T Albumin HDL Cholesterol Urine WBC (Auto) 06/20/19 06/21/19 06/21/19 04:17 04:40 04:40 WBC RBC 3.50 L Hgb 10.4 L Hct 31.6 L MCHC RDW Lymph % (Auto) [place] % (Auto) 13.0 H Eos % (Auto) Lymph # 1.1 L [place] # 0.9 H Eos # Seg Neutrophils % Lymphocytes % (Manual) Seg Neutrophils # Seg Neutrophils # Man Lymphocytes # (Manual) PT INR POC ABG pH ABG pH POC ABG pCO2 POC ABG pO2 ABG pO2 ABG Hemoglobin Potassium Chloride Carbon Dioxide 20 L D BUN 8 L 8 L Creatinine 0.4 L 0.4 L Glucose 66 L POC Glucose Lactic Acid Calcium 7.6 L 7.6 L Phosphorus Troponin T Albumin HDL Cholesterol Urine WBC (Auto) Chest x-ray: image reviewed Allied health notes reviewed: nursing
[2019-06-21] MEDS ORDERED: D50W (25GM) Syringe IV PRN (06:50)
[2019-06-21] MEDS ORDERED: NACL 0.9% 1000 ML 1,000 ML IV SCH (08:00)
--- NOTE | 2019-06-21 09:20 | Progress Note ---
Assessment and Plan 78-year-old male with nausea, vomiting r/o small bowel obstruction 1. Nothing by mouth 2. IVF - D5NS +20KCL @100cc/hr 3. monitor electrolytes 4. obstruction series 06/21/19 - report pending. Images reviewed - dilated small bowel loops with minimal colonic air. 5. NGT to LIWS 6. prn nausea control 7. repeat obs series in am Will follow patient's clinical course. Patient has a benign abdomen and was having BMs up until yesterday. If no improvement, will repeat CT scan A/P with oral contrast. Thank you, please call with questions or concerns. Dr. Nina will be rounding Tuesday through Tuesday. Subjective Date of service: 06/21/19 Narrative: Reconsult placed a surgery for possible small bowel obstruction. Patient was seen and examined. Yesterday prior to being moved from the ICU to the floor, the patient is noted to have multiple episodes of emesis. Today the patient states he feels well. NG tube was placed last night by nursing and hooked to low intermittent suction. The patient states he had multiple bowel movements yesterday. Since then he has not had any additional bowel movements but has been passing flatus. He denies abdominal pain. No fevers, chills, chest pain, shortness of breath, nausea, vomiting. Objective Vital Signs - 12hr 06/20/19 06/21/19 06/21/19 21:30 02:42 04:00 Temperature 98.8 F 98.8 F Pulse Rate 95 H 113 H Respiratory 20 Rate Blood Pressure 123/78 O2 Sat by Pulse 100 94 Oximetry 06/21/19 06/21/19 07:41 08:24 Temperature 99.1 F Pulse Rate 90 Respiratory 20 Rate Blood Pressure 121/60 O2 Sat by Pulse 100 95 Oximetry - General physical appearance Narrative Exam: Gen.: Awake, alert, oriented 3. NAD ENT: no scleral icterus or conjunctival pallor. NG tube in place, light green drainage in tubing CV: S1, S2 present Respiratory: No audible wheezes Abdomen: Soft, nondistended, nontender, protuberant. No rebound, rigidity, guarding. No abdominal wall or inguinal hernia Extremities: No clubbing, cyanosis, edema - Labs 06/21/19 04:40 06/21/19 04:40 Diabetes panel 06/21/19 Range/Units 04:40 Sodium 144 (137-145) mmol/L Potassium 3.7 (3.6-5.0) mmol/L Chloride 104.5 (98-107) mmol/L Carbon Dioxide 20 L D (22-30) mmol/L BUN 8 L (9-20) mg/dL Creatinine 0.4 L (0.8-1.5) mg/dL Glucose 66 L (75-100) mg/dL Calcium 7.6 L (8.4-10.2) mg/dL Calcium panel 06/21/19 Range/Units 04:40 Calcium 7.6 L (8.4-10.2) mg/dL Pituitary panel 06/21/19 Range/Units 04:40 Sodium 144 (137-145) mmol/L Potassium 3.7 (3.6-5.0) mmol/L Chloride 104.5 (98-107) mmol/L Carbon Dioxide 20 L D (22-30) mmol/L BUN 8 L (9-20) mg/dL Creatinine 0.4 L (0.8-1.5) mg/dL Glucose 66 L (75-100) mg/dL Calcium 7.6 L (8.4-10.2) mg/dL Adrenal panel 06/21/19 Range/Units 04:40 Sodium 144 (137-145) mmol/L Potassium 3.7 (3.6-5.0) mmol/L Chloride 104.5 (98-107) mmol/L Carbon Dioxide 20 L D (22-30) mmol/L BUN 8 L (9-20) mg/dL Creatinine 0.4 L (0.8-1.5) mg/dL Glucose 66 L (75-100) mg/dL Calcium 7.6 L (8.4-10.2) mg/dL
--- NOTE | 2019-06-21 09:52 | XRay Report ---
PROCEDURE: ABDOMEN FLAT AND UPRIGHT WITH SINGLE VIEW CHEST HISTORY: n/v, sbo COMPARISON: 06/14/2019 CT TECHNIQUE: Supine and upright abdominal as well as single view chest radiographs obtained. FINDINGS: Lungs: The lung volumes and right basal subsegmental atelectasis. Pleural Effusion: No evidence of a pleural effusion is seen. Pneumothorax: No evidence of pneumothorax is seen. Cardiac: The heart size is normal. Mediastinal silhouette: The mediastinal silhouette is normal. Hilar regions: The hilar regions are normal in appearance. Pulmonary vascularity: The pulmonary vascularity is normal in appearance. Trachea: The trachea is midline. Skeletal structures: The skeletal structures are normal in appearance. Support hardware: A nasogastric tube tip is at the EG junction. Additional findings: None. Bowel: Moderate distention of proximal and mid small bowel with no air-fluid levels on the upright vi ew. Minimal colon gas in the hepatic flexure and the sigmoid. No free air.. Calcifications: No abnormal calcifications over the kidneys or along the course of the ureters are se en. No phleboliths in the pelvis are seen. Osseous Structures: The skeletal structures are unremarkable in appearance. Additional findings: None. IMPRESSION: 1. Negative chest. 2. Distended proximal and mid small bowel with a pattern consistent with small bowel obstruction. No evidence of perforation. 3. Proximal position of the nasogastric tube with the tip at the EG junction. Recommend repositioning of the nasogastric tube. Signer Name: Gary Hancock MD Signed: 06/21/2019 9:48 AM Workstation Name: [id number]
[2019-06-21] MEDS: HEPARIN SUB-Q SCH ×2 (10:57→22:26)
[2019-06-21] MEDS: SODIUM CHLORIDE FLUSH SYRINGE 10 ML IV SCH ×2 (10:58→22:25)
[2019-06-21] MEDS: PROTONIX IV SCH (10:58)
[2019-06-21] MEDS: INVanz 1 GM in NACL 0.9% 50 ML IV SCH (11:00)
[2019-06-21] MEDS: D5W/NS W/KCL 20MEQ 20 MEQ/1,000 ML BAG IV SCH ×2 (11:28→23:15)
--- NOTE | 2019-06-21 11:31 | Progress Note ---
Assessment and Plan Cultures: Blood culture 06/14/2019 ESBL E coli 1 of 4 bottles Tracheal asp culture 06/14/2019 no growth today Assessment: 78 y/o male with a history of severe peripheral artery disease status post bilateral above the knee amputations, previous MRSA in wounds, COPD, rheumatoid arthritis, admitted on 06/14/2019 due to fever at 100.2, AMS and hypotension at 82/50 noted at his [facility] the morning of admission: 1) Severe sepsis with septic shock: off levophed, still low grade fever; due to ESBL E coli septicemia of unclear source ?GI. Patient with acute symptoms of fever, hypotension, no clear history of events. UA no significant pyuria. CXR and CTA chest no obvious pneumonia or PE. Blood culture pending. CT abd ? GB or appendix abnormalities. Elevated troponins. DDx. acute abdomen from appendicitis or cholecystitis v/s ACS v/s aspiration pneumonitis. Noted surgery's recommendation re: chronically thickened appendix. Possible recurrent obstruction noted on AXR. Surgery re-consulted. 2) Acute respiratory failure: intubated on CPAP today 3) Acute encephalopathy: due to #1 Recommendations: - continue ertapenem 1g q24h Will follow. Saida Aaron MD [facility] ([facility]) M: [phone] O: [phone] F: [phone] Subjective Date of service: 06/21/19 Principal diagnosis: Ac. hypoxemic resp failure; Severe Shock; UTI; COPD; PVD; HTN; NSTEMI; DVT Interval history: Afebrile with normal white count. Multiple episodes of emesis. AXR with possible recurrent obstruction. Objective - Exam Narrative Exam: General appearance: sedated but opening eyes intubated on CPAP Eyes: anicteric sclerae, moist conjunctivae; no lid-lag; PERRLA HENT: Atraumatic; oropharynx clear +ETT and NGT Lungs: CTA CV: RRR no murmur Abdomen: Soft, non-tender; no masses or hepatosplenomegaly Extremities: no edema, no cyanosis Skin: No rash. Psych:sedated. Neuro: sedated Right IJ TLC - Constitutional Vitals: Vital Signs Temp Pulse Resp BP Pulse Ox 99.1 F 90 20 121/60 95 06/21/19 07:41 06/21/19 07:41 06/21/19 07:41 06/21/19 07:41 06/21/19 08:24 Temperature -Last 24 Hours Temperature 99.1 F Temperature 98.8 F Temperature 98.8 F Temperature 98.5 F Temperature 98.5 F Temperature 98.4 F Temperature 98.4 F - Labs CBC & Chem 7: 06/21/19 04:40 06/21/19 04:40 Labs: Abnormal lab results 06/21/19 06/21/19 06/21/19 Range/Units 04:40 04:40 06:49 RBC 3.50 L (3.65-5.03) M/mm3 Hgb 10.4 L (11.8-15.2) gm/dl Hct 31.6 L (35.5-45.6) % [place] % (Auto) 13.0 H (0.0-7.3) % Lymph # 1.1 L (1.2-5.4) K/mm3 [place] # 0.9 H (0.0-0.8) K/mm3 Carbon Dioxide 20 L D (22-30) mmol/L BUN 8 L (9-20) mg/dL Creatinine 0.4 L (0.8-1.5) mg/dL Glucose 66 L (75-100) mg/dL POC Glucose 62 L (70-105) Calcium 7.6 L (8.4-10.2) mg/dL
[2019-06-21] MEDS: CARDIZEM PO SCH ×2 (13:00→18:00)
--- NOTE | 2019-06-21 13:04 | Progress Note ---
Assessment and Plan Severe sepsis Acute respiratory failure s/p extubation Acute encephalopathy -improved Peripheral arterial disease s/p bilateral knee amputation COPD Paroxysmal Atrial fibrillation Echo showing LVEF 50-55% Continue medical therapy for paroxysmal atrial fibrillation. Subjective Date of service: 06/21/19 Principal diagnosis: Ac. hypoxemic resp failure; Severe Shock; UTI; COPD; PVD; HTN; NSTEMI; DVT Interval history: Patient has no cardiac complaints. Objective Vital Signs Temp Pulse Pulse Resp BP Pulse Ox 06/21/19 08:24 95 06/21/19 07:41 99.1 F 90 20 121/60 100 06/21/19 04:00 98.8 F 113 H 06/21/19 02:42 98.8 F 95 H 20 123/78 94 06/20/19 21:30 100 06/20/19 20:27 98.5 F 99 H 20 123/74 99 06/20/19 20:00 98.5 F 99 H 98 H 20 99 06/20/19 18:40 98 H 26 H 123/81 100 06/20/19 18:00 98 H 19 109/77 100 06/20/19 17:00 94 H 20 109/77 100 06/20/19 16:00 98.4 F 96 H 98 H 21 127/77 100 06/20/19 15:00 95 H 21 122/77 100 06/20/19 14:00 79 22 115/74 100 - Physical Examination General: No Apparent Distress HEENT: Positive: PERRL Neck: Positive: trachea midline Cardiac: Positive: irregularly irregular Lungs: Positive: Decreased Breath Sounds Neuro: Positive: Other (bilateral LE amputation) - Labs and Meds CBC 06/21/19 Range/Units 04:40 WBC 6.6 (4.5-11.0) K/mm3 RBC 3.50 L (3.65-5.03) M/mm3 Hgb 10.4 L (11.8-15.2) gm/dl Hct 31.6 L (35.5-45.6) % Plt Count 351 (140-440) K/mm3 Lymph # 1.1 L (1.2-5.4) K/mm3 [place] # 0.9 H (0.0-0.8) K/mm3 Eos # 0.1 (0.0-0.4) K/mm3 Baso # 0.0 (0.0-0.1) K/mm3 Comprehensive Metabolic Panel 06/21/19 Range/Units 04:40 Sodium 144 (137-145) mmol/L Potassium 3.7 (3.6-5.0) mmol/L Chloride 104.5 (98-107) mmol/L Carbon Dioxide 20 L D (22-30) mmol/L BUN 8 L (9-20) mg/dL Creatinine 0.4 L (0.8-1.5) mg/dL Glucose 66 L (75-100) mg/dL Calcium 7.6 L (8.4-10.2) mg/dL - Allied health notes Allied health notes reviewed: nursing
--- NOTE | 2019-06-21 15:57 | Progress Note ---
Assessment and Plan Assessment and plan: Patient is a 78-year-old man from [facility] with a history of PAD s/p BKA, hypertension, DVT on A/C, hypertension, GERD, OA and Gout who presented to [facility] ED with confusion, lethargy, low grade fever, tachycardia and hypotension. He was intubated in the ER for airway protection on 06/14/19 and extubated on 06/18/19. * Chest x-ray; no acute findings * CT abd/pelvis with contrast IMPRESSION: Abnormal appearance of the gallbladder and appendix as outlined above. Correlate for gallbladder symptoms and a ppendicitis. Cystitis could be considered. Suspicious 1.8 cm left renal lesion as described above. Further imaging is recommended. Severe osteopenia. * CT angiogram chest, no PE, bibasilar atelectasis * CT head, essentially normal for age SBO (new issue): NPO, ngt to LIS, GS input noted, imaging tomorrow Urine retention (new issue) with Left renal mass 257cc on bladder scan, 340 cc expelled on straight cath. not a simple cyst per Abdominal U/S: Consult Urology Septic shock/ESBL E. coli bacteremia: ID input noted, treated with IV aBX, Source of bacteremia still unclear, Appendicitis ruled out, Surgery input appreciated Cholelithiasis; GS evaluated, input noted Acute respiratory failure on mechanical ventilator < 96 hours, now extubated on 06/18/19continue ventilator, management per pulmonology Hypokalemia/hypophosphatemia: Repleted IV TYpe 2 NSTEMI, PAF, mgt per cardiology, input noted Acute metabolic encephalopathy DVT prophylaxis reviewed Disposition: continue inpatient care, once SBO resolves and ID give final abx recommendation then d.c back to [facility] I called daughter Shari Malagon at [phone] at 1606 pm. NO answer. History Interval history: Patient was seen and examined. Follow-up on current diagnosis of Respiratory failure, extubated doing well No overnight events reported to me. Patient denies any chest pain, shortness breath, nausea/vomiting or severe headaches. Imaging, nursing note, chart, labs and old chart reviewed. Discussed with patient. Hospitalist Physical - Physical exam Narrative exam: Gen: ill appearing, nad, alert awake oriented x 3 HEENT: NCAT, EOMI, PERRL, OP Clear Neck: supple, no adenopathy, no thyromegaly, no JVD CVS/Heart: RRR, normal S1S2, pulses present bilaterally Chest/Lungs: CTA B, Symmetrical chest expansion, good air entry bilaterally GI/Abdomen: soft, NTND, good bowel sounds, no guarding or rebound /Bladder: no suprapubic tenderness, no CVA or paraspinal tenderness Extermity/Skin: no c/c/e, no obvious rash MSK: FROM x 4, bilateral AKA Neuro: CN 2-12 grossly intact, no new focal deficits Psych: calm - Constitutional Vitals: Temp Pulse Resp BP Pulse Ox 98.8 F 87 18 130/64 100 06/21/19 12:37 06/21/19 12:37 06/21/19 12:37 06/21/19 12:37 06/21/19 12:37 General appearance: Present: other (intubated on the vent) Results - Labs CBC & Chem 7: 06/21/19 04:40 06/21/19 04:40 Labs: Laboratory Last Values WBC 6.6 K/mm3 (4.5-11.0) 06/21/19 04:40 RBC 3.50 M/mm3 (3.65-5.03) L 06/21/19 04:40 Hgb 10.4 gm/dl (11.8-15.2) L 06/21/19 04:40 Hct 31.6 % (35.5-45.6) L 06/21/19 04:40 MCV 90 fl (84-94) 06/21/19 04:40 MCH 30 pg (28-32) 06/21/19 04:40 MCHC 33 % (32-34) 06/21/19 04:40 RDW 14.9 % (13.2-15.2) 06/21/19 04:40 Plt Count 351 K/mm3 (140-440) 06/21/19 04:40 Lymph % (Auto) 16.6 % (13.4-35.0) 06/21/19 04:40 [place] % (Auto) 13.0 % (0.0-7.3) H 06/21/19 04:40 Eos % (Auto) 1.9 % (0.0-4.3) 06/21/19 04:40 Baso % (Auto) 0.5 % (0.0-1.8) 06/21/19 04:40 Lymph # 1.1 K/mm3 (1.2-5.4) L 06/21/19 04:40 [place] # 0.9 K/mm3 (0.0-0.8) H 06/21/19 04:40 Eos # 0.1 K/mm3 (0.0-0.4) 06/21/19 04:40 Baso # 0.0 K/mm3 (0.0-0.1) 06/21/19 04:40 Add Manual Diff Complete 06/14/19 04:30 Total Counted 100 06/14/19 04:30 Seg Neutrophils % 68.0 % (40.0-70.0) 06/21/19 04:40 Seg Neuts % (Manual) 70.0 % (40.0-70.0) 06/14/19 04:30 Band Neutrophils % 18.0 % 06/14/19 04:30 Lymphocytes % (Manual) 8.0 % (13.4-35.0) L 06/14/19 04:30 Reactive Lymphs % (Man) 0 % 06/14/19 04:30 Monocytes % (Manual) 4.0 % (0.0-7.3) 06/14/19 04:30 Eosinophils % (Manual) 0 % (0.0-4.3) 06/14/19 04:30 Basophils % (Manual) 0 % (0.0-1.8) 06/14/19 04:30 Metamyelocytes % 0 % 06/14/19 04:30 Myelocytes % 0 % 06/14/19 04:30 Promyelocytes % 0 % 06/14/19 04:30 Blast Cells % 0 % 06/14/19 04:30 Nucleated RBC % Not Reportable 06/14/19 04:30 Seg Neutrophils # 4.5 K/mm3 (1.8-7.7) 06/21/19 04:40 Seg Neutrophils # Man 8.3 K/mm3 (1.8-7.7) H 06/14/19 04:30 Band Neutrophils # 2.1 K/mm3 06/14/19 04:30 Lymphocytes # (Manual) 1.0 K/mm3 (1.2-5.4) L 06/14/19 04:30 Abs React Lymphs (Man) 0.0 K/mm3 06/14/19 04:30 Monocytes # (Manual) 0.5 K/mm3 (0.0-0.8) 06/14/19 04:30 Eosinophils # (Manual) 0.0 K/mm3 (0.0-0.4) 06/14/19 04:30 Basophils # (Manual) 0.0 K/mm3 (0.0-0.1) 06/14/19 04:30 Metamyelocytes # 0.0 K/mm3 06/14/19 04:30 Myelocytes # 0.0 K/mm3 06/14/19 04:30 Promyelocytes # 0.0 K/mm3 06/14/19 04:30 Blast Cells # 0.0 K/mm3 06/14/19 04:30 WBC Morphology Not Reportable 06/14/19 04:30 Hypersegmented Neuts Not Reportable 06/14/19 04:30 Hyposegmented Neuts Not Reportable 06/14/19 04:30 Hypogranular Neuts Not Reportable 06/14/19 04:30 Smudge Cells Not Reportable 06/14/19 04:30 Toxic Granulation Not Reportable 06/14/19 04:30 Toxic Vacuolation Not Reportable 06/14/19 04:30 Dohle Bodies Not Reportable 06/14/19 04:30 Pelger-Huet Anomaly Not Reportable 06/14/19 04:30 Raymundo Rods Not Reportable 06/14/19 04:30 Platelet Estimate Consistent w auto 06/14/19 04:30 Clumped Platelets Not Reportable 06/14/19 04:30 Plt Clumps, EDTA Not Reportable 06/14/19 04:30 Large Platelets Rare 06/14/19 04:30 Giant Platelets Not Reportable 06/14/19 04:30 Platelet Satelliting Not Reportable 06/14/19 04:30 Plt Morphology Comment Not Reportable 06/14/19 04:30 RBC Morphology Not Reportable 06/14/19 04:30 Dimorphic RBCs Not Reportable 06/14/19 04:30 Polychromasia Not Reportable 06/14/19 04:30 Hypochromasia Not Reportable 06/14/19 04:30 Poikilocytosis Not Reportable 06/14/19 04:30 Anisocytosis Rare 06/14/19 04:30 Microcytosis Not Reportable 06/14/19 04:30 Macrocytosis Not Reportable 06/14/19 04:30 Spherocytes Not Reportable 06/14/19 04:30 Pappenheimer Bodies Not Reportable 06/14/19 04:30 Sickle Cells Not Reportable 06/14/19 04:30 Target Cells Not Reportable 06/14/19 04:30 Tear Drop Cells Not Reportable 06/14/19 04:30 Ovalocytes Rare 06/14/19 04:30 Helmet Cells Not Reportable 06/14/19 04:30 Hardy-Ramsey Bodies Not Reportable 06/14/19 04:30 [place] Rings Not Reportable 06/14/19 04:30 Davina Cells Rare 06/14/19 04:30 Bite Cells Not Reportable 06/14/19 04:30 Crenated Cell Not Reportable 06/14/19 04:30 Elliptocytes Not Reportable 06/14/19 04:30 Acanthocytes (Spur) Not Reportable 06/14/19 04:30 Rouleaux Not Reportable 06/14/19 04:30 Hemoglobin C Crystals Not Reportable 06/14/19 04:30 Schistocytes Not Reportable 06/14/19 04:30 Malaria parasites Not Reportable 06/14/19 04:30 Paulie Bodies Not Reportable 06/14/19 04:30 Hem Pathologist Commnt No 06/14/19 04:30 PT 16.3 Sec. (12.2-14.9) H 06/14/19 05:28 INR 1.35 (0.87-1.13) H 06/14/19 05:28 APTT 34.7 Sec. (24.2-36.6) 06/14/19 05:28 POC ABG pH 7.432 (7.35-7.45) 06/17/19 04:50 ABG pH 7.492 pH Units (7.350-7.450) H 06/18/19 11:45 POC ABG pCO2 31.5 (35-45) L 06/17/19 04:50 ABG pCO2 33.1 mm Hg 06/18/19 11:45 POC ABG pO2 135 (80-105) H 06/17/19 04:50 ABG pO2 102.2 mm Hg (80.0-90.0) H 06/18/19 11:45 POC ABG HCO3 21.0 (22-26 mml/L) 06/17/19 04:50 ABG HCO3 24.8 mmol/L (20.0-26.0) 06/18/19 11:45 POC ABG Total CO2 22 (23-27mmol/L) 06/17/19 04:50 POC ABG O2 Sat 99 06/17/19 04:50 ABG O2 Saturation 98.0 % (95.0-99.0) 06/18/19 11:45 ABG O2 Content 12.4 (0.0-44) 06/18/19 11:45 POC ABG Base Excess -3 ((-2) - (+3)mmol/L) 06/17/19 04:50 ABG Base Excess 1.6 mmol/L (-2.0-3.0) 06/18/19 11:45 ABG Hemoglobin 9.0 gm/dl (14.0-18.0) L 06/18/19 11:45 ABG Carboxyhemoglobin 1.4 % (0.0-5.0) 06/18/19 11:45 ABG Methemoglobin 0.4 % (0.0-1.5) 06/18/19 11:45 Oxyhemoglobin 96.2 % (95.0-99.0) 06/18/19 11:45 FiO2 25 % 06/18/19 11:45 Sodium 144 mmol/L (137-145) 06/21/19 04:40 Potassium 3.7 mmol/L (3.6-5.0) 06/21/19 04:40 Chloride 104.5 mmol/L (98-107) 06/21/19 04:40 Carbon Dioxide 20 mmol/L (22-30) L D 06/21/19 04:40 Anion Gap 23 mmol/L 06/21/19 04:40 BUN 8 mg/dL (9-20) L 06/21/19 04:40 Creatinine 0.4 mg/dL (0.8-1.5) L 06/21/19 04:40 Estimated GFR > 60 ml/min 06/21/19 04:40 BUN/Creatinine Ratio 20 % 06/21/19 04:40 Glucose 66 mg/dL (75-100) L 06/21/19 04:40 POC Glucose 110 (70-105) H 06/21/19 11:53 Lactic Acid 1.20 mmol/L (0.7-2.0) 06/14/19 05:28 Calcium 7.6 mg/dL (8.4-10.2) L 06/21/19 04:40 Phosphorus 2.70 mg/dL (2.5-4.5) D 06/18/19 04:30 Magnesium 1.70 mg/dL (1.7-2.3) 06/17/19 Unknown Total Bilirubin 0.30 mg/dL (0.1-1.2) 06/15/19 04:35 AST 21 units/L (5-40) 06/15/19 04:35 ALT 14 units/L (7-56) 06/15/19 04:35 Alkaline Phosphatase 80 units/L (35-129) 06/15/19 04:35 Troponin T 0.979 ng/mL (0.00-0.029) H* 06/14/19 03:10 Total Protein 7.1 g/dL (6.3-8.2) 06/15/19 04:35 Albumin 2.8 g/dL (3.9-5) L 06/15/19 04:35 Albumin/Globulin Ratio 0.7 % 06/15/19 04:35 Triglycerides 74 mg/dL (2-149) 06/14/19 03:10 Cholesterol 112 mg/dL (50-199) 06/14/19 03:10 LDL Cholesterol Direct 76 mg/dL (50-130) 06/14/19 03:10 HDL Cholesterol 30 mg/dL (40-59) L 06/14/19 03:10 Cholesterol/HDL Ratio 3.73 % 06/14/19 03:10 Procalcitonin 45.71 ng/mL (<0.15) 06/14/19 13:26 Urine Color Gabbie (Yellow) 06/14/19 04:35 Urine Turbidity Cloudy (Clear) 06/14/19 04:35 Urine pH 5.0 (5.0-7.0) 06/14/19 04:35 Ur Specific [place] 1.020 (1.003-1.030) 06/14/19 04:35 Urine Protein 100 mg/dl mg/dL (Negative) 06/14/19 04:35 Urine Glucose (UA) Neg mg/dL (Negative) 06/14/19 04:35 Urine Ketones Neg mg/dL (Negative) 06/14/19 04:35 Urine Blood Neg (Negative) 06/14/19 04:35 Urine Nitrite Neg (Negative) 06/14/19 04:35 Ur Reducing Substances Not Reportable 06/14/19 04:35 Urine Bilirubin Neg (Negative) 06/14/19 04:35 Urine Ictotest Not Reportable 06/14/19 04:35 Urine Urobilinogen < 2.0 mg/dL (<2.0) 06/14/19 04:35 Ur Leukocyte Esterase Tr (Negative) 06/14/19 04:35 Urine WBC (Auto) 8.0 /HPF (0.0-6.0) H 06/14/19 04:35 Urine RBC (Auto) 6.0 /HPF (0.0-6.0) 06/14/19 04:35 U Epithel Cells (Auto) 1.0 /HPF (0-13.0) 06/14/19 04:35 Urine Mucus 2+ /HPF 06/14/19 04:35 Active Medications - Current Medications Current Medications: Generic Name Dose Route Start Last Admin Trade Name Freq PRN Reason Stop Dose Admin Albuterol 2.5 mg 06/14/19 12:31 Proventil IH Q4HRT PRN Shortness Of Breath Dextrose 50 ml 06/21/19 06:50 06/21/19 07:19 D50w (25gm) Syringe IV 50 ml PRN PRN Administration Hypoglycemia Diltiazem HCl 30 mg 06/21/19 12:00 06/21/19 13:00 Cardizem PO Not Given Q6HR HAL Heparin Sodium (Porcine) 5,000 unit 06/14/19 22:00 06/21/19 10:57 Heparin SUB-Q 5,000 unit Q12HR HAL Administration Hydrophilic Ointment 1 applic 06/14/19 03:45 Vaseline Lip Therapy TP Q2HR PRN Dry Lips Ertapenem 1 gm/ Sodium 50 mls @ 100 mls/hr 06/18/19 16:00 06/21/19 11:00 Chloride IV 100 mls/hr QDAY HAL Administration Potassium Chloride/Dextrose/Sod Cl 20 meq in 1,000 mls @ 100 mls/hr 06/21/19 09:00 06/21/19 11:28 D5w/Ns W/Kcl 20meq IV 100 mls/hr DIRECT HAL Administration Metoclopramide HCl 10 mg 06/20/19 16:37 06/20/19 17:01 Reglan IV 10 mg Q8H PRN Administration Nausea And Vomiting Morphine Sulfate 2 mg 06/20/19 17:37 Morphine IV Q4H PRN Pain , Severe (7-10) Multi-Ingred Cream/Lotion/Oil/Oint 1 applic 06/14/19 03:45 Artificial Tears Ophth Oint OU Q4HR PRN Dry Eye(s) Ondansetron HCl 4 mg 06/14/19 09:00 06/20/19 12:13 Zofran IV 4 mg Q8H PRN Administration Nausea And Vomiting Pantoprazole Sodium 40 mg 06/20/19 17:00 06/21/19 10:58 Protonix IV 40 mg QDAY HAL Administration Sodium Chloride 10 ml 06/14/19 10:00 06/21/19 10:58 Sodium Chloride Flush Syringe 10 Ml IV 10 ml BID HAL Administration Sodium Chloride 10 ml 06/14/19 09:00 Sodium Chloride Flush Syringe 10 Ml IV PRN PRN LINE FLUSH Nutrition/Malnutrition Assess - Dietary Evaluation Nutrition/Malnutrition Findings: Nutrition Notes Start: 06/14/19 12:44 Freq: Status: Active Protocol: Document 06/21/19 13:17 RS (Rec: 06/21/19 13:53 RS [id number]) Co-Sign 06/21/19 13:17 LM Nutrition Notes Initial or Follow up Reassessment Current Diagnosis Hypertension Other Pertinent Diagnosis DVT, GERD, left AKA, right BKA , sepsis Current Diet NPO Labs/Tests reviewed Pertinent Medications reviewed Height 4 ft 3 in Weight 80.6 kg [place] Body Weight (kg) 23.63 BMI 48.0 Subjective/Other Information Pt nonverbal and disoriented. Pt currently NPO d/t MBS test . Pt was on cardiac diet yesterday but diet hx was unable to be retrieved from nurse. Percent of energy/protein needs met: 0%/0% Burn Absent Trauma Absent Minimum of two criteria No #1 Nutrition Diagnosis Inadequate oral intake Etiology MBS As Evidenced by Signs and Symptoms NPO Diagnosis Progress(for reassessment Continues documentation) Is patient on ventilator? No Is Patient Ambulatory and/or Out of Bed No REE-([facility] oRnysc-confined to bed) [phone] Calculation Used for Recommendations [facility] Additional Notes Protein needs: 28-34g/kg (1-1. 2 of AdBw 28kg) Fluid needs: 1ml/kcal Nutrition Intervention Change Diet Order: Continue NPO until diet advancement from MD Goal #1 Meet at least 85% of energy and protein needs Anticipated Discharge Needs: Unable to determine at this time Follow-Up By: 06/25/19 Additional Comments F/U for diet advancement
[2019-06-22] MEDS: CARDIZEM PO SCH ×3 (00:39→17:24)
[2019-06-22 04:59] LABS: Basophils % (Auto) 0.5 % (0.0-1.8); Eosinophils # (Auto) 0.2 K/mm3 (0.0-0.4); Eosinophils % (Auto) 4.2 % (0.0-4.3); Hematocrit 29.4 % (35.5-45.6); Hemoglobin 9.7 gm/dl (11.8-15.2); Lymphocytes # (Auto) 0.9 K/mm3 (1.2-5.4); Lymphocytes % (Auto) 16.8 % (13.4-35.0); Mean Corpuscular HGB Conc 33 % (32-34); Mean Corpuscular Volume 89 fl (84-94); Monocytes # (Auto) 0.7 K/mm3 (0.0-0.8); Monocytes % (Auto) 13.8 % (0.0-7.3); Platelet Count 373 K/mm3 (140-440); Red Blood Count 3.29 M/mm3 (3.65-5.03); Red Cell Distribution Width 15.2 % (13.2-15.2)
[2019-06-22 05:21] LABS: BUN/Creatinine Ratio 15; Blood Urea Nitrogen 6 mg/dL (9-20); Calcium 7.3 mg/dL (8.4-10.2); Hemolysis Index 1
--- NOTE | 2019-06-22 09:50 | Progress Note ---
Assessment and Plan Small bowel obstruction Severe sepsis E coli septicemia Acute respiratory failure s/p extubation Acute encephalopathy -improved Peripheral arterial disease s/p bilateral knee amputation COPD Paroxysmal Atrial fibrillation Echo showing LVEF 50-55% Continue medical therapy for paroxysmal atrial fibrillation. Subjective Date of service: 06/22/19 Principal diagnosis: Ac. hypoxemic resp failure; Severe Shock; UTI; COPD; PVD; HTN; NSTEMI; DVT Interval history: Patient has no cardiac complaints. Objective Vital Signs Temp Pulse Pulse Resp BP Pulse Ox 06/22/19 08:00 90 06/22/19 07:41 98.9 F 86 18 163/80 100 06/22/19 02:31 98.9 F 75 18 165/78 100 06/22/19 02:00 82 18 100 06/21/19 21:13 98 06/21/19 20:25 98.8 F 82 18 148/78 100 06/21/19 12:37 98.8 F 87 18 130/64 100 - Physical Examination General: No Apparent Distress HEENT: Positive: PERRL Neck: Positive: trachea midline Cardiac: Positive: irregularly irregular Lungs: Positive: Decreased Breath Sounds Neuro: Positive: Other (bilateral LE amputation) Extremities: Present: Other (bilateral LE amputation) - Labs and Meds CBC 06/22/19 Range/Units 04:01 WBC 5.4 (4.5-11.0) K/mm3 RBC 3.29 L (3.65-5.03) M/mm3 Hgb 9.7 L (11.8-15.2) gm/dl Hct 29.4 L (35.5-45.6) % Plt Count 373 (140-440) K/mm3 Lymph # 0.9 L (1.2-5.4) K/mm3 [place] # 0.7 (0.0-0.8) K/mm3 Eos # 0.2 (0.0-0.4) K/mm3 Baso # 0.0 (0.0-0.1) K/mm3 Comprehensive Metabolic Panel 06/22/19 Range/Units 04:01 Sodium 147 H (137-145) mmol/L Potassium 3.8 (3.6-5.0) mmol/L Chloride 109.7 H (98-107) mmol/L Carbon Dioxide 26 (22-30) mmol/L BUN 6 L (9-20) mg/dL Creatinine 0.4 L (0.8-1.5) mg/dL Glucose 124 H (75-100) mg/dL Calcium 7.3 L (8.4-10.2) mg/dL - Allied health notes Allied health notes reviewed: nursing
--- NOTE | 2019-06-22 10:44 | Progress Note ---
Assessment and Plan Acute respiratory failure, hypoxemic, s/p mechanical ventilatory support. Severe sepsis with shock, ESBL Acute encephalopathy, possibly on chronic. History of chronic obstructive pulmonary disease. History of peripheral vascular disease. History of hypertension. History of deep venous thrombosis. History of gastroesophageal reflux disease. History of arthritis. History of gout. Leukocytosis. Mild hypokalemia. Mild metabolic acidosis. Lactic acidosis. Non-ST elevation myocardial infarction Small bowel obstruction- ileus -Continue with supplemental oxygen to keep O2 sat>90% -Bronchodilators per protocol -IVF while NPO -Closely monitor respiratory status- at risk of alveolar/pulmonary edema -Incentive spirometry -BIPAP qhs and prn -CXR in the morning -Accuchecks with glycemic control for SSI (Target blood glucose of 140-180 mg/dL; avoid hypoglycemic) - PT/OT/ROM exercises - mobility protocols for pressure ulcer prophylaxis - Monitor hemodynamics closely -continue ertapenem IV per ID -VTE and stress ulcer prophylaxis -If he remains NPO for more than 72 hours will have to address nutritional status Subjective Date of service: 06/22/19 Principal diagnosis: Ac. hypoxemic resp failure; Severe Shock; UTI; COPD; PVD; HTN; NSTEMI; DVT Interval history: Patient is seen today for: Acute hypoxemic respiratory failure; Severe sepsis with shock; UTI; Acute encephalopathy; COPD; PVD; HTN; NSTEMI; H/O DVT Seen and examined at bedside; 24hour events reviewed; nursing and respiratory care staff consulted; no adverse overnight events reported to me; resting peacefully in bed; Denies any chest pain, no shortness of breath, no fevers or chills. "Can I have some water?" Currently NPO fro SBO- On supplemental oxygen at 3L/min Vitals, labs, medications, chart reviewed. Objective Vital Signs - 12hr 06/22/19 06/22/19 06/22/19 02:00 02:31 07:41 Temperature 98.9 F 98.9 F Pulse Rate 75 86 Pulse Rate [ 82 From Monitor] Respiratory 18 18 18 Rate Blood Pressure 165/78 163/80 O2 Sat by Pulse 100 100 100 Oximetry 06/22/19 08:00 Temperature Pulse Rate 90 Pulse Rate [ From Monitor] Respiratory Rate Blood Pressure O2 Sat by Pulse Oximetry Constitutional: no acute distress, alert, other (obese, awake and alert) Eyes: non-icteric, other (NGT in place) ENT: oropharynx moist, other Neck: supple, no lymphadenopathy, no JVD Effort: normal Ascultation: Bilateral: diminished breath sounds, rhonchi Percussion: Bilateral: not dull Cardiovascular: other (irregular, S1,S2) Gastrointestinal: hypoactive bowel sounds, non-tender, other (distended, firm, no peritoenal signs) Integumentary: normal Extremities: no cyanosis, no edema, no ischemia or petechiae, other (s/p Bilateral AKA) Neurologic: normal mental status, non-focal exam, pupils equal and round, CN II- XII normal Psychiatric: mood appropriate, affect normal CBC and BMP: 06/24/19 04:46 06/24/19 04:46 ABG, PT/INR, D-dimer: ABG POC ABG pH 7.432 (7.35-7.45) 06/17/19 04:50 ABG pH 7.492 pH Units (7.350-7.450) H 06/18/19 11:45 POC ABG pCO2 31.5 (35-45) L 06/17/19 04:50 ABG pCO2 33.1 mm Hg 06/18/19 11:45 POC ABG pO2 135 (80-105) H 06/17/19 04:50 ABG pO2 102.2 mm Hg (80.0-90.0) H 06/18/19 11:45 POC ABG HCO3 21.0 (22-26 mml/L) 06/17/19 04:50 POC ABG Total CO2 22 (23-27mmol/L) 06/17/19 04:50 POC ABG O2 Sat 99 06/17/19 04:50 ABG O2 Saturation 98.0 % (95.0-99.0) 06/18/19 11:45 PT/INR, D-dimer PT 16.3 Sec. (12.2-14.9) H 06/14/19 05:28 INR 1.35 (0.87-1.13) H 06/14/19 05:28 Abnormal lab findings: Abnormal Labs 06/14/19 06/14/19 06/14/19 02:49 03:10 03:10 WBC RBC Hgb Hct MCHC RDW Lymph % (Auto) [place] % (Auto) Eos % (Auto) Lymph # [place] # Eos # Seg Neutrophils % Lymphocytes % (Manual) Seg Neutrophils # Seg Neutrophils # Man Lymphocytes # (Manual) PT INR POC ABG pH ABG pH POC ABG pCO2 POC ABG pO2 ABG pO2 ABG Hemoglobin Sodium Potassium 3.5 L Chloride Carbon Dioxide 20 L BUN Creatinine 0.7 L Glucose 107 H POC Glucose 117 H Lactic Acid 2.60 H* Calcium Phosphorus Troponin T 0.979 H* Albumin 3.0 L HDL Cholesterol 30 L Urine WBC (Auto) 06/14/19 06/14/19 06/14/19 04:30 04:35 05:02 WBC 11.9 H RBC 3.22 L Hgb 9.5 L Hct 28.9 L MCHC RDW Lymph % (Auto) [place] % (Auto) Eos % (Auto) Lymph # [place] # Eos # Seg Neutrophils % Lymphocytes % (Manual) 8.0 L Seg Neutrophils # Seg Neutrophils # Man 8.3 H Lymphocytes # (Manual) 1.0 L PT INR POC ABG pH 7.314 L ABG pH POC ABG pCO2 POC ABG pO2 > 400 H ABG pO2 ABG Hemoglobin Sodium Potassium Chloride Carbon Dioxide BUN Creatinine Glucose POC Glucose Lactic Acid Calcium Phosphorus Troponin T Albumin HDL Cholesterol Urine WBC (Auto) 8.0 H 06/14/19 06/15/19 06/15/19 05:28 03:30 04:35 WBC 11.2 H RBC 3.02 L Hgb 8.9 L Hct 27.1 L MCHC RDW 15.3 H Lymph % (Auto) 6.5 L [place] % (Auto) Eos % (Auto) Lymph # 0.7 L [place] # Eos # Seg Neutrophils % 86.6 H Lymphocytes % (Manual) Seg Neutrophils # 9.7 H Seg Neutrophils # Man Lymphocytes # (Manual) PT 16.3 H INR 1.35 H POC ABG pH 7.336 L ABG pH POC ABG pCO2 < 30 L POC ABG pO2 133 H ABG pO2 ABG Hemoglobin Sodium Potassium Chloride Carbon Dioxide BUN Creatinine Glucose POC Glucose Lactic Acid Calcium Phosphorus Troponin T Albumin HDL Cholesterol Urine WBC (Auto) 06/15/19 06/15/19 06/16/19 04:35 12:25 04:29 WBC RBC Hgb Hct MCHC RDW Lymph % (Auto) [place] % (Auto) Eos % (Auto) Lymph # [place] # Eos # Seg Neutrophils % Lymphocytes % (Manual) Seg Neutrophils # Seg Neutrophils # Man Lymphocytes # (Manual) PT INR POC ABG pH 7.315 L ABG pH POC ABG pCO2 POC ABG pO2 63 L 135 H ABG pO2 ABG Hemoglobin Sodium Potassium 3.3 L Chloride 110.7 H Carbon Dioxide 15 L BUN Creatinine 0.4 L Glucose 104 H POC Glucose Lactic Acid Calcium 7.8 L Phosphorus 1.80 L Troponin T Albumin 2.8 L HDL Cholesterol Urine WBC (Auto) 06/16/19 06/17/19 06/17/19 16:31 04:50 Unknown WBC RBC 2.89 L Hgb 8.4 L Hct 25.4 L MCHC RDW Lymph % (Auto) [place] % (Auto) 8.9 H Eos % (Auto) Lymph # 0.9 L [place] # Eos # Seg Neutrophils % 74.9 H Lymphocytes % (Manual) Seg Neutrophils # Seg Neutrophils # Man Lymphocytes # (Manual) PT INR POC ABG pH ABG pH POC ABG pCO2 31.5 L POC ABG pO2 135 H ABG pO2 ABG Hemoglobin Sodium Potassium Chloride Carbon Dioxide BUN Creatinine Glucose POC Glucose Lactic Acid Calcium Phosphorus 1.30 L D Troponin T Albumin HDL Cholesterol Urine WBC (Auto) 06/17/19 06/18/19 06/18/19 Unknown 04:30 04:30 WBC RBC 2.84 L Hgb 8.6 L Hct 24.8 L MCHC 35 H RDW Lymph % (Auto) 11.2 L [place] % (Auto) 9.7 H Eos % (Auto) 4.6 H Lymph # 0.7 L [place] # Eos # Seg Neutrophils % 74.1 H Lymphocytes % (Manual) Seg Neutrophils # Seg Neutrophils # Man Lymphocytes # (Manual) PT INR POC ABG pH ABG pH POC ABG pCO2 POC ABG pO2 ABG pO2 ABG Hemoglobin Sodium Potassium 3.0 L 3.4 L Chloride 107.3 H 108.0 H Carbon Dioxide BUN 8 L 7 L Creatinine 0.3 L 0.3 L Glucose 171 H 155 H POC Glucose Lactic Acid Calcium 7.3 L 6.9 L Phosphorus 1.30 L Troponin T Albumin HDL Cholesterol Urine WBC (Auto) 06/18/19 06/18/19 06/19/19 11:45 11:46 00:29 WBC RBC Hgb Hct MCHC RDW Lymph % (Auto) [place] % (Auto) Eos % (Auto) Lymph # [place] # Eos # Seg Neutrophils % Lymphocytes % (Manual) Seg Neutrophils # Seg Neutrophils # Man Lymphocytes # (Manual) PT INR POC ABG pH ABG pH 7.492 H POC ABG pCO2 POC ABG pO2 ABG pO2 102.2 H ABG Hemoglobin 9.0 L Sodium Potassium Chloride Carbon Dioxide BUN Creatinine Glucose POC Glucose 115 H 134 H Lactic Acid Calcium Phosphorus Troponin T Albumin HDL Cholesterol Urine WBC (Auto) 06/19/19 06/19/19 06/20/19 05:01 05:01 04:17 WBC RBC 3.18 L 3.53 L Hgb 9.5 L 10.4 L Hct 28.1 L 31.5 L MCHC RDW 15.3 H Lymph % (Auto) 10.5 L 13.0 L [place] % (Auto) 11.9 H 12.8 H Eos % (Auto) 4.9 H 9.0 H Lymph # 0.8 L 0.9 L [place] # 1.0 H 0.9 H Eos # 0.6 H Seg Neutrophils % 72.2 H Lymphocytes % (Manual) Seg Neutrophils # Seg Neutrophils # Man Lymphocytes # (Manual) PT INR POC ABG pH ABG pH POC ABG pCO2 POC ABG pO2 ABG pO2 ABG Hemoglobin Sodium Potassium Chloride 107.4 H Carbon Dioxide BUN 7 L Creatinine 0.3 L Glucose POC Glucose Lactic Acid Calcium 7.3 L Phosphorus Troponin T Albumin HDL Cholesterol Urine WBC (Auto) 06/20/19 06/21/19 06/21/19 04:17 04:40 04:40 WBC RBC 3.50 L Hgb 10.4 L Hct 31.6 L MCHC RDW Lymph % (Auto) [place] % (Auto) 13.0 H Eos % (Auto) Lymph # 1.1 L [place] # 0.9 H Eos # Seg Neutrophils % Lymphocytes % (Manual) Seg Neutrophils # Seg Neutrophils # Man Lymphocytes # (Manual) PT INR POC ABG pH ABG pH POC ABG pCO2 POC ABG pO2 ABG pO2 ABG Hemoglobin Sodium Potassium Chloride Carbon Dioxide 20 L D BUN 8 L 8 L Creatinine 0.4 L 0.4 L Glucose 66 L POC Glucose Lactic Acid Calcium 7.6 L 7.6 L Phosphorus Troponin T Albumin HDL Cholesterol Urine WBC (Auto) 06/21/19 06/21/19 06/21/19 06:49 11:53 18:58 WBC RBC Hgb Hct MCHC RDW Lymph % (Auto) [place] % (Auto) Eos % (Auto) Lymph # [place] # Eos # Seg Neutrophils % Lymphocytes % (Manual) Seg Neutrophils # Seg Neutrophils # Man Lymphocytes # (Manual) PT INR POC ABG pH ABG pH POC ABG pCO2 POC ABG pO2 ABG pO2 ABG Hemoglobin Sodium Potassium Chloride Carbon Dioxide BUN Creatinine Glucose POC Glucose 62 L 110 H 122 H Lactic Acid Calcium Phosphorus Troponin T Albumin HDL Cholesterol Urine WBC (Auto) 06/21/19 06/22/19 06/22/19 23:41 04:01 04:01 WBC RBC 3.29 L Hgb 9.7 L Hct 29.4 L MCHC RDW Lymph % (Auto) [place] % (Auto) 13.8 H Eos % (Auto) Lymph # 0.9 L [place] # Eos # Seg Neutrophils % Lymphocytes % (Manual) Seg Neutrophils # Seg Neutrophils # Man Lymphocytes # (Manual) PT INR POC ABG pH ABG pH POC ABG pCO2 POC ABG pO2 ABG pO2 ABG Hemoglobin Sodium 147 H Potassium Chloride 109.7 H Carbon Dioxide BUN 6 L Creatinine 0.4 L Glucose 124 H POC Glucose 128 H Lactic Acid Calcium 7.3 L Phosphorus Troponin T Albumin HDL Cholesterol Urine WBC (Auto) Allied health notes reviewed: nursing
[2019-06-22] MEDS: INVanz 1 GM in NACL 0.9% 50 ML IV SCH (10:56)
[2019-06-22] MEDS: HEPARIN SUB-Q SCH ×2 (10:57→21:01)
[2019-06-22] MEDS: SODIUM CHLORIDE FLUSH SYRINGE 10 ML IV SCH ×2 (10:57→21:01)
[2019-06-22] MEDS: PROTONIX IV SCH (10:58)
--- NOTE | 2019-06-22 11:06 | XRay Report ---
ABDOMINAL SERIES WITH CHEST X-RAY HISTORY: Small bowel obstruction FINDINGS: Compared to 06/21/2019. A nasogastric tube appears to terminate just beyond the GE junction. Multiple dilated loops of small bowel with air-fluid levels are unchanged since yesterday's exam. No evidence for free air. No obvious pathologic calcifications. Single view of the chest demonstrates minor linear atelectasis at the right lung base. Otherwise the lungs are clear. Heart size is within normal limits. IMPRESSION: No change in the small bowel obstruction pattern since yesterday's exam. Signer Name: Jay Max Jr, MD Signed: 06/22/2019 11:01 AM Workstation Name: [id number]
--- NOTE | 2019-06-22 12:42 | Progress Note ---
Assessment and Plan Cultures: Blood culture 06/14/2019 ESBL E coli 1 of 4 bottles Tracheal asp culture 06/14/2019 no growth today Assessment: 78 y/o male with a history of severe peripheral artery disease status post bilateral above the knee amputations, previous MRSA in wounds, COPD, rheumatoid arthritis, admitted on 06/14/2019 due to fever at 100.2, AMS and hypotension at 82/50 noted at his [facility] the morning of admission: 1) Severe sepsis with septic shock: off levophed, still low grade fever; due to ESBL E coli septicemia of unclear source ?GI. Patient with acute symptoms of fever, hypotension, no clear history of events. UA no significant pyuria. CXR and CTA chest no obvious pneumonia or PE. Blood culture pending. CT abd ? GB or appendix abnormalities. Elevated troponins. DDx. acute abdomen from appendicitis or cholecystitis v/s ACS v/s aspiration pneumonitis. Noted surgery's recommendation re: chronically thickened appendix. Possible recurrent obstruction noted on AXR. Surgery re-consulted. 2) Acute respiratory failure: intubated on CPAP today 3) Acute encephalopathy: due to #1 Recommendations: - continue ertapenem 1g q24h - final plan pending resolution of SBO. Needs minimum two weeks liane/erta from initiation of carbapenem for ESBL bacteremia which would be 07/01. Will follow. Saida Aaron MD [facility] M: [phone] O: [phone] F: [phone] Subjective Date of service: 06/22/19 Principal diagnosis: Ac. hypoxemic resp failure; Severe Shock; UTI; COPD; PVD; HTN; NSTEMI; DVT Interval history: Afebrile with normal white count. No acute change. Objective - Exam Narrative Exam: General appearance: sedated but opening eyes intubated on CPAP Eyes: anicteric sclerae, moist conjunctivae; no lid-lag; PERRLA HENT: Atraumatic; oropharynx clear +ETT and NGT Lungs: CTA CV: RRR no murmur Abdomen: Soft, non-tender; no masses or hepatosplenomegaly Extremities: no edema, no cyanosis Skin: No rash. Psych:sedated. Neuro: sedated Right IJ TLC - Constitutional Vitals: Vital Signs Temp Pulse Resp BP Pulse Ox 98.9 F 90 18 163/80 100 06/22/19 07:41 06/22/19 08:00 06/22/19 07:41 06/22/19 07:41 06/22/19 07:41 Temperature -Last 24 Hours Temperature 98.9 F Temperature 98.9 F Temperature 98.8 F - Labs CBC & Chem 7: 06/22/19 04:01 06/22/19 04:01 Labs: Abnormal lab results 06/21/19 06/21/19 06/22/19 Range/Units 18:58 23:41 04:01 RBC 3.29 L (3.65-5.03) M/mm3 Hgb 9.7 L (11.8-15.2) gm/dl Hct 29.4 L (35.5-45.6) % [place] % (Auto) 13.8 H (0.0-7.3) % Lymph # 0.9 L (1.2-5.4) K/mm3 Sodium (137-145) mmol/L Chloride (98-107) mmol/L BUN (9-20) mg/dL Creatinine (0.8-1.5) mg/dL Glucose (75-100) mg/dL POC Glucose 122 H 128 H (70-105) Calcium (8.4-10.2) mg/dL 06/22/19 06/22/19 Range/Units 04:01 11:59 RBC (3.65-5.03) M/mm3 Hgb (11.8-15.2) gm/dl Hct (35.5-45.6) % [place] % (Auto) (0.0-7.3) % Lymph # (1.2-5.4) K/mm3 Sodium 147 H (137-145) mmol/L Chloride 109.7 H (98-107) mmol/L BUN 6 L (9-20) mg/dL Creatinine 0.4 L (0.8-1.5) mg/dL Glucose 124 H (75-100) mg/dL POC Glucose 135 H (70-105) Calcium 7.3 L (8.4-10.2) mg/dL
[2019-06-22] MEDS: D5W/NS W/KCL 20MEQ 20 MEQ/1,000 ML BAG IV SCH ×2 (13:01→22:59)
--- NOTE | 2019-06-22 14:49 | Progress Note ---
Assessment and Plan Assessment and plan: Patient is a 78-year-old man from [facility] with a history of PAD s/p BKA, hypertension, DVT on A/C, hypertension, GERD, OA and Gout who presented to [facility] ED with confusion, lethargy, low grade fever, tachycardia and hypotension. He was intubated in the ER for airway protection on 06/14/19 and extubated on 06/18/19. * Chest x-ray; no acute findings * CT abd/pelvis with contrast IMPRESSION: Abnormal appearance of the gallbladder and appendix as outlined above. Correlate for gallbladder symptoms and a ppendicitis. Cystitis could be considered. Suspicious 1.8 cm left renal lesion as described above. Further imaging is recommended. Severe osteopenia. * CT angiogram chest, no PE, bibasilar atelectasis * CT head, essentially normal for age SBO (new issue): NPO, ngt to LIS, GS input noted, imaging reviewed Urine retention (new issue) with Left renal mass 257cc on bladder scan, 340 cc expelled on straight cath. not a simple cyst per Abdominal U/S: Consulted Urology Septic shock/ESBL E. coli bacteremia: ID input noted, treated with IV aBX, Source of bacteremia still unclear, Appendicitis ruled out, Surgery input appreciated Cholelithiasis; GS evaluated, input noted Acute respiratory failure on mechanical ventilator < 96 hours, now extubated on 06/18/19, management per Pulmonology Hypokalemia/hypophosphatemia: Repleted IV TYpe 2 NSTEMI, PAF, mgt per cardiology, input noted Acute metabolic encephalopathy DVT prophylaxis reviewed Disposition: continue inpatient care, once SBO resolves and ID give final abx recommendation then d.c back to [facility] I called daughter Shari Malagon at [phone] at 1441, I spoke her History Interval history: Patient was seen and examined. Follow-up on current diagnosis of Respiratory failure, extubated doing well No overnight events reported to me. Patient denies any chest pain, shortness breath, nausea/vomiting or severe headaches. Imaging, nursing note, chart, labs and old chart reviewed. Discussed with patient. Hospitalist Physical - Physical exam Narrative exam: Gen: ill appearing, nad, alert awake oriented x 3 HEENT: NCAT, EOMI, PERRL, OP Clear Neck: supple, no adenopathy, no thyromegaly, no JVD CVS/Heart: RRR, normal S1S2, pulses present bilaterally Chest/Lungs: CTA B, Symmetrical chest expansion, good air entry bilaterally GI/Abdomen: soft, NTND, good bowel sounds, no guarding or rebound /Bladder: no suprapubic tenderness, no CVA or paraspinal tenderness Extermity/Skin: no c/c/e, no obvious rash MSK: FROM x 4, bilateral AKA Neuro: CN 2-12 grossly intact, no new focal deficits Psych: calm - Constitutional Vitals: Temp Pulse Resp BP Pulse Ox 98.9 F 90 18 163/80 100 06/22/19 07:41 06/22/19 12:00 06/22/19 10:00 06/22/19 07:41 06/22/19 10:00 General appearance: Present: other (intubated on the vent) Results - Labs CBC & Chem 7: 06/22/19 04:01 06/22/19 04:01 Labs: Laboratory Last Values WBC 5.4 K/mm3 (4.5-11.0) 06/22/19 04:01 RBC 3.29 M/mm3 (3.65-5.03) L 06/22/19 04:01 Hgb 9.7 gm/dl (11.8-15.2) L 06/22/19 04:01 Hct 29.4 % (35.5-45.6) L 06/22/19 04:01 MCV 89 fl (84-94) 06/22/19 04:01 MCH 29 pg (28-32) 06/22/19 04:01 MCHC 33 % (32-34) 06/22/19 04:01 RDW 15.2 % (13.2-15.2) 06/22/19 04:01 Plt Count 373 K/mm3 (140-440) 06/22/19 04:01 Lymph % (Auto) 16.8 % (13.4-35.0) 06/22/19 04:01 Mchenry % (Auto) 13.8 % (0.0-7.3) H 06/22/19 04:01 Eos % (Auto) 4.2 % (0.0-4.3) 06/22/19 04:01 Baso % (Auto) 0.5 % (0.0-1.8) 06/22/19 04:01 Lymph # 0.9 K/mm3 (1.2-5.4) L 06/22/19 04:01 Mchenry # 0.7 K/mm3 (0.0-0.8) 06/22/19 04:01 Eos # 0.2 K/mm3 (0.0-0.4) 06/22/19 04:01 Baso # 0.0 K/mm3 (0.0-0.1) 06/22/19 04:01 Add Manual Diff Complete 06/14/19 04:30 Total Counted 100 06/14/19 04:30 Seg Neutrophils % 64.7 % (40.0-70.0) 06/22/19 04:01 Seg Neuts % (Manual) 70.0 % (40.0-70.0) 06/14/19 04:30 Band Neutrophils % 18.0 % 06/14/19 04:30 Lymphocytes % (Manual) 8.0 % (13.4-35.0) L 06/14/19 04:30 Reactive Lymphs % (Man) 0 % 06/14/19 04:30 Monocytes % (Manual) 4.0 % (0.0-7.3) 06/14/19 04:30 Eosinophils % (Manual) 0 % (0.0-4.3) 06/14/19 04:30 Basophils % (Manual) 0 % (0.0-1.8) 06/14/19 04:30 Metamyelocytes % 0 % 06/14/19 04:30 Myelocytes % 0 % 06/14/19 04:30 Promyelocytes % 0 % 06/14/19 04:30 Blast Cells % 0 % 06/14/19 04:30 Nucleated RBC % Not Reportable 06/14/19 04:30 Seg Neutrophils # 3.5 K/mm3 (1.8-7.7) 06/22/19 04:01 Seg Neutrophils # Man 8.3 K/mm3 (1.8-7.7) H 06/14/19 04:30 Band Neutrophils # 2.1 K/mm3 06/14/19 04:30 Lymphocytes # (Manual) 1.0 K/mm3 (1.2-5.4) L 06/14/19 04:30 Abs React Lymphs (Man) 0.0 K/mm3 06/14/19 04:30 Monocytes # (Manual) 0.5 K/mm3 (0.0-0.8) 06/14/19 04:30 Eosinophils # (Manual) 0.0 K/mm3 (0.0-0.4) 06/14/19 04:30 Basophils # (Manual) 0.0 K/mm3 (0.0-0.1) 06/14/19 04:30 Metamyelocytes # 0.0 K/mm3 06/14/19 04:30 Myelocytes # 0.0 K/mm3 06/14/19 04:30 Promyelocytes # 0.0 K/mm3 06/14/19 04:30 Blast Cells # 0.0 K/mm3 06/14/19 04:30 WBC Morphology Not Reportable 06/14/19 04:30 Hypersegmented Neuts Not Reportable 06/14/19 04:30 Hyposegmented Neuts Not Reportable 06/14/19 04:30 Hypogranular Neuts Not Reportable 06/14/19 04:30 Smudge Cells Not Reportable 06/14/19 04:30 Toxic Granulation Not Reportable 06/14/19 04:30 Toxic Vacuolation Not Reportable 06/14/19 04:30 Dohle Bodies Not Reportable 06/14/19 04:30 Pelger-Huet Anomaly Not Reportable 06/14/19 04:30 Raymundo Rods Not Reportable 06/14/19 04:30 Platelet Estimate Consistent w auto 06/14/19 04:30 Clumped Platelets Not Reportable 06/14/19 04:30 Plt Clumps, EDTA Not Reportable 06/14/19 04:30 Large Platelets Rare 06/14/19 04:30 Giant Platelets Not Reportable 06/14/19 04:30 Platelet Satelliting Not Reportable 06/14/19 04:30 Plt Morphology Comment Not Reportable 06/14/19 04:30 RBC Morphology Not Reportable 06/14/19 04:30 Dimorphic RBCs Not Reportable 06/14/19 04:30 Polychromasia Not Reportable 06/14/19 04:30 Hypochromasia Not Reportable 06/14/19 04:30 Poikilocytosis Not Reportable 06/14/19 04:30 Anisocytosis Rare 06/14/19 04:30 Microcytosis Not Reportable 06/14/19 04:30 Macrocytosis Not Reportable 06/14/19 04:30 Spherocytes Not Reportable 06/14/19 04:30 Pappenheimer Bodies Not Reportable 06/14/19 04:30 Sickle Cells Not Reportable 06/14/19 04:30 Target Cells Not Reportable 06/14/19 04:30 Tear Drop Cells Not Reportable 06/14/19 04:30 Ovalocytes Rare 06/14/19 04:30 Helmet Cells Not Reportable 06/14/19 04:30 Hardy-Chaumont Bodies Not Reportable 06/14/19 04:30 [place] Rings Not Reportable 06/14/19 04:30 [place] Cells Rare 06/14/19 04:30 Bite Cells Not Reportable 06/14/19 04:30 Crenated Cell Not Reportable 06/14/19 04:30 Elliptocytes Not Reportable 06/14/19 04:30 Acanthocytes (Spur) Not Reportable 06/14/19 04:30 Rouleaux Not Reportable 06/14/19 04:30 Hemoglobin C Crystals Not Reportable 06/14/19 04:30 Schistocytes Not Reportable 06/14/19 04:30 Malaria parasites Not Reportable 06/14/19 04:30 Paulie Bodies Not Reportable 06/14/19 04:30 Hem Pathologist Commnt No 06/14/19 04:30 PT 16.3 Sec. (12.2-14.9) H 06/14/19 05:28 INR 1.35 (0.87-1.13) H 06/14/19 05:28 APTT 34.7 Sec. (24.2-36.6) 06/14/19 05:28 POC ABG pH 7.432 (7.35-7.45) 06/17/19 04:50 ABG pH 7.492 pH Units (7.350-7.450) H 06/18/19 11:45 POC ABG pCO2 31.5 (35-45) L 06/17/19 04:50 ABG pCO2 33.1 mm Hg 06/18/19 11:45 POC ABG pO2 135 (80-105) H 06/17/19 04:50 ABG pO2 102.2 mm Hg (80.0-90.0) H 06/18/19 11:45 POC ABG HCO3 21.0 (22-26 mml/L) 06/17/19 04:50 ABG HCO3 24.8 mmol/L (20.0-26.0) 06/18/19 11:45 POC ABG Total CO2 22 (23-27mmol/L) 06/17/19 04:50 POC ABG O2 Sat 99 06/17/19 04:50 ABG O2 Saturation 98.0 % (95.0-99.0) 06/18/19 11:45 ABG O2 Content 12.4 (0.0-44) 06/18/19 11:45 POC ABG Base Excess -3 ((-2) - (+3)mmol/L) 06/17/19 04:50 ABG Base Excess 1.6 mmol/L (-2.0-3.0) 06/18/19 11:45 ABG Hemoglobin 9.0 gm/dl (14.0-18.0) L 06/18/19 11:45 ABG Carboxyhemoglobin 1.4 % (0.0-5.0) 06/18/19 11:45 ABG Methemoglobin 0.4 % (0.0-1.5) 06/18/19 11:45 Oxyhemoglobin 96.2 % (95.0-99.0) 06/18/19 11:45 FiO2 25 % 06/18/19 11:45 Sodium 147 mmol/L (137-145) H 06/22/19 04:01 Potassium 3.8 mmol/L (3.6-5.0) 06/22/19 04:01 Chloride 109.7 mmol/L (98-107) H 06/22/19 04:01 Carbon Dioxide 26 mmol/L (22-30) 06/22/19 04:01 Anion Gap 15 mmol/L 06/22/19 04:01 BUN 6 mg/dL (9-20) L 06/22/19 04:01 Creatinine 0.4 mg/dL (0.8-1.5) L 06/22/19 04:01 Estimated GFR > 60 ml/min 06/22/19 04:01 BUN/Creatinine Ratio 15 % 06/22/19 04:01 Glucose 124 mg/dL (75-100) H 06/22/19 04:01 POC Glucose 135 (70-105) H 06/22/19 11:59 Lactic Acid 1.20 mmol/L (0.7-2.0) 06/14/19 05:28 Calcium 7.3 mg/dL (8.4-10.2) L 06/22/19 04:01 Phosphorus 2.70 mg/dL (2.5-4.5) D 06/18/19 04:30 Magnesium 1.70 mg/dL (1.7-2.3) 06/17/19 Unknown Total Bilirubin 0.30 mg/dL (0.1-1.2) 06/15/19 04:35 AST 21 units/L (5-40) 06/15/19 04:35 ALT 14 units/L (7-56) 06/15/19 04:35 Alkaline Phosphatase 80 units/L (35-129) 06/15/19 04:35 Troponin T 0.979 ng/mL (0.00-0.029) H* 06/14/19 03:10 Total Protein 7.1 g/dL (6.3-8.2) 06/15/19 04:35 Albumin 2.8 g/dL (3.9-5) L 06/15/19 04:35 Albumin/Globulin Ratio 0.7 % 06/15/19 04:35 Triglycerides 74 mg/dL (2-149) 06/14/19 03:10 Cholesterol 112 mg/dL (50-199) 06/14/19 03:10 LDL Cholesterol Direct 76 mg/dL (50-130) 06/14/19 03:10 HDL Cholesterol 30 mg/dL (40-59) L 06/14/19 03:10 Cholesterol/HDL Ratio 3.73 % 06/14/19 03:10 Procalcitonin 45.71 ng/mL (<0.15) 06/14/19 13:26 Urine Color Gabbie (Yellow) 06/14/19 04:35 Urine Turbidity Cloudy (Clear) 06/14/19 04:35 Urine pH 5.0 (5.0-7.0) 06/14/19 04:35 Ur Specific Fenton 1.020 (1.003-1.030) 06/14/19 04:35 Urine Protein 100 mg/dl mg/dL (Negative) 06/14/19 04:35 Urine Glucose (UA) Neg mg/dL (Negative) 06/14/19 04:35 Urine Ketones Neg mg/dL (Negative) 06/14/19 04:35 Urine Blood Neg (Negative) 06/14/19 04:35 Urine Nitrite Neg (Negative) 06/14/19 04:35 Ur Reducing Substances Not Reportable 06/14/19 04:35 Urine Bilirubin Neg (Negative) 06/14/19 04:35 Urine Ictotest Not Reportable 06/14/19 04:35 Urine Urobilinogen < 2.0 mg/dL (<2.0) 06/14/19 04:35 Ur Leukocyte Esterase Tr (Negative) 06/14/19 04:35 Urine WBC (Auto) 8.0 /HPF (0.0-6.0) H 06/14/19 04:35 Urine RBC (Auto) 6.0 /HPF (0.0-6.0) 06/14/19 04:35 U Epithel Cells (Auto) 1.0 /HPF (0-13.0) 06/14/19 04:35 Urine Mucus 2+ /HPF 06/14/19 04:35 Active Medications - Current Medications Current Medications: Generic Name Dose Route Start Last Admin Trade Name Freq PRN Reason Stop Dose Admin Albuterol 2.5 mg 06/14/19 12:31 Proventil IH Q4HRT PRN Shortness Of Breath Dextrose 50 ml 06/21/19 06:50 06/21/19 07:19 D50w (25gm) Syringe IV 50 ml PRN PRN Administration Hypoglycemia Diltiazem HCl 30 mg 06/21/19 12:00 06/22/19 12:40 Cardizem PO Not Given Q6HR HAL Heparin Sodium (Porcine) 5,000 unit 06/14/19 22:00 06/22/19 10:57 Heparin SUB-Q 5,000 unit Q12HR HAL Administration Hydrophilic Ointment 1 applic 06/14/19 03:45 Vaseline Lip Therapy TP Q2HR PRN Dry Lips Ertapenem 1 gm/ Sodium 50 mls @ 100 mls/hr 06/18/19 16:00 06/22/19 10:56 Chloride IV 100 mls/hr QDAY HAL Administration Potassium Chloride/Dextrose/Sod Cl 20 meq in 1,000 mls @ 100 mls/hr 06/21/19 09:00 10/11/19 13:01 D5w/Ns W/Kcl 20meq IV 100 mls/hr DIRECT HAL Administration Metoclopramide HCl 10 mg 06/20/19 16:37 06/20/19 17:01 Reglan IV 10 mg Q8H PRN Administration Nausea And Vomiting Morphine Sulfate 2 mg 06/20/19 17:37 Morphine IV Q4H PRN Pain , Severe (7-10) Multi-Ingred Cream/Lotion/Oil/Oint 1 applic 06/14/19 03:45 Artificial Tears Ophth Oint OU Q4HR PRN Dry Eye(s) Ondansetron HCl 4 mg 06/14/19 09:00 06/20/19 12:13 Zofran IV 4 mg Q8H PRN Administration Nausea And Vomiting Pantoprazole Sodium 40 mg 06/20/19 17:00 06/22/19 10:58 Protonix IV 40 mg QDAY HAL Administration Sodium Chloride 10 ml 06/14/19 10:00 06/22/19 10:57 Sodium Chloride Flush Syringe 10 Ml IV 10 ml BID HAL Administration Sodium Chloride 10 ml 06/14/19 09:00 Sodium Chloride Flush Syringe 10 Ml IV PRN PRN LINE FLUSH Nutrition/Malnutrition Assess - Dietary Evaluation Nutrition/Malnutrition Findings: Nutrition Notes Start: 06/14/19 12:44 Freq: Status: Active Protocol: Document 06/21/19 13:17 RS (Rec: 06/21/19 13:53 RS [id number]) Co-Sign 06/21/19 13:17 LM Nutrition Notes Initial or Follow up Reassessment Current Diagnosis Hypertension Other Pertinent Diagnosis DVT, GERD, left AKA, right BKA , sepsis Current Diet NPO Labs/Tests reviewed Pertinent Medications reviewed Height 4 ft 3 in Weight 80.6 kg Pray Body Weight (kg) 23.63 BMI 48.0 Subjective/Other Information Pt nonverbal and disoriented. Pt currently NPO d/t MBS test . Pt was on cardiac diet yesterday but diet hx was unable to be retrieved from nurse. Percent of energy/protein needs met: 0%/0% Burn Absent Trauma Absent Minimum of two criteria No #1 Nutrition Diagnosis Inadequate oral intake Etiology MBS As Evidenced by Signs and Symptoms NPO Diagnosis Progress(for reassessment Continues documentation) Is patient on ventilator? No Is Patient Ambulatory and/or Out of Bed No REE-(Kendall-St. Jeor-confined to bed) 1495.080 Calculation Used for Recommendations Kendall-St Jeor Additional Notes Protein needs: 28-34g/kg (1-1. 2 of AdBw 28kg) Fluid needs: 1ml/kcal Nutrition Intervention Change Diet Order: Continue NPO until diet advancement from MD Goal #1 Meet at least 85% of energy and protein needs Anticipated Discharge Needs: Unable to determine at this time Follow-Up By: 06/25/19 Additional Comments F/U for diet advancement
--- NOTE | 2019-06-22 17:39 | Progress Note ---
Assessment and Plan - Patient Problems (1) Gaseous distention of intestine determined by X-ray Current Visit: Yes Status: Acute Plan to address problem: Pt stable. Patient has a completely benign abdomen. Having said that, the abdomen is slightly distended compared to baseline and has hypoactive bowel sounds. Unclear why he should have a bowel obstruction as he has had no prior abdominal surgery. Also, he was just recently tolerating tube feeds without any issue and having bowel movements. I wonder if he is having more of an ileus type pattern. If he is correct, he may be opening up as he may be starting to pass flatus. However, it will still probably be worthwhile to get a small bowel follow-through series to make sure everything is open. We will also check some additional labs in the morning to make sure there are no electrolyte a bnormalities that are contributing to this problem. There is no need for any urgent surgical intervention. Follow along. Please call with questions Time=10min Subjective Date of service: 06/22/19 Patient Reports: Positive: no new complaints (no pain), flatus (passed 15 min prior to our visit) Objective Vital Signs - 12hr 06/22/19 06/22/19 06/22/19 07:41 08:00 10:00 Temperature 98.9 F Pulse Rate 86 90 Pulse Rate [ 90 From Monitor] Respiratory 18 18 Rate Blood Pressure 163/80 O2 Sat by Pulse 100 100 Oximetry 06/22/19 06/22/19 12:00 14:06 Temperature 98.9 F Pulse Rate 90 83 Pulse Rate [ From Monitor] Respiratory 18 Rate Blood Pressure 163/87 O2 Sat by Pulse 99 Oximetry - General physical appearance no distress, no pain - Respiratory normal expansion, normal respiratory effort - Abdomen soft, not tender, bowel sounds hypoactive, distended, not masses, not guarding, not rigid, not surgical scars - Integumentary no rash, no growths, no abnormal pigmentation - Psychiatric oriented to person - Labs 06/22/19 04:01 06/22/19 04:01 Diabetes panel 06/22/19 Range/Units 04:01 Sodium 147 H (137-145) mmol/L Potassium 3.8 (3.6-5.0) mmol/L Chloride 109.7 H (98-107) mmol/L Carbon Dioxide 26 (22-30) mmol/L BUN 6 L (9-20) mg/dL Creatinine 0.4 L (0.8-1.5) mg/dL Glucose 124 H (75-100) mg/dL Calcium 7.3 L (8.4-10.2) mg/dL Calcium panel 06/22/19 Range/Units 04:01 Calcium 7.3 L (8.4-10.2) mg/dL Pituitary panel 06/22/19 Range/Units 04:01 Sodium 147 H (137-145) mmol/L Potassium 3.8 (3.6-5.0) mmol/L Chloride 109.7 H (98-107) mmol/L Carbon Dioxide 26 (22-30) mmol/L BUN 6 L (9-20) mg/dL Creatinine 0.4 L (0.8-1.5) mg/dL Glucose 124 H (75-100) mg/dL Calcium 7.3 L (8.4-10.2) mg/dL Adrenal panel 06/22/19 Range/Units 04:01 Sodium 147 H (137-145) mmol/L Potassium 3.8 (3.6-5.0) mmol/L Chloride 109.7 H (98-107) mmol/L Carbon Dioxide 26 (22-30) mmol/L BUN 6 L (9-20) mg/dL Creatinine 0.4 L (0.8-1.5) mg/dL Glucose 124 H (75-100) mg/dL Calcium 7.3 L (8.4-10.2) mg/dL
[2019-06-23] MEDS: CARDIZEM PO SCH ×6 (00:05→22:41)
[2019-06-23 05:19] LABS: Basophils % (Auto) 0.6 % (0.0-1.8); Eosinophils # (Auto) 0.2 K/mm3 (0.0-0.4); Eosinophils % (Auto) 3.1 % (0.0-4.3); Hematocrit 30.5 % (35.5-45.6); Hemoglobin 9.9 gm/dl (11.8-15.2); Lymphocytes # (Auto) 1.1 K/mm3 (1.2-5.4); Mean Corpuscular HGB Conc 32 % (32-34); Mean Corpuscular Volume 90 fl (84-94); Monocytes # (Auto) 0.7 K/mm3 (0.0-0.8); Monocytes % (Auto) 12.2 % (0.0-7.3); Platelet Count 400 K/mm3 (140-440); Red Cell Distribution Width 14.6 % (13.2-15.2)
[2019-06-23 05:23] LABS: BUN/Creatinine Ratio 8; Blood Urea Nitrogen 3 mg/dL (9-20); Calcium 7.7 mg/dL (8.4-10.2); Hemolysis Index 22
[2019-06-23] MEDS: INVanz 1 GM in NACL 0.9% 50 ML IV SCH (09:58)
[2019-06-23] MEDS: SODIUM CHLORIDE FLUSH SYRINGE 10 ML IV SCH ×2 (09:59→22:11)
[2019-06-23] MEDS: HEPARIN SUB-Q SCH ×2 (09:59→22:11)
[2019-06-23] MEDS: PROTONIX IV SCH (09:59)
[2019-06-23] MEDS: D5W/NS W/KCL 20MEQ 20 MEQ/1,000 ML BAG IV SCH (10:02)
--- NOTE | 2019-06-23 10:18 | Progress Note ---
Assessment and Plan Small bowel obstruction Severe sepsis E coli septicemia Acute respiratory failure s/p extubation Acute encephalopathy -improved Peripheral arterial disease s/p bilateral knee amputation COPD Paroxysmal Atrial fibrillation Echo showing LVEF 50-55% Continue medical therapy for paroxysmal atrial fibrillation. Subjective Date of service: 06/23/19 Principal diagnosis: Ac. hypoxemic resp failure; Severe Shock; UTI; COPD; PVD; HTN; NSTEMI; DVT Interval history: No significant events overnight Objective Vital Signs Temp Pulse Resp BP Pulse Ox 06/23/19 07:55 86 97 06/23/19 02:14 98.5 F 20 153/80 06/23/19 00:05 83 137/67 06/22/19 22:57 137/78 06/22/19 19:31 99.3 F 20 149/66 06/22/19 16:00 83 06/22/19 14:06 98.9 F 83 18 163/87 99 06/22/19 12:00 90 - Physical Examination Narrative exam: General appearance: Somnolent, NG tube in place HEENT: Positive: PERRL Neck: Positive: trachea midline Cardiac: Positive: Reg Rate and Rhythm Lungs: Positive: Decreased Breath Sounds Neuro: Positive: Grossly Intact Extremities: Absent: edema General: No Apparent Distress HEENT: Positive: PERRL Neck: Positive: trachea midline Neuro: Positive: Other (bilateral LE amputation) Abdomen: Positive: Soft Skin: Positive: Clear Extremities: Present: Other (bilateral LE amputation) - Labs and Meds CBC 06/23/19 Range/Units 04:51 WBC 5.5 (4.5-11.0) K/mm3 RBC 3.40 L (3.65-5.03) M/mm3 Hgb 9.9 L (11.8-15.2) gm/dl Hct 30.5 L (35.5-45.6) % Plt Count 400 (140-440) K/mm3 Lymph # 1.1 L (1.2-5.4) K/mm3 [place]aca # 0.7 (0.0-0.8) K/mm3 Eos # 0.2 (0.0-0.4) K/mm3 Baso # 0.0 (0.0-0.1) K/mm3 Comprehensive Metabolic Panel 06/23/19 Range/Units 04:51 Sodium 144 (137-145) mmol/L Potassium 4.0 (3.6-5.0) mmol/L Chloride 108.1 H (98-107) mmol/L Carbon Dioxide 26 (22-30) mmol/L BUN 3 L (9-20) mg/dL Creatinine 0.4 L (0.8-1.5) mg/dL Glucose 119 H (75-100) mg/dL Calcium 7.7 L (8.4-10.2) mg/dL - Allied health notes Allied health notes reviewed: nursing
--- NOTE | 2019-06-23 12:46 | Progress Note ---
Assessment and Plan - Patient Problems (1) Gaseous distention of intestine determined by X-ray Current Visit: Yes Status: Acute Plan to address problem: Pt stable. Patient has a completely benign abdomen. Abdomen is softer today. Bowel sounds are improving. I still think this is an ileus-type picture. Ileus - replace phosphorus. This may be contributing. We will check x-ray in morning. I wonder if the emesis was secondary to all the mucus in the stomach. NGT - the output is not consistent with a bowel obstruction. We will try clear liquids today. Will order flushing of the NG tube because it was full of mucus. Follow along. Please call with questions Time=10min Subjective Date of service: 06/23/19 Patient Reports: Positive: no new complaints, flatus, other (reports that he did have emesis but it was all mucus. He has no abdominal pain. He has been passing gas.) Objective Vital Signs - 12hr 06/23/19 06/23/19 02:14 07:55 Temperature 98.5 F Pulse Rate 86 Respiratory 20 Rate Blood Pressure 153/80 O2 Sat by Pulse 97 Oximetry - General physical appearance no distress, no pain - ENT other (NGT - drainage is clear. There is thick mucus. No evidence of bile.) - Respiratory normal expansion, normal respiratory effort - Abdomen soft (more than yesterday), not tender, bowel sounds hypoactive (improved. ), not distended, not guarding, not rigid - Integumentary no rash, no growths, no abnormal pigmentation - Labs 06/23/19 04:51 06/23/19 04:51 Diabetes panel 06/23/19 Range/Units 04:51 Sodium 144 (137-145) mmol/L Potassium 4.0 (3.6-5.0) mmol/L Chloride 108.1 H (98-107) mmol/L Carbon Dioxide 26 (22-30) mmol/L BUN 3 L (9-20) mg/dL Creatinine 0.4 L (0.8-1.5) mg/dL Glucose 119 H (75-100) mg/dL Calcium 7.7 L (8.4-10.2) mg/dL Calcium panel 06/23/19 Range/Units 04:51 Calcium 7.7 L (8.4-10.2) mg/dL Phosphorus 2.20 L (2.5-4.5) mg/dL Pituitary panel 06/23/19 Range/Units 04:51 Sodium 144 (137-145) mmol/L Potassium 4.0 (3.6-5.0) mmol/L Chloride 108.1 H (98-107) mmol/L Carbon Dioxide 26 (22-30) mmol/L BUN 3 L (9-20) mg/dL Creatinine 0.4 L (0.8-1.5) mg/dL Glucose 119 H (75-100) mg/dL Calcium 7.7 L (8.4-10.2) mg/dL Adrenal panel 06/23/19 Range/Units 04:51 Sodium 144 (137-145) mmol/L Potassium 4.0 (3.6-5.0) mmol/L Chloride 108.1 H (98-107) mmol/L Carbon Dioxide 26 (22-30) mmol/L BUN 3 L (9-20) mg/dL Creatinine 0.4 L (0.8-1.5) mg/dL Glucose 119 H (75-100) mg/dL Calcium 7.7 L (8.4-10.2) mg/dL
--- NOTE | 2019-06-23 13:02 | Progress Note ---
Assessment and Plan Assessment and plan: Patient is a 78-year-old man from [facility] with a history of PAD s/p BKA, hypertension, DVT on A/C, hypertension, GERD, OA and Gout who presented to [facility] ED with confusion, lethargy, low grade fever, tachycardia and hypotension. He was intubated in the ER for airway protection on 06/14/19 and extubated on 06/18/19. * Chest x-ray; no acute findings * CT abd/pelvis with contrast IMPRESSION: Abnormal appearance of the gallbladder and appendix as outlined above. Correlate for gallbladder symptoms and a ppendicitis. Cystitis could be considered. Suspicious 1.8 cm left renal lesion as described above. Further imaging is recommended. Severe osteopenia. * CT angiogram chest, no PE, bibasilar atelectasis * CT head, essentially normal for age SBO (new issue): NPO, ngt to LIS, GS input noted, imaging reviewed Urine retention (new issue) with Left renal mass 257cc on bladder scan, 340 cc expelled on straight cath. not a simple cyst per Abdominal U/S: Consulted Urology Septic shock/ESBL E. coli bacteremia: ID input noted, treated with IV aBX, Source of bacteremia still unclear, Appendicitis ruled out, Surgery input appreciated Cholelithiasis; GS evaluated, input noted Acute respiratory failure on mechanical ventilator < 96 hours, now extubated on 06/18/19, management per Pulmonology Hypokalemia/hypophosphatemia: Repleted IV TYpe 2 NSTEMI, PAF, mgt per cardiology, input noted Acute metabolic encephalopathy DVT prophylaxis reviewed Disposition: continue inpatient care, once SBO resolves and ID give final abx recommendation then d.c back to [facility] I called daughter Shari Malagon at [phone] at 1447, I spoke her on Tuesday History Interval history: Patient was seen and examined. Follow-up on current diagnosis of Respiratory failure, extubated doing well No overnight events reported to me. Patient denies any chest pain, shortness breath, nausea/vomiting or severe headaches. Imaging, nursing note, chart, labs and old chart reviewed. Discussed with patient. Hospitalist Physical - Physical exam Narrative exam: Gen: ill appearing, nad, alert awake oriented x 3 HEENT: NCAT, EOMI, PERRL, OP Clear Neck: supple, no adenopathy, no thyromegaly, no JVD CVS/Heart: RRR, normal S1S2, pulses present bilaterally Chest/Lungs: CTA B, Symmetrical chest expansion, good air entry bilaterally GI/Abdomen: soft, NTND, good bowel sounds, no guarding or rebound /Bladder: no suprapubic tenderness, no CVA or paraspinal tenderness Extermity/Skin: no c/c/e, no obvious rash MSK: FROM x 4, bilateral AKA Neuro: CN 2-12 grossly intact, no new focal deficits Psych: calm - Constitutional Vitals: Temp Pulse Resp BP Pulse Ox 98.5 F 86 20 153/80 97 06/23/19 02:14 06/23/19 07:55 06/23/19 02:14 06/23/19 02:14 06/23/19 07:55 General appearance: Present: other (intubated on the vent) Results - Labs CBC & Chem 7: 06/23/19 04:51 06/23/19 04:51 Labs: Laboratory Last Values WBC 5.5 K/mm3 (4.5-11.0) 06/23/19 04:51 RBC 3.40 M/mm3 (3.65-5.03) L 06/23/19 04:51 Hgb 9.9 gm/dl (11.8-15.2) L 06/23/19 04:51 Hct 30.5 % (35.5-45.6) L 06/23/19 04:51 MCV 90 fl (84-94) 06/23/19 04:51 MCH 29 pg (28-32) 06/23/19 04:51 MCHC 32 % (32-34) 06/23/19 04:51 RDW 14.6 % (13.2-15.2) 06/23/19 04:51 Plt Count 400 K/mm3 (140-440) 06/23/19 04:51 Lymph % (Auto) 21.0 % (13.4-35.0) 06/23/19 04:51 [place] % (Auto) 12.2 % (0.0-7.3) H 06/23/19 04:51 Eos % (Auto) 3.1 % (0.0-4.3) 06/23/19 04:51 Baso % (Auto) 0.6 % (0.0-1.8) 06/23/19 04:51 Lymph # 1.1 K/mm3 (1.2-5.4) L 06/23/19 04:51 [place] # 0.7 K/mm3 (0.0-0.8) 06/23/19 04:51 Eos # 0.2 K/mm3 (0.0-0.4) 06/23/19 04:51 Baso # 0.0 K/mm3 (0.0-0.1) 06/23/19 04:51 Add Manual Diff Complete 06/14/19 04:30 Total Counted 100 06/14/19 04:30 Seg Neutrophils % 63.1 % (40.0-70.0) 06/23/19 04:51 Seg Neuts % (Manual) 70.0 % (40.0-70.0) 06/14/19 04:30 Band Neutrophils % 18.0 % 06/14/19 04:30 Lymphocytes % (Manual) 8.0 % (13.4-35.0) L 06/14/19 04:30 Reactive Lymphs % (Man) 0 % 06/14/19 04:30 Monocytes % (Manual) 4.0 % (0.0-7.3) 06/14/19 04:30 Eosinophils % (Manual) 0 % (0.0-4.3) 06/14/19 04:30 Basophils % (Manual) 0 % (0.0-1.8) 06/14/19 04:30 Metamyelocytes % 0 % 06/14/19 04:30 Myelocytes % 0 % 06/14/19 04:30 Promyelocytes % 0 % 06/14/19 04:30 Blast Cells % 0 % 06/14/19 04:30 Nucleated RBC % Not Reportable 06/14/19 04:30 Seg Neutrophils # 3.4 K/mm3 (1.8-7.7) 06/23/19 04:51 Seg Neutrophils # Man 8.3 K/mm3 (1.8-7.7) H 06/14/19 04:30 Band Neutrophils # 2.1 K/mm3 06/14/19 04:30 Lymphocytes # (Manual) 1.0 K/mm3 (1.2-5.4) L 06/14/19 04:30 Abs React Lymphs (Man) 0.0 K/mm3 06/14/19 04:30 Monocytes # (Manual) 0.5 K/mm3 (0.0-0.8) 06/14/19 04:30 Eosinophils # (Manual) 0.0 K/mm3 (0.0-0.4) 06/14/19 04:30 Basophils # (Manual) 0.0 K/mm3 (0.0-0.1) 06/14/19 04:30 Metamyelocytes # 0.0 K/mm3 06/14/19 04:30 Myelocytes # 0.0 K/mm3 06/14/19 04:30 Promyelocytes # 0.0 K/mm3 06/14/19 04:30 Blast Cells # 0.0 K/mm3 06/14/19 04:30 WBC Morphology Not Reportable 06/14/19 04:30 Hypersegmented Neuts Not Reportable 06/14/19 04:30 Hyposegmented Neuts Not Reportable 06/14/19 04:30 Hypogranular Neuts Not Reportable 06/14/19 04:30 Smudge Cells Not Reportable 06/14/19 04:30 Toxic Granulation Not Reportable 06/14/19 04:30 Toxic Vacuolation Not Reportable 06/14/19 04:30 Dohle Bodies Not Reportable 06/14/19 04:30 Pelger-Huet Anomaly Not Reportable 06/14/19 04:30 Raymundo Rods Not Reportable 06/14/19 04:30 Platelet Estimate Consistent w auto 06/14/19 04:30 Clumped Platelets Not Reportable 06/14/19 04:30 Plt Clumps, EDTA Not Reportable 06/14/19 04:30 Large Platelets Rare 06/14/19 04:30 Giant Platelets Not Reportable 06/14/19 04:30 Platelet Satelliting Not Reportable 06/14/19 04:30 Plt Morphology Comment Not Reportable 06/14/19 04:30 RBC Morphology Not Reportable 06/14/19 04:30 Dimorphic RBCs Not Reportable 06/14/19 04:30 Polychromasia Not Reportable 06/14/19 04:30 Hypochromasia Not Reportable 06/14/19 04:30 Poikilocytosis Not Reportable 06/14/19 04:30 Anisocytosis Rare 06/14/19 04:30 Microcytosis Not Reportable 06/14/19 04:30 Macrocytosis Not Reportable 06/14/19 04:30 Spherocytes Not Reportable 06/14/19 04:30 Pappenheimer Bodies Not Reportable 06/14/19 04:30 Sickle Cells Not Reportable 06/14/19 04:30 Target Cells Not Reportable 06/14/19 04:30 Tear Drop Cells Not Reportable 06/14/19 04:30 Ovalocytes Rare 06/14/19 04:30 Helmet Cells Not Reportable 06/14/19 04:30 [place] Bodies Not Reportable 06/14/19 04:30 [place] Rings Not Reportable 06/14/19 04:30 Davina Cells Rare 06/14/19 04:30 Bite Cells Not Reportable 06/14/19 04:30 Crenated Cell Not Reportable 06/14/19 04:30 Elliptocytes Not Reportable 06/14/19 04:30 Acanthocytes (Spur) Not Reportable 06/14/19 04:30 Rouleaux Not Reportable 06/14/19 04:30 Hemoglobin C Crystals Not Reportable 06/14/19 04:30 Schistocytes Not Reportable 06/14/19 04:30 Malaria parasites Not Reportable 06/14/19 04:30 Paulie Bodies Not Reportable 06/14/19 04:30 Hem Pathologist Commnt No 06/14/19 04:30 PT 16.3 Sec. (12.2-14.9) H 06/14/19 05:28 INR 1.35 (0.87-1.13) H 06/14/19 05:28 APTT 34.7 Sec. (24.2-36.6) 06/14/19 05:28 POC ABG pH 7.432 (7.35-7.45) 06/17/19 04:50 ABG pH 7.492 pH Units (7.350-7.450) H 06/18/19 11:45 POC ABG pCO2 31.5 (35-45) L 06/17/19 04:50 ABG pCO2 33.1 mm Hg 06/18/19 11:45 POC ABG pO2 135 (80-105) H 06/17/19 04:50 ABG pO2 102.2 mm Hg (80.0-90.0) H 06/18/19 11:45 POC ABG HCO3 21.0 (22-26 mml/L) 06/17/19 04:50 ABG HCO3 24.8 mmol/L (20.0-26.0) 06/18/19 11:45 POC ABG Total CO2 22 (23-27mmol/L) 06/17/19 04:50 POC ABG O2 Sat 99 06/17/19 04:50 ABG O2 Saturation 98.0 % (95.0-99.0) 06/18/19 11:45 ABG O2 Content 12.4 (0.0-44) 06/18/19 11:45 POC ABG Base Excess -3 ((-2) - (+3)mmol/L) 06/17/19 04:50 ABG Base Excess 1.6 mmol/L (-2.0-3.0) 06/18/19 11:45 ABG Hemoglobin 9.0 gm/dl (14.0-18.0) L 06/18/19 11:45 ABG Carboxyhemoglobin 1.4 % (0.0-5.0) 06/18/19 11:45 ABG Methemoglobin 0.4 % (0.0-1.5) 06/18/19 11:45 Oxyhemoglobin 96.2 % (95.0-99.0) 06/18/19 11:45 FiO2 25 % 06/18/19 11:45 Sodium 144 mmol/L (137-145) 06/23/19 04:51 Potassium 4.0 mmol/L (3.6-5.0) 06/23/19 04:51 Chloride 108.1 mmol/L (98-107) H 06/23/19 04:51 Carbon Dioxide 26 mmol/L (22-30) 06/23/19 04:51 Anion Gap 14 mmol/L 06/23/19 04:51 BUN 3 mg/dL (9-20) L 06/23/19 04:51 Creatinine 0.4 mg/dL (0.8-1.5) L 06/23/19 04:51 Estimated GFR > 60 ml/min 06/23/19 04:51 BUN/Creatinine Ratio 8 % 06/23/19 04:51 Glucose 119 mg/dL (75-100) H 06/23/19 04:51 POC Glucose 110 (70-105) H 06/22/19 22:10 Lactic Acid 1.20 mmol/L (0.7-2.0) 06/14/19 05:28 Calcium 7.7 mg/dL (8.4-10.2) L 06/23/19 04:51 Phosphorus 2.20 mg/dL (2.5-4.5) L 06/23/19 04:51 Magnesium 1.70 mg/dL (1.7-2.3) 06/23/19 04:51 Total Bilirubin 0.30 mg/dL (0.1-1.2) 06/15/19 04:35 AST 21 units/L (5-40) 06/15/19 04:35 ALT 14 units/L (7-56) 06/15/19 04:35 Alkaline Phosphatase 80 units/L (35-129) 06/15/19 04:35 Troponin T 0.979 ng/mL (0.00-0.029) H* 06/14/19 03:10 Total Protein 7.1 g/dL (6.3-8.2) 06/15/19 04:35 Albumin 2.8 g/dL (3.9-5) L 06/15/19 04:35 Albumin/Globulin Ratio 0.7 % 06/15/19 04:35 Triglycerides 74 mg/dL (2-149) 06/14/19 03:10 Cholesterol 112 mg/dL (50-199) 06/14/19 03:10 LDL Cholesterol Direct 76 mg/dL (50-130) 06/14/19 03:10 HDL Cholesterol 30 mg/dL (40-59) L 06/14/19 03:10 Cholesterol/HDL Ratio 3.73 % 06/14/19 03:10 Procalcitonin 45.71 ng/mL (<0.15) 06/14/19 13:26 Urine Color Gabbie (Yellow) 06/14/19 04:35 Urine Turbidity Cloudy (Clear) 06/14/19 04:35 Urine pH 5.0 (5.0-7.0) 06/14/19 04:35 Ur Specific [place] 1.020 (1.003-1.030) 06/14/19 04:35 Urine Protein 100 mg/dl mg/dL (Negative) 06/14/19 04:35 Urine Glucose (UA) Neg mg/dL (Negative) 06/14/19 04:35 Urine Ketones Neg mg/dL (Negative) 06/14/19 04:35 Urine Blood Neg (Negative) 06/14/19 04:35 Urine Nitrite Neg (Negative) 06/14/19 04:35 Ur Reducing Substances Not Reportable 06/14/19 04:35 Urine Bilirubin Neg (Negative) 06/14/19 04:35 Urine Ictotest Not Reportable 06/14/19 04:35 Urine Urobilinogen < 2.0 mg/dL (<2.0) 06/14/19 04:35 Ur Leukocyte Esterase Tr (Negative) 06/14/19 04:35 Urine WBC (Auto) 8.0 /HPF (0.0-6.0) H 06/14/19 04:35 Urine RBC (Auto) 6.0 /HPF (0.0-6.0) 06/14/19 04:35 U Epithel Cells (Auto) 1.0 /HPF (0-13.0) 06/14/19 04:35 Urine Mucus 2+ /HPF 06/14/19 04:35 Active Medications - Current Medications Current Medications: Generic Name Dose Route Start Last Admin Trade Name Freq PRN Reason Stop Dose Admin Albuterol 2.5 mg 06/14/19 12:31 Proventil IH Q4HRT PRN Shortness Of Breath Dextrose 50 ml 06/21/19 06:50 06/21/19 07:19 D50w (25gm) Syringe IV 50 ml PRN PRN Administration Hypoglycemia Diltiazem HCl 30 mg 06/21/19 12:00 06/23/19 00:05 Cardizem PO 30 mg Q6HR HAL Administration Heparin Sodium (Porcine) 5,000 unit 06/14/19 22:00 06/23/19 09:59 Heparin SUB-Q 5,000 unit Q12HR HAL Administration Hydrophilic Ointment 1 applic 06/14/19 03:45 Vaseline Lip Therapy TP Q2HR PRN Dry Lips Ertapenem 1 gm/ Sodium 50 mls @ 100 mls/hr 06/18/19 16:00 06/23/19 09:58 Chloride IV 100 mls/hr QDAY HAL Administration Potassium Chloride/Dextrose/Sod Cl 20 meq in 1,000 mls @ 100 mls/hr 06/21/19 09:00 06/23/19 10:02 D5w/Ns W/Kcl 20meq IV 100 mls/hr DIRECT HAL Administration Sodium Phosphate 30 mmol/ 510 mls @ 125 mls/hr 06/23/19 14:00 Sodium Chloride IV 06/23/19 18:04 ONCE ONE Metoclopramide HCl 10 mg 06/20/19 16:37 06/20/19 17:01 Reglan IV 10 mg Q8H PRN Administration Nausea And Vomiting Morphine Sulfate 2 mg 06/20/19 17:37 Morphine IV Q4H PRN Pain , Severe (7-10) Multi-Ingred Cream/Lotion/Oil/Oint 1 applic 06/14/19 03:45 Artificial Tears Ophth Oint OU Q4HR PRN Dry Eye(s) Ondansetron HCl 4 mg 06/14/19 09:00 06/20/19 12:13 Zofran IV 4 mg Q8H PRN Administration Nausea And Vomiting Pantoprazole Sodium 40 mg 06/20/19 17:00 06/23/19 09:59 Protonix IV 40 mg QDAY HAL Administration Sodium Chloride 10 ml 06/14/19 10:00 06/23/19 09:59 Sodium Chloride Flush Syringe 10 Ml IV 10 ml BID HAL Administration Sodium Chloride 10 ml 06/14/19 09:00 Sodium Chloride Flush Syringe 10 Ml IV PRN PRN LINE FLUSH Nutrition/Malnutrition Assess - Dietary Evaluation Nutrition/Malnutrition Findings: Nutrition Notes Start: 06/14/19 12:44 Freq: Status: Active Protocol: Document 06/21/19 13:17 RS (Rec: 06/21/19 13:53 RS [id number]) Co-Sign 06/21/19 13:17 LM Nutrition Notes Initial or Follow up Reassessment Current Diagnosis Hypertension Other Pertinent Diagnosis DVT, GERD, left AKA, right BKA , sepsis Current Diet NPO Labs/Tests reviewed Pertinent Medications reviewed Height 4 ft 3 in Weight 80.6 kg [place] Body Weight (kg) 23.63 BMI 48.0 Subjective/Other Information Pt nonverbal and disoriented. Pt currently NPO d/t MBS test . Pt was on cardiac diet yesterday but diet hx was unable to be retrieved from nurse. Percent of energy/protein needs met: 0%/0% Burn Absent Trauma Absent Minimum of two criteria No #1 Nutrition Diagnosis Inadequate oral intake Etiology MBS As Evidenced by Signs and Symptoms NPO Diagnosis Progress(for reassessment Continues documentation) Is patient on ventilator? No Is Patient Ambulatory and/or Out of Bed No REE-([facility]-confined to bed) 6975.080 Calculation Used for Recommendations [facility] Additional Notes Protein needs: 28-34g/kg (1-1. 2 of AdBw 28kg) Fluid needs: 1ml/kcal Nutrition Intervention Change Diet Order: Continue NPO until diet advancement from MD Goal #1 Meet at least 85% of energy and protein needs Anticipated Discharge Needs: Unable to determine at this time Follow-Up By: 06/25/19 Additional Comments F/U for diet advancement
[2019-06-23] MEDS ORDERED: SODIUM PHOSPHATE 30 MMOL in NACL 0.9% 500 ML 500 ML IV ONE (14:00)
--- NOTE | 2019-06-23 18:07 | Progress Note ---
Assessment and Plan Acute respiratory failure, hypoxemic, s/p mechanical ventilatory support. Severe sepsis with shock, resolved Acute encephalopathy, possibly on chronic, improved. History of chronic obstructive pulmonary disease. History of peripheral vascular disease. History of hypertension. History of deep venous thrombosis. History of gastroesophageal reflux disease. Lactic acidosis, resolved. Non-ST elevation myocardial infarction SBO/Ileus -Continue with supplemental oxygen to keep O2 sat>90% -Bronchodilators per protocol -IVF while NPO -Closely monitor respiratory status- at risk of alveolar/pulmonary edema -Incentive spirometry -BIPAP qhs and prn -Accuchecks with glycemic control for SSI (Target blood glucose of 140-180 mg/dL; avoid hypoglycemic) - PT/OT/ROM exercises - mobility protocols for pressure ulcer prophylaxis - Monitor hemodynamics closely -continue ertapenem IV per ID -VTE and stress ulcer prophylaxis -For clear liquid diet per Gen Surgery Subjective Date of service: 06/23/19 Principal diagnosis: Ac. hypoxemic resp failure; Severe Shock; UTI; COPD; PVD; HTN; NSTEMI; DVT Interval history: Patient is seen today for: Acute hypoxemic respiratory failure; Severe sepsis with shock; UTI; Acute encephalopathy; COPD; PVD; HTN; NSTEMI; H/O DVT Seen and examined at bedside; 24hour events reviewed; nursing and respiratory care staff consulted; no adverse overnight events reported to me; resting peacefully in bed; wants to drink water; otherwise feels better. Denies any chest pain, no shortness of breath, no fevers or chills. Denies any abdominal pain- NGT to LIS Vitals, labs, medications, chart reviewed. Objective Vital Signs - 12hr 06/23/19 06/23/19 07:55 13:47 Pulse Rate 86 Respiratory 22 Rate O2 Sat by Pulse 97 Oximetry Constitutional: no acute distress, alert, other Eyes: non-icteric, other (NGT in place) ENT: oropharynx dry Neck: supple, no lymphadenopathy, no JVD Effort: mildly labored Ascultation: Bilateral: diminished breath sounds, rhonchi Percussion: Bilateral: not dull Cardiovascular: other (Irregular, S1,S2) Gastrointestinal: hypoactive bowel sounds, soft, non-tender, other (distended) Integumentary: normal Extremities: no cyanosis, no edema, other (s/p Bilateral AKA) Neurologic: normal mental status, non-focal exam, pupils equal and round, CN II- XII normal Psychiatric: mood appropriate, affect normal CBC and BMP: 06/24/19 04:46 06/24/19 04:46 ABG, PT/INR, D-dimer: ABG POC ABG pH 7.432 (7.35-7.45) 06/17/19 04:50 ABG pH 7.492 pH Units (7.350-7.450) H 06/18/19 11:45 POC ABG pCO2 31.5 (35-45) L 06/17/19 04:50 ABG pCO2 33.1 mm Hg 06/18/19 11:45 POC ABG pO2 135 (80-105) H 06/17/19 04:50 ABG pO2 102.2 mm Hg (80.0-90.0) H 06/18/19 11:45 POC ABG HCO3 21.0 (22-26 mml/L) 06/17/19 04:50 POC ABG Total CO2 22 (23-27mmol/L) 06/17/19 04:50 POC ABG O2 Sat 99 06/17/19 04:50 ABG O2 Saturation 98.0 % (95.0-99.0) 06/18/19 11:45 PT/INR, D-dimer PT 16.3 Sec. (12.2-14.9) H 06/14/19 05:28 INR 1.35 (0.87-1.13) H 06/14/19 05:28 Abnormal lab findings: Abnormal Labs 06/14/19 06/14/19 06/14/19 02:49 03:10 03:10 WBC RBC Hgb Hct MCHC RDW Lymph % (Auto) [place] % (Auto) Eos % (Auto) Lymph # [place] # Eos # Seg Neutrophils % Lymphocytes % (Manual) Seg Neutrophils # Seg Neutrophils # Man Lymphocytes # (Manual) PT INR POC ABG pH ABG pH POC ABG pCO2 POC ABG pO2 ABG pO2 ABG Hemoglobin Sodium Potassium 3.5 L Chloride Carbon Dioxide 20 L BUN Creatinine 0.7 L Glucose 107 H POC Glucose 117 H Lactic Acid 2.60 H* Calcium Phosphorus Troponin T 0.979 H* Albumin 3.0 L HDL Cholesterol 30 L Urine WBC (Auto) 06/14/19 06/14/19 06/14/19 04:30 04:35 05:02 WBC 11.9 H RBC 3.22 L Hgb 9.5 L Hct 28.9 L MCHC RDW Lymph % (Auto) [place] % (Auto) Eos % (Auto) Lymph # [place] # Eos # Seg Neutrophils % Lymphocytes % (Manual) 8.0 L Seg Neutrophils # Seg Neutrophils # Man 8.3 H Lymphocytes # (Manual) 1.0 L PT INR POC ABG pH 7.314 L ABG pH POC ABG pCO2 POC ABG pO2 > 400 H ABG pO2 ABG Hemoglobin Sodium Potassium Chloride Carbon Dioxide BUN Creatinine Glucose POC Glucose Lactic Acid Calcium Phosphorus Troponin T Albumin HDL Cholesterol Urine WBC (Auto) 8.0 H 06/14/19 06/15/19 06/15/19 05:28 03:30 04:35 WBC 11.2 H RBC 3.02 L Hgb 8.9 L Hct 27.1 L MCHC RDW 15.3 H Lymph % (Auto) 6.5 L [place] % (Auto) Eos % (Auto) Lymph # 0.7 L [place] # Eos # Seg Neutrophils % 86.6 H Lymphocytes % (Manual) Seg Neutrophils # 9.7 H Seg Neutrophils # Man Lymphocytes # (Manual) PT 16.3 H INR 1.35 H POC ABG pH 7.336 L ABG pH POC ABG pCO2 < 30 L POC ABG pO2 133 H ABG pO2 ABG Hemoglobin Sodium Potassium Chloride Carbon Dioxide BUN Creatinine Glucose POC Glucose Lactic Acid Calcium Phosphorus Troponin T Albumin HDL Cholesterol Urine WBC (Auto) 06/15/19 06/15/19 06/16/19 04:35 12:25 04:29 WBC RBC Hgb Hct MCHC RDW Lymph % (Auto) [place] % (Auto) Eos % (Auto) Lymph # [place] # Eos # Seg Neutrophils % Lymphocytes % (Manual) Seg Neutrophils # Seg Neutrophils # Man Lymphocytes # (Manual) PT INR POC ABG pH 7.315 L ABG pH POC ABG pCO2 POC ABG pO2 63 L 135 H ABG pO2 ABG Hemoglobin Sodium Potassium 3.3 L Chloride 110.7 H Carbon Dioxide 15 L BUN Creatinine 0.4 L Glucose 104 H POC Glucose Lactic Acid Calcium 7.8 L Phosphorus 1.80 L Troponin T Albumin 2.8 L HDL Cholesterol Urine WBC (Auto) 06/16/19 06/17/19 06/17/19 16:31 04:50 Unknown WBC RBC 2.89 L Hgb 8.4 L Hct 25.4 L MCHC RDW Lymph % (Auto) [place] % (Auto) 8.9 H Eos % (Auto) Lymph # 0.9 L [place] # Eos # Seg Neutrophils % 74.9 H Lymphocytes % (Manual) Seg Neutrophils # Seg Neutrophils # Man Lymphocytes # (Manual) PT INR POC ABG pH ABG pH POC ABG pCO2 31.5 L POC ABG pO2 135 H ABG pO2 ABG Hemoglobin Sodium Potassium Chloride Carbon Dioxide BUN Creatinine Glucose POC Glucose Lactic Acid Calcium Phosphorus 1.30 L D Troponin T Albumin HDL Cholesterol Urine WBC (Auto) 06/17/19 06/18/19 06/18/19 Unknown 04:30 04:30 WBC RBC 2.84 L Hgb 8.6 L Hct 24.8 L MCHC 35 H RDW Lymph % (Auto) 11.2 L [place] % (Auto) 9.7 H Eos % (Auto) 4.6 H Lymph # 0.7 L [place] # Eos # Seg Neutrophils % 74.1 H Lymphocytes % (Manual) Seg Neutrophils # Seg Neutrophils # Man Lymphocytes # (Manual) PT INR POC ABG pH ABG pH POC ABG pCO2 POC ABG pO2 ABG pO2 ABG Hemoglobin Sodium Potassium 3.0 L 3.4 L Chloride 107.3 H 108.0 H Carbon Dioxide BUN 8 L 7 L Creatinine 0.3 L 0.3 L Glucose 171 H 155 H POC Glucose Lactic Acid Calcium 7.3 L 6.9 L Phosphorus 1.30 L Troponin T Albumin HDL Cholesterol Urine WBC (Auto) 06/18/19 06/18/19 06/19/19 11:45 11:46 00:29 WBC RBC Hgb Hct MCHC RDW Lymph % (Auto) [place] % (Auto) Eos % (Auto) Lymph # [place] # Eos # Seg Neutrophils % Lymphocytes % (Manual) Seg Neutrophils # Seg Neutrophils # Man Lymphocytes # (Manual) PT INR POC ABG pH ABG pH 7.492 H POC ABG pCO2 POC ABG pO2 ABG pO2 102.2 H ABG Hemoglobin 9.0 L Sodium Potassium Chloride Carbon Dioxide BUN Creatinine Glucose POC Glucose 115 H 134 H Lactic Acid Calcium Phosphorus Troponin T Albumin HDL Cholesterol Urine WBC (Auto) 06/19/19 06/19/19 06/20/19 05:01 05:01 04:17 WBC RBC 3.18 L 3.53 L Hgb 9.5 L 10.4 L Hct 28.1 L 31.5 L MCHC RDW 15.3 H Lymph % (Auto) 10.5 L 13.0 L [place] % (Auto) 11.9 H 12.8 H Eos % (Auto) 4.9 H 9.0 H Lymph # 0.8 L 0.9 L [place] # 1.0 H 0.9 H Eos # 0.6 H Seg Neutrophils % 72.2 H Lymphocytes % (Manual) Seg Neutrophils # Seg Neutrophils # Man Lymphocytes # (Manual) PT INR POC ABG pH ABG pH POC ABG pCO2 POC ABG pO2 ABG pO2 ABG Hemoglobin Sodium Potassium Chloride 107.4 H Carbon Dioxide BUN 7 L Creatinine 0.3 L Glucose POC Glucose Lactic Acid Calcium 7.3 L Phosphorus Troponin T Albumin HDL Cholesterol Urine WBC (Auto) 06/20/19 06/21/19 06/21/19 04:17 04:40 04:40 WBC RBC 3.50 L Hgb 10.4 L Hct 31.6 L MCHC RDW Lymph % (Auto) [place] % (Auto) 13.0 H Eos % (Auto) Lymph # 1.1 L [place] # 0.9 H Eos # Seg Neutrophils % Lymphocytes % (Manual) Seg Neutrophils # Seg Neutrophils # Man Lymphocytes # (Manual) PT INR POC ABG pH ABG pH POC ABG pCO2 POC ABG pO2 ABG pO2 ABG Hemoglobin Sodium Potassium Chloride Carbon Dioxide 20 L D BUN 8 L 8 L Creatinine 0.4 L 0.4 L Glucose 66 L POC Glucose Lactic Acid Calcium 7.6 L 7.6 L Phosphorus Troponin T Albumin HDL Cholesterol Urine WBC (Auto) 06/21/19 06/21/19 06/21/19 06:49 11:53 18:58 WBC RBC Hgb Hct MCHC RDW Lymph % (Auto) [place] % (Auto) Eos % (Auto) Lymph # [place] # Eos # Seg Neutrophils % Lymphocytes % (Manual) Seg Neutrophils # Seg Neutrophils # Man Lymphocytes # (Manual) PT INR POC ABG pH ABG pH POC ABG pCO2 POC ABG pO2 ABG pO2 ABG Hemoglobin Sodium Potassium Chloride Carbon Dioxide BUN Creatinine Glucose POC Glucose 62 L 110 H 122 H Lactic Acid Calcium Phosphorus Troponin T Albumin HDL Cholesterol Urine WBC (Auto) 06/21/19 06/22/19 06/22/19 23:41 04:01 04:01 WBC RBC 3.29 L Hgb 9.7 L Hct 29.4 L MCHC RDW Lymph % (Auto) [place] % (Auto) 13.8 H Eos % (Auto) Lymph # 0.9 L [place] # Eos # Seg Neutrophils % Lymphocytes % (Manual) Seg Neutrophils # Seg Neutrophils # Man Lymphocytes # (Manual) PT INR POC ABG pH ABG pH POC ABG pCO2 POC ABG pO2 ABG pO2 ABG Hemoglobin Sodium 147 H Potassium Chloride 109.7 H Carbon Dioxide BUN 6 L Creatinine 0.4 L Glucose 124 H POC Glucose 128 H Lactic Acid Calcium 7.3 L Phosphorus Troponin T Albumin HDL Cholesterol Urine WBC (Auto) 06/22/19 06/22/19 06/22/19 06:06 11:59 17:40 WBC RBC Hgb Hct MCHC RDW Lymph % (Auto) [place] % (Auto) Eos % (Auto) Lymph # [place] # Eos # Seg Neutrophils % Lymphocytes % (Manual) Seg Neutrophils # Seg Neutrophils # Man Lymphocytes # (Manual) PT INR POC ABG pH ABG pH POC ABG pCO2 POC ABG pO2 ABG pO2 ABG Hemoglobin Sodium Potassium Chloride Carbon Dioxide BUN Creatinine Glucose POC Glucose 170 H 135 H 134 H Lactic Acid Calcium Phosphorus Troponin T Albumin HDL Cholesterol Urine WBC (Auto) 06/22/19 06/23/19 06/23/19 22:10 04:51 04:51 WBC RBC 3.40 L Hgb 9.9 L Hct 30.5 L MCHC RDW Lymph % (Auto) [place] % (Auto) 12.2 H Eos % (Auto) Lymph # 1.1 L [place] # Eos # Seg Neutrophils % Lymphocytes % (Manual) Seg Neutrophils # Seg Neutrophils # Man Lymphocytes # (Manual) PT INR POC ABG pH ABG pH POC ABG pCO2 POC ABG pO2 ABG pO2 ABG Hemoglobin Sodium Potassium Chloride 108.1 H Carbon Dioxide BUN 3 L Creatinine 0.4 L Glucose 119 H POC Glucose 110 H Lactic Acid Calcium 7.7 L Phosphorus 2.20 L Troponin T Albumin HDL Cholesterol Urine WBC (Auto) Allied health notes reviewed: nursing
[2019-06-24] MEDS: CARDIZEM PO SCH ×4 (00:36→17:03)
[2019-06-24] MEDS: D5W/NS W/KCL 20MEQ 20 MEQ/1,000 ML BAG IV SCH (05:30)
[2019-06-24 05:34] LABS: Basophils % (Auto) 0.4 % (0.0-1.8); Eosinophils # (Auto) 0.1 K/mm3 (0.0-0.4); Eosinophils % (Auto) 2.8 % (0.0-4.3); Hematocrit 30.3 % (35.5-45.6); Hemoglobin 10.1 gm/dl (11.8-15.2); Lymphocytes # (Auto) 0.9 K/mm3 (1.2-5.4); Lymphocytes % (Auto) 18.9 % (13.4-35.0); Mean Corpuscular HGB Conc 33 % (32-34); Mean Corpuscular Volume 88 fl (84-94); Monocytes # (Auto) 0.5 K/mm3 (0.0-0.8); Monocytes % (Auto) 10.6 % (0.0-7.3); Platelet Count 435 K/mm3 (140-440); Red Blood Count 3.43 M/mm3 (3.65-5.03); Red Cell Distribution Width 14.8 % (13.2-15.2)
[2019-06-24 05:55] LABS: BUN/Creatinine Ratio 7; Blood Urea Nitrogen 2 mg/dL (9-20); Calcium 7.6 mg/dL (8.4-10.2); Hemolysis Index 3
--- NOTE | 2019-06-24 08:32 | XRay Report ---
ABDOMEN 1 VIEW INDICATION / CLINICAL INFORMATION: check on status of ileus. COMPARISON: 06/22/19 FINDINGS: TUBES / LINES: Esophagogastric tube has pulled back slightly with the sidehole at the level of the ga stroesophageal junction. BOWEL GAS PATTERN: Slight interval increase in gaseous distention of the stomach and small bowel. Sma ll amount of gas present in the colon and rectum. FREE AIR / EXTRALUMINAL GAS: None seen. ADDITIONAL FINDINGS: No significant additional findings. IMPRESSION: 1. Interval increase in gaseous distention of stomach and small bowel. 2. Esophagogastric tube has pulled back slightly. Tube should be advanced 5-8 cm for optimal position ing. Signer Name: Ajith Pappas MD Signed: 06/24/2019 8:28 AM Workstation Name: [id number]
[2019-06-24] MEDS: INVanz 1 GM in NACL 0.9% 50 ML IV SCH (10:32)
[2019-06-24] MEDS: PROTONIX IV SCH (10:33)
[2019-06-24] MEDS: SODIUM CHLORIDE FLUSH SYRINGE 10 ML IV SCH ×2 (10:33→22:20)
[2019-06-24] MEDS: HEPARIN SUB-Q SCH ×2 (10:33→23:07)
--- NOTE | 2019-06-24 10:49 | Progress Note ---
Assessment and Plan Assessment and plan: Patient is a 78-year-old man from [facility] with a history of PAD s/p BKA, hypertension, DVT on A/C, hypertension, GERD, OA and Gout who presented to [facility] with confusion, lethargy, low grade fever, tachycardia and hypotension. He was intubated in the ER for airway protection on 06/14/19 and extubated on 06/18/19. * Chest x-ray; no acute findings * CT abd/pelvis with contrast IMPRESSION: Abnormal appearance of the gallbladder and appendix as outlined above. Correlate for gallbladder symptoms and a ppendicitis. Cystitis could be considered. Suspicious 1.8 cm left renal lesion as described above. Further imaging is recommended. Severe osteopenia. * CT angiogram chest, no PE, bibasilar atelectasis * CT head, essentially normal for age SBO (new issue) most likely Ileus: ngt to LIS, GS input noted, imaging reviewed Urine retention (new issue) with Left renal mass 257cc on bladder scan, 340 cc expelled on straight cath. not a simple cyst per Abdominal U/S: Consulted Urology Septic shock/ESBL E. coli bacteremia: ID input noted, treated with IV aBX, Source of bacteremia still unclear, Appendicitis ruled out, Surgery input appreciated Cholelithiasis; GS evaluated, input noted Acute respiratory failure on mechanical ventilator < 96 hours, now extubated on 06/18/19, management per Pulmonology Hypokalemia/hypophosphatemia: Repleted IV TYpe 2 NSTEMI, PAF, mgt per cardiology, input noted Acute metabolic encephalopathy DVT prophylaxis reviewed Disposition: continue inpatient care, once SBO resolves and ID give final abx recommendation then d.c back to [facility] I called daughter Shari Malagon at [phone] at 1447, I spoke her on Tuesday and I called her on Tuesday and spoke with her at 1052 am History Interval history: Patient was seen and examined. Follow-up on current diagnosis of Respiratory failure, extubated doing well No overnight events reported to me. Patient denies any chest pain, shortness breath, nausea/vomiting or severe headaches. Imaging, nursing note, chart, labs and old chart reviewed. Discussed with patient. Hospitalist Physical - Physical exam Narrative exam: Gen: ill appearing, nad, alert awake oriented x 3 HEENT: NCAT, EOMI, PERRL, OP Clear Neck: supple, no adenopathy, no thyromegaly, no JVD CVS/Heart: RRR, normal S1S2, pulses present bilaterally Chest/Lungs: CTA B, Symmetrical chest expansion, good air entry bilaterally GI/Abdomen: soft, NTND, good bowel sounds, no guarding or rebound /Bladder: no suprapubic tenderness, no CVA or paraspinal tenderness Extermity/Skin: no c/c/e, no obvious rash MSK: FROM x 4, bilateral AKA Neuro: CN 2-12 grossly intact, no new focal deficits Psych: calm - Constitutional Vitals: Temp Pulse Resp BP Pulse Ox 98.8 F 76 18 151/86 100 06/24/19 08:07 06/24/19 08:07 06/24/19 08:07 06/24/19 08:07 06/24/19 08:51 General appearance: Present: other (intubated on the vent) Results - Labs CBC & Chem 7: 06/24/19 04:46 06/24/19 04:46 Labs: Laboratory Last Values WBC 4.8 K/mm3 (4.5-11.0) 06/24/19 04:46 RBC 3.43 M/mm3 (3.65-5.03) L 06/24/19 04:46 Hgb 10.1 gm/dl (11.8-15.2) L 06/24/19 04:46 Hct 30.3 % (35.5-45.6) L 06/24/19 04:46 MCV 88 fl (84-94) 06/24/19 04:46 MCH 30 pg (28-32) 06/24/19 04:46 MCHC 33 % (32-34) 06/24/19 04:46 RDW 14.8 % (13.2-15.2) 06/24/19 04:46 Plt Count 435 K/mm3 (140-440) 06/24/19 04:46 Lymph % (Auto) 18.9 % (13.4-35.0) 06/24/19 04:46 [place] % (Auto) 10.6 % (0.0-7.3) H 06/24/19 04:46 Eos % (Auto) 2.8 % (0.0-4.3) 06/24/19 04:46 Baso % (Auto) 0.4 % (0.0-1.8) 06/24/19 04:46 Lymph # 0.9 K/mm3 (1.2-5.4) L 06/24/19 04:46 [place] # 0.5 K/mm3 (0.0-0.8) 06/24/19 04:46 Eos # 0.1 K/mm3 (0.0-0.4) 06/24/19 04:46 Baso # 0.0 K/mm3 (0.0-0.1) 06/24/19 04:46 Add Manual Diff Complete 06/14/19 04:30 Total Counted 100 06/14/19 04:30 Seg Neutrophils % 67.3 % (40.0-70.0) 06/24/19 04:46 Seg Neuts % (Manual) 70.0 % (40.0-70.0) 06/14/19 04:30 Band Neutrophils % 18.0 % 06/14/19 04:30 Lymphocytes % (Manual) 8.0 % (13.4-35.0) L 06/14/19 04:30 Reactive Lymphs % (Man) 0 % 06/14/19 04:30 Monocytes % (Manual) 4.0 % (0.0-7.3) 06/14/19 04:30 Eosinophils % (Manual) 0 % (0.0-4.3) 06/14/19 04:30 Basophils % (Manual) 0 % (0.0-1.8) 06/14/19 04:30 Metamyelocytes % 0 % 06/14/19 04:30 Myelocytes % 0 % 06/14/19 04:30 Promyelocytes % 0 % 06/14/19 04:30 Blast Cells % 0 % 06/14/19 04:30 Nucleated RBC % Not Reportable 06/14/19 04:30 Seg Neutrophils # 3.2 K/mm3 (1.8-7.7) 06/24/19 04:46 Seg Neutrophils # Man 8.3 K/mm3 (1.8-7.7) H 06/14/19 04:30 Band Neutrophils # 2.1 K/mm3 06/14/19 04:30 Lymphocytes # (Manual) 1.0 K/mm3 (1.2-5.4) L 06/14/19 04:30 Abs React Lymphs (Man) 0.0 K/mm3 06/14/19 04:30 Monocytes # (Manual) 0.5 K/mm3 (0.0-0.8) 06/14/19 04:30 Eosinophils # (Manual) 0.0 K/mm3 (0.0-0.4) 06/14/19 04:30 Basophils # (Manual) 0.0 K/mm3 (0.0-0.1) 06/14/19 04:30 Metamyelocytes # 0.0 K/mm3 06/14/19 04:30 Myelocytes # 0.0 K/mm3 06/14/19 04:30 Promyelocytes # 0.0 K/mm3 06/14/19 04:30 Blast Cells # 0.0 K/mm3 06/14/19 04:30 WBC Morphology Not Reportable 06/14/19 04:30 Hypersegmented Neuts Not Reportable 06/14/19 04:30 Hyposegmented Neuts Not Reportable 06/14/19 04:30 Hypogranular Neuts Not Reportable 06/14/19 04:30 Smudge Cells Not Reportable 06/14/19 04:30 Toxic Granulation Not Reportable 06/14/19 04:30 Toxic Vacuolation Not Reportable 06/14/19 04:30 Dohle Bodies Not Reportable 06/14/19 04:30 Pelger-Huet Anomaly Not Reportable 06/14/19 04:30 Raymundo Rods Not Reportable 06/14/19 04:30 Platelet Estimate Consistent w auto 06/14/19 04:30 Clumped Platelets Not Reportable 06/14/19 04:30 Plt Clumps, EDTA Not Reportable 06/14/19 04:30 Large Platelets Rare 06/14/19 04:30 Giant Platelets Not Reportable 06/14/19 04:30 Platelet Satelliting Not Reportable 06/14/19 04:30 Plt Morphology Comment Not Reportable 06/14/19 04:30 RBC Morphology Not Reportable 06/14/19 04:30 Dimorphic RBCs Not Reportable 06/14/19 04:30 Polychromasia Not Reportable 06/14/19 04:30 Hypochromasia Not Reportable 06/14/19 04:30 Poikilocytosis Not Reportable 06/14/19 04:30 Anisocytosis Rare 06/14/19 04:30 Microcytosis Not Reportable 06/14/19 04:30 Macrocytosis Not Reportable 06/14/19 04:30 Spherocytes Not Reportable 06/14/19 04:30 Pappenheimer Bodies Not Reportable 06/14/19 04:30 Sickle Cells Not Reportable 06/14/19 04:30 Target Cells Not Reportable 06/14/19 04:30 Tear Drop Cells Not Reportable 06/14/19 04:30 Ovalocytes Rare 06/14/19 04:30 Helmet Cells Not Reportable 06/14/19 04:30 Hardy-Ethridge Bodies Not Reportable 06/14/19 04:30 [place] Rings Not Reportable 06/14/19 04:30 Davina Cells Rare 06/14/19 04:30 Bite Cells Not Reportable 06/14/19 04:30 Crenated Cell Not Reportable 06/14/19 04:30 Elliptocytes Not Reportable 06/14/19 04:30 Acanthocytes (Spur) Not Reportable 06/14/19 04:30 Rouleaux Not Reportable 06/14/19 04:30 Hemoglobin C Crystals Not Reportable 06/14/19 04:30 Schistocytes Not Reportable 06/14/19 04:30 Malaria parasites Not Reportable 06/14/19 04:30 Paulie Bodies Not Reportable 06/14/19 04:30 Hem Pathologist Commnt No 06/14/19 04:30 PT 16.3 Sec. (12.2-14.9) H 06/14/19 05:28 INR 1.35 (0.87-1.13) H 06/14/19 05:28 APTT 34.7 Sec. (24.2-36.6) 06/14/19 05:28 POC ABG pH 7.432 (7.35-7.45) 06/17/19 04:50 ABG pH 7.492 pH Units (7.350-7.450) H 06/18/19 11:45 POC ABG pCO2 31.5 (35-45) L 06/17/19 04:50 ABG pCO2 33.1 mm Hg 06/18/19 11:45 POC ABG pO2 135 (80-105) H 06/17/19 04:50 ABG pO2 102.2 mm Hg (80.0-90.0) H 06/18/19 11:45 POC ABG HCO3 21.0 (22-26 mml/L) 06/17/19 04:50 ABG HCO3 24.8 mmol/L (20.0-26.0) 06/18/19 11:45 POC ABG Total CO2 22 (23-27mmol/L) 06/17/19 04:50 POC ABG O2 Sat 99 06/17/19 04:50 ABG O2 Saturation 98.0 % (95.0-99.0) 06/18/19 11:45 ABG O2 Content 12.4 (0.0-44) 06/18/19 11:45 POC ABG Base Excess -3 ((-2) - (+3)mmol/L) 06/17/19 04:50 ABG Base Excess 1.6 mmol/L (-2.0-3.0) 06/18/19 11:45 ABG Hemoglobin 9.0 gm/dl (14.0-18.0) L 06/18/19 11:45 ABG Carboxyhemoglobin 1.4 % (0.0-5.0) 06/18/19 11:45 ABG Methemoglobin 0.4 % (0.0-1.5) 06/18/19 11:45 Oxyhemoglobin 96.2 % (95.0-99.0) 06/18/19 11:45 FiO2 25 % 06/18/19 11:45 Sodium 144 mmol/L (137-145) 06/24/19 04:46 Potassium 3.9 mmol/L (3.6-5.0) 06/24/19 04:46 Chloride 106.7 mmol/L (98-107) 06/24/19 04:46 Carbon Dioxide 25 mmol/L (22-30) 06/24/19 04:46 Anion Gap 16 mmol/L 06/24/19 04:46 BUN 2 mg/dL (9-20) L 06/24/19 04:46 Creatinine 0.3 mg/dL (0.8-1.5) L 06/24/19 04:46 Estimated GFR > 60 ml/min 06/24/19 04:46 BUN/Creatinine Ratio 7 % 06/24/19 04:46 Glucose 106 mg/dL (75-100) H 06/24/19 04:46 POC Glucose 110 (70-105) H 06/22/19 22:10 Lactic Acid 1.20 mmol/L (0.7-2.0) 06/14/19 05:28 Calcium 7.6 mg/dL (8.4-10.2) L 06/24/19 04:46 Phosphorus 2.80 mg/dL (2.5-4.5) D 06/24/19 04:46 Magnesium 1.70 mg/dL (1.7-2.3) 06/23/19 04:51 Total Bilirubin 0.30 mg/dL (0.1-1.2) 06/15/19 04:35 AST 21 units/L (5-40) 06/15/19 04:35 ALT 14 units/L (7-56) 06/15/19 04:35 Alkaline Phosphatase 80 units/L (35-129) 06/15/19 04:35 Troponin T 0.979 ng/mL (0.00-0.029) H* 06/14/19 03:10 Total Protein 7.1 g/dL (6.3-8.2) 06/15/19 04:35 Albumin 2.8 g/dL (3.9-5) L 06/15/19 04:35 Albumin/Globulin Ratio 0.7 % 06/15/19 04:35 Triglycerides 74 mg/dL (2-149) 06/14/19 03:10 Cholesterol 112 mg/dL (50-199) 06/14/19 03:10 LDL Cholesterol Direct 76 mg/dL (50-130) 06/14/19 03:10 HDL Cholesterol 30 mg/dL (40-59) L 06/14/19 03:10 Cholesterol/HDL Ratio 3.73 % 06/14/19 03:10 Procalcitonin 45.71 ng/mL (<0.15) 06/14/19 13:26 Urine Color Gabbie (Yellow) 06/14/19 04:35 Urine Turbidity Cloudy (Clear) 06/14/19 04:35 Urine pH 5.0 (5.0-7.0) 06/14/19 04:35 Ur Specific [place] 1.020 (1.003-1.030) 06/14/19 04:35 Urine Protein 100 mg/dl mg/dL (Negative) 06/14/19 04:35 Urine Glucose (UA) Neg mg/dL (Negative) 06/14/19 04:35 Urine Ketones Neg mg/dL (Negative) 06/14/19 04:35 Urine Blood Neg (Negative) 06/14/19 04:35 Urine Nitrite Neg (Negative) 06/14/19 04:35 Ur Reducing Substances Not Reportable 06/14/19 04:35 Urine Bilirubin Neg (Negative) 06/14/19 04:35 Urine Ictotest Not Reportable 06/14/19 04:35 Urine Urobilinogen < 2.0 mg/dL (<2.0) 06/14/19 04:35 Ur Leukocyte Esterase Tr (Negative) 06/14/19 04:35 Urine WBC (Auto) 8.0 /HPF (0.0-6.0) H 06/14/19 04:35 Urine RBC (Auto) 6.0 /HPF (0.0-6.0) 06/14/19 04:35 U Epithel Cells (Auto) 1.0 /HPF (0-13.0) 06/14/19 04:35 Urine Mucus 2+ /HPF 06/14/19 04:35 Active Medications - Current Medications Current Medications: Generic Name Dose Route Start Last Admin Trade Name Aroldoq PRN Reason Stop Dose Admin Albuterol 2.5 mg 06/14/19 12:31 Proventil IH Q4HRT PRN Shortness Of Breath Dextrose 50 ml 06/21/19 06:50 06/21/19 07:19 D50w (25gm) Syringe IV 50 ml PRN PRN Administration Hypoglycemia Diltiazem HCl 30 mg 06/21/19 12:00 06/24/19 05:30 Cardizem PO 30 mg Q6HR HAL Administration Heparin Sodium (Porcine) 5,000 unit 06/14/19 22:00 06/24/19 10:33 Heparin SUB-Q 5,000 unit Q12HR HAL Administration Hydrophilic Ointment 1 applic 06/14/19 03:45 Vaseline Lip Therapy TP Q2HR PRN Dry Lips Ertapenem 1 gm/ Sodium 50 mls @ 100 mls/hr 06/18/19 16:00 06/24/19 10:32 Chloride IV 100 mls/hr QDAY HAL Administration Potassium Chloride/Dextrose/Sod Cl 20 meq in 1,000 mls @ 100 mls/hr 06/21/19 09:00 06/24/19 05:30 D5w/Ns W/Kcl 20meq IV 100 mls/hr DIRECT HAL Administration Metoclopramide HCl 10 mg 06/20/19 16:37 06/20/19 17:01 Reglan IV 10 mg Q8H PRN Administration Nausea And Vomiting Morphine Sulfate 2 mg 06/20/19 17:37 Morphine IV Q4H PRN Pain , Severe (7-10) Multi-Ingred Cream/Lotion/Oil/Oint 1 applic 06/14/19 03:45 Artificial Tears Ophth Oint OU Q4HR PRN Dry Eye(s) Ondansetron HCl 4 mg 06/14/19 09:00 06/20/19 12:13 Zofran IV 4 mg Q8H PRN Administration Nausea And Vomiting Pantoprazole Sodium 40 mg 06/20/19 17:00 06/24/19 10:33 Protonix IV 40 mg QDAY HAL Administration Sodium Chloride 10 ml 06/14/19 10:00 06/24/19 10:33 Sodium Chloride Flush Syringe 10 Ml IV 10 ml BID HAL Administration Sodium Chloride 10 ml 06/14/19 09:00 Sodium Chloride Flush Syringe 10 Ml IV PRN PRN LINE FLUSH Nutrition/Malnutrition Assess - Dietary Evaluation Nutrition/Malnutrition Findings: Nutrition Notes Start: 06/14/19 12:44 Freq: Status: Active Protocol: Document 06/21/19 13:17 RS (Rec: 06/21/19 13:53 RS [id number]) Co-Sign 06/21/19 13:17 LM Nutrition Notes Initial or Follow up Reassessment Current Diagnosis Hypertension Other Pertinent Diagnosis DVT, GERD, left AKA, right BKA , sepsis Current Diet NPO Labs/Tests reviewed Pertinent Medications reviewed Height 4 ft 3 in Weight 80.6 kg [place] Body Weight (kg) 23.63 BMI 48.0 Subjective/Other Information Pt nonverbal and disoriented. Pt currently NPO d/t MBS test . Pt was on cardiac diet yesterday but diet hx was unable to be retrieved from nurse. Percent of energy/protein needs met: 0%/0% Burn Absent Trauma Absent Minimum of two criteria No #1 Nutrition Diagnosis Inadequate oral intake Etiology MBS As Evidenced by Signs and Symptoms NPO Diagnosis Progress(for reassessment Continues documentation) Is patient on ventilator? No Is Patient Ambulatory and/or Out of Bed No REE-([facility]-confined to bed) 8615.080 Calculation Used for Recommendations [facility] Additional Notes Protein needs: 28-34g/kg (1-1. 2 of AdBw 28kg) Fluid needs: 1ml/kcal Nutrition Intervention Change Diet Order: Continue NPO until diet advancement from MD Goal #1 Meet at least 85% of energy and protein needs Anticipated Discharge Needs: Unable to determine at this time Follow-Up By: 06/25/19 Additional Comments F/U for diet advancement
--- NOTE | 2019-06-24 10:57 | Progress Note ---
Assessment and Plan Small bowel obstruction likley ileus per surgery Severe sepsis improving E coli septicemia Acute respiratory failure s/p extubation Acute encephalopathy -improved Peripheral arterial disease s/p bilateral knee amputation COPD Paroxysmal Atrial fibrillation Echo showing LVEF 50-55% Continue medical therapy for paroxysmal atrial fibrillation. Subjective Date of service: 06/24/19 Principal diagnosis: Ac. hypoxemic resp failure; Severe Shock; UTI; COPD; PVD; HTN; NSTEMI; DVT Interval history: patient looks little better today Objective Vital Signs Temp Pulse Resp BP Pulse Ox 06/24/19 08:51 100 06/24/19 08:07 98.8 F 76 18 151/86 99 06/24/19 04:00 77 20 99 06/24/19 02:40 99.5 F 87 20 139/73 99 06/24/19 00:36 77 136/85 06/23/19 20:51 98.2 F 77 20 136/85 98 06/23/19 19:06 96 06/23/19 14:20 99.2 F 68 18 150/96 76 L 06/23/19 13:47 22 - Physical Examination Narrative exam: General appearance: Somnolent, NG tube in place HEENT: Positive: PERRL Neck: Positive: trachea midline Cardiac: Positive: Reg Rate and Rhythm Lungs: Positive: Decreased Breath Sounds Neuro: Positive: Grossly Intact General: No Apparent Distress HEENT: Positive: PERRL Neck: Positive: trachea midline Neuro: Positive: Other (bilateral LE amputation) Abdomen: Positive: Soft Skin: Positive: Clear Extremities: Present: Other (bilateral LE amputation) - Labs and Meds CBC 06/24/19 Range/Units 04:46 WBC 4.8 (4.5-11.0) K/mm3 RBC 3.43 L (3.65-5.03) M/mm3 Hgb 10.1 L (11.8-15.2) gm/dl Hct 30.3 L (35.5-45.6) % Plt Count 435 (140-440) K/mm3 Lymph # 0.9 L (1.2-5.4) K/mm3 [place] # 0.5 (0.0-0.8) K/mm3 Eos # 0.1 (0.0-0.4) K/mm3 Baso # 0.0 (0.0-0.1) K/mm3 Comprehensive Metabolic Panel 06/24/19 Range/Units 04:46 Sodium 144 (137-145) mmol/L Potassium 3.9 (3.6-5.0) mmol/L Chloride 106.7 (98-107) mmol/L Carbon Dioxide 25 (22-30) mmol/L BUN 2 L (9-20) mg/dL Creatinine 0.3 L (0.8-1.5) mg/dL Glucose 106 H (75-100) mg/dL Calcium 7.6 L (8.4-10.2) mg/dL - Allied health notes Allied health notes reviewed: nursing
--- NOTE | 2019-06-24 13:50 | Progress Note ---
Assessment and Plan - Patient Problems (1) Gaseous distention of intestine determined by X-ray Current Visit: Yes Status: Acute Plan to address problem: Pt stable. Patient has a completely benign abdomen. Abdomen is more distended today. Part of the issue was that the NG tube had been taken off suction. That allowed for increased gaseous distention of the stomach and intestines. There is some gas in the colon now. Patient also had a moderate-sized bowel movement. I still think we are dealing with an ileus picture. I think there is a com ponent of dysmotility that is allowing the gas to accumulate. There is also the likely scenario that he is doing a lot of dry swallowing. When I placed the NG tube on suction, again there was a large amount of mucus that came out. I think he is swallowing the mucus and doing a lot of dry swallowing which accounts for the air. The nurse reported that he did very well with his liquids this morni ng. Rec: 1) clear liquid diet 2) scheduled reglan 3) scheduled simethicone 4) still proceed with SBFT tomorrow to make sure there is no mechanical issue Follow along. Please call with questions Time=10min Subjective Date of service: 06/24/19 Patient Reports: Positive: no new complaints, feels better, flatus, bowel movement. Negative: nausea, vomiting Objective Vital Signs - 12hr 06/24/19 06/24/19 06/24/19 02:40 04:00 08:07 Temperature 99.5 F 98.8 F Pulse Rate 87 77 76 Respiratory 20 20 18 Rate Blood Pressure 139/73 151/86 O2 Sat by Pulse 99 99 99 Oximetry 06/24/19 08:51 Temperature Pulse Rate Respiratory Rate Blood Pressure O2 Sat by Pulse 100 Oximetry - General physical appearance no distress, no pain, other (looks better) - Respiratory normal expansion, normal respiratory effort - Abdomen soft, not tender, bowel sounds hypoactive, distended (more than yesterday), not guarding, not rigid - Integumentary no rash, no growths, no abnormal pigmentation - Psychiatric oriented to person, other (not oriented to place) - Labs 06/24/19 04:46 06/24/19 04:46 Diabetes panel 06/24/19 Range/Units 04:46 Sodium 144 (137-145) mmol/L Potassium 3.9 (3.6-5.0) mmol/L Chloride 106.7 (98-107) mmol/L Carbon Dioxide 25 (22-30) mmol/L BUN 2 L (9-20) mg/dL Creatinine 0.3 L (0.8-1.5) mg/dL Glucose 106 H (75-100) mg/dL Calcium 7.6 L (8.4-10.2) mg/dL Calcium panel 06/24/19 Range/Units 04:46 Calcium 7.6 L (8.4-10.2) mg/dL Phosphorus 2.80 D (2.5-4.5) mg/dL Pituitary panel 06/24/19 Range/Units 04:46 Sodium 144 (137-145) mmol/L Potassium 3.9 (3.6-5.0) mmol/L Chloride 106.7 (98-107) mmol/L Carbon Dioxide 25 (22-30) mmol/L BUN 2 L (9-20) mg/dL Creatinine 0.3 L (0.8-1.5) mg/dL Glucose 106 H (75-100) mg/dL Calcium 7.6 L (8.4-10.2) mg/dL Adrenal panel 06/24/19 Range/Units 04:46 Sodium 144 (137-145) mmol/L Potassium 3.9 (3.6-5.0) mmol/L Chloride 106.7 (98-107) mmol/L Carbon Dioxide 25 (22-30) mmol/L BUN 2 L (9-20) mg/dL Creatinine 0.3 L (0.8-1.5) mg/dL Glucose 106 H (75-100) mg/dL Calcium 7.6 L (8.4-10.2) mg/dL
--- NOTE | 2019-06-24 14:40 | Progress Note ---
Assessment and Plan Acute respiratory failure, hypoxemic, s/p mechanical ventilatory support. Severe sepsis with shock, possibly due to urinary source. Acute encephalopathy, possibly on chronic. History of chronic obstructive pulmonary disease. History of peripheral vascular disease. History of hypertension. History of deep venous thrombosis. History of gastroesophageal reflux disease. History of arthritis. History of gout. Leukocytosis. Mild hypokalemia. Mild metabolic acidosis. Lactic acidosis. Non-ST elevation myocardial infarction -Continue with supplemental oxygen to keep O2 sat>90% -Bronchodilators per protocol -IVF while NPO- reduced IVVF rate and ordered CXR -Closely monitor respiratory status- at risk of alveolar/pulmonary edema -Incentive spirometry -BIPAP qhs and prn -Accuchecks with glycemic control for SSI (Target blood glucose of 140-180 mg/dL; avoid hypoglycemic) - PT/OT/ROM exercises - mobility protocols for pressure ulcer prophylaxis - Monitor hemodynamics closely -continue ertapenem IV per ID -VTE and stress ulcer prophylaxis -Continue clear liquid diet with promotility drugs -PT/OT/mobility Subjective Date of service: 06/24/19 Principal diagnosis: Ac. hypoxemic resp failure; Severe Shock; UTI; COPD; PVD; HTN; NSTEMI; DVT Interval history: Patient is seen today for: Acute hypoxemic respiratory failure; Severe sepsis with shock; UTI; Acute encephalopathy; COPD; PVD; HTN; NSTEMI; H/O DVT Seen and examined at bedside; 24hour events reviewed; nursing and respiratory care staff consulted; no adverse overnight events reported to me; resting peacef ully in bed; otherwise feels better. Denies any chest pain, no shortness of breath, no fevers or chills. No abdominal pain. Tolerating a clear liquid diet: appears more tachypnic today Vitals, labs, medications, chart reviewed. Objective Vital Signs - 12hr 06/24/19 06/24/19 06/24/19 04:00 08:07 08:51 Temperature 98.8 F Pulse Rate 77 76 Respiratory 20 18 Rate Blood Pressure 151/86 O2 Sat by Pulse 99 99 100 Oximetry Constitutional: no acute distress, alert, other (obese, awake and alert) Eyes: non-icteric, other (NGT in place) ENT: oropharynx moist Neck: supple, no lymphadenopathy, no JVD Effort: mildly labored Ascultation: Bilateral: diminished breath sounds, rhonchi Percussion: Bilateral: not dull Cardiovascular: other (Irregular, S1,S2) Gastrointestinal: normoactive bowel sounds, soft, non-tender, non-distended Integumentary: normal Extremities: no cyanosis, no edema, no ischemia or petechiae, other (s/p Bilateral AKA) Neurologic: normal mental status, non-focal exam, pupils equal and round, CN II- XII normal Psychiatric: mood appropriate, affect normal CBC and BMP: 06/24/19 04:46 06/24/19 04:46 ABG, PT/INR, D-dimer: ABG POC ABG pH 7.432 (7.35-7.45) 06/17/19 04:50 ABG pH 7.492 pH Units (7.350-7.450) H 06/18/19 11:45 POC ABG pCO2 31.5 (35-45) L 06/17/19 04:50 ABG pCO2 33.1 mm Hg 06/18/19 11:45 POC ABG pO2 135 (80-105) H 06/17/19 04:50 ABG pO2 102.2 mm Hg (80.0-90.0) H 06/18/19 11:45 POC ABG HCO3 21.0 (22-26 mml/L) 06/17/19 04:50 POC ABG Total CO2 22 (23-27mmol/L) 06/17/19 04:50 POC ABG O2 Sat 99 06/17/19 04:50 ABG O2 Saturation 98.0 % (95.0-99.0) 06/18/19 11:45 PT/INR, D-dimer PT 16.3 Sec. (12.2-14.9) H 06/14/19 05:28 INR 1.35 (0.87-1.13) H 06/14/19 05:28 Abnormal lab findings: Abnormal Labs 06/14/19 06/14/19 06/14/19 02:49 03:10 03:10 WBC RBC Hgb Hct MCHC RDW Lymph % (Auto) [place] % (Auto) Eos % (Auto) Lymph # [place] # Eos # Seg Neutrophils % Lymphocytes % (Manual) Seg Neutrophils # Seg Neutrophils # Man Lymphocytes # (Manual) PT INR POC ABG pH ABG pH POC ABG pCO2 POC ABG pO2 ABG pO2 ABG Hemoglobin Sodium Potassium 3.5 L Chloride Carbon Dioxide 20 L BUN Creatinine 0.7 L Glucose 107 H POC Glucose 117 H Lactic Acid 2.60 H* Calcium Phosphorus Troponin T 0.979 H* Albumin 3.0 L HDL Cholesterol 30 L Urine WBC (Auto) 06/14/19 06/14/19 06/14/19 04:30 04:35 05:02 WBC 11.9 H RBC 3.22 L Hgb 9.5 L Hct 28.9 L MCHC RDW Lymph % (Auto) [place] % (Auto) Eos % (Auto) Lymph # [place] # Eos # Seg Neutrophils % Lymphocytes % (Manual) 8.0 L Seg Neutrophils # Seg Neutrophils # Man 8.3 H Lymphocytes # (Manual) 1.0 L PT INR POC ABG pH 7.314 L ABG pH POC ABG pCO2 POC ABG pO2 > 400 H ABG pO2 ABG Hemoglobin Sodium Potassium Chloride Carbon Dioxide BUN Creatinine Glucose POC Glucose Lactic Acid Calcium Phosphorus Troponin T Albumin HDL Cholesterol Urine WBC (Auto) 8.0 H 06/14/19 06/15/19 06/15/19 05:28 03:30 04:35 WBC 11.2 H RBC 3.02 L Hgb 8.9 L Hct 27.1 L MCHC RDW 15.3 H Lymph % (Auto) 6.5 L [place] % (Auto) Eos % (Auto) Lymph # 0.7 L [place] # Eos # Seg Neutrophils % 86.6 H Lymphocytes % (Manual) Seg Neutrophils # 9.7 H Seg Neutrophils # Man Lymphocytes # (Manual) PT 16.3 H INR 1.35 H POC ABG pH 7.336 L ABG pH POC ABG pCO2 < 30 L POC ABG pO2 133 H ABG pO2 ABG Hemoglobin Sodium Potassium Chloride Carbon Dioxide BUN Creatinine Glucose POC Glucose Lactic Acid Calcium Phosphorus Troponin T Albumin HDL Cholesterol Urine WBC (Auto) 06/15/19 06/15/19 06/16/19 04:35 12:25 04:29 WBC RBC Hgb Hct MCHC RDW Lymph % (Auto) [place] % (Auto) Eos % (Auto) Lymph # [place] # Eos # Seg Neutrophils % Lymphocytes % (Manual) Seg Neutrophils # Seg Neutrophils # Man Lymphocytes # (Manual) PT INR POC ABG pH 7.315 L ABG pH POC ABG pCO2 POC ABG pO2 63 L 135 H ABG pO2 ABG Hemoglobin Sodium Potassium 3.3 L Chloride 110.7 H Carbon Dioxide 15 L BUN Creatinine 0.4 L Glucose 104 H POC Glucose Lactic Acid Calcium 7.8 L Phosphorus 1.80 L Troponin T Albumin 2.8 L HDL Cholesterol Urine WBC (Auto) 06/16/19 06/17/19 06/17/19 16:31 04:50 Unknown WBC RBC 2.89 L Hgb 8.4 L Hct 25.4 L MCHC RDW Lymph % (Auto) [place] % (Auto) 8.9 H Eos % (Auto) Lymph # 0.9 L [place] # Eos # Seg Neutrophils % 74.9 H Lymphocytes % (Manual) Seg Neutrophils # Seg Neutrophils # Man Lymphocytes # (Manual) PT INR POC ABG pH ABG pH POC ABG pCO2 31.5 L POC ABG pO2 135 H ABG pO2 ABG Hemoglobin Sodium Potassium Chloride Carbon Dioxide BUN Creatinine Glucose POC Glucose Lactic Acid Calcium Phosphorus 1.30 L D Troponin T Albumin HDL Cholesterol Urine WBC (Auto) 06/17/19 06/18/19 06/18/19 Unknown 04:30 04:30 WBC RBC 2.84 L Hgb 8.6 L Hct 24.8 L MCHC 35 H RDW Lymph % (Auto) 11.2 L [place] % (Auto) 9.7 H Eos % (Auto) 4.6 H Lymph # 0.7 L [place] # Eos # Seg Neutrophils % 74.1 H Lymphocytes % (Manual) Seg Neutrophils # Seg Neutrophils # Man Lymphocytes # (Manual) PT INR POC ABG pH ABG pH POC ABG pCO2 POC ABG pO2 ABG pO2 ABG Hemoglobin Sodium Potassium 3.0 L 3.4 L Chloride 107.3 H 108.0 H Carbon Dioxide BUN 8 L 7 L Creatinine 0.3 L 0.3 L Glucose 171 H 155 H POC Glucose Lactic Acid Calcium 7.3 L 6.9 L Phosphorus 1.30 L Troponin T Albumin HDL Cholesterol Urine WBC (Auto) 06/18/19 06/18/19 06/19/19 11:45 11:46 00:29 WBC RBC Hgb Hct MCHC RDW Lymph % (Auto) [place] % (Auto) Eos % (Auto) Lymph # [place] # Eos # Seg Neutrophils % Lymphocytes % (Manual) Seg Neutrophils # Seg Neutrophils # Man Lymphocytes # (Manual) PT INR POC ABG pH ABG pH 7.492 H POC ABG pCO2 POC ABG pO2 ABG pO2 102.2 H ABG Hemoglobin 9.0 L Sodium Potassium Chloride Carbon Dioxide BUN Creatinine Glucose POC Glucose 115 H 134 H Lactic Acid Calcium Phosphorus Troponin T Albumin HDL Cholesterol Urine WBC (Auto) 06/19/19 06/19/19 06/20/19 05:01 05:01 04:17 WBC RBC 3.18 L 3.53 L Hgb 9.5 L 10.4 L Hct 28.1 L 31.5 L MCHC RDW 15.3 H Lymph % (Auto) 10.5 L 13.0 L [place] % (Auto) 11.9 H 12.8 H Eos % (Auto) 4.9 H 9.0 H Lymph # 0.8 L 0.9 L [place] # 1.0 H 0.9 H Eos # 0.6 H Seg Neutrophils % 72.2 H Lymphocytes % (Manual) Seg Neutrophils # Seg Neutrophils # Man Lymphocytes # (Manual) PT INR POC ABG pH ABG pH POC ABG pCO2 POC ABG pO2 ABG pO2 ABG Hemoglobin Sodium Potassium Chloride 107.4 H Carbon Dioxide BUN 7 L Creatinine 0.3 L Glucose POC Glucose Lactic Acid Calcium 7.3 L Phosphorus Troponin T Albumin HDL Cholesterol Urine WBC (Auto) 06/20/19 06/21/19 06/21/19 04:17 04:40 04:40 WBC RBC 3.50 L Hgb 10.4 L Hct 31.6 L MCHC RDW Lymph % (Auto) [place] % (Auto) 13.0 H Eos % (Auto) Lymph # 1.1 L [place] # 0.9 H Eos # Seg Neutrophils % Lymphocytes % (Manual) Seg Neutrophils # Seg Neutrophils # Man Lymphocytes # (Manual) PT INR POC ABG pH ABG pH POC ABG pCO2 POC ABG pO2 ABG pO2 ABG Hemoglobin Sodium Potassium Chloride Carbon Dioxide 20 L D BUN 8 L 8 L Creatinine 0.4 L 0.4 L Glucose 66 L POC Glucose Lactic Acid Calcium 7.6 L 7.6 L Phosphorus Troponin T Albumin HDL Cholesterol Urine WBC (Auto) 06/21/19 06/21/19 06/21/19 06:49 11:53 18:58 WBC RBC Hgb Hct MCHC RDW Lymph % (Auto) [place] % (Auto) Eos % (Auto) Lymph # [place] # Eos # Seg Neutrophils % Lymphocytes % (Manual) Seg Neutrophils # Seg Neutrophils # Man Lymphocytes # (Manual) PT INR POC ABG pH ABG pH POC ABG pCO2 POC ABG pO2 ABG pO2 ABG Hemoglobin Sodium Potassium Chloride Carbon Dioxide BUN Creatinine Glucose POC Glucose 62 L 110 H 122 H Lactic Acid Calcium Phosphorus Troponin T Albumin HDL Cholesterol Urine WBC (Auto) 06/21/19 06/22/19 06/22/19 23:41 04:01 04:01 WBC RBC 3.29 L Hgb 9.7 L Hct 29.4 L MCHC RDW Lymph % (Auto) [place] % (Auto) 13.8 H Eos % (Auto) Lymph # 0.9 L [place] # Eos # Seg Neutrophils % Lymphocytes % (Manual) Seg Neutrophils # Seg Neutrophils # Man Lymphocytes # (Manual) PT INR POC ABG pH ABG pH POC ABG pCO2 POC ABG pO2 ABG pO2 ABG Hemoglobin Sodium 147 H Potassium Chloride 109.7 H Carbon Dioxide BUN 6 L Creatinine 0.4 L Glucose 124 H POC Glucose 128 H Lactic Acid Calcium 7.3 L Phosphorus Troponin T Albumin HDL Cholesterol Urine WBC (Auto) 06/22/19 06/22/19 06/22/19 06:06 11:59 17:40 WBC RBC Hgb Hct MCHC RDW Lymph % (Auto) [place] % (Auto) Eos % (Auto) Lymph # [place] # Eos # Seg Neutrophils % Lymphocytes % (Manual) Seg Neutrophils # Seg Neutrophils # Man Lymphocytes # (Manual) PT INR POC ABG pH ABG pH POC ABG pCO2 POC ABG pO2 ABG pO2 ABG Hemoglobin Sodium Potassium Chloride Carbon Dioxide BUN Creatinine Glucose POC Glucose 170 H 135 H 134 H Lactic Acid Calcium Phosphorus Troponin T Albumin HDL Cholesterol Urine WBC (Auto) 06/22/19 06/23/19 06/23/19 22:10 04:51 04:51 WBC RBC 3.40 L Hgb 9.9 L Hct 30.5 L MCHC RDW Lymph % (Auto) [place] % (Auto) 12.2 H Eos % (Auto) Lymph # 1.1 L [place] # Eos # Seg Neutrophils % Lymphocytes % (Manual) Seg Neutrophils # Seg Neutrophils # Man Lymphocytes # (Manual) PT INR POC ABG pH ABG pH POC ABG pCO2 POC ABG pO2 ABG pO2 ABG Hemoglobin Sodium Potassium Chloride 108.1 H Carbon Dioxide BUN 3 L Creatinine 0.4 L Glucose 119 H POC Glucose 110 H Lactic Acid Calcium 7.7 L Phosphorus 2.20 L Troponin T Albumin HDL Cholesterol Urine WBC (Auto) 06/24/19 06/24/19 04:46 04:46 WBC RBC 3.43 L Hgb 10.1 L Hct 30.3 L MCHC RDW Lymph % (Auto) [place] % (Auto) 10.6 H Eos % (Auto) Lymph # 0.9 L [place] # Eos # Seg Neutrophils % Lymphocytes % (Manual) Seg Neutrophils # Seg Neutrophils # Man Lymphocytes # (Manual) PT INR POC ABG pH ABG pH POC ABG pCO2 POC ABG pO2 ABG pO2 ABG Hemoglobin Sodium Potassium Chloride Carbon Dioxide BUN 2 L Creatinine 0.3 L Glucose 106 H POC Glucose Lactic Acid Calcium 7.6 L Phosphorus Troponin T Albumin HDL Cholesterol Urine WBC (Auto) Allied health notes reviewed: nursing
[2019-06-24] MEDS ORDERED: D5W/0.45% NACL/KCL 40 MEQ 40 MEQ/1,000 ML BAG IV SCH (16:00)
[2019-06-24] MEDS: MYLICON PO SCH ×2 (16:47→23:07)
[2019-06-24] MEDS: REGLAN IV SCH ×2 (16:48→23:06)
[2019-06-25 01:18] LABS: BUN/Creatinine Ratio 5; Blood Urea Nitrogen 2 mg/dL (9-20); Calcium 7.5 mg/dL (8.4-10.2); Hemolysis Index 6
[2019-06-25] MEDS: MYLICON PO SCH ×4 (03:24→22:00)
[2019-06-25] MEDS: CARDIZEM PO SCH ×6 (03:24→23:38)
[2019-06-25] MEDS: REGLAN IV SCH ×4 (03:24→23:38)
--- NOTE | 2019-06-25 09:01 | Progress Note ---
Assessment and Plan Assessment and plan: Patient is a 78-year-old man from [facility] with a history of PAD s/p BKA, hypertension, DVT on A/C, hypertension, GERD, OA and Gout who presented to [facility] ED with confusion, lethargy, low grade fever, tachycardia and hypotension. He was intubated in the ER for airway protection on 06/14/19 and extubated on 06/18/19. * Chest x-ray; no acute findings * CT abd/pelvis with contrast IMPRESSION: Abnormal appearance of the gallbladder and appendix as outlined above. Correlate for gallbladder symptoms and a ppendicitis. Cystitis could be considered. Suspicious 1.8 cm left renal lesion as described above. Further imaging is recommended. Severe osteopenia. * CT angiogram chest, no PE, bibasilar atelectasis * CT head, essentially normal for age SBO (new issue) most likely Ileus: ngt to LIS, GS input noted, imaging reviewed Urine retention (new issue) with Left renal mass 257cc on bladder scan, 340 cc expelled on straight cath. not a simple cyst per Abdominal U/S: d/w Urologist, on 06/21/19 Septic shock/ESBL E. coli bacteremia: ID input noted, treated with IV aBX, Source of bacteremia still unclear, Appendicitis ruled out, Surgery input appreciated Cholelithiasis; GS evaluated, input noted Acute respiratory failure on mechanical ventilator < 96 hours, now extubated on 06/18/19, management per Pulmonology Hypokalemia/hypophosphatemia: Repleted IV TYpe 2 NSTEMI, PAF, mgt per cardiology, input noted Acute metabolic encephalopathy DVT prophylaxis reviewed Disposition: continue inpatient care, once SBO resolves and ID give final abx r ecommendation then d.c back to [facility] I called daughter Shari Malagon at [phone] at 1447, I spoke her on Tuesday and I called her on Tuesday and spoke with her at 1052 am Today, I called daughter Uche Montes De Oca at [phone] and gave her update. History Interval history: Patient was seen and examined. Follow-up on current diagnosis of Respiratory failure, extubated doing well No overnight events reported to me. Patient denies any chest pain, shortness breath, nausea/vomiting or severe headaches. Imaging, nursing note, chart, labs and old chart reviewed. Discussed with patient. Hospitalist Physical - Physical exam Narrative exam: Gen: ill appearing, nad, alert awake oriented x 3 HEENT: NCAT, EOMI, PERRL, OP Clear Neck: supple, no adenopathy, no thyromegaly, no JVD CVS/Heart: RRR, normal S1S2, pulses present bilaterally Chest/Lungs: CTA B, Symmetrical chest expansion, good air entry bilaterally GI/Abdomen: soft, NTND, good bowel sounds, no guarding or rebound /Bladder: no suprapubic tenderness, no CVA or paraspinal tenderness Extermity/Skin: no c/c/e, no obvious rash MSK: FROM x 4, bilateral AKA Neuro: CN 2-12 grossly intact, no new focal deficits Psych: calm - Constitutional Vitals: Temp Pulse Resp BP Pulse Ox 98.0 F 77 18 134/89 100 06/25/19 01:51 06/25/19 06:20 06/25/19 01:51 06/25/19 06:20 06/25/19 01:51 General appearance: Present: other (intubated on the vent) Results - Labs CBC & Chem 7: 06/24/19 04:46 06/25/19 00:32 Labs: Laboratory Last Values WBC 4.8 K/mm3 (4.5-11.0) 06/24/19 04:46 RBC 3.43 M/mm3 (3.65-5.03) L 06/24/19 04:46 Hgb 10.1 gm/dl (11.8-15.2) L 06/24/19 04:46 Hct 30.3 % (35.5-45.6) L 06/24/19 04:46 MCV 88 fl (84-94) 06/24/19 04:46 MCH 30 pg (28-32) 06/24/19 04:46 MCHC 33 % (32-34) 06/24/19 04:46 RDW 14.8 % (13.2-15.2) 06/24/19 04:46 Plt Count 435 K/mm3 (140-440) 06/24/19 04:46 Lymph % (Auto) 18.9 % (13.4-35.0) 06/24/19 04:46 Imperial % (Auto) 10.6 % (0.0-7.3) H 06/24/19 04:46 Eos % (Auto) 2.8 % (0.0-4.3) 06/24/19 04:46 Baso % (Auto) 0.4 % (0.0-1.8) 06/24/19 04:46 Lymph # 0.9 K/mm3 (1.2-5.4) L 06/24/19 04:46 Imperial # 0.5 K/mm3 (0.0-0.8) 06/24/19 04:46 Eos # 0.1 K/mm3 (0.0-0.4) 06/24/19 04:46 Baso # 0.0 K/mm3 (0.0-0.1) 06/24/19 04:46 Add Manual Diff Complete 06/14/19 04:30 Total Counted 100 06/14/19 04:30 Seg Neutrophils % 67.3 % (40.0-70.0) 06/24/19 04:46 Seg Neuts % (Manual) 70.0 % (40.0-70.0) 06/14/19 04:30 Band Neutrophils % 18.0 % 06/14/19 04:30 Lymphocytes % (Manual) 8.0 % (13.4-35.0) L 06/14/19 04:30 Reactive Lymphs % (Man) 0 % 06/14/19 04:30 Monocytes % (Manual) 4.0 % (0.0-7.3) 06/14/19 04:30 Eosinophils % (Manual) 0 % (0.0-4.3) 06/14/19 04:30 Basophils % (Manual) 0 % (0.0-1.8) 06/14/19 04:30 Metamyelocytes % 0 % 06/14/19 04:30 Myelocytes % 0 % 06/14/19 04:30 Promyelocytes % 0 % 06/14/19 04:30 Blast Cells % 0 % 06/14/19 04:30 Nucleated RBC % Not Reportable 06/14/19 04:30 Seg Neutrophils # 3.2 K/mm3 (1.8-7.7) 06/24/19 04:46 Seg Neutrophils # Man 8.3 K/mm3 (1.8-7.7) H 06/14/19 04:30 Band Neutrophils # 2.1 K/mm3 06/14/19 04:30 Lymphocytes # (Manual) 1.0 K/mm3 (1.2-5.4) L 06/14/19 04:30 Abs React Lymphs (Man) 0.0 K/mm3 06/14/19 04:30 Monocytes # (Manual) 0.5 K/mm3 (0.0-0.8) 06/14/19 04:30 Eosinophils # (Manual) 0.0 K/mm3 (0.0-0.4) 06/14/19 04:30 Basophils # (Manual) 0.0 K/mm3 (0.0-0.1) 06/14/19 04:30 Metamyelocytes # 0.0 K/mm3 06/14/19 04:30 Myelocytes # 0.0 K/mm3 06/14/19 04:30 Promyelocytes # 0.0 K/mm3 06/14/19 04:30 Blast Cells # 0.0 K/mm3 06/14/19 04:30 WBC Morphology Not Reportable 06/14/19 04:30 Hypersegmented Neuts Not Reportable 06/14/19 04:30 Hyposegmented Neuts Not Reportable 06/14/19 04:30 Hypogranular Neuts Not Reportable 06/14/19 04:30 Smudge Cells Not Reportable 06/14/19 04:30 Toxic Granulation Not Reportable 06/14/19 04:30 Toxic Vacuolation Not Reportable 06/14/19 04:30 Dohle Bodies Not Reportable 06/14/19 04:30 Pelger-Huet Anomaly Not Reportable 06/14/19 04:30 Raymundo Rods Not Reportable 06/14/19 04:30 Platelet Estimate Consistent w auto 06/14/19 04:30 Clumped Platelets Not Reportable 06/14/19 04:30 Plt Clumps, EDTA Not Reportable 06/14/19 04:30 Large Platelets Rare 06/14/19 04:30 Giant Platelets Not Reportable 06/14/19 04:30 Platelet Satelliting Not Reportable 06/14/19 04:30 Plt Morphology Comment Not Reportable 06/14/19 04:30 RBC Morphology Not Reportable 06/14/19 04:30 Dimorphic RBCs Not Reportable 06/14/19 04:30 Polychromasia Not Reportable 06/14/19 04:30 Hypochromasia Not Reportable 06/14/19 04:30 Poikilocytosis Not Reportable 06/14/19 04:30 Anisocytosis Rare 06/14/19 04:30 Microcytosis Not Reportable 06/14/19 04:30 Macrocytosis Not Reportable 06/14/19 04:30 Spherocytes Not Reportable 06/14/19 04:30 Pappenheimer Bodies Not Reportable 06/14/19 04:30 Sickle Cells Not Reportable 06/14/19 04:30 Target Cells Not Reportable 06/14/19 04:30 Tear Drop Cells Not Reportable 06/14/19 04:30 Ovalocytes Rare 06/14/19 04:30 Helmet Cells Not Reportable 06/14/19 04:30 Hardy-Riva Bodies Not Reportable 06/14/19 04:30 [place] Rings Not Reportable 06/14/19 04:30 [place] Cells Rare 06/14/19 04:30 Bite Cells Not Reportable 06/14/19 04:30 Crenated Cell Not Reportable 06/14/19 04:30 Elliptocytes Not Reportable 06/14/19 04:30 Acanthocytes (Spur) Not Reportable 06/14/19 04:30 Rouleaux Not Reportable 06/14/19 04:30 Hemoglobin C Crystals Not Reportable 06/14/19 04:30 Schistocytes Not Reportable 06/14/19 04:30 Malaria parasites Not Reportable 06/14/19 04:30 Paulie Bodies Not Reportable 06/14/19 04:30 Hem Pathologist Commnt No 06/14/19 04:30 PT 16.3 Sec. (12.2-14.9) H 06/14/19 05:28 INR 1.35 (0.87-1.13) H 06/14/19 05:28 APTT 34.7 Sec. (24.2-36.6) 06/14/19 05:28 POC ABG pH 7.432 (7.35-7.45) 06/17/19 04:50 ABG pH 7.492 pH Units (7.350-7.450) H 06/18/19 11:45 POC ABG pCO2 31.5 (35-45) L 06/17/19 04:50 ABG pCO2 33.1 mm Hg 06/18/19 11:45 POC ABG pO2 135 (80-105) H 06/17/19 04:50 ABG pO2 102.2 mm Hg (80.0-90.0) H 06/18/19 11:45 POC ABG HCO3 21.0 (22-26 mml/L) 06/17/19 04:50 ABG HCO3 24.8 mmol/L (20.0-26.0) 06/18/19 11:45 POC ABG Total CO2 22 (23-27mmol/L) 06/17/19 04:50 POC ABG O2 Sat 99 06/17/19 04:50 ABG O2 Saturation 98.0 % (95.0-99.0) 06/18/19 11:45 ABG O2 Content 12.4 (0.0-44) 06/18/19 11:45 POC ABG Base Excess -3 ((-2) - (+3)mmol/L) 06/17/19 04:50 ABG Base Excess 1.6 mmol/L (-2.0-3.0) 06/18/19 11:45 ABG Hemoglobin 9.0 gm/dl (14.0-18.0) L 06/18/19 11:45 ABG Carboxyhemoglobin 1.4 % (0.0-5.0) 06/18/19 11:45 ABG Methemoglobin 0.4 % (0.0-1.5) 06/18/19 11:45 Oxyhemoglobin 96.2 % (95.0-99.0) 06/18/19 11:45 FiO2 25 % 06/18/19 11:45 Sodium 143 mmol/L (137-145) 06/25/19 00:32 Potassium 3.9 mmol/L (3.6-5.0) 06/25/19 00:32 Chloride 106.4 mmol/L (98-107) 06/25/19 00:32 Carbon Dioxide 25 mmol/L (22-30) 06/25/19 00:32 Anion Gap 16 mmol/L 06/25/19 00:32 BUN 2 mg/dL (9-20) L 06/25/19 00:32 Creatinine 0.4 mg/dL (0.8-1.5) L 06/25/19 00:32 Estimated GFR > 60 ml/min 06/25/19 00:32 BUN/Creatinine Ratio 5 % 06/25/19 00:32 Glucose 96 mg/dL (75-100) 06/25/19 00:32 POC Glucose 110 (70-105) H 06/22/19 22:10 Lactic Acid 1.20 mmol/L (0.7-2.0) 06/14/19 05:28 Calcium 7.5 mg/dL (8.4-10.2) L 06/25/19 00:32 Phosphorus 2.80 mg/dL (2.5-4.5) D 06/24/19 04:46 Magnesium 1.70 mg/dL (1.7-2.3) 06/23/19 04:51 Total Bilirubin 0.30 mg/dL (0.1-1.2) 06/15/19 04:35 AST 21 units/L (5-40) 06/15/19 04:35 ALT 14 units/L (7-56) 06/15/19 04:35 Alkaline Phosphatase 80 units/L (35-129) 06/15/19 04:35 Troponin T 0.979 ng/mL (0.00-0.029) H* 06/14/19 03:10 Total Protein 7.1 g/dL (6.3-8.2) 06/15/19 04:35 Albumin 2.8 g/dL (3.9-5) L 06/15/19 04:35 Albumin/Globulin Ratio 0.7 % 06/15/19 04:35 Triglycerides 74 mg/dL (2-149) 06/14/19 03:10 Cholesterol 112 mg/dL (50-199) 06/14/19 03:10 LDL Cholesterol Direct 76 mg/dL (50-130) 06/14/19 03:10 HDL Cholesterol 30 mg/dL (40-59) L 06/14/19 03:10 Cholesterol/HDL Ratio 3.73 % 06/14/19 03:10 Procalcitonin 45.71 ng/mL (<0.15) 06/14/19 13:26 Urine Color Gabbie (Yellow) 06/14/19 04:35 Urine Turbidity Cloudy (Clear) 06/14/19 04:35 Urine pH 5.0 (5.0-7.0) 06/14/19 04:35 Ur Specific [place] 1.020 (1.003-1.030) 06/14/19 04:35 Urine Protein 100 mg/dl mg/dL (Negative) 06/14/19 04:35 Urine Glucose (UA) Neg mg/dL (Negative) 06/14/19 04:35 Urine Ketones Neg mg/dL (Negative) 06/14/19 04:35 Urine Blood Neg (Negative) 06/14/19 04:35 Urine Nitrite Neg (Negative) 06/14/19 04:35 Ur Reducing Substances Not Reportable 06/14/19 04:35 Urine Bilirubin Neg (Negative) 06/14/19 04:35 Urine Ictotest Not Reportable 06/14/19 04:35 Urine Urobilinogen < 2.0 mg/dL (<2.0) 06/14/19 04:35 Ur Leukocyte Esterase Tr (Negative) 06/14/19 04:35 Urine WBC (Auto) 8.0 /HPF (0.0-6.0) H 06/14/19 04:35 Urine RBC (Auto) 6.0 /HPF (0.0-6.0) 06/14/19 04:35 U Epithel Cells (Auto) 1.0 /HPF (0-13.0) 06/14/19 04:35 Urine Mucus 2+ /HPF 06/14/19 04:35 Active Medications - Current Medications Current Medications: Generic Name Dose Route Start Last Admin Trade Name Freq PRN Reason Stop Dose Admin Albuterol 2.5 mg 06/14/19 12:31 Proventil IH Q4HRT PRN Shortness Of Breath Dextrose 50 ml 06/21/19 06:50 06/21/19 07:19 D50w (25gm) Syringe IV 50 ml PRN PRN Administration Hypoglycemia Diltiazem HCl 30 mg 06/21/19 12:00 06/25/19 06:20 Cardizem PO 30 mg Q6HR HAL Administration Heparin Sodium (Porcine) 5,000 unit 06/14/19 22:00 06/24/19 23:07 Heparin SUB-Q 5,000 unit Q12HR HAL Administration Hydrophilic Ointment 1 applic 06/14/19 03:45 Vaseline Lip Therapy TP Q2HR PRN Dry Lips Potassium Chloride/Dextrose/Sod Cl 40 meq in 1,000 mls @ 75 mls/hr 06/24/19 16:00 06/24/19 21:14 D5w/0.45% Nacl/Kcl 40 Meq IV 75 mls/hr DIRECT HAL Administration Metoclopramide HCl 10 mg 06/24/19 14:00 06/25/19 03:24 Reglan IV 10 mg Q6H HAL Administration Morphine Sulfate 2 mg 06/20/19 17:37 Morphine IV Q4H PRN Pain , Severe (7-10) Multi-Ingred Cream/Lotion/Oil/Oint 1 applic 06/14/19 03:45 Artificial Tears Ophth Oint OU Q4HR PRN Dry Eye(s) Ondansetron HCl 4 mg 06/14/19 09:00 06/20/19 12:13 Zofran IV 4 mg Q8H PRN Administration Nausea And Vomiting Pantoprazole Sodium 40 mg 06/20/19 17:00 06/24/19 10:33 Protonix IV 40 mg QDAY HAL Administration Simethicone 320 mg 06/24/19 14:00 06/25/19 03:24 Mylicon PO 320 mg Q6H HAL Administration Sodium Chloride 10 ml 06/14/19 10:00 06/24/19 22:20 Sodium Chloride Flush Syringe 10 Ml IV 10 ml BID HAL Administration Sodium Chloride 10 ml 06/14/19 09:00 Sodium Chloride Flush Syringe 10 Ml IV PRN PRN LINE FLUSH Nutrition/Malnutrition Assess - Dietary Evaluation Nutrition/Malnutrition Findings: Nutrition Notes Start: 06/14/19 12:44 Freq: Status: Active Protocol: Document 06/21/19 13:17 RS (Rec: 06/21/19 13:53 RS [id number]) Co-Sign 06/21/19 13:17 LM Nutrition Notes Initial or Follow up Reassessment Current Diagnosis Hypertension Other Pertinent Diagnosis DVT, GERD, left AKA, right BKA , sepsis Current Diet NPO Labs/Tests reviewed Pertinent Medications reviewed Height 4 ft 3 in Weight 80.6 kg [place] Body Weight (kg) 23.63 BMI 48.0 Subjective/Other Information Pt nonverbal and disoriented. Pt currently NPO d/t MBS test . Pt was on cardiac diet yesterday but diet hx was unable to be retrieved from nurse. Percent of energy/protein needs met: 0%/0% Burn Absent Trauma Absent Minimum of two criteria No #1 Nutrition Diagnosis Inadequate oral intake Etiology MBS As Evidenced by Signs and Symptoms NPO Diagnosis Progress(for reassessment Continues documentation) Is patient on ventilator? No Is Patient Ambulatory and/or Out of Bed No REE-([facility]-confined to bed) 2865.080 Calculation Used for Recommendations [facility] Additional Notes Protein needs: 28-34g/kg (1-1. 2 of AdBw 28kg) Fluid needs: 1ml/kcal Nutrition Intervention Change Diet Order: Continue NPO until diet advancement from MD Goal #1 Meet at least 85% of energy and protein needs Anticipated Discharge Needs: Unable to determine at this time Follow-Up By: 06/25/19 Additional Comments F/U for diet advancement
--- NOTE | 2019-06-25 09:11 | XRay Report ---
CHEST 1 VIEW INDICATION: Pleural effusion, alveolar edema. COMPARISON: 06/19/2019. 06/22/2019 FINDINGS: Support devices: The nasogastric tube is essentially unchanged terminating just below the diaphragm p resumably within the proximal stomach. Heart: Stable borderline heart size. Lungs/Pleura: Mild central pulmonary venous congestion has decreased by 25%. Trace right pleural effu john is suspected. Discoid atelectasis at the right lung base is relatively stable. No acute infiltra te or pneumothorax. Additional findings: Dilated loops of small bowel are suspected in the upper abdomen. IMPRESSION: No overwhelming change since the exam 3 days ago. Mild improvement in pulmonary venous congestion. T race right pleural effusion. Persistent dilated loops of bowel in the upper abdomen. Signer Name: Jay Max Jr, MD Signed: 06/25/2019 9:07 AM Workstation Name: [id number]
--- NOTE | 2019-06-25 11:05 | Progress Note ---
Assessment and Plan Small bowel obstruction likely ileus per surgery Severe sepsis E coli bacteremia Acute respiratory failure s/p extubation Acute encephalopathy -improved Peripheral arterial disease s/p bilateral knee amputation COPD Paroxysmal Atrial fibrillation Echo showing LVEF 50-55% Not on OAC due to bloody secretions in NG tube suction. Continue medical therapy for paroxysmal atrial fibrillation. Subjective Date of service: 06/25/19 Principal diagnosis: Ac. hypoxemic resp failure; Severe Shock; UTI; COPD; PVD; HTN; NSTEMI; DVT Interval history: Afib with a well controlled ventricular rate on telemetry. No cardiac events reported. Objective Vital Signs Temp Pulse Resp BP Pulse Ox 06/25/19 09:57 98 06/25/19 07:18 98.9 F 101 H 20 175/105 97 06/25/19 06:20 77 134/89 06/25/19 01:51 98.0 F 77 18 134/89 100 06/24/19 20:56 97.9 F 89 20 140/94 98 06/24/19 20:31 98 - Physical Examination General: No Apparent Distress HEENT: Positive: PERRL Neck: Positive: trachea midline Cardiac: Positive: irregularly irregular Neuro: Positive: Other (bilateral LE amputation) Extremities: Present: Other (bilateral LE amputation) - Labs and Meds Comprehensive Metabolic Panel 06/25/19 Range/Units 00:32 Sodium 143 (137-145) mmol/L Potassium 3.9 (3.6-5.0) mmol/L Chloride 106.4 (98-107) mmol/L Carbon Dioxide 25 (22-30) mmol/L BUN 2 L (9-20) mg/dL Creatinine 0.4 L (0.8-1.5) mg/dL Glucose 96 (75-100) mg/dL Calcium 7.5 L (8.4-10.2) mg/dL - Allied health notes Allied health notes reviewed: nursing
--- NOTE | 2019-06-25 13:25 | Progress Note ---
Assessment and Plan Patient awake and. weak, Patient moaning and groning . no acute respiratory distress. O2 sat 99% on 2L. Patient afebrile, no leukocytosis. - Patient Problems (1) Respiratory failure Current Visit: Yes Status: Acute Plan to address problem: O2 2L via nasal cannula. Albuterol/Atrovent aerosol treatment Q6h Continue subQ heparin Continue Protonix. (2) Septic shock Current Visit: Yes Status: Acute Plan to address problem: Patient is on Meropenum. (3) UTI (urinary tract infection) Current Visit: Yes Status: Acute Plan to address problem: Patient is on ertapenem and flucanazole. (4) Atrial fibrillation Current Visit: Yes Status: Acute Plan to address problem: Management as per primary care and cardiology. (5) NSTEMI (non-ST elevated myocardial infarction) Current Visit: Yes Status: Acute Plan to address problem: Management as per cardiology. (6) Acute metabolic encephalopathy Current Visit: Yes Status: Acute Plan to address problem: Management as per primary. (7) Anemia Current Visit: No Status: Acute Plan to address problem: Management as per primary care. (8) HTN (hypertension) Current Visit: No Status: Acute Plan to address problem: Management as per primary care. Subjective Date of service: 06/25/19 Principal diagnosis: Ac. hypoxemic resp failure; Severe Shock; UTI; COPD; PVD; HTN; NSTEMI; DVT Interval history: Patient awake and. weak, Patient moaning and groning . no acute respiratory distress. O2 sat 99% on 2L. Patient afebrile, no leukocytosis. Objective Vital Signs - 12hr 06/25/19 06/25/19 06/25/19 01:51 06:20 07:18 Temperature 98.0 F 98.9 F Pulse Rate 77 77 101 H Respiratory 18 20 Rate Blood Pressure 134/89 134/89 175/105 O2 Sat by Pulse 100 97 Oximetry 06/25/19 09:57 Temperature Pulse Rate Respiratory Rate Blood Pressure O2 Sat by Pulse 98 Oximetry Constitutional: no acute distress, alert, other (Awake and weak. Moaning and groning.) Eyes: non-icteric, other (NGT in place) ENT: oropharynx moist Neck: supple, no lymphadenopathy, no JVD Effort: mildly labored Ascultation: Bilateral: diminished breath sounds, rhonchi Percussion: Bilateral: not dull Cardiovascular: other (Irregular, S1,S2) Gastrointestinal: normoactive bowel sounds, soft, non-tender, non-distended Integumentary: normal Extremities: no cyanosis, no edema, no ischemia or petechiae, other (s/p Bilateral AKA) Neurologic: normal mental status, non-focal exam, pupils equal and round, CN II- XII normal Psychiatric: mood appropriate, affect normal CBC and BMP: 06/24/19 04:46 06/25/19 00:32 ABG, PT/INR, D-dimer: ABG POC ABG pH 7.432 (7.35-7.45) 06/17/19 04:50 ABG pH 7.492 pH Units (7.350-7.450) H 06/18/19 11:45 POC ABG pCO2 31.5 (35-45) L 06/17/19 04:50 ABG pCO2 33.1 mm Hg 06/18/19 11:45 POC ABG pO2 135 (80-105) H 06/17/19 04:50 ABG pO2 102.2 mm Hg (80.0-90.0) H 06/18/19 11:45 POC ABG HCO3 21.0 (22-26 mml/L) 06/17/19 04:50 POC ABG Total CO2 22 (23-27mmol/L) 06/17/19 04:50 POC ABG O2 Sat 99 06/17/19 04:50 ABG O2 Saturation 98.0 % (95.0-99.0) 06/18/19 11:45 PT/INR, D-dimer PT 16.3 Sec. (12.2-14.9) H 06/14/19 05:28 INR 1.35 (0.87-1.13) H 06/14/19 05:28 Abnormal lab findings: Abnormal Labs 06/14/19 06/14/19 06/14/19 02:49 03:10 03:10 WBC RBC Hgb Hct MCHC RDW Lymph % (Auto) [place] % (Auto) Eos % (Auto) Lymph # [place] # Eos # Seg Neutrophils % Lymphocytes % (Manual) Seg Neutrophils # Seg Neutrophils # Man Lymphocytes # (Manual) PT INR POC ABG pH ABG pH POC ABG pCO2 POC ABG pO2 ABG pO2 ABG Hemoglobin Sodium Potassium 3.5 L Chloride Carbon Dioxide 20 L BUN Creatinine 0.7 L Glucose 107 H POC Glucose 117 H Lactic Acid 2.60 H* Calcium Phosphorus Troponin T 0.979 H* Albumin 3.0 L HDL Cholesterol 30 L Urine WBC (Auto) 06/14/19 06/14/19 06/14/19 04:30 04:35 05:02 WBC 11.9 H RBC 3.22 L Hgb 9.5 L Hct 28.9 L MCHC RDW Lymph % (Auto) [place] % (Auto) Eos % (Auto) Lymph # [place] # Eos # Seg Neutrophils % Lymphocytes % (Manual) 8.0 L Seg Neutrophils # Seg Neutrophils # Man 8.3 H Lymphocytes # (Manual) 1.0 L PT INR POC ABG pH 7.314 L ABG pH POC ABG pCO2 POC ABG pO2 > 400 H ABG pO2 ABG Hemoglobin Sodium Potassium Chloride Carbon Dioxide BUN Creatinine Glucose POC Glucose Lactic Acid Calcium Phosphorus Troponin T Albumin HDL Cholesterol Urine WBC (Auto) 8.0 H 06/14/19 06/15/19 06/15/19 05:28 03:30 04:35 WBC 11.2 H RBC 3.02 L Hgb 8.9 L Hct 27.1 L MCHC RDW 15.3 H Lymph % (Auto) 6.5 L [place] % (Auto) Eos % (Auto) Lymph # 0.7 L [place] # Eos # Seg Neutrophils % 86.6 H Lymphocytes % (Manual) Seg Neutrophils # 9.7 H Seg Neutrophils # Man Lymphocytes # (Manual) PT 16.3 H INR 1.35 H POC ABG pH 7.336 L ABG pH POC ABG pCO2 < 30 L POC ABG pO2 133 H ABG pO2 ABG Hemoglobin Sodium Potassium Chloride Carbon Dioxide BUN Creatinine Glucose POC Glucose Lactic Acid Calcium Phosphorus Troponin T Albumin HDL Cholesterol Urine WBC (Auto) 06/15/19 06/15/19 06/16/19 04:35 12:25 04:29 WBC RBC Hgb Hct MCHC RDW Lymph % (Auto) [place] % (Auto) Eos % (Auto) Lymph # [place] # Eos # Seg Neutrophils % Lymphocytes % (Manual) Seg Neutrophils # Seg Neutrophils # Man Lymphocytes # (Manual) PT INR POC ABG pH 7.315 L ABG pH POC ABG pCO2 POC ABG pO2 63 L 135 H ABG pO2 ABG Hemoglobin Sodium Potassium 3.3 L Chloride 110.7 H Carbon Dioxide 15 L BUN Creatinine 0.4 L Glucose 104 H POC Glucose Lactic Acid Calcium 7.8 L Phosphorus 1.80 L Troponin T Albumin 2.8 L HDL Cholesterol Urine WBC (Auto) 06/16/19 06/17/19 06/17/19 16:31 04:50 Unknown WBC RBC 2.89 L Hgb 8.4 L Hct 25.4 L MCHC RDW Lymph % (Auto) [place] % (Auto) 8.9 H Eos % (Auto) Lymph # 0.9 L [place] # Eos # Seg Neutrophils % 74.9 H Lymphocytes % (Manual) Seg Neutrophils # Seg Neutrophils # Man Lymphocytes # (Manual) PT INR POC ABG pH ABG pH POC ABG pCO2 31.5 L POC ABG pO2 135 H ABG pO2 ABG Hemoglobin Sodium Potassium Chloride Carbon Dioxide BUN Creatinine Glucose POC Glucose Lactic Acid Calcium Phosphorus 1.30 L D Troponin T Albumin HDL Cholesterol Urine WBC (Auto) 06/17/19 06/18/19 06/18/19 Unknown 04:30 04:30 WBC RBC 2.84 L Hgb 8.6 L Hct 24.8 L MCHC 35 H RDW Lymph % (Auto) 11.2 L [place] % (Auto) 9.7 H Eos % (Auto) 4.6 H Lymph # 0.7 L [place] # Eos # Seg Neutrophils % 74.1 H Lymphocytes % (Manual) Seg Neutrophils # Seg Neutrophils # Man Lymphocytes # (Manual) PT INR POC ABG pH ABG pH POC ABG pCO2 POC ABG pO2 ABG pO2 ABG Hemoglobin Sodium Potassium 3.0 L 3.4 L Chloride 107.3 H 108.0 H Carbon Dioxide BUN 8 L 7 L Creatinine 0.3 L 0.3 L Glucose 171 H 155 H POC Glucose Lactic Acid Calcium 7.3 L 6.9 L Phosphorus 1.30 L Troponin T Albumin HDL Cholesterol Urine WBC (Auto) 06/18/19 06/18/19 06/19/19 11:45 11:46 00:29 WBC RBC Hgb Hct MCHC RDW Lymph % (Auto) [place] % (Auto) Eos % (Auto) Lymph # [place] # Eos # Seg Neutrophils % Lymphocytes % (Manual) Seg Neutrophils # Seg Neutrophils # Man Lymphocytes # (Manual) PT INR POC ABG pH ABG pH 7.492 H POC ABG pCO2 POC ABG pO2 ABG pO2 102.2 H ABG Hemoglobin 9.0 L Sodium Potassium Chloride Carbon Dioxide BUN Creatinine Glucose POC Glucose 115 H 134 H Lactic Acid Calcium Phosphorus Troponin T Albumin HDL Cholesterol Urine WBC (Auto) 06/19/19 06/19/19 06/20/19 05:01 05:01 04:17 WBC RBC 3.18 L 3.53 L Hgb 9.5 L 10.4 L Hct 28.1 L 31.5 L MCHC RDW 15.3 H Lymph % (Auto) 10.5 L 13.0 L [place] % (Auto) 11.9 H 12.8 H Eos % (Auto) 4.9 H 9.0 H Lymph # 0.8 L 0.9 L [place] # 1.0 H 0.9 H Eos # 0.6 H Seg Neutrophils % 72.2 H Lymphocytes % (Manual) Seg Neutrophils # Seg Neutrophils # Man Lymphocytes # (Manual) PT INR POC ABG pH ABG pH POC ABG pCO2 POC ABG pO2 ABG pO2 ABG Hemoglobin Sodium Potassium Chloride 107.4 H Carbon Dioxide BUN 7 L Creatinine 0.3 L Glucose POC Glucose Lactic Acid Calcium 7.3 L Phosphorus Troponin T Albumin HDL Cholesterol Urine WBC (Auto) 06/20/19 06/21/19 06/21/19 04:17 04:40 04:40 WBC RBC 3.50 L Hgb 10.4 L Hct 31.6 L MCHC RDW Lymph % (Auto) [place] % (Auto) 13.0 H Eos % (Auto) Lymph # 1.1 L [place] # 0.9 H Eos # Seg Neutrophils % Lymphocytes % (Manual) Seg Neutrophils # Seg Neutrophils # Man Lymphocytes # (Manual) PT INR POC ABG pH ABG pH POC ABG pCO2 POC ABG pO2 ABG pO2 ABG Hemoglobin Sodium Potassium Chloride Carbon Dioxide 20 L D BUN 8 L 8 L Creatinine 0.4 L 0.4 L Glucose 66 L POC Glucose Lactic Acid Calcium 7.6 L 7.6 L Phosphorus Troponin T Albumin HDL Cholesterol Urine WBC (Auto) 06/21/19 06/21/19 06/21/19 06:49 11:53 18:58 WBC RBC Hgb Hct MCHC RDW Lymph % (Auto) [place] % (Auto) Eos % (Auto) Lymph # [place] # Eos # Seg Neutrophils % Lymphocytes % (Manual) Seg Neutrophils # Seg Neutrophils # Man Lymphocytes # (Manual) PT INR POC ABG pH ABG pH POC ABG pCO2 POC ABG pO2 ABG pO2 ABG Hemoglobin Sodium Potassium Chloride Carbon Dioxide BUN Creatinine Glucose POC Glucose 62 L 110 H 122 H Lactic Acid Calcium Phosphorus Troponin T Albumin HDL Cholesterol Urine WBC (Auto) 06/21/19 06/22/19 06/22/19 23:41 04:01 04:01 WBC RBC 3.29 L Hgb 9.7 L Hct 29.4 L MCHC RDW Lymph % (Auto) [place] % (Auto) 13.8 H Eos % (Auto) Lymph # 0.9 L [place] # Eos # Seg Neutrophils % Lymphocytes % (Manual) Seg Neutrophils # Seg Neutrophils # Man Lymphocytes # (Manual) PT INR POC ABG pH ABG pH POC ABG pCO2 POC ABG pO2 ABG pO2 ABG Hemoglobin Sodium 147 H Potassium Chloride 109.7 H Carbon Dioxide BUN 6 L Creatinine 0.4 L Glucose 124 H POC Glucose 128 H Lactic Acid Calcium 7.3 L Phosphorus Troponin T Albumin HDL Cholesterol Urine WBC (Auto) 06/22/19 06/22/19 06/22/19 06:06 11:59 17:40 WBC RBC Hgb Hct MCHC RDW Lymph % (Auto) [place] % (Auto) Eos % (Auto) Lymph # [place] # Eos # Seg Neutrophils % Lymphocytes % (Manual) Seg Neutrophils # Seg Neutrophils # Man Lymphocytes # (Manual) PT INR POC ABG pH ABG pH POC ABG pCO2 POC ABG pO2 ABG pO2 ABG Hemoglobin Sodium Potassium Chloride Carbon Dioxide BUN Creatinine Glucose POC Glucose 170 H 135 H 134 H Lactic Acid Calcium Phosphorus Troponin T Albumin HDL Cholesterol Urine WBC (Auto) 06/22/19 06/23/19 06/23/19 22:10 04:51 04:51 WBC RBC 3.40 L Hgb 9.9 L Hct 30.5 L MCHC RDW Lymph % (Auto) [place] % (Auto) 12.2 H Eos % (Auto) Lymph # 1.1 L [place] # Eos # Seg Neutrophils % Lymphocytes % (Manual) Seg Neutrophils # Seg Neutrophils # Man Lymphocytes # (Manual) PT INR POC ABG pH ABG pH POC ABG pCO2 POC ABG pO2 ABG pO2 ABG Hemoglobin Sodium Potassium Chloride 108.1 H Carbon Dioxide BUN 3 L Creatinine 0.4 L Glucose 119 H POC Glucose 110 H Lactic Acid Calcium 7.7 L Phosphorus 2.20 L Troponin T Albumin HDL Cholesterol Urine WBC (Auto) 06/24/19 06/24/19 06/25/19 04:46 04:46 00:32 WBC RBC 3.43 L Hgb 10.1 L Hct 30.3 L MCHC RDW Lymph % (Auto) [place] % (Auto) 10.6 H Eos % (Auto) Lymph # 0.9 L [place] # Eos # Seg Neutrophils % Lymphocytes % (Manual) Seg Neutrophils # Seg Neutrophils # Man Lymphocytes # (Manual) PT INR POC ABG pH ABG pH POC ABG pCO2 POC ABG pO2 ABG pO2 ABG Hemoglobin Sodium Potassium Chloride Carbon Dioxide BUN 2 L 2 L Creatinine 0.3 L 0.4 L Glucose 106 H POC Glucose Lactic Acid Calcium 7.6 L 7.5 L Phosphorus Troponin T Albumin HDL Cholesterol Urine WBC (Auto) Chest x-ray: report reviewed, image reviewed Additional Studies: CHEST 1 VIEW 06/25/19 INDICATION: Pleural effusion, alveolar edema. COMPARISON: 06/19/2019. 06/22/2019 FINDINGS: Support devices: The nasogastric tube is essentially unchanged terminating just below the diaphragm presumably within the proximal stomach. Heart: Stable borderline heart size. Lungs/Pleura: Mild central pulmonary venous congestion has decreased by 25%. Trace right pleural effusion is suspected. Discoid atelectasis at the right lung base is relatively stable. No acute infiltrate or pneumothorax. Additional findings: Dilated loops of small bowel are suspected in the upper abdomen. IMPRESSION: No overwhelming change since the exam 3 days ago. Mild improvement in pulmonary venous congestion. Trace right pleural effusion. Persistent dilated loops of bowel in the upper abdomen. Allied health notes reviewed: nursing
--- NOTE | 2019-06-25 14:04 | Progress Note ---
Assessment and Plan Cultures: Blood culture 06/14/2019 ESBL E coli 1 of 4 bottles Tracheal asp culture 06/14/2019 no growth today Assessment: 78 y/o male with a history of severe peripheral artery disease status post bilateral above the knee amputations, previous MRSA in wounds, COPD, rheumatoid arthritis, admitted on 06/14/2019 due to fever at 100.2, AMS and hypotension at 82/50 noted at his [facility] the morning of admission: 1) Severe sepsis with septic shock secondary to ESBL E.coli bacteremia: unclear source ?GI. Patient with acute symptoms of fever, hypotension, no clear history of events. UA no significant pyuria. CXR and CTA chest no obvious pneumonia or PE. Blood culture pending. CT abd ? GB or appendix abnormalities. Elevated troponins. DDx. acute abdomen from appendicitis or cholecystitis v/s ACS v/s aspiration pneumonitis. Noted surgery's recommendation re: chronically thickened appendix. 2) Acute respiratory failure: extubated 06/18/2019. 3) Acute encephalopathy: resolved. 4) Urinary retention with L renal mass: Urology consulted. 5) SBO - Surgery following. Recommendations: - switched ertapenem to IV meropenem (pharmacy/formulary preference), end date abx: 07/01/2019. Court Cantor MD, FACP [facility] ([facility] M: [phone] O: [phone] F: [phone] Subjective Date of service: 06/25/19 Principal diagnosis: Ac. hypoxemic resp failure; Severe Shock; UTI; COPD; PVD; HTN; NSTEMI; DVT Interval history: No fever. Confused, lying in bed, talking random words. Objective - Exam Narrative Exam: Physical Exam: Constitutional: awake, no distress Head, Ears, Nose: Normocephalic, atraumatic. External ears, nose normal. NG tube + Eyes: Conjunctivae/corneas clear. No icterus. No ptosis. Neck: Supple, no meningeal signs Cardiovascular: S1, S2 normal. Respiratory: Good air entry, clear to auscultation bilaterally GI: Soft, non-tender; bowel sounds normal. No peritoneal signs Musculoskeletal: b/l AKA stumps well healed Skin: No rash or abscess Hem/Lymphatic: No palpable cervical or supraclavicular nodes. No lymphangitis Psych: confused, no agitation Neurological: Awake, talkative, but not oriented. - Constitutional Vitals: Vital Signs Temp Pulse Resp BP Pulse Ox 98.9 F 92 H 18 161/82 99 06/25/19 13:03 06/25/19 13:03 06/25/19 13:03 06/25/19 13:03 06/25/19 13:03 Temperature -Last 24 Hours Temperature 98.9 F Temperature 98.9 F Temperature 98.0 F Temperature 97.9 F - Labs CBC & Chem 7: 06/24/19 04:46 06/25/19 00:32 Labs: Abnormal lab results 06/25/19 Range/Units 00:32 BUN 2 L (9-20) mg/dL Creatinine 0.4 L (0.8-1.5) mg/dL Calcium 7.5 L (8.4-10.2) mg/dL
[2019-06-25] MEDS: SODIUM CHLORIDE FLUSH SYRINGE 10 ML IV SCH ×2 (14:48→23:39)
[2019-06-25] MEDS: HEPARIN SUB-Q SCH ×2 (14:48→23:38)
[2019-06-25] MEDS: PROTONIX IV SCH (14:48)
[2019-06-25] MEDS: ZOFRAN IV PRN (14:50)
--- NOTE | 2019-06-25 16:59 | Progress Note ---
Assessment and Plan - Patient Problems (1) Gaseous distention of intestine determined by X-ray Current Visit: Yes Status: Acute Plan to address problem: Pt stable. Patient has a completely benign abdomen. Abdomen is less distended today. Pt currently undergoing SBFT. Will await the final results. Will most likely be slow passage of contrast. Rec: 1) clear liquid diet 2) scheduled reglan 3) scheduled simethicone 4) f/u on SBFT results. Follow along. Please call with questions Time=10min Subjective Date of service: 06/25/19 Patient Reports: Positive: no new complaints, bowel movement (small liquid BM), other (nurse reports that he is getting more confused; patient denies abdominal pain). Negative: nausea, vomiting Objective Vital Signs - 12hr 06/25/19 06/25/19 06/25/19 06:20 07:18 09:57 Temperature 98.9 F Pulse Rate 77 101 H Respiratory 20 Rate Blood Pressure 134/89 175/105 O2 Sat by Pulse 97 98 Oximetry 06/25/19 13:03 Temperature 98.9 F Pulse Rate 92 H Respiratory 18 Rate Blood Pressure 161/82 O2 Sat by Pulse 99 Oximetry - General physical appearance no distress, no pain, other (does appear more confused) - Respiratory normal respiratory effort - Abdomen soft, not tender, bowel sounds hypoactive (more BS. ), distended (less than yesterday. softer than yesterday. ), not guarding, not rigid - Integumentary no rash, no growths, no abnormal pigmentation - Labs 06/24/19 04:46 06/25/19 00:32 Diabetes panel 06/25/19 Range/Units 00:32 Sodium 143 (137-145) mmol/L Potassium 3.9 (3.6-5.0) mmol/L Chloride 106.4 (98-107) mmol/L Carbon Dioxide 25 (22-30) mmol/L BUN 2 L (9-20) mg/dL Creatinine 0.4 L (0.8-1.5) mg/dL Glucose 96 (75-100) mg/dL Calcium 7.5 L (8.4-10.2) mg/dL Calcium panel 06/25/19 Range/Units 00:32 Calcium 7.5 L (8.4-10.2) mg/dL Pituitary panel 06/25/19 Range/Units 00:32 Sodium 143 (137-145) mmol/L Potassium 3.9 (3.6-5.0) mmol/L Chloride 106.4 (98-107) mmol/L Carbon Dioxide 25 (22-30) mmol/L BUN 2 L (9-20) mg/dL Creatinine 0.4 L (0.8-1.5) mg/dL Glucose 96 (75-100) mg/dL Calcium 7.5 L (8.4-10.2) mg/dL Adrenal panel 06/25/19 Range/Units 00:32 Sodium 143 (137-145) mmol/L Potassium 3.9 (3.6-5.0) mmol/L Chloride 106.4 (98-107) mmol/L Carbon Dioxide 25 (22-30) mmol/L BUN 2 L (9-20) mg/dL Creatinine 0.4 L (0.8-1.5) mg/dL Glucose 96 (75-100) mg/dL Calcium 7.5 L (8.4-10.2) mg/dL
[2019-06-25] MEDS: MERREM/NS 1 GRAM/100 ML 1 GRAM/100 ML BAG IV SCH ×2 (18:05→23:37)
[2019-06-26] MEDS: REGLAN IV SCH ×4 (02:55→22:59)
[2019-06-26] MEDS: MYLICON PO SCH ×4 (02:55→22:57)
[2019-06-26] MEDS: MERREM/NS 1 GRAM/100 ML 1 GRAM/100 ML BAG IV SCH ×3 (05:29→22:57)
[2019-06-26] MEDS: CARDIZEM PO SCH ×4 (06:54→22:58)
--- NOTE | 2019-06-26 08:47 | Progress Note ---
Assessment and Plan - Patient Problems (1) Gaseous distention of intestine determined by X-ray Current Visit: Yes Status: Acute Plan to address problem: Pt stable. It appears to me that the abdominal X-ray this morning shows contrast in the colon and rectum. Along, with the nursing report of 2 BMs last night, I think we have confirmed that there is no obstruction. However, his ileus type pattern remains. Will f/u on final X-ray read. Nutrition is an issue that needs to be addressed. Rec: 1) continue clears for comfort. 2) Begin tube feeds via NGT at 10cc/hr. 3) consider TPN until ileus resolves. No surgery indicated. Please call with questions. Time=10min Subjective Date of service: 06/26/19 Patient Reports: Positive: no new complaints, bowel movement (times 2 last night), vomiting (1 time), other (has no pain) Objective Vital Signs - 12hr 06/25/19 06/25/19 06/26/19 22:00 23:00 02:57 Temperature 99.5 F Pulse Rate 95 H 96 H Respiratory 18 18 Rate Blood Pressure 121/85 O2 Sat by Pulse 99 100 Oximetry - General physical appearance no distress, no pain, other (awake and alert) - Respiratory normal respiratory effort - Abdomen soft, not tender, bowel sounds hypoactive, not distended (very soft. probably at baseline now (protuberant abdomen)), not guarding, not rigid - Integumentary no rash, no growths, no abnormal pigmentation - Psychiatric oriented to time (2019), oriented to person (able to give full name), other (he thought he was in a residential. ) - Labs 06/24/19 04:46 06/25/19 00:32
--- NOTE | 2019-06-26 08:55 | XRay Report ---
ABDOMEN 1 VIEW(S) INDICATION / CLINICAL INFORMATION: f/u after SBFT. Partial small bowel obstruction. COMPARISON: Multiple previous exams of the abdomen FINDINGS: TUBES / LINES: GI tube terminates in the proximal stomach just beyond the GE junction. BOWEL GAS PATTERN: Oral contrast has advanced into the distal small bowel loops and throughout the co [place]. There are persistent dilated small bowel loops throughout the abdomen measuring up to 4.4 cm in diameter. FREE AIR / EXTRALUMINAL GAS: None seen. ADDITIONAL FINDINGS: No significant additional findings. IMPRESSION: Oral contrast has advanced into the colon although multiple dilated loops of small bowel remain jd rning for a partial small bowel obstruction. Signer Name: Jay Max Jr, MD Signed: 06/26/2019 8:50 AM Workstation Name: [id number]
--- NOTE | 2019-06-26 09:05 | Fluoroscopy Report ---
SMALL BOWEL FOLLOW-THROUGH HISTORY: check for obstruction. TECHNIQUE: Single contrast Gastrografin technique utilized to evaluate the small bowel. FINDINGS: Small bowel transit time was approximately 11 hours which is normal. Multiple dilated loo ps of small bowel are identified throughout the abdomen measuring up to 4.5 cm in diameter.. The tra nsition point is not clearly evident but appears to be in the distal small bowel. The colon appears n ormal caliber on the delayed image.. IMPRESSION: Findings are consistent with a distal partial small bowel obstruction. FLUOROSCOPIC TIME: 0 minutes NUMBER OF FLUOROSCOPIC IMAGES: 0 Signer Name: Jay Max Jr, MD Signed: 06/26/2019 9:01 AM Workstation Name: [id number]
[2019-06-26] MEDS: SODIUM CHLORIDE FLUSH SYRINGE 10 ML IV SCH ×2 (09:51→23:00)
[2019-06-26] MEDS: PROTONIX IV SCH (09:51)
[2019-06-26] MEDS: HEPARIN SUB-Q SCH ×2 (09:53→22:59)
--- NOTE | 2019-06-26 10:29 | Progress Note ---
Assessment and Plan Small bowel obstruction likely ileus per surgery Severe sepsis E coli bacteremia Acute respiratory failure s/p extubation Acute encephalopathy -improved Peripheral arterial disease s/p bilateral knee amputation COPD Paroxysmal Atrial fibrillation Not on OAC due to bloody secretions in NG tube suction. Echo showing LVEF 50-55%. Continue medical therapy for paroxysmal atrial fibrillation. Subjective Date of service: 06/26/19 Principal diagnosis: Ac. hypoxemic resp failure; Severe Shock; UTI; COPD; PVD; HTN; NSTEMI; DVT Interval history: No complaints. Objective Vital Signs Temp Pulse Resp BP Pulse Ox 06/26/19 07:57 99.0 F 101 H 20 141/84 96 06/26/19 02:57 99.5 F 96 H 18 121/85 100 06/25/19 23:00 95 H 06/25/19 22:00 18 99 06/25/19 19:48 98.6 F 95 H 18 124/82 100 06/25/19 13:03 98.9 F 92 H 18 161/82 99 - Physical Examination General: No Apparent Distress HEENT: Positive: PERRL Neck: Positive: trachea midline Cardiac: Positive: irregularly irregular Lungs: Positive: Decreased Breath Sounds Neuro: Positive: Other (bilateral LE amputation) Extremities: Present: Other (bilateral LE amputation) - Allied health notes Allied health notes reviewed: nursing
--- NOTE | 2019-06-26 13:05 | Progress Note ---
Assessment and Plan Patient more awake to day and resting on 2 litres O2. O2 saturation 93%. no acute respiratory distress. Patient running low grade temp. no leukocytosis. - Patient Problems (1) Respiratory failure Current Visit: Yes Status: Acute Plan to address problem: O2 2L via nasal cannula. Albuterol/Atrovent aerosol treatment Q6h Continue subQ heparin Continue Protonix. (2) Septic shock Current Visit: Yes Status: Acute Plan to address problem: Patient is on Meropenum. (3) UTI (urinary tract infection) Current Visit: Yes Status: Acute Plan to address problem: Patient is on meropenum (4) Atrial fibrillation Current Visit: Yes Status: Acute Plan to address problem: Management as per primary care and cardiology. (5) NSTEMI (non-ST elevated myocardial infarction) Current Visit: Yes Status: Acute Plan to address problem: Management as per cardiology. (6) Acute metabolic encephalopathy Current Visit: Yes Status: Acute Plan to address problem: Management as per primary. (7) Anemia Current Visit: No Status: Acute Plan to address problem: Management as per primary care. (8) HTN (hypertension) Current Visit: No Status: Acute Plan to address problem: Management as per primary care. Subjective Date of service: 06/26/19 Principal diagnosis: Ac. hypoxemic resp failure; Severe Shock; UTI; COPD; PVD; HTN; NSTEMI; DVT Interval history: Patient more awake to day and resting on 2 litres O2. O2 saturation 93%. no acute respiratory distress. Patient running low grade temp. no leukocytosis. Objective Vital Signs - 12hr 06/26/19 06/26/19 06/26/19 02:57 07:57 10:39 Temperature 99.5 F 99.0 F Pulse Rate 96 H 101 H Respiratory 18 20 Rate Blood Pressure 121/85 141/84 O2 Sat by Pulse 100 96 99 Oximetry 06/26/19 12:25 Temperature Pulse Rate 84 Respiratory Rate Blood Pressure 129/60 O2 Sat by Pulse Oximetry Constitutional: no acute distress, alert Eyes: non-icteric, other (NGT in place) ENT: oropharynx moist Neck: supple, no lymphadenopathy, no JVD Effort: mildly labored Ascultation: Bilateral: diminished breath sounds, rhonchi Percussion: Bilateral: not dull Cardiovascular: other (Irregular, S1,S2) Gastrointestinal: normoactive bowel sounds, soft, non-tender, non-distended Integumentary: normal Extremities: no cyanosis, no edema, no ischemia or petechiae, other (s/p Bilateral AKA) Neurologic: normal mental status, non-focal exam, pupils equal and round, CN II-XII normal Psychiatric: mood appropriate, affect normal CBC and BMP: 06/24/19 04:46 06/25/19 00:32 ABG, PT/INR, D-dimer: ABG POC ABG pH 7.432 (7.35-7.45) 06/17/19 04:50 ABG pH 7.492 pH Units (7.350-7.450) H 06/18/19 11:45 POC ABG pCO2 31.5 (35-45) L 06/17/19 04:50 ABG pCO2 33.1 mm Hg 06/18/19 11:45 POC ABG pO2 135 (80-105) H 06/17/19 04:50 ABG pO2 102.2 mm Hg (80.0-90.0) H 06/18/19 11:45 POC ABG HCO3 21.0 (22-26 mml/L) 06/17/19 04:50 POC ABG Total CO2 22 (23-27mmol/L) 06/17/19 04:50 POC ABG O2 Sat 99 06/17/19 04:50 ABG O2 Saturation 98.0 % (95.0-99.0) 06/18/19 11:45 PT/INR, D-dimer PT 16.3 Sec. (12.2-14.9) H 06/14/19 05:28 INR 1.35 (0.87-1.13) H 06/14/19 05:28 Abnormal lab findings: Abnormal Labs 06/14/19 06/14/19 06/14/19 02:49 03:10 03:10 WBC RBC Hgb Hct MCHC RDW Lymph % (Auto) [place] % (Auto) Eos % (Auto) Lymph # [place] # Eos # Seg Neutrophils % Lymphocytes % (Manual) Seg Neutrophils # Seg Neutrophils # Man Lymphocytes # (Manual) PT INR POC ABG pH ABG pH POC ABG pCO2 POC ABG pO2 ABG pO2 ABG Hemoglobin Sodium Potassium 3.5 L Chloride Carbon Dioxide 20 L BUN Creatinine 0.7 L Glucose 107 H POC Glucose 117 H Lactic Acid 2.60 H* Calcium Phosphorus Troponin T 0.979 H* Albumin 3.0 L HDL Cholesterol 30 L Urine WBC (Auto) 06/14/19 06/14/19 06/14/19 04:30 04:35 05:02 WBC 11.9 H RBC 3.22 L Hgb 9.5 L Hct 28.9 L MCHC RDW Lymph % (Auto) [place] % (Auto) Eos % (Auto) Lymph # [place] # Eos # Seg Neutrophils % Lymphocytes % (Manual) 8.0 L Seg Neutrophils # Seg Neutrophils # Man 8.3 H Lymphocytes # (Manual) 1.0 L PT INR POC ABG pH 7.314 L ABG pH POC ABG pCO2 POC ABG pO2 > 400 H ABG pO2 ABG Hemoglobin Sodium Potassium Chloride Carbon Dioxide BUN Creatinine Glucose POC Glucose Lactic Acid Calcium Phosphorus Troponin T Albumin HDL Cholesterol Urine WBC (Auto) 8.0 H 06/14/19 06/15/19 06/15/19 05:28 03:30 04:35 WBC 11.2 H RBC 3.02 L Hgb 8.9 L Hct 27.1 L MCHC RDW 15.3 H Lymph % (Auto) 6.5 L [place] % (Auto) Eos % (Auto) Lymph # 0.7 L [place] # Eos # Seg Neutrophils % 86.6 H Lymphocytes % (Manual) Seg Neutrophils # 9.7 H Seg Neutrophils # Man Lymphocytes # (Manual) PT 16.3 H INR 1.35 H POC ABG pH 7.336 L ABG pH POC ABG pCO2 < 30 L POC ABG pO2 133 H ABG pO2 ABG Hemoglobin Sodium Potassium Chloride Carbon Dioxide BUN Creatinine Glucose POC Glucose Lactic Acid Calcium Phosphorus Troponin T Albumin HDL Cholesterol Urine WBC (Auto) 06/15/19 06/15/19 06/16/19 04:35 12:25 04:29 WBC RBC Hgb Hct MCHC RDW Lymph % (Auto) [place] % (Auto) Eos % (Auto) Lymph # [place] # Eos # Seg Neutrophils % Lymphocytes % (Manual) Seg Neutrophils # Seg Neutrophils # Man Lymphocytes # (Manual) PT INR POC ABG pH 7.315 L ABG pH POC ABG pCO2 POC ABG pO2 63 L 135 H ABG pO2 ABG Hemoglobin Sodium Potassium 3.3 L Chloride 110.7 H Carbon Dioxide 15 L BUN Creatinine 0.4 L Glucose 104 H POC Glucose Lactic Acid Calcium 7.8 L Phosphorus 1.80 L Troponin T Albumin 2.8 L HDL Cholesterol Urine WBC (Auto) 06/16/19 06/17/19 06/17/19 16:31 04:50 Unknown WBC RBC 2.89 L Hgb 8.4 L Hct 25.4 L MCHC RDW Lymph % (Auto) [place] % (Auto) 8.9 H Eos % (Auto) Lymph # 0.9 L [place] # Eos # Seg Neutrophils % 74.9 H Lymphocytes % (Manual) Seg Neutrophils # Seg Neutrophils # Man Lymphocytes # (Manual) PT INR POC ABG pH ABG pH POC ABG pCO2 31.5 L POC ABG pO2 135 H ABG pO2 ABG Hemoglobin Sodium Potassium Chloride Carbon Dioxide BUN Creatinine Glucose POC Glucose Lactic Acid Calcium Phosphorus 1.30 L D Troponin T Albumin HDL Cholesterol Urine WBC (Auto) 06/17/19 06/18/19 06/18/19 Unknown 04:30 04:30 WBC RBC 2.84 L Hgb 8.6 L Hct 24.8 L MCHC 35 H RDW Lymph % (Auto) 11.2 L [place] % (Auto) 9.7 H Eos % (Auto) 4.6 H Lymph # 0.7 L [place] # Eos # Seg Neutrophils % 74.1 H Lymphocytes % (Manual) Seg Neutrophils # Seg Neutrophils # Man Lymphocytes # (Manual) PT INR POC ABG pH ABG pH POC ABG pCO2 POC ABG pO2 ABG pO2 ABG Hemoglobin Sodium Potassium 3.0 L 3.4 L Chloride 107.3 H 108.0 H Carbon Dioxide BUN 8 L 7 L Creatinine 0.3 L 0.3 L Glucose 171 H 155 H POC Glucose Lactic Acid Calcium 7.3 L 6.9 L Phosphorus 1.30 L Troponin T Albumin HDL Cholesterol Urine WBC (Auto) 06/18/19 06/18/19 06/19/19 11:45 11:46 00:29 WBC RBC Hgb Hct MCHC RDW Lymph % (Auto) [place] % (Auto) Eos % (Auto) Lymph # [place] # Eos # Seg Neutrophils % Lymphocytes % (Manual) Seg Neutrophils # Seg Neutrophils # Man Lymphocytes # (Manual) PT INR POC ABG pH ABG pH 7.492 H POC ABG pCO2 POC ABG pO2 ABG pO2 102.2 H ABG Hemoglobin 9.0 L Sodium Potassium Chloride Carbon Dioxide BUN Creatinine Glucose POC Glucose 115 H 134 H Lactic Acid Calcium Phosphorus Troponin T Albumin HDL Cholesterol Urine WBC (Auto) 06/19/19 06/19/19 06/20/19 05:01 05:01 04:17 WBC RBC 3.18 L 3.53 L Hgb 9.5 L 10.4 L Hct 28.1 L 31.5 L MCHC RDW 15.3 H Lymph % (Auto) 10.5 L 13.0 L [place] % (Auto) 11.9 H 12.8 H Eos % (Auto) 4.9 H 9.0 H Lymph # 0.8 L 0.9 L [place] # 1.0 H 0.9 H Eos # 0.6 H Seg Neutrophils % 72.2 H Lymphocytes % (Manual) Seg Neutrophils # Seg Neutrophils # Man Lymphocytes # (Manual) PT INR POC ABG pH ABG pH POC ABG pCO2 POC ABG pO2 ABG pO2 ABG Hemoglobin Sodium Potassium Chloride 107.4 H Carbon Dioxide BUN 7 L Creatinine 0.3 L Glucose POC Glucose Lactic Acid Calcium 7.3 L Phosphorus Troponin T Albumin HDL Cholesterol Urine WBC (Auto) 06/20/19 06/21/19 06/21/19 04:17 04:40 04:40 WBC RBC 3.50 L Hgb 10.4 L Hct 31.6 L MCHC RDW Lymph % (Auto) [place] % (Auto) 13.0 H Eos % (Auto) Lymph # 1.1 L [place] # 0.9 H Eos # Seg Neutrophils % Lymphocytes % (Manual) Seg Neutrophils # Seg Neutrophils # Man Lymphocytes # (Manual) PT INR POC ABG pH ABG pH POC ABG pCO2 POC ABG pO2 ABG pO2 ABG Hemoglobin Sodium Potassium Chloride Carbon Dioxide 20 L D BUN 8 L 8 L Creatinine 0.4 L 0.4 L Glucose 66 L POC Glucose Lactic Acid Calcium 7.6 L 7.6 L Phosphorus Troponin T Albumin HDL Cholesterol Urine WBC (Auto) 06/21/19 06/21/19 06/21/19 06:49 11:53 18:58 WBC RBC Hgb Hct MCHC RDW Lymph % (Auto) [place] % (Auto) Eos % (Auto) Lymph # [place] # Eos # Seg Neutrophils % Lymphocytes % (Manual) Seg Neutrophils # Seg Neutrophils # Man Lymphocytes # (Manual) PT INR POC ABG pH ABG pH POC ABG pCO2 POC ABG pO2 ABG pO2 ABG Hemoglobin Sodium Potassium Chloride Carbon Dioxide BUN Creatinine Glucose POC Glucose 62 L 110 H 122 H Lactic Acid Calcium Phosphorus Troponin T Albumin HDL Cholesterol Urine WBC (Auto) 06/21/19 06/22/19 06/22/19 23:41 04:01 04:01 WBC RBC 3.29 L Hgb 9.7 L Hct 29.4 L MCHC RDW Lymph % (Auto) [place] % (Auto) 13.8 H Eos % (Auto) Lymph # 0.9 L [place] # Eos # Seg Neutrophils % Lymphocytes % (Manual) Seg Neutrophils # Seg Neutrophils # Man Lymphocytes # (Manual) PT INR POC ABG pH ABG pH POC ABG pCO2 POC ABG pO2 ABG pO2 ABG Hemoglobin Sodium 147 H Potassium Chloride 109.7 H Carbon Dioxide BUN 6 L Creatinine 0.4 L Glucose 124 H POC Glucose 128 H Lactic Acid Calcium 7.3 L Phosphorus Troponin T Albumin HDL Cholesterol Urine WBC (Auto) 06/22/19 06/22/19 06/22/19 06:06 11:59 17:40 WBC RBC Hgb Hct MCHC RDW Lymph % (Auto) [place] % (Auto) Eos % (Auto) Lymph # [place] # Eos # Seg Neutrophils % Lymphocytes % (Manual) Seg Neutrophils # Seg Neutrophils # Man Lymphocytes # (Manual) PT INR POC ABG pH ABG pH POC ABG pCO2 POC ABG pO2 ABG pO2 ABG Hemoglobin Sodium Potassium Chloride Carbon Dioxide BUN Creatinine Glucose POC Glucose 170 H 135 H 134 H Lactic Acid Calcium Phosphorus Troponin T Albumin HDL Cholesterol Urine WBC (Auto) 06/22/19 06/23/19 06/23/19 22:10 04:51 04:51 WBC RBC 3.40 L Hgb 9.9 L Hct 30.5 L MCHC RDW Lymph % (Auto) [place] % (Auto) 12.2 H Eos % (Auto) Lymph # 1.1 L [place] # Eos # Seg Neutrophils % Lymphocytes % (Manual) Seg Neutrophils # Seg Neutrophils # Man Lymphocytes # (Manual) PT INR POC ABG pH ABG pH POC ABG pCO2 POC ABG pO2 ABG pO2 ABG Hemoglobin Sodium Potassium Chloride 108.1 H Carbon Dioxide BUN 3 L Creatinine 0.4 L Glucose 119 H POC Glucose 110 H Lactic Acid Calcium 7.7 L Phosphorus 2.20 L Troponin T Albumin HDL Cholesterol Urine WBC (Auto) 06/24/19 06/24/19 06/25/19 04:46 04:46 00:32 WBC RBC 3.43 L Hgb 10.1 L Hct 30.3 L MCHC RDW Lymph % (Auto) [place] % (Auto) 10.6 H Eos % (Auto) Lymph # 0.9 L [place] # Eos # Seg Neutrophils % Lymphocytes % (Manual) Seg Neutrophils # Seg Neutrophils # Man Lymphocytes # (Manual) PT INR POC ABG pH ABG pH POC ABG pCO2 POC ABG pO2 ABG pO2 ABG Hemoglobin Sodium Potassium Chloride Carbon Dioxide BUN 2 L 2 L Creatinine 0.3 L 0.4 L Glucose 106 H POC Glucose Lactic Acid Calcium 7.6 L 7.5 L Phosphorus Troponin T Albumin HDL Cholesterol Urine WBC (Auto) Allied health notes reviewed: nursing
--- NOTE | 2019-06-26 13:52 | Progress Note ---
Assessment and Plan Cultures: Blood culture 06/14/2019 ESBL E coli 1 of 4 bottles Tracheal asp culture 06/14/2019 no growth today Assessment: 78 y/o male with a history of severe peripheral artery disease status post bilateral above the knee amputations, previous MRSA in wounds, COPD, rheumatoid arthritis, admitted on 06/14/2019 due to fever at 100.2, AMS and hypotension at 82/50 noted at his [facility] the morning of admission: 1) Severe sepsis with septic shock secondary to ESBL E.coli bacteremia: unclear source ?GI v/s urine. Patient with acute symptoms of fever, hypotension, no clear history of events. UA no significant pyuria. CXR and CTA chest no obvious pneumonia or PE. Repeat blood culture no growth. CT abd ? GB or appendix abnormalities. Elevated troponins. Noted surgery's recommendation re: chronically thickened appendix. Now with SBO being managed by Gen. Surg. 2) Acute respiratory failure: extubated 06/18/2019. 3) Acute encephalopathy: resolved. 4) Urinary retention with L renal mass: Urology consulted. 5) SBO - Surgery following. Recommendations: - continue IV meropenem 1 gm q8 hrs, end date for abx: 07/01/2019. Court Cantor MD, FACP [facility] M: [phone] O: [phone] F: [phone] Subjective Date of service: 06/26/19 Principal diagnosis: Ac. hypoxemic resp failure; Severe Shock; UTI; COPD; PVD; HTN; NSTEMI; DVT Interval history: Low grade temps, no fever. Confused, lying in bed. Objective - Exam Narrative Exam: Physical Exam: Constitutional: awake, no distress Head, Ears, Nose: Normocephalic, atraumatic. External ears, nose normal. NG tube + Eyes: Conjunctivae/corneas clear. No icterus. No ptosis. Neck: Supple, no meningeal signs Cardiovascular: S1, S2 normal. Respiratory: Good air entry, clear to auscultation bilaterally GI: Soft, non-tender; bowel sounds normal. No peritoneal signs Musculoskeletal: b/l AKA stumps well healed Skin: No rash or abscess Hem/Lymphatic: No palpable cervical or supraclavicular nodes. No lymphangitis Psych: confused, no agitation Neurological: Awake, talkative, but not oriented. - Constitutional Vitals: Vital Signs Temp Pulse Resp BP Pulse Ox 99.0 F 84 20 129/60 99 06/26/19 07:57 06/26/19 12:25 06/26/19 07:57 06/26/19 12:25 06/26/19 10:39 Temperature -Last 24 Hours Temperature 99.0 F Temperature 99.5 F Temperature 98.6 F - Labs CBC & Chem 7: 06/24/19 04:46 06/25/19 00:32
[2019-06-26] MEDS: SODIUM CHLORIDE FLUSH SYRINGE 10 ML IV PRN (14:03)
--- NOTE | 2019-06-26 17:50 | Cat Scan Report ---
CT ABDOMEN AND PELVIS WITHOUT CONTRAST INDICATION: looking for point of partial SBO CONTRAST: 100 cc Omnipaque 300 IV COMPARISON: Small bowel series 06/25/2019, CT abdomen and pelvis 06/14/[address] scans at this location are performed using CT dose reduction for ALARA by means of automated e xposure control. FINDINGS: There are now small bilateral pleural effusions, slightly greater on the right, with associ ated basilar atelectatic changes. No pneumoperitoneum is seen. Small hiatal hernia is again noted. Na sogastric tube extends into the proximal stomach. No urinary obstructive changes are seen. The lesion in the lower pole the left kidney described previously is again noted. No other masses are seen. No lymphadenopathy is noted. Gallbladder now has a normal appearance without the prominent wall thickeni ng seen previously. No calculi are seen. No biliary dilatation is noted. Pancreas is mildly atrophic but shows no focal lesions or inflammation. Small amount of free fluid is seen in the pelvis which is nonspecific. Previously administered contrast or the small bowel study is seen throughout the colon to the rectum. There is continued moderate proximal small bowel dilatation as seen on the small bowel study yesterd ay though not obvious on the prior CT. No small bowel wall thickening or obvious wall enhancement are seen. Distal small bowel loops are decompressed. IMPRESSION: 1. Continued evidence of a partial small bowel obstruction of moderate grade, appearing to be in the mid to distal small bowel, likely in the proximal ileum 2. Resolution of edema of the gallbladder wall seen previously 3. Small bilateral pleural effusions and mild associated atelectatic change Signer Name: Clarence Chavarria MD Signed: 06/26/2019 5:45 PM Workstation Name: [id number]
--- NOTE | 2019-06-26 18:47 | Progress Note ---
Assessment and Plan Assessment and plan: Patient is a 78-year-old man from [facility] with a history of PAD s/p BKA, hypertension, DVT on A/C, hypertension, GERD, OA and Gout who presented to [facility] ED with confusion, lethargy, low grade fever, tachycardia and hypotension. He was intubated in the ER for airway protection on 06/14/19 and extubated on 06/18/19. * Chest x-ray; no acute findings * CT abd/pelvis with contrast IMPRESSION: Abnormal appearance of the gallbladder and appendix as outlined above. Correlate for gallbladder symptoms and a ppendicitis. Cystitis could be considered. Suspicious 1.8 cm left renal lesion as described above. Further imaging is recommended. Severe osteopenia. * CT angiogram chest, no PE, bibasilar atelectasis * CT head, essentially normal for age * Repeat CT abdomen and pelvis: 06/26/19 IMPRESSION: 1. Continued evidence of a partial small bowel obstruction of moderate grade, appearing to be in the mid to distal small bowel, likely in the proximal ileum 2. Resolution of edema of the gallbladder wall seen previously 3. Small bilateral pleural effusions and mild associated atelectatic change SBO (new issue) most likely Ileus: ngt to LIS, GS input noted, imaging reviewed. evidenced on CT, will await surgical input following CT abdomen and Pelvis Urine retention (new issue) with Left renal mass 257cc on bladder scan, 340 cc expelled on straight cath. not a simple cyst per Abdominal U/S: d/w Urologist, on 06/21/19 Septic shock/ESBL E. coli bacteremia: ID input noted, treated with IV aBX, Source of bacteremia still unclear, Appendicitis ruled out, Surgery input appreciated Cholelithiasis; GS evaluated, input noted Acute respiratory failure on mechanical ventilator < 96 hours, now extubated on 06/18/19, management per Pulmonology Hypokalemia/hypophosphatemia: Repleted IV TYpe 2 NSTEMI, PAF, mgt per cardiology, input noted Acute metabolic encephalopathy DVT prophylaxis reviewed Disposition: continue inpatient care, once SBO resolves and ID give final abx recommendation then d.c back to [facility] My collegue called daughter Shari Malagon at [phone] at 144, and spoke her on Tuesday and he also called her on Tuesday and spoke with her at 1052 am he also called called daughter Uche Montes De Oca at [phone] and gave her update. History Interval history: Patient seen and examined, remains stable, no adverse event reported, discussed with surgeon, awaiting CT result Hospitalist Physical - Physical exam Narrative exam: Gen: ill appearing, nad, alert awake oriented x 3 HEENT: NCAT, EOMI, PERRL, OP Clear, NGT in place Neck: supple, no adenopathy, no thyromegaly, no JVD CVS/Heart: RRR, normal S1S2, pulses present bilaterally Chest/Lungs: CTA B, Symmetrical chest expansion, good air entry bilaterally GI/Abdomen: soft, NTND, good bowel sounds, no guarding or rebound /Bladder: no suprapubic tenderness, no CVA or paraspinal tenderness Extermity/Skin: no c/c/e, no obvious rash MSK: FROM x 4, bilateral AKA Neuro: CN 2-12 grossly intact, no new focal deficits Psych: calm - Constitutional Vitals: Temp Pulse Resp BP Pulse Ox 98.9 F 86 20 141/82 93 06/26/19 14:05 06/26/19 17:52 06/26/19 14:05 06/26/19 17:52 06/26/19 14:05 General appearance: Present: other (intubated on the vent) Results - Labs CBC & Chem 7: 06/27/19 06:07 06/27/19 06:07 Labs: Laboratory Last Values WBC 4.8 K/mm3 (4.5-11.0) 06/24/19 04:46 RBC 3.43 M/mm3 (3.65-5.03) L 06/24/19 04:46 Hgb 10.1 gm/dl (11.8-15.2) L 06/24/19 04:46 Hct 30.3 % (35.5-45.6) L 06/24/19 04:46 MCV 88 fl (84-94) 06/24/19 04:46 MCH 30 pg (28-32) 06/24/19 04:46 MCHC 33 % (32-34) 06/24/19 04:46 RDW 14.8 % (13.2-15.2) 06/24/19 04:46 Plt Count 435 K/mm3 (140-440) 06/24/19 04:46 Lymph % (Auto) 18.9 % (13.4-35.0) 06/24/19 04:46 [place] % (Auto) 10.6 % (0.0-7.3) H 06/24/19 04:46 Eos % (Auto) 2.8 % (0.0-4.3) 06/24/19 04:46 Baso % (Auto) 0.4 % (0.0-1.8) 06/24/19 04:46 Lymph # 0.9 K/mm3 (1.2-5.4) L 06/24/19 04:46 [place] # 0.5 K/mm3 (0.0-0.8) 06/24/19 04:46 Eos # 0.1 K/mm3 (0.0-0.4) 06/24/19 04:46 Baso # 0.0 K/mm3 (0.0-0.1) 06/24/19 04:46 Add Manual Diff Complete 06/14/19 04:30 Total Counted 100 06/14/19 04:30 Seg Neutrophils % 67.3 % (40.0-70.0) 06/24/19 04:46 Seg Neuts % (Manual) 70.0 % (40.0-70.0) 06/14/19 04:30 Band Neutrophils % 18.0 % 06/14/19 04:30 Lymphocytes % (Manual) 8.0 % (13.4-35.0) L 06/14/19 04:30 Reactive Lymphs % (Man) 0 % 06/14/19 04:30 Monocytes % (Manual) 4.0 % (0.0-7.3) 06/14/19 04:30 Eosinophils % (Manual) 0 % (0.0-4.3) 06/14/19 04:30 Basophils % (Manual) 0 % (0.0-1.8) 06/14/19 04:30 Metamyelocytes % 0 % 06/14/19 04:30 Myelocytes % 0 % 06/14/19 04:30 Promyelocytes % 0 % 06/14/19 04:30 Blast Cells % 0 % 06/14/19 04:30 Nucleated RBC % Not Reportable 06/14/19 04:30 Seg Neutrophils # 3.2 K/mm3 (1.8-7.7) 06/24/19 04:46 Seg Neutrophils # Man 8.3 K/mm3 (1.8-7.7) H 06/14/19 04:30 Band Neutrophils # 2.1 K/mm3 06/14/19 04:30 Lymphocytes # (Manual) 1.0 K/mm3 (1.2-5.4) L 06/14/19 04:30 Abs React Lymphs (Man) 0.0 K/mm3 06/14/19 04:30 Monocytes # (Manual) 0.5 K/mm3 (0.0-0.8) 06/14/19 04:30 Eosinophils # (Manual) 0.0 K/mm3 (0.0-0.4) 06/14/19 04:30 Basophils # (Manual) 0.0 K/mm3 (0.0-0.1) 06/14/19 04:30 Metamyelocytes # 0.0 K/mm3 06/14/19 04:30 Myelocytes # 0.0 K/mm3 06/14/19 04:30 Promyelocytes # 0.0 K/mm3 06/14/19 04:30 Blast Cells # 0.0 K/mm3 06/14/19 04:30 WBC Morphology Not Reportable 06/14/19 04:30 Hypersegmented Neuts Not Reportable 06/14/19 04:30 Hyposegmented Neuts Not Reportable 06/14/19 04:30 Hypogranular Neuts Not Reportable 06/14/19 04:30 Smudge Cells Not Reportable 06/14/19 04:30 Toxic Granulation Not Reportable 06/14/19 04:30 Toxic Vacuolation Not Reportable 06/14/19 04:30 Dohle Bodies Not Reportable 06/14/19 04:30 Pelger-Huet Anomaly Not Reportable 06/14/19 04:30 Raymundo Rods Not Reportable 06/14/19 04:30 Platelet Estimate Consistent w auto 06/14/19 04:30 Clumped Platelets Not Reportable 06/14/19 04:30 Plt Clumps, EDTA Not Reportable 06/14/19 04:30 Large Platelets Rare 06/14/19 04:30 Giant Platelets Not Reportable 06/14/19 04:30 Platelet Satelliting Not Reportable 06/14/19 04:30 Plt Morphology Comment Not Reportable 06/14/19 04:30 RBC Morphology Not Reportable 06/14/19 04:30 Dimorphic RBCs Not Reportable 06/14/19 04:30 Polychromasia Not Reportable 06/14/19 04:30 Hypochromasia Not Reportable 06/14/19 04:30 Poikilocytosis Not Reportable 06/14/19 04:30 Anisocytosis Rare 06/14/19 04:30 Microcytosis Not Reportable 06/14/19 04:30 Macrocytosis Not Reportable 06/14/19 04:30 Spherocytes Not Reportable 06/14/19 04:30 Pappenheimer Bodies Not Reportable 06/14/19 04:30 Sickle Cells Not Reportable 06/14/19 04:30 Target Cells Not Reportable 06/14/19 04:30 Tear Drop Cells Not Reportable 06/14/19 04:30 Ovalocytes Rare 06/14/19 04:30 Helmet Cells Not Reportable 06/14/19 04:30 [place] Bodies Not Reportable 06/14/19 04:30 [place] Rings Not Reportable 06/14/19 04:30 [place] Cells Rare 06/14/19 04:30 Bite Cells Not Reportable 06/14/19 04:30 Crenated Cell Not Reportable 06/14/19 04:30 Elliptocytes Not Reportable 06/14/19 04:30 Acanthocytes (Spur) Not Reportable 06/14/19 04:30 Rouleaux Not Reportable 06/14/19 04:30 Hemoglobin C Crystals Not Reportable 06/14/19 04:30 Schistocytes Not Reportable 06/14/19 04:30 Malaria parasites Not Reportable 06/14/19 04:30 Paulie Bodies Not Reportable 06/14/19 04:30 Hem Pathologist Commnt No 06/14/19 04:30 PT 16.3 Sec. (12.2-14.9) H 06/14/19 05:28 INR 1.35 (0.87-1.13) H 06/14/19 05:28 APTT 34.7 Sec. (24.2-36.6) 06/14/19 05:28 POC ABG pH 7.432 (7.35-7.45) 06/17/19 04:50 ABG pH 7.492 pH Units (7.350-7.450) H 06/18/19 11:45 POC ABG pCO2 31.5 (35-45) L 06/17/19 04:50 ABG pCO2 33.1 mm Hg 06/18/19 11:45 POC ABG pO2 135 (80-105) H 06/17/19 04:50 ABG pO2 102.2 mm Hg (80.0-90.0) H 06/18/19 11:45 POC ABG HCO3 21.0 (22-26 mml/L) 06/17/19 04:50 ABG HCO3 24.8 mmol/L (20.0-26.0) 06/18/19 11:45 POC ABG Total CO2 22 (23-27mmol/L) 06/17/19 04:50 POC ABG O2 Sat 99 06/17/19 04:50 ABG O2 Saturation 98.0 % (95.0-99.0) 06/18/19 11:45 ABG O2 Content 12.4 (0.0-44) 06/18/19 11:45 POC ABG Base Excess -3 ((-2) - (+3)mmol/L) 06/17/19 04:50 ABG Base Excess 1.6 mmol/L (-2.0-3.0) 06/18/19 11:45 ABG Hemoglobin 9.0 gm/dl (14.0-18.0) L 06/18/19 11:45 ABG Carboxyhemoglobin 1.4 % (0.0-5.0) 06/18/19 11:45 ABG Methemoglobin 0.4 % (0.0-1.5) 06/18/19 11:45 Oxyhemoglobin 96.2 % (95.0-99.0) 06/18/19 11:45 FiO2 25 % 06/18/19 11:45 Sodium 143 mmol/L (137-145) 06/25/19 00:32 Potassium 3.9 mmol/L (3.6-5.0) 06/25/19 00:32 Chloride 106.4 mmol/L (98-107) 06/25/19 00:32 Carbon Dioxide 25 mmol/L (22-30) 06/25/19 00:32 Anion Gap 16 mmol/L 06/25/19 00:32 BUN 2 mg/dL (9-20) L 06/25/19 00:32 Creatinine 0.4 mg/dL (0.8-1.5) L 06/25/19 00:32 Estimated GFR > 60 ml/min 06/25/19 00:32 BUN/Creatinine Ratio 5 % 06/25/19 00:32 Glucose 96 mg/dL (75-100) 06/25/19 00:32 POC Glucose 110 (70-105) H 06/22/19 22:10 Lactic Acid 1.20 mmol/L (0.7-2.0) 06/14/19 05:28 Calcium 7.5 mg/dL (8.4-10.2) L 06/25/19 00:32 Phosphorus 2.80 mg/dL (2.5-4.5) D 06/24/19 04:46 Magnesium 1.70 mg/dL (1.7-2.3) 06/23/19 04:51 Total Bilirubin 0.30 mg/dL (0.1-1.2) 06/15/19 04:35 AST 21 units/L (5-40) 06/15/19 04:35 ALT 14 units/L (7-56) 06/15/19 04:35 Alkaline Phosphatase 80 units/L (35-129) 06/15/19 04:35 Troponin T 0.979 ng/mL (0.00-0.029) H* 06/14/19 03:10 Total Protein 7.1 g/dL (6.3-8.2) 06/15/19 04:35 Albumin 2.8 g/dL (3.9-5) L 06/15/19 04:35 Albumin/Globulin Ratio 0.7 % 06/15/19 04:35 Triglycerides 74 mg/dL (2-149) 06/14/19 03:10 Cholesterol 112 mg/dL (50-199) 06/14/19 03:10 LDL Cholesterol Direct 76 mg/dL (50-130) 06/14/19 03:10 HDL Cholesterol 30 mg/dL (40-59) L 06/14/19 03:10 Cholesterol/HDL Ratio 3.73 % 06/14/19 03:10 Procalcitonin 45.71 ng/mL (<0.15) 06/14/19 13:26 Urine Color Gabbie (Yellow) 06/14/19 04:35 Urine Turbidity Cloudy (Clear) 06/14/19 04:35 Urine pH 5.0 (5.0-7.0) 06/14/19 04:35 Ur Specific [place] 1.020 (1.003-1.030) 06/14/19 04:35 Urine Protein 100 mg/dl mg/dL (Negative) 06/14/19 04:35 Urine Glucose (UA) Neg mg/dL (Negative) 06/14/19 04:35 Urine Ketones Neg mg/dL (Negative) 06/14/19 04:35 Urine Blood Neg (Negative) 06/14/19 04:35 Urine Nitrite Neg (Negative) 06/14/19 04:35 Ur Reducing Substances Not Reportable 06/14/19 04:35 Urine Bilirubin Neg (Negative) 06/14/19 04:35 Urine Ictotest Not Reportable 06/14/19 04:35 Urine Urobilinogen < 2.0 mg/dL (<2.0) 06/14/19 04:35 Ur Leukocyte Esterase Tr (Negative) 06/14/19 04:35 Urine WBC (Auto) 8.0 /HPF (0.0-6.0) H 06/14/19 04:35 Urine RBC (Auto) 6.0 /HPF (0.0-6.0) 06/14/19 04:35 U Epithel Cells (Auto) 1.0 /HPF (0-13.0) 06/14/19 04:35 Urine Mucus 2+ /HPF 06/14/19 04:35 Active Medications - Current Medications Current Medications: Generic Name Dose Route Start Last Admin Trade Name Freq PRN Reason Stop Dose Admin Albuterol 2.5 mg 06/14/19 12:31 Proventil IH Q4HRT PRN Shortness Of Breath Dextrose 50 ml 06/21/19 06:50 06/21/19 07:19 D50w (25gm) Syringe IV 50 ml PRN PRN Administration Hypoglycemia Diltiazem HCl 30 mg 06/21/19 12:00 06/26/19 17:52 Cardizem PO 30 mg Q6HR HAL Administration Heparin Sodium (Porcine) 5,000 unit 06/14/19 22:00 06/26/19 09:53 Heparin SUB-Q 5,000 unit Q12HR HAL Administration Hydrophilic Ointment 1 applic 06/14/19 03:45 Vaseline Lip Therapy TP Q2HR PRN Dry Lips Potassium Chloride/Dextrose/Sod Cl 40 meq in 1,000 mls @ 75 mls/hr 06/24/19 16:00 06/24/19 21:14 D5w/0.45% Nacl/Kcl 40 Meq IV 75 mls/hr DIRECT HAL Administration MEROPENEM/NS 1 GRAM/100 ML 1 gram in 100 mls @ 100 mls/hr 06/25/19 15:00 06/26/19 14:03 Merrem/Ns 1 Gram/100 Ml IV 07/01/19 22:59 100 mls/hr Q8HR HAL Administration Protocol Metoclopramide HCl 10 mg 06/24/19 14:00 06/26/19 14:03 Reglan IV 10 mg Q6H HAL Administration Morphine Sulfate 2 mg 06/20/19 17:37 Morphine IV Q4H PRN Pain , Severe (7-10) Multi-Ingred Cream/Lotion/Oil/Oint 1 applic 06/14/19 03:45 Artificial Tears Ophth Oint OU Q4HR PRN Dry Eye(s) Ondansetron HCl 4 mg 06/14/19 09:00 06/20/19 12:13 Zofran IV 4 mg Q8H PRN Administration Nausea And Vomiting Pantoprazole Sodium 40 mg 06/20/19 17:00 06/26/19 09:51 Protonix IV 40 mg QDAY HAL Administration Simethicone 320 mg 06/24/19 14:00 06/26/19 14:03 Mylicon PO 320 mg Q6H HAL Administration Sodium Chloride 10 ml 06/14/19 10:00 06/26/19 09:51 Sodium Chloride Flush Syringe 10 Ml IV 10 ml BID HAL Administration Sodium Chloride 10 ml 06/14/19 09:00 06/26/19 14:03 Sodium Chloride Flush Syringe 10 Ml IV 10 ml PRN PRN Administration LINE FLUSH Nutrition/Malnutrition Assess - Dietary Evaluation Nutrition/Malnutrition Findings: Nutrition Notes Start: 06/14/19 12:44 Freq: Status: Active Protocol: Document 06/25/19 16:28 RM (Rec: 06/25/19 16:40 RM [id number]) Nutrition Notes Initial or Follow up Reassessment Current Diagnosis Sepsis,Hypertension Other Pertinent Diagnosis UTI, SBO, DVT, GERD, left AKA, right BKA, sepsis Current Diet Clear liquid Labs/Tests Reviewed Pertinent Medications Zofran Height 4 ft 3 in Weight 81.3 kg [place] Body Weight (kg) 23.63 BMI 48.4 Subjective/Other Information Pt not in room at time of visit. Pt has SBO which is possibly ileus and had NGT to LIS but suctioning was D/C'd. Surgery is following. Per nurse pt still has NGT and is receiving clear liquid meals. Stated pt has not drunk any of his meals yet. Percent of energy/protein needs met: 0%/0% Burn Absent Trauma Absent Minimum of two criteria No #1 Nutrition Diagnosis Inadequate oral intake Diagnosis Progress(for reassessment Continues documentation) Is patient on ventilator? No Is Patient Ambulatory and/or Out of Bed No REE-([facility]-confined to bed) 1503.468 Calculation Used for Recommendations [facility] Additional Notes Protein needs: 28-34g/kg (1-1. 2 of AdBw 28kg) Fluid needs: 1ml/kcal Nutrition Intervention Change Diet Order: Advance diet when medically able Add Supplement/Snack (indicate name/kcal Ensure Clear 1 daily /protein ) Provides kCal: 220 Provides Protein (gm) 8 Goal #1 Diet advancement Anticipated Discharge Needs: Unable to determine at this time Follow-Up By: 06/27/19 Additional Comments Follow for diet advancement
[2019-06-27] MEDS: REGLAN IV SCH ×3 (02:45→14:23)
[2019-06-27] MEDS: MYLICON PO SCH ×3 (02:45→14:23)
[2019-06-27] MEDS: CARDIZEM PO SCH ×3 (05:16→12:05)
[2019-06-27] MEDS: MERREM/NS 1 GRAM/100 ML 1 GRAM/100 ML BAG IV SCH ×2 (05:25→14:25)
[2019-06-27 06:30] LABS: Hematocrit 31.4 % (35.5-45.6); Hemoglobin 10.2 gm/dl (11.8-15.2); Mean Corpuscular HGB Conc 33 % (32-34); Mean Corpuscular Volume 90 fl (84-94); Platelet Count 448 K/mm3 (140-440); Red Blood Count 3.51 M/mm3 (3.65-5.03); Red Cell Distribution Width 15.1 % (13.2-15.2)
[2019-06-27 07:54] LABS: BUN/Creatinine Ratio 5; Blood Urea Nitrogen 2 mg/dL (9-20); Calcium 7.7 mg/dL (8.4-10.2); Hemolysis Index 1
--- NOTE | 2019-06-27 08:40 | Progress Note ---
Assessment and Plan Assessment and plan: Patient is a 78-year-old man from [facility] with a history of PAD s/p BKA, hypertension, DVT on A/C, hypertension, GERD, OA and Gout who presented to [facility] ED with confusion, lethargy, low grade fever, tachycardia and hypotension. He was intubated in the ER for airway protection on 06/14/19 and extubated on 06/18/19. * Chest x-ray; no acute findings * CT abd/pelvis with contrast IMPRESSION: Abnormal appearance of the gallbladder and appendix as outlined above. Correlate for gallbladder symptoms and a ppendicitis. Cystitis could be considered. Suspicious 1.8 cm left renal lesion as described above. Further imaging is recommended. Severe osteopenia. * CT angiogram chest, no PE, bibasilar atelectasis * CT head, essentially normal for age * Repeat CT abdomen and pelvis: 06/26/19 IMPRESSION: 1. Continued evidence of a partial small bowel obstruction of moderate grade, appearing to be in the mid to distal small bowel, likely in the proximal ileum 2. Resolution of edema of the gallbladder wall seen previously 3. Small bilateral pleural effusions and mild associated atelectatic change SBO (new issue) most likely Ileus: ngt to LIS, GS input noted, imaging reviewed. evidenced on CT, will await surgical input following CT abdomen and Pelvis Urine retention (new issue) with Left renal mass 257cc on bladder scan, 340 cc expelled on straight cath. not a simple cyst per Abdominal U/S: d/w Urologist, on 06/21/19 Septic shock/ESBL E. coli bacteremia: ID input noted, treated with IV aBX, Source of bacteremia still unclear, continue IV meropenem 1 gm q8 hrs, end date for abx: 07/01/2019. Appendicitis ruled out, Surgery input appreciated Cholelithiasis; GS evaluated, input noted Acute respiratory failure on mechanical ventilator < 96 hours, now extubated on 06/18/19, management per Pulmonology Hypokalemia/hypophosphatemia: Replace IV TYpe 2 NSTEMI, PAF, mgt per cardiology, input noted Acute metabolic encephalopathy: Resolved Paroxysmal Atrial Fibrillation: Not on anticoagulation per Cardiology due to blood secretions prior noticed. Will follow with cardiology outpateint for reconsideration. EF 50-55% DVT prophylaxis reviewed Disposition: continue inpatient care, once SBO resolves and ID give final abx recommendation then d.c back to [facility] My colleague called daughter Shari Malagon at [phone] at 1447, and spoke her on Tuesday and he also called her on Tuesday and spoke with her at 1052 am he also called called daughter Uche Montes De Oca at [phone] and gave her update. Hospitalist Physical - Constitutional Vitals: Temp Pulse Resp BP Pulse Ox 98.3 F 74 20 154/83 100 06/27/19 02:32 06/27/19 05:16 06/27/19 02:32 06/27/19 05:16 06/27/19 08:10 General appearance: Present: other (intubated on the vent) Results - Labs CBC & Chem 7: 06/27/19 06:07 06/27/19 06:07 Labs: Laboratory Last Values WBC 4.8 K/mm3 (4.5-11.0) 06/27/19 06:07 RBC 3.51 M/mm3 (3.65-5.03) L 06/27/19 06:07 Hgb 10.2 gm/dl (11.8-15.2) L 06/27/19 06:07 Hct 31.4 % (35.5-45.6) L 06/27/19 06:07 MCV 90 fl (84-94) 06/27/19 06:07 MCH 29 pg (28-32) 06/27/19 06:07 MCHC 33 % (32-34) 06/27/19 06:07 RDW 15.1 % (13.2-15.2) 06/27/19 06:07 Plt Count 448 K/mm3 (140-440) H 06/27/19 06:07 Lymph % (Auto) 18.9 % (13.4-35.0) 06/24/19 04:46 Nolan % (Auto) 10.6 % (0.0-7.3) H 06/24/19 04:46 Eos % (Auto) 2.8 % (0.0-4.3) 06/24/19 04:46 Baso % (Auto) 0.4 % (0.0-1.8) 06/24/19 04:46 Lymph # 0.9 K/mm3 (1.2-5.4) L 06/24/19 04:46 Nolan # 0.5 K/mm3 (0.0-0.8) 06/24/19 04:46 Eos # 0.1 K/mm3 (0.0-0.4) 06/24/19 04:46 Baso # 0.0 K/mm3 (0.0-0.1) 06/24/19 04:46 Add Manual Diff Complete 06/14/19 04:30 Total Counted 100 06/14/19 04:30 Seg Neutrophils % 67.3 % (40.0-70.0) 06/24/19 04:46 Seg Neuts % (Manual) 70.0 % (40.0-70.0) 06/14/19 04:30 Band Neutrophils % 18.0 % 06/14/19 04:30 Lymphocytes % (Manual) 8.0 % (13.4-35.0) L 06/14/19 04:30 Reactive Lymphs % (Man) 0 % 06/14/19 04:30 Monocytes % (Manual) 4.0 % (0.0-7.3) 06/14/19 04:30 Eosinophils % (Manual) 0 % (0.0-4.3) 06/14/19 04:30 Basophils % (Manual) 0 % (0.0-1.8) 06/14/19 04:30 Metamyelocytes % 0 % 06/14/19 04:30 Myelocytes % 0 % 06/14/19 04:30 Promyelocytes % 0 % 06/14/19 04:30 Blast Cells % 0 % 06/14/19 04:30 Nucleated RBC % Not Reportable 06/14/19 04:30 Seg Neutrophils # 3.2 K/mm3 (1.8-7.7) 06/24/19 04:46 Seg Neutrophils # Man 8.3 K/mm3 (1.8-7.7) H 06/14/19 04:30 Band Neutrophils # 2.1 K/mm3 06/14/19 04:30 Lymphocytes # (Manual) 1.0 K/mm3 (1.2-5.4) L 06/14/19 04:30 Abs React Lymphs (Man) 0.0 K/mm3 06/14/19 04:30 Monocytes # (Manual) 0.5 K/mm3 (0.0-0.8) 06/14/19 04:30 Eosinophils # (Manual) 0.0 K/mm3 (0.0-0.4) 06/14/19 04:30 Basophils # (Manual) 0.0 K/mm3 (0.0-0.1) 06/14/19 04:30 Metamyelocytes # 0.0 K/mm3 06/14/19 04:30 Myelocytes # 0.0 K/mm3 06/14/19 04:30 Promyelocytes # 0.0 K/mm3 06/14/19 04:30 Blast Cells # 0.0 K/mm3 06/14/19 04:30 WBC Morphology Not Reportable 06/14/19 04:30 Hypersegmented Neuts Not Reportable 06/14/19 04:30 Hyposegmented Neuts Not Reportable 06/14/19 04:30 Hypogranular Neuts Not Reportable 06/14/19 04:30 Smudge Cells Not Reportable 06/14/19 04:30 Toxic Granulation Not Reportable 06/14/19 04:30 Toxic Vacuolation Not Reportable 06/14/19 04:30 Dohle Bodies Not Reportable 06/14/19 04:30 Pelger-Huet Anomaly Not Reportable 06/14/19 04:30 Raymundo Rods Not Reportable 06/14/19 04:30 Platelet Estimate Consistent w auto 06/14/19 04:30 Clumped Platelets Not Reportable 06/14/19 04:30 Plt Clumps, EDTA Not Reportable 06/14/19 04:30 Large Platelets Rare 06/14/19 04:30 Giant Platelets Not Reportable 06/14/19 04:30 Platelet Satelliting Not Reportable 06/14/19 04:30 Plt Morphology Comment Not Reportable 06/14/19 04:30 RBC Morphology Not Reportable 06/14/19 04:30 Dimorphic RBCs Not Reportable 06/14/19 04:30 Polychromasia Not Reportable 06/14/19 04:30 Hypochromasia Not Reportable 06/14/19 04:30 Poikilocytosis Not Reportable 06/14/19 04:30 Anisocytosis Rare 06/14/19 04:30 Microcytosis Not Reportable 06/14/19 04:30 Macrocytosis Not Reportable 06/14/19 04:30 Spherocytes Not Reportable 06/14/19 04:30 Pappenheimer Bodies Not Reportable 06/14/19 04:30 Sickle Cells Not Reportable 06/14/19 04:30 Target Cells Not Reportable 06/14/19 04:30 Tear Drop Cells Not Reportable 06/14/19 04:30 Ovalocytes Rare 06/14/19 04:30 Helmet Cells Not Reportable 06/14/19 04:30 Hardy-Maxbass Bodies Not Reportable 06/14/19 04:30 [place] Rings Not Reportable 06/14/19 04:30 Varney Cells Rare 06/14/19 04:30 Bite Cells Not Reportable 06/14/19 04:30 Crenated Cell Not Reportable 06/14/19 04:30 Elliptocytes Not Reportable 06/14/19 04:30 Acanthocytes (Spur) Not Reportable 06/14/19 04:30 Rouleaux Not Reportable 06/14/19 04:30 Hemoglobin C Crystals Not Reportable 06/14/19 04:30 Schistocytes Not Reportable 06/14/19 04:30 Malaria parasites Not Reportable 06/14/19 04:30 Paulie Bodies Not Reportable 06/14/19 04:30 Hem Pathologist Commnt No 06/14/19 04:30 PT 16.3 Sec. (12.2-14.9) H 06/14/19 05:28 INR 1.35 (0.87-1.13) H 06/14/19 05:28 APTT 34.7 Sec. (24.2-36.6) 06/14/19 05:28 POC ABG pH 7.432 (7.35-7.45) 06/17/19 04:50 ABG pH 7.492 pH Units (7.350-7.450) H 06/18/19 11:45 POC ABG pCO2 31.5 (35-45) L 06/17/19 04:50 ABG pCO2 33.1 mm Hg 06/18/19 11:45 POC ABG pO2 135 (80-105) H 06/17/19 04:50 ABG pO2 102.2 mm Hg (80.0-90.0) H 06/18/19 11:45 POC ABG HCO3 21.0 (22-26 mml/L) 06/17/19 04:50 ABG HCO3 24.8 mmol/L (20.0-26.0) 06/18/19 11:45 POC ABG Total CO2 22 (23-27mmol/L) 06/17/19 04:50 POC ABG O2 Sat 99 06/17/19 04:50 ABG O2 Saturation 98.0 % (95.0-99.0) 06/18/19 11:45 ABG O2 Content 12.4 (0.0-44) 06/18/19 11:45 POC ABG Base Excess -3 ((-2) - (+3)mmol/L) 06/17/19 04:50 ABG Base Excess 1.6 mmol/L (-2.0-3.0) 06/18/19 11:45 ABG Hemoglobin 9.0 gm/dl (14.0-18.0) L 06/18/19 11:45 ABG Carboxyhemoglobin 1.4 % (0.0-5.0) 06/18/19 11:45 ABG Methemoglobin 0.4 % (0.0-1.5) 06/18/19 11:45 Oxyhemoglobin 96.2 % (95.0-99.0) 06/18/19 11:45 FiO2 25 % 06/18/19 11:45 Sodium 147 mmol/L (137-145) H 06/27/19 06:07 Potassium 3.3 mmol/L (3.6-5.0) L 06/27/19 06:07 Chloride 108.3 mmol/L (98-107) H 06/27/19 06:07 Carbon Dioxide 22 mmol/L (22-30) 06/27/19 06:07 Anion Gap 20 mmol/L 06/27/19 06:07 BUN 2 mg/dL (9-20) L 06/27/19 06:07 Creatinine 0.4 mg/dL (0.8-1.5) L 06/27/19 06:07 Estimated GFR > 60 ml/min 06/27/19 06:07 BUN/Creatinine Ratio 5 % 06/27/19 06:07 Glucose 98 mg/dL (75-100) 06/27/19 06:07 POC Glucose 110 (70-105) H 06/22/19 22:10 Lactic Acid 1.20 mmol/L (0.7-2.0) 06/14/19 05:28 Calcium 7.7 mg/dL (8.4-10.2) L 06/27/19 06:07 Phosphorus 2.80 mg/dL (2.5-4.5) D 06/24/19 04:46 Magnesium 1.70 mg/dL (1.7-2.3) 06/23/19 04:51 Total Bilirubin 0.30 mg/dL (0.1-1.2) 06/15/19 04:35 AST 21 units/L (5-40) 06/15/19 04:35 ALT 14 units/L (7-56) 06/15/19 04:35 Alkaline Phosphatase 80 units/L (35-129) 06/15/19 04:35 Troponin T 0.979 ng/mL (0.00-0.029) H* 06/14/19 03:10 Total Protein 7.1 g/dL (6.3-8.2) 06/15/19 04:35 Albumin 2.8 g/dL (3.9-5) L 06/15/19 04:35 Albumin/Globulin Ratio 0.7 % 06/15/19 04:35 Triglycerides 74 mg/dL (2-149) 06/14/19 03:10 Cholesterol 112 mg/dL (50-199) 06/14/19 03:10 LDL Cholesterol Direct 76 mg/dL (50-130) 06/14/19 03:10 HDL Cholesterol 30 mg/dL (40-59) L 06/14/19 03:10 Cholesterol/HDL Ratio 3.73 % 06/14/19 03:10 Procalcitonin 45.71 ng/mL (<0.15) 06/14/19 13:26 Urine Color Gabbie (Yellow) 06/14/19 04:35 Urine Turbidity Cloudy (Clear) 06/14/19 04:35 Urine pH 5.0 (5.0-7.0) 06/14/19 04:35 Ur Specific [place] 1.020 (1.003-1.030) 06/14/19 04:35 Urine Protein 100 mg/dl mg/dL (Negative) 06/14/19 04:35 Urine Glucose (UA) Neg mg/dL (Negative) 06/14/19 04:35 Urine Ketones Neg mg/dL (Negative) 06/14/19 04:35 Urine Blood Neg (Negative) 06/14/19 04:35 Urine Nitrite Neg (Negative) 06/14/19 04:35 Ur Reducing Substances Not Reportable 06/14/19 04:35 Urine Bilirubin Neg (Negative) 06/14/19 04:35 Urine Ictotest Not Reportable 06/14/19 04:35 Urine Urobilinogen < 2.0 mg/dL (<2.0) 06/14/19 04:35 Ur Leukocyte Esterase Tr (Negative) 06/14/19 04:35 Urine WBC (Auto) 8.0 /HPF (0.0-6.0) H 06/14/19 04:35 Urine RBC (Auto) 6.0 /HPF (0.0-6.0) 06/14/19 04:35 U Epithel Cells (Auto) 1.0 /HPF (0-13.0) 06/14/19 04:35 Urine Mucus 2+ /HPF 06/14/19 04:35 Active Medications - Current Medications Current Medications: Generic Name Dose Route Start Last Admin Trade Name Freq PRN Reason Stop Dose Admin Albuterol 2.5 mg 06/14/19 12:31 Proventil IH Q4HRT PRN Shortness Of Breath Dextrose 50 ml 06/21/19 06:50 06/21/19 07:19 D50w (25gm) Syringe IV 50 ml PRN PRN Administration Hypoglycemia Diltiazem HCl 30 mg 06/21/19 12:00 06/27/19 05:16 Cardizem PO 30 mg Q6HR HAL Administration Heparin Sodium (Porcine) 5,000 unit 06/14/19 22:00 06/26/19 22:59 Heparin SUB-Q 5,000 unit Q12HR HAL Administration Hydrophilic Ointment 1 applic 06/14/19 03:45 Vaseline Lip Therapy TP Q2HR PRN Dry Lips Potassium Chloride/Dextrose/Sod Cl 40 meq in 1,000 mls @ 75 mls/hr 06/24/19 16:00 06/24/19 21:14 D5w/0.45% Nacl/Kcl 40 Meq IV 75 mls/hr DIRECT HAL Administration MEROPENEM/NS 1 GRAM/100 ML 1 gram in 100 mls @ 100 mls/hr 06/25/19 15:00 06/27/19 05:25 Merrem/Ns 1 Gram/100 Ml IV 07/01/19 22:59 100 mls/hr Q8HR HAL Administration Protocol Potassium Chloride 10 meq in 100 mls @ 100 mls/hr 06/27/19 09:00 Kcl 10meq/100ml IV 06/27/19 12:59 Q1H HAL Metoclopramide HCl 10 mg 06/24/19 14:00 06/27/19 02:45 Reglan IV 10 mg Q6H HAL Administration Morphine Sulfate 2 mg 06/20/19 17:37 Morphine IV Q4H PRN Pain , Severe (7-10) Multi-Ingred Cream/Lotion/Oil/Oint 1 applic 06/14/19 03:45 Artificial Tears Ophth Oint OU Q4HR PRN Dry Eye(s) Ondansetron HCl 4 mg 06/14/19 09:00 06/20/19 12:13 Zofran IV 4 mg Q8H PRN Administration Nausea And Vomiting Pantoprazole Sodium 40 mg 06/27/19 10:00 Protonix PO DAILY HAL Simethicone 320 mg 06/24/19 14:00 06/27/19 02:45 Mylicon PO Not Given Q6H HAL Sodium Chloride 10 ml 06/14/19 10:00 06/26/19 23:00 Sodium Chloride Flush Syringe 10 Ml IV 10 ml BID HAL Administration Sodium Chloride 10 ml 06/14/19 09:00 06/26/19 14:03 Sodium Chloride Flush Syringe 10 Ml IV 10 ml PRN PRN Administration LINE FLUSH Nutrition/Malnutrition Assess - Dietary Evaluation Nutrition/Malnutrition Findings: Nutrition Notes Start: 06/14/19 12:44 Freq: Status: Active Protocol: Document 06/25/19 16:28 RM (Rec: 06/25/19 16:40 RM [id number]) Nutrition Notes Initial or Follow up Reassessment Current Diagnosis Sepsis,Hypertension Other Pertinent Diagnosis UTI, SBO, DVT, GERD, left AKA, right BKA, sepsis Current Diet Clear liquid Labs/Tests Reviewed Pertinent Medications Zofran Height 4 ft 3 in Weight 81.3 kg [place] Body Weight (kg) 23.63 BMI 48.4 Subjective/Other Information Pt not in room at time of visit. Pt has SBO which is possibly ileus and had NGT to LIS but suctioning was D/C'd. Surgery is following. Per nurse pt still has NGT and is receiving clear liquid meals. Stated pt has not drunk any of his meals yet. Percent of energy/protein needs met: 0%/0% Burn Absent Trauma Absent Minimum of two criteria No #1 Nutrition Diagnosis Inadequate oral intake Diagnosis Progress(for reassessment Continues documentation) Is patient on ventilator? No Is Patient Ambulatory and/or Out of Bed No REE-([facility]-confined to bed) 1503.468 Calculation Used for Recommendations [facility] Additional Notes Protein needs: 28-34g/kg (1-1. 2 of AdBw 28kg) Fluid needs: 1ml/kcal Nutrition Intervention Change Diet Order: Advance diet when medically able Add Supplement/Snack (indicate name/kcal Ensure Clear 1 daily /protein ) Provides kCal: 220 Provides Protein (gm) 8 Goal #1 Diet advancement Anticipated Discharge Needs: Unable to determine at this time Follow-Up By: 06/27/19 Additional Comments Follow for diet advancement
[2019-06-27] MEDS: KCL 10MEQ/100ML 10 MEQ/100 ML BAG IV SCH ×4 (09:35→13:05)
[2019-06-27] MEDS: SODIUM CHLORIDE FLUSH SYRINGE 10 ML IV SCH (09:35)
[2019-06-27] MEDS: HEPARIN SUB-Q SCH (09:41)
[2019-06-27] MEDS ORDERED: PROTONIX PO SCH (10:00)
--- NOTE | 2019-06-27 11:02 | Progress Note ---
Assessment and Plan - Patient Problems (1) Gaseous distention of intestine determined by X-ray Current Visit: Yes Status: Acute Plan to address problem: Pt stable. Contrast has clearly gone all the way to the rectum and he has had two BMs last night. He is tolerating the clears well. However, the CT still shows a decompressed section of distal small bowel. Dr. Lund and I discussed options of surgery now versus continued observation with follow-up in one week. His exam is clearly improved. He looks much better. It may be prudent to give him one extra week of rest with TPN and follow-up in the office in one week. We will repeat the films at that time. If there is still suggestion of small bowel distention, then we will plan for diagnostic laparoscopy. Otherwise, we can discuss if and when to do surgery for the appendix. Would remove NGT, but keep him on clear liquid diet. Please call with questions. Time=10min Subjective Date of service: 06/27/19 Patient Reports: Positive: no new complaints, bowel movement, other (nurse reports that he tolerated liquids well this morning). Negative: nausea, vomiting Objective Vital Signs - 12hr 06/27/19 06/27/19 06/27/19 02:32 05:16 07:00 Temperature 98.3 F Pulse Rate 74 74 91 H Pulse Rate [ From Monitor] Respiratory 20 Rate Blood Pressure 154/83 154/83 O2 Sat by Pulse 100 Oximetry 06/27/19 06/27/19 06/27/19 07:11 08:10 10:00 Temperature 98.0 F Pulse Rate 92 H Pulse Rate [ 91 H From Monitor] Respiratory 20 20 Rate Blood Pressure 164/90 O2 Sat by Pulse 99 100 99 Oximetry 06/27/19 10:18 Temperature Pulse Rate 83 Pulse Rate [ From Monitor] Respiratory Rate Blood Pressure 123/63 O2 Sat by Pulse 99 Oximetry - General physical appearance no distress, no pain, other (looks better) - Respiratory normal expansion, normal respiratory effort - Abdomen soft, not tender, distended (minimal (much improved)), not guarding, not rigid - Integumentary no rash, no growths, no abnormal pigmentation - Psychiatric oriented to time, oriented to person - Labs 06/27/19 06:07 06/27/19 06:07 Diabetes panel 06/27/19 Range/Units 06:07 Sodium 147 H (137-145) mmol/L Potassium 3.3 L (3.6-5.0) mmol/L Chloride 108.3 H (98-107) mmol/L Carbon Dioxide 22 (22-30) mmol/L BUN 2 L (9-20) mg/dL Creatinine 0.4 L (0.8-1.5) mg/dL Glucose 98 (75-100) mg/dL Calcium 7.7 L (8.4-10.2) mg/dL Calcium panel 06/27/19 Range/Units 06:07 Calcium 7.7 L (8.4-10.2) mg/dL Pituitary panel 06/27/19 Range/Units 06:07 Sodium 147 H (137-145) mmol/L Potassium 3.3 L (3.6-5.0) mmol/L Chloride 108.3 H (98-107) mmol/L Carbon Dioxide 22 (22-30) mmol/L BUN 2 L (9-20) mg/dL Creatinine 0.4 L (0.8-1.5) mg/dL Glucose 98 (75-100) mg/dL Calcium 7.7 L (8.4-10.2) mg/dL Adrenal panel 06/27/19 Range/Units 06:07 Sodium 147 H (137-145) mmol/L Potassium 3.3 L (3.6-5.0) mmol/L Chloride 108.3 H (98-107) mmol/L Carbon Dioxide 22 (22-30) mmol/L BUN 2 L (9-20) mg/dL Creatinine 0.4 L (0.8-1.5) mg/dL Glucose 98 (75-100) mg/dL Calcium 7.7 L (8.4-10.2) mg/dL
--- NOTE | 2019-06-27 11:12 | Discharge Summary ---
Providers - Providers Date of Admission: 06/14/19 08:26 Attending physician: SHELLI FUNETES MD 06/14/19 03:45 Consult to Dietitian/Nutrition [CONS] Routine Physician Instructions: Reason For Exam: Reason for Consult: Evaluate nutritional intake 06/14/19 05:50 Consult to Physician [CONS] Stat Comment: Consulting Provider: PEÑA CASTANEDA Physician Instructions: Reason For Exam: abnormal EKG, shock, ACS 06/14/19 08:15 Consult to Physician [CONS] Stat Comment: Consulting Provider: CARLOS HANKINS Physician Instructions: Reason For Exam: abnl CT Abd/pel 06/14/19 08:26 Consult to Physician [CONS] Routine Comment: Consulting Provider: SHADI DEL ANGEL Physician Instructions: Reason For Exam: septic shock 06/14/19 08:28 Consult to Physician [CONS] Routine Comment: Consulting Provider: VEENA WOOTEN Physician Instructions: Reason For Exam: septic shock 06/14/19 12:18 Consult to Dietitian/Nutrition [CONS] Routine Physician Instructions: Reason For Exam: Reason for Consult: Write/Manage Tube Feeding 06/20/19 16:39 Speech Therapy Evaluation and Treat [CONS] Routine Reason For Exam: dysphagia 06/20/19 17:35 Consult to Physician [CONS] Routine Comment: Consulting Provider: FILOMENA SILVESTRE Physician Instructions: Reason For Exam: n/v with bowel obstuction [facility] Condition: Stable Hospital course: Patient is a 78-year-old man from [facility] with a history of PAD s/p BKA, hypertension, DVT on A/C, hypertension, GERD, OA and Gout who presented to [facility] ED with confusion, lethargy, low grade fever, tachycardia and hypotension. He was intubated in the ER for airway protection on 06/14/19 and extubated on 06/18/19. * Chest x-ray; no acute findings * CT abd/pelvis with contrast IMPRESSION: Abnormal appearance of the gallbladder and appendix as outlined above. Correlate for gallbladder symptoms and appendicitis. Cystitis could be considered. Suspicious 1.8 cm left renal lesion as described above. Further imaging is recommended. Severe osteopenia. * CT angiogram chest, no PE, bibasilar atelectasis * CT head, essentially normal for age * Repeat CT abdomen and pelvis: 06/26/19 IMPRESSION: 1. Continued evidence of a partial small bowel obstruction of moderate grade, appearing to be in the mid to distal small bowel, likely in the proximal ileum 2. Resolution of edema of the gallbladder wall seen previously 3. Small bilateral pleural effusions and mild associated atelectatic change * Discussed with Surgeon, patient will be discharge to LTAC today, will have a follow up with Surgery in a Week a KUB prior to visiting the Surgeon. * Patient should continue on Clear liquid and not advance until evaluated by surgery unless, NGT tube is needed again. SBO (new issue) most likely Ileus: ngt to LIS, GS input noted, imaging reviewed. evidenced on CT, will await surgical input following CT abdomen and Pelvis Urine retention (new issue) with Left renal mass 257cc on bladder scan, 340 cc expelled on straight cath, NO FURTHER ISSUES NOTED . not a simple cyst per Abdominal U/S: d/w Urologist, on 06/21/19- follow with urology outpatient, Septic shock/ESBL E. coli bacteremia: ID input noted, treated with IV aBX, Source of bacteremia still unclear, continue IV meropenem 1 gm q8 hrs, end date for abx: 07/01/2019. Appendicitis ruled out, Surgery input appreciated Cholelithiasis; GS evaluated, input noted Acute respiratory failure on mechanical ventilator < 96 hours, now extubated on 06/18/19, management per Pulmonology Hypokalemia/hypophosphatemia: Replace IV TYpe 2 NSTEMI, PAF, mgt per cardiology, input noted Acute metabolic encephalopathy: Resolved Paroxysmal Atrial Fibrillation: Not on anticoagulation per Cardiology due to blood secretions prior noticed. Will follow with cardiology outpateint for reconsideration. EF 50-55% DVT prophylaxis reviewed Disposition: LTAC My colleague called daughter Shari Malagon at [phone] Could not leave a message as mail box is full Disposition: [id number] MEDICARE CERT LT Time spent for discharge: 35 MINS Core Measure Documentation - Palliative Care Palliative Care/ Comfort Measures: Not Applicable - Core Measures Any of the following diagnoses?: none Exam - Physical Exam Narrative exam: Gen: ill appearing, nad, alert awake oriented x 3 HEENT: NCAT, EOMI, PERRL, OP Clear, NGT in place Neck: supple, no adenopathy, no thyromegaly, no JVD CVS/Heart: RRR, normal S1S2, pulses present bilaterally Chest/Lungs: CTA B, Symmetrical chest expansion, good air entry bilaterally GI/Abdomen: soft, NTND, good bowel sounds, no guarding or rebound /Bladder: no suprapubic tenderness, no CVA or paraspinal tenderness Extermity/Skin: no c/c/e, no obvious rash MSK: FROM x 4, bilateral AKA Neuro: CN 2-12 grossly intact, no new focal deficits Psych: calm - Constitutional Vitals: Temp Pulse Resp BP Pulse Ox 98.0 F 83 20 123/63 99 06/27/19 07:11 06/27/19 10:18 06/27/19 10:00 06/27/19 10:18 06/27/19 10:18 Plan Activity: advance as tolerated, fall precautions Diet: clear liquids Special Instructions: record daily BP diary Care Plan Goals: CLEAR LIQUIDS TILL RE-EVALUATION BY SURGERY IN 1 WEEK Plan of Treatment: RE-EVALUATION BY SURGEON DR HANKINS IN ONE WEEK KUB PRIOR TO COMING TO THE SURGEON Follow up with: CARLOS HANKINS MD [Staff Physician] - 7 Days [place] MONO BROWN MD [Primary Care Provider] - 3-5 Days PEÑA CASTANEDA MD [Staff Physician] - 14 Days
--- NOTE | 2019-06-27 11:18 | Progress Note ---
<LORETTA QUEZADA - Last Filed: 06/27/19 11:17> Assessment and Plan Small bowel obstruction likely ileus per surgery Severe sepsis E coli bacteremia Acute respiratory failure s/p extubation Acute encephalopathy -improved Peripheral arterial disease s/p bilateral knee amputation COPD Paroxysmal Atrial fibrillation Not on OAC due to bloody secretions in NG tube suction. Echo showing LVEF 50-55%. Continue medical therapy for paroxysmal atrial fibrillation. Conservative cardiac management. Subjective Date of service: 06/27/19 Principal diagnosis: Ac. hypoxemic resp failure; Severe Shock; UTI; COPD; PVD; HTN; NSTEMI; DVT Interval history: No complaints. Objective Vital Signs Temp Pulse Pulse Resp BP Pulse Ox 06/27/19 10:18 83 123/63 99 06/27/19 10:00 91 H 20 99 06/27/19 08:10 100 06/27/19 07:11 98.0 F 92 H 20 164/90 99 06/27/19 07:00 91 H 06/27/19 05:16 74 154/83 06/27/19 02:32 98.3 F 74 20 154/83 100 06/26/19 20:03 100 H 18 96 06/26/19 19:45 98.7 F 70 22 137/72 99 06/26/19 19:21 86 06/26/19 17:52 80 141/82 98 06/26/19 15:00 80 06/26/19 14:05 98.9 F 85 20 126/65 93 06/26/19 12:28 103 H 129/60 97 06/26/19 12:25 84 129/60 - Physical Examination General: No Apparent Distress HEENT: Positive: PERRL Neck: Positive: trachea midline Cardiac: Positive: irregularly irregular Lungs: Positive: Decreased Breath Sounds Neuro: Positive: Other (bilateral LE amputation) Extremities: Present: Other (bilateral LE amputation) - Labs and Meds CBC 06/27/19 Range/Units 06:07 WBC 4.8 (4.5-11.0) K/mm3 RBC 3.51 L (3.65-5.03) M/mm3 Hgb 10.2 L (11.8-15.2) gm/dl Hct 31.4 L (35.5-45.6) % Plt Count 448 H (140-440) K/mm3 Comprehensive Metabolic Panel 06/27/19 Range/Units 06:07 Sodium 147 H (137-145) mmol/L Potassium 3.3 L (3.6-5.0) mmol/L Chloride 108.3 H (98-107) mmol/L Carbon Dioxide 22 (22-30) mmol/L BUN 2 L (9-20) mg/dL Creatinine 0.4 L (0.8-1.5) mg/dL Glucose 98 (75-100) mg/dL Calcium 7.7 L (8.4-10.2) mg/dL - Allied health notes Allied health notes reviewed: nursing <RODDY ARCHULETA - Last Filed: 06/27/19 18:04> Assessment and Plan I have seen and evaluated the patient and agree with the assessment and plan. Continue current medical therapy for treatment of paroxysmal atrial fibrillation. Objective Vital Signs Temp Pulse Pulse Resp BP Pulse Ox 06/27/19 13:17 98.0 F 84 22 147/76 99 06/27/19 12:07 80 131/67 96 06/27/19 12:05 78 131/67 06/27/19 10:18 83 123/63 99 06/27/19 10:00 91 H 20 99 06/27/19 08:10 100 06/27/19 07:11 98.0 F 92 H 20 164/90 99 06/27/19 07:00 91 H 06/27/19 05:16 74 154/83 06/27/19 02:32 98.3 F 74 20 154/83 100 06/26/19 20:03 100 H 18 96 06/26/19 19:45 98.7 F 70 22 137/72 99 06/26/19 19:21 86 - Labs and Meds CBC 06/27/19 Range/Units 06:07 WBC 4.8 (4.5-11.0) K/mm3 RBC 3.51 L (3.65-5.03) M/mm3 Hgb 10.2 L (11.8-15.2) gm/dl Hct 31.4 L (35.5-45.6) % Plt Count 448 H (140-440) K/mm3 Comprehensive Metabolic Panel 06/27/19 Range/Units 06:07 Sodium 147 H (137-145) mmol/L Potassium 3.3 L (3.6-5.0) mmol/L Chloride 108.3 H (98-107) mmol/L Carbon Dioxide 22 (22-30) mmol/L BUN 2 L (9-20) mg/dL Creatinine 0.4 L (0.8-1.5) mg/dL Glucose 98 (75-100) mg/dL Calcium 7.7 L (8.4-10.2) mg/dL
--- NOTE | 2019-06-27 12:51 | Progress Note ---
Assessment and Plan Cultures: Blood culture 06/14/2019 ESBL E coli 1 of 4 bottles Tracheal asp culture 06/14/2019 no growth today Assessment: 78 y/o male with a history of severe peripheral artery disease status post bilateral above the knee amputations, previous MRSA in wounds, COPD, rheumatoid arthritis, admitted on 06/14/2019 due to fever at 100.2, AMS and hypotension at 82/50 noted at his [facility] the morning of admission: 1) Severe sepsis with septic shock secondary to ESBL E.coli bacteremia: unclear source ?GI v/s urine. Patient with acute symptoms of fever, hypotension, no clear history of events. UA no significant pyuria. CXR and CTA chest no obvious pneumonia or PE. Repeat blood culture no growth. CT abd ? GB or appendix abnormalities. Elevated troponins. Noted surgery's recommendation re: chronically thickened appendix. Now with SBO being managed by Gen. Surg. 2) Acute respiratory failure: extubated 06/18/2019. 3) Acute encephalopathy: resolved. 4) Urinary retention with L renal mass: Urology consulted. 5) SBO - Surgery following. Recommendations: - continue IV meropenem 1 gm q8 hrs, end date for abx: 07/03/2019 - awaiting LTACH Court Cantor MD, FACP [facility] M: [phone] O: [phone] F: [phone] Subjective Date of service: 06/27/19 Principal diagnosis: Ac. hypoxemic resp failure; Severe Shock; UTI; COPD; PVD; HTN; NSTEMI; DVT Interval history: No fever. Confused at baseline, lying in bed. Objective - Exam Narrative Exam: Physical Exam: Constitutional: awake, no distress Head, Ears, Nose: Normocephalic, atraumatic. External ears, nose normal. NG tube + Eyes: Conjunctivae/corneas clear. No icterus. No ptosis. Neck: Supple, no meningeal signs Cardiovascular: S1, S2 normal. Respiratory: Good air entry, clear to auscultation bilaterally GI: Soft, non-tender; bowel sounds normal. No peritoneal signs Musculoskeletal: b/l AKA stumps well healed Skin: No rash or abscess Hem/Lymphatic: No palpable cervical or supraclavicular nodes. No lymphangitis Psych: confused, no agitation Neurological: Awake, talkative, but confused at baseline - Constitutional Vitals: Vital Signs Temp Pulse Resp BP Pulse Ox 98.0 F 78 20 131/67 99 06/27/19 07:11 06/27/19 12:05 06/27/19 10:00 06/27/19 12:05 06/27/19 10:18 Temperature -Last 24 Hours Temperature 98.0 F Temperature 98.3 F Temperature 98.7 F Temperature 98.9 F - Labs CBC & Chem 7: 06/27/19 06:07 06/27/19 06:07 Labs: Abnormal lab results 06/27/19 06/27/19 Range/Units 06:07 06:07 RBC 3.51 L (3.65-5.03) M/mm3 Hgb 10.2 L (11.8-15.2) gm/dl Hct 31.4 L (35.5-45.6) % Plt Count 448 H (140-440) K/mm3 Sodium 147 H (137-145) mmol/L Potassium 3.3 L (3.6-5.0) mmol/L Chloride 108.3 H (98-107) mmol/L BUN 2 L (9-20) mg/dL Creatinine 0.4 L (0.8-1.5) mg/dL Calcium 7.7 L (8.4-10.2) mg/dL
[2019-06-27] MEDS: SODIUM CHLORIDE FLUSH SYRINGE 10 ML IV PRN (14:23)
[2019-06-27 15:06] VITALS: BP 147/76
== END 2019-06-27 14:55 | DRG 870 ==
LOC: ED 02:12 → CC1 08:26 → IMCU 06-19 16:16 → 2B-ACE 06-20 18:59
PROVIDERS: ADMIT Internal Medicine; ATTEND Internal Medicine
PROC: 5A1955Z Respiratory Ventilation, Greater than 96 Consecutive Hours (ICD-10-PCS; principal; 2019-06-14)
PROC: 0BH17EZ Insertion of Endotracheal Airway into Trachea, Via Natural or Artificial Opening (ICD-10-PCS; 2019-06-14)
PROC: 02HV33Z Insertion of Infusion Device into Superior Vena Cava, Percutaneous Approach (ICD-10-PCS; 2019-06-14)
PROC: B548ZZA Ultrasonography of Superior Vena Cava, Guidance (ICD-10-PCS; 2019-06-14)
PROC: 4A033R1 Measurement of Arterial Saturation, Peripheral, Percutaneous Approach (ICD-10-PCS; 2019-06-15)
DX: A41.51 Sepsis due to Escherichia coli [E. coli] (principal); J96.00 Acute respiratory failure, unspecified whether with hypoxia or hypercapnia; R65.21 Severe sepsis with septic shock; G93.41 Metabolic encephalopathy; I21.A1 Myocardial infarction type 2; K56.609 Unspecified intestinal obstruction, unspecified as to partial versus complete obstruction; K56.7 Ileus, unspecified; N28.89 Other specified disorders of kidney and ureter; E87.6 Hypokalemia; K80.20 Calculus of gallbladder without cholecystitis without obstruction; I48.0 Paroxysmal atrial fibrillation; I73.9 Peripheral vascular disease, unspecified; J44.9 Chronic obstructive pulmonary disease, unspecified; M06.9 Rheumatoid arthritis, unspecified; R33.9 Retention of urine, unspecified; I10 Essential (primary) hypertension; K21.9 Gastro-esophageal reflux disease without esophagitis; M19.90 Unspecified osteoarthritis, unspecified site; M10.9 Gout, unspecified; E83.39 Other disorders of phosphorus metabolism; F17.200 Nicotine dependence, unspecified, uncomplicated; I45.10 Unspecified right bundle-branch block; Z89.512 Acquired absence of left leg below knee; Z89.511 Acquired absence of right leg below knee; Z86.14 Personal history of Methicillin resistant Staphylococcus aureus infection; Z86.718 Personal history of other venous thrombosis and embolism; Z79.01 Long term (current) use of anticoagulants; Z82.49 Family history of ischemic heart disease and other diseases of the circulatory system; Z79.899 Other long term (current) drug therapy
CPT/HCPCS: 36415; 36600; 70450; 71045; 71275; 74018; 74022; 74177; 74250; 76705; 76770; 80048; 80053; 80061; 81001; 82140; 82803; 82962; 83735; 84100; 84145; 84484; 85007; 85025; 85027; 85610; 85730; 87040; 87070; 87186; 87205; 93005; 93010; 93306; 94002; 94003; 94640; 94760; 96365; 96367; 96368; 96375; G0378; C9113; J0692; J1335; J1450; J1644; J2185; J2250; J2270; J2405; J2765; J3010; J3370; J3475; J3480; J7030; J7040; J7070; Q9963; Q9967